=== PATIENT | female | born 1965 | race Caucasian/White ===

== ENCOUNTER 2016-09-12 03:22 | Inpatient (IN) | payer OTHER ==
[~2016-09-12] VITALS: Ht 157.5 cm; Wt 92.2 kg
--- NOTE | 2016-09-12 03:40 | ERA ---
ER Documentation Chief Complaint Date/Time DATE: 09/12/16 TIME: 03:39 Chief Complaint HPI He will transfer from [facility] secondary to sepsis from right foot cellulitis. Patient had an uneventful trip. From [place]. Symptomology started 1 week ago has been getting progressively worse. ROS All systems reviewed and are negative except as per history of present illness. Allergies Allergies: Coded Allergies: No Known Allergy (Unverified , 09/12/16) Physical Exam Physical Exam Const: [] Head: Atraumatic Eyes: Normal Conjunctiva ENT: Normal External Ears, Nose and Mouth. Neck: Full range of motion..~ No meningismus. Resp: Clear to auscultation bilaterally Cardio: Regular rate and rhythm, no murmurs Abd: Soft, non tender, non distended. Normal bowel sounds Skin: No petechiae or rashes Back: No midline or flank tenderness Ext: Right lower extremity increased erythema and induration up to midcalf Neur: Awake and alert Psych: Normal Mood and Affect Results 24 hrs Current Medications Medications (Trade) Dose Ordered Sig/Rachel Route PRN Reason Start Time Stop Time Status Last Admin Dose Admin Sodium Chloride (NS) 1,000 ml @ 1,000 mls/hr Q1H ONCE IV 09/12/16 04:00 09/12/16 04:59 Procedures/MDM Medical decision-making: Sepsis patient transferred to [place]. Admitted to hospitalist. Departure Diagnosis: Primary Impression: Sepsis Qualified Code: A41.9 - Sepsis, due to unspecified organism Condition: Serious KIM MEJIA Sep 12, 2016 03:40
[2016-09-12] MEDS ORDERED: SOD CHLORIDE 0.9% 1,000 ML IV ONE (04:00)
[2016-09-12] MEDS ORDERED: HYDR-906 PO (04:14)
[2016-09-12] MEDS ORDERED: RANI150T5 PO (04:14)
[2016-09-12] MEDS ORDERED: LISI-313 PO (04:14)
[2016-09-12] MEDS ORDERED: MTF1000T PO (04:14)
[2016-09-12] MEDS ORDERED: GLIP5TAB13 PO (04:14)
--- NOTE | 2016-09-12 07:10 | QN ---
Documentation Comment Patient has no criteria for tele admission, will downgrade to med surg bed. STEPHAN HICKMAN MD Sep 12, 2016 07:10
[2016-09-12] MEDS ORDERED: NACL 0.9% 3 ML SYG IV SCH (08:00)
[2016-09-12] MEDS ORDERED: VANCOMYCIN IV PER PHARMACY XX SCH (08:00)
[2016-09-12] MEDS ORDERED: ALBUTEROL/IPRATROPIUM (NEB) 3 ML AMP HHN PRN (08:00)
[2016-09-12] MEDS ORDERED: ONDANSETRON 4 MG INJ IV PRN (08:00)
[2016-09-12] MEDS ORDERED: VANCOMYCIN 1.5 GM in SOD CHLORIDE 0.9% 250 ML IVPB SCH ×2 (09:00→18:00)
[2016-09-12] MEDS: ASPIRIN 81 MG TAB PO SCH (09:32)
[2016-09-12] MEDS: SOD CHLORIDE 0.9% 1,000 ML IV SCH ×2 (09:32→20:35)
[2016-09-12 10:10] LABS: ADD SCAN DIFF NO
[2016-09-12 10:20] LABS: ABNORMAL IP MESSAGE 1; HEMATOCRIT 28.6 % (37.0-47.0); HEMOGLOBIN 8.8 g/dl (12.0-16.0); MEAN CORPUSCULAR HEMOGLOBIN 26.7 pg (29.0-33.0); MEAN CORPUSCULAR HGB CONC 30.8 g/dl (32.0-37.0); MEAN CORPUSCULAR VOLUME 86.7 fl (82.0-101.0); MEAN PLATELET VOLUME 10.6 fl (7.4-10.4); PLATELET COUNT 304 10^3/UL (140-415); RED CELL DISTRIBUTION WIDTH 12.8 % (11.5-14.5); WHITE BLOOD COUNT 15.2 10^3/ul (4.8-10.8)
[2016-09-12] MEDS ORDERED: GLUCOSE GEL 15 GRAM TUBE PO PRN ×2 (10:30)
[2016-09-12] MEDS ORDERED: GLUCAGON 1 MG INJ IM PRN (10:30)
[2016-09-12] MEDS ORDERED: DEXTROSE 50% 50 ML SYRINGE IV PRN ×2 (10:30)
[2016-09-12] MEDS ORDERED: GLUCOSE GEL 15 GRAM TUBE BUCCAL PRN (10:30)
[2016-09-12] MEDS ORDERED: INSULIN GLARGINE [LANtus] 3 ML PEN SC SCH ×2 (10:30→21:00)
[2016-09-12 10:41] LABS: ALBUMIN 2.9 g/dl (3.3-4.9); ALBUMIN/GLOBULIN RATIO 1.2; CALCIUM 7.8 mg/dl (8.4-10.2); CHOL/HDL RATIO 3.7 RATIO; CREATININE 0.48 mg/dl (0.44-1.00); POTASSIUM 4.9 mmol/L (3.5-5.1); TOTAL PROTEIN 5.3 g/dl (6.1-8.1)
[2016-09-12 10:47] LABS: LYMPHOCYTES # 0.8 10^3/ul (0.8-2.9); MONOCYTE # 1.5 10^3/ul (0.3-0.9); NEUTROPHIL # 12.3 10^3/ul (1.6-7.5); PLATELET ESTIMATE PLT APPEAR ADEQUATE
[2016-09-12] MEDS: INSULIN ASPART [NOVOLOG] 3 ML PEN SC SCH ×5 (13:35→20:40)
[2016-09-12] MEDS ORDERED: VANCOMYCIN 1 GM in NS 250 ML IVPB SCH (16:00)
[2016-09-12] MEDS: ACETAMINOPHEN 325 MG TAB PO PRN (18:37)
[2016-09-12 18:39] VITALS: TEMP 98.6
[2016-09-12 20:00] VITALS: BP 105/56; PULSE 105; RESP 20
[2016-09-12] MEDS: LACTOBACILLUS RHAMNOSUS CAP PO SCH (20:35)
[2016-09-12 21:00] VITALS: BP 105/56; RESP 20
[2016-09-12] MEDS ORDERED: SOD CHLORIDE 0.9% 250 ML IV ONE (21:00)
[2016-09-12] MEDS ORDERED: INSULIN ASPART [NOVOLOG] 3 ML PEN SC ONE (21:00)
[2016-09-12 22:00] VITALS: Ht 157.5 cm; Wt 92.2 kg
[2016-09-12] MEDS: morphine 2 MG INJ IV PRN (23:17)
[2016-09-13] MEDS: VANCOMYCIN 1 GM in NS 250 ML IVPB SCH ×2 (00:26→10:08)
[2016-09-13 08:05] LABS: ADD SCAN DIFF NO
--- NOTE | 2016-09-13 08:07 | HP ---
DATE OF ADMISSION: 09/12/2016 TIME SEEN: 7:00 a.m. CHIEF COMPLAINT: Right lower extremity infection and elevated blood glucose. HISTORY OF PRESENT ILLNESS: The patient is a 51-year-old female with a history of diabetes, hype rtension, who initially went to [facility] with right lower extremity wound abscess/i nfection. While she was there, she was diagnosed with right lower extremity cellulitis and at the s jeff time, she was found to be hyperglycemic with a blood glucose of greater than 500 and also with m etabolic acidosis with a bicarbonate of 17. Her initial anion gap was 25. Repeat blood tests after insulin and IV fluid shows anion gap of 20 with similar bicarbonate and blood glucose in the 300s. The patient was transferred here because of ____ reasons. She was supposed to be directly admitted to telemetry unit. However, because there were no beds were available, she was directly transferre d from the [place] ER to our ER here. When she presented to the ER here, her blood pressure was 87, ALT 69, heart rate 91, respiratory rat e 16, temperature 98.6, oxygen saturation 100% on room air. Currently, labs are pending. When she was given nitro ____. The patient denied any fever, chills, nausea, vomiting, abdominal pain, or u rinary symptoms. REVIEW OF SYSTEMS: A 12-point review was done and essentially negative.____ PAST MEDICAL HISTORY: Hypertension and diabetes. PAST SURGICAL HISTORY: . SOCIAL HISTORY: Denied a history of tobacco, alcohol or illicit drug use. ALLERGIES: NO KNOWN DRUG ALLERGIES. HOME MEDICATIONS: 1. Lisinopril. 2. Welchol. 3. Ranitidine. 4. Glipizide. 5. Metformin. PHYSICAL EXAMINATION: VITAL SIGNS: Blood pressure 113/74, heart rate 91, respiratory rate 18, temperature 98.8, saturatio n 96% on room air. GENERAL: No acute distress. She is lying on the gurney, alert and oriented. HEENT: No obvious head deformity. ____Extraocular muscles intact. CARDIOVASCULAR: Regular rate and rhythm with ____extra sounds. LUNGS: Are clear. ABDOMEN: Soft, nontender, nondistended. Positive bowel sounds. EXTREMITIES: Right lower extremity with cellulitis/infection. LABORATORY: Currently pending here. IMPRESSION: 1. Right lower extremity cellulitis and infection. 2. Diabetes with hyperglycemia (there is mild diabetic ketoacidosis at the outside hospital). 3. History of hypertension, currently blood pressure within goal. PLAN: We will check the basic labs with fingerstick blood glucose. She will be placed on antibioti cs for osteomyelitis. She also will be placed on insulin for her diabetes. Will check A1c. We chay l also order for blood cultures. She will be placed on IV fluids, especially given that initially s he presented with borderline hypotension. We will provide pain medication as needed. Further workup and management per clinical course. Dictated By: KIM PADGETT/SEPIDEH Conf#: [id number] DID#: [id number]
[2016-09-13 08:12] LABS: BASOPHILS % 0.2 % (0.0-2.0); EOSINOPHILS % 0.3 % (0.0-7.0); HEMATOCRIT 26.4 % (37.0-47.0); HEMOGLOBIN 8.5 g/dl (12.0-16.0); LYMPHOCYTES # 1.2 10^3/ul (0.8-2.9); LYMPHOCYTES % 11.8 % (15.0-51.0); MEAN CORPUSCULAR HGB CONC 32.2 g/dl (32.0-37.0); MEAN CORPUSCULAR VOLUME 83.8 fl (82.0-101.0); MEAN PLATELET VOLUME 10.5 fl (7.4-10.4); MONOCYTES % 9.4 % (0.0-11.0); NEUTROPHIL # 8.2 10^3/ul (1.6-7.5); NEUTROPHILS % 77.5 % (39.0-77.0); PLATELET COUNT 297 10^3/UL (140-415); RED BLOOD COUNT 3.15 10^6/ul (4.20-5.40); RED CELL DISTRIBUTION WIDTH 12.9 % (11.5-14.5); WHITE BLOOD COUNT 10.6 10^3/ul (4.8-10.8)
[2016-09-13] MEDS: SOD CHLORIDE 0.9% 1,000 ML IV SCH ×3 (08:15→17:44)
[2016-09-13] MEDS: LACTOBACILLUS RHAMNOSUS CAP PO SCH ×2 (08:16→20:51)
[2016-09-13] MEDS: ASPIRIN 81 MG TAB PO SCH (08:16)
[2016-09-13] MEDS: ENOXAPARIN 40 MG/0.4 ML SYG SC SCH (08:19)
[2016-09-13] MEDS: INSULIN ASPART [NOVOLOG] 3 ML PEN SC SCH ×7 (08:20→21:01)
[2016-09-13 08:21] VITALS: BP 106/56; RESP 20
[2016-09-13 08:29] LABS: CALCIUM 8.1 mg/dl (8.4-10.2); CREATININE 0.34 mg/dl (0.44-1.00); MAGNESIUM 1.7 mg/dl (1.7-2.5); PHOSPHORUS 1.6 mg/dl (2.5-4.9); POTASSIUM 3.5 mmol/L (3.5-5.1)
[2016-09-13 08:37] LABS: TOTAL IRON BINDING CAPACITY 227 ug/dl (241-421)
[2016-09-13 08:45] LABS: INR 1.07; PROTIME 13.9 Sec (12.2-14.2); PT RATIO 1.1
[2016-09-13 08:57] LABS: IRON < 10 ug/dl (35-150)
[2016-09-13] MEDS ORDERED: INSULIN GLARGINE [LANtus] 3 ML PEN SC ONE (13:00)
[2016-09-13] MEDS ORDERED: POTASSIUM PHOSPHATE 30 MM in SOD CHLORIDE 0.9% 250 ML IVPB ONE (13:00)
[2016-09-13] MEDS ORDERED: MAGNESIUM SULFATE 2 GM/50 ML 50 ML IVPB ONE (13:00)
--- NOTE | 2016-09-13 13:16 | PN ---
Date/Time of Note Date/Time of Note DATE: 09/13/16 TIME: 13:13 Assessment/Plan VTE Prophylaxis VTE Prophylaxis Intervention: LMWH Lines/Catheters IV Catheter Type (from Nrs): Peripheral IV Assessment/Plan Chief Complaint/Hosp Course S: Daughter noticed painful ulcer right plantar aspect maybe 1 week ago. No generalized fever chills nausea vomiting toxicity. Denies injury, wears tennis shoes. Over the last year has had this issue which was treated with 2 courses of antibiotics in [place]. She was told not to put a lot of weight on her foot but continues to go to work. She additionally has a nontraumatic fracture of the same foot in the past. O: vss PE No pallor adenopathy Reg Clear Bs +; nt nd benign; overweight Mild edema rt ankle/ foot. Rt ulcer dressed with some seepage A/P 1. Skin and soft tissue infection Rt plantar ulcer. Stable consult ID/podiatry. Cont wound care & antibiotics as needed, and potentially offload/boot. 2. DFI 3. Dm 2- out of control; metabolic syndrome 4. Htn 5. Anemia 6. Probable diabetic neuropathy. Problems: Exam/Review of Systems Vital Signs Vitals Vital Signs Date Time Temp Pulse Resp B/P Pulse Ox O2 Delivery O2 Flow Rate FiO2 09/13/16 08:21 99.6 91 20 106/56 96 09/12/16 20:00 Room Air Intake and Output 09/12/16 09/12/16 09/13/16 15:00 23:00 07:00 Intake Total 250 ml 1480 ml Balance 250 ml 1480 ml Results Result Diagram: 09/13/16 0757 09/13/16 0757 Results 24 hrs Laboratory Tests Test 09/12/16 13:30 09/12/16 20:37 09/13/16 07:57 09/13/16 08:13 Bedside Glucose 256 H 376 H 243 H White Blood Count 10.6 # Red Blood Count 3.15 L Hemoglobin 8.5 L Hematocrit 26.4 L Mean Corpuscular Volume 83.8 Mean Corpuscular Hemoglobin 27.0 L Mean Corpuscular Hemoglobin Concent 32.2 Red Cell Distribution Width 12.9 Platelet Count 297 Mean Platelet Volume 10.5 H Neutrophils % 77.5 H Lymphocytes % 11.8 L Monocytes % 9.4 Eosinophils % 0.3 Basophils % 0.2 Nucleated Red Blood Cells % 0.0 Neutrophils # 8.2 H Lymphocytes # 1.2 Monocytes # 1.0 H Eosinophils # 0.0 Basophils # 0.0 Nucleated Red Blood Cells # 0.0 Prothrombin Time 13.9 Prothrombin Time Ratio 1.1 INR International Normalized Ratio 1.07 Sodium Level 139 Potassium Level 3.5 Chloride Level 109 Carbon Dioxide Level 21 Anion Gap 13 Blood Urea Nitrogen 9 Creatinine 0.34 L Glucose Level 242 H Calcium Level 8.1 L Phosphorus Level 1.6 L Magnesium Level 1.7 Iron Level < 10 L Total Iron Binding Capacity 227 L Percent Iron Saturation Ferritin 84.2 Thyroid Stimulating Hormone (TSH) 0.979 Serum HCG, Qualitative NEGATIVE Vancomycin Level Trough 9.1 L Test 09/13/16 12:07 Bedside Glucose 262 H Medications Medications Current Medications Sodium Chloride (NS) 1,000 ml @ 125 mls/hr Q8H IV Last administered on 08:15; Admin Dose 125 MLS/HR; Start 09/12/16 at 08:00 Ondansetron HCl (Zofran Inj) 4 mg Q6H PRN IV NAUSEA AND/OR VOMITING; Start 09/12 at 08:00 Aspirin (Aspirin) 81 mg DAILY PO Last administered on 09/13/16 08:16; Admin Dose 81 MG; Start 09/12/16 at 09:00 Acetaminophen (Tylenol Tab) 650 mg Q6H PRN PO PAIN LEVEL 1-3 OR FEVER Last administered on 09/12/16 18:37; Admin Dose 650 MG; Start 09/12/16 at 08:00 Morphine Sulfate (morphine) 2 mg Q4H PRN IV PAIN LEVEL 7-10 Last administered on 09/12/16 23:17; Admin Dose 2 MG; Start 09/12/16 at 08:00 Miscellaneous Information 1 ea NOTE XX ; Start 09/12/16 at 10:30 Glucose (Glutose) 15 gm Q15M PRN PO DECREASED GLUCOSE; Start 09/12/16 at 10:30 Glucose (Glutose) 22.5 gm Q15M PRN PO DECREASED GLUCOSE; Start 09/12/16 at 10:30 Dextrose (D50w Syringe) 25 ml Q15M PRN IV DECREASED GLUCOSE; Start 09/12/16 at 10:30 Dextrose (D50w Syringe) 50 ml Q15M PRN IV DECREASED GLUCOSE; Start 09/12/16 at 10:30 Glucagon (Glucagen) 1 mg Q15M PRN IM DECREASED GLUCOSE; Start 09/12/16 at 10:30 Glucose (Glutose) 15 gm Q15M PRN BUCCAL DECREASED GLUCOSE; Start 09/12/16 at 10: 30 Lactobacillus Acidophilus/ Rhamnosus (Culturelle) 1 cap BID PO Last administered on 09/13/16 08:16; Admin Dose 1 CAP; Start 09/12/16 at 21:00 Enoxaparin Sodium 40 mg 40 mg DAILY SC Last administered on 09/13/16 08:19; Admin Dose 40 MG; Start 09/13/16 at 09:00 Magnesium Sulfate 50 ml @ 25 mls/hr ONCE ONCE IVPB ; Start 09/13/16 at 13:00; Stop 09/13/16 at 14:59 Potassium Phosphate/Sodium Chloride (K Phos (Mm)/NS) 260 ml @ 65 mls/hr ONCE ONCE IVPB ; Start 09/13/16 at 13:00; Stop 09/13/16 at 16:59 Insulin Glargine 30 unit 30 unit HS SC ; Start 09/13/16 at 21:00 Vancomycin HCl/ Sodium Chloride (Vancocin/NS) 250 ml @ 83.333 mls/ hr Q8H IVPB ; Start 09/13/16 at 18:00 JONAH LI MD Sep 13, 2016 13:16
[2016-09-13] MEDS ORDERED: LACTOBACILLUS RHAMNOSUS CAP PO SCH (13:30)
--- NOTE | 2016-09-13 15:29 | RADRPT ---
PROCEDURE: XR Foot. CLINICAL INDICATION: Wound/also a. TECHNIQUE: Right foot x-rays, three views. COMPARISON: None. FINDINGS: Bone density appears normal. There is no visible osseous erosion. There is no evidence of periostit is. Degenerative changes of the medial aspect of the midfoot are present. Marked soft tissue swelli ng of the medial aspect of the foot is observed. There is suggestion of scattered few pockets of so ft tissue air. A small plantar calcaneal spur is present. An old fracture of the proximal second p halanx is observed. IMPRESSION: Marked focal soft tissue swelling over the medial aspect of the foot with suggestion of scattered fe w pockets of internal air. There is no obvious bony erosion or evidence of periostitis. Healed fracture of the proximal second phalanx. Degenerative changes of the medial aspect of the midfoot. RPTAT: HLST .Daniela Hicks MD, Date Time Electronically viewed and signed by .Daniela Hicks MD, MD on 09/13/2016 15:28 .T/
--- NOTE | 2016-09-13 16:32 | CONS ---
DATE OF ADMISSION: 09/12/2016 DATE OF CONSULTATION: 09/13/2016 TYPE OF CONSULTATION: Infectious Disease. REASON FOR CONSULTATION: Antibiotic management. HISTORY OF PRESENT ILLNESS: Maryuri Del Real is a 51-year-old female who presents with right lower ex tremity infection and elevated blood sugar. Past problems include: 1. Adult-onset diabetes mellitus. 2. Hypertension. 3. Status post in the past. Acutely, the patient presented to [facility] with right lower extremity wound abscess /infection. She was diagnosed with right lower extremity cellulitis and she was found to be hypergl ycemic with blood sugar greater than 500 with metabolic acidosis and a bicarbonate of 17. Her anion gap was 25. She received insulin and fluids and her blood glucose came down to 300s. She was waller sferred from one ER to the other. On admission, her white count was 15.2, H and H of 8.8 and 28.6, platelet count of 304,000. On 09/13/2016, white count was 10.6. BUN and creatinine 9/0.34. Random glucose 376, though as noted on admission it was higher. PAST MEDICAL HISTORY: Operations as outlined. PAST SURGICAL HISTORY: As outlined. SOCIAL HISTORY: She denies smoking, drinking or abuse of drugs. FAMILY HISTORY: Noncontributory. ALLERGIES: NONE TO PENICILLIN, SULFA OR FOODS. MEDICATIONS: Per chart. REVIEW OF SYSTEMS: As per HPI. PHYSICAL EXAMINATION: GENERAL: The patient is a well-developed, well-nourished female, alert, responsive, in no acute dis tress. VITAL SIGNS: Stable. She is afebrile. SKIN: Without generalized rash. HEENT: Within normal limits. NECK: Supple. LYMPH NODES: None palpable. CHEST: Decreased breath sounds at the bases. HEART: Without murmur or gallop. ABDOMEN: Soft, nontender, without organosplenomegaly or masses. EXTREMITIES: Without cyanosis, clubbing, or edema. She has cellulitis of the right lower extremity . PLAN: She was placed on antibiotics for osteomyelitis. Also, given insulin. She was started on va ncomycin. I will continue her on that. I will dictate my findings to the hospitalist. Dictated By: SUZAN LAW MD, JD/SEPIDEH Conf#: [id number] [facility]#: [id number]
[2016-09-13] MEDS: SOD FERRIC GLUC COMPLX 125 MG in SOD CHLORIDE 0.9% 100 ML IVPB SCH (17:39)
--- NOTE | 2016-09-13 17:57 | CONS ---
DATE OF ADMISSION: 09/12/2016 DATE OF CONSULTATION: 09/13/2016 Thank you very much for involving me in the care of this patient. TYPE OF CONSULTATION: Initial foot and ankle surgery consultation. As you very well know, this is a 51-year-old female patient with multiple medical problems including diabetes mellitus and hypertension who initially presented to [facility] with right lower extremity wound and abscess. She was diagnosed with right lower extremity cellulit is and was found to be hypoglycemic with a blood glucose of 500+ with metabolic acidosis. The patie nt was transferred to [facility] because of insurance reasons. She is found to villa ve a severe right foot infection with cellulitis of the right lower extremity. I was consulted for evaluation and treatment. Patient states that she has been having issues with the right foot with a n open wound for quite some time. She says she was being treated in [place] by her loan specialist, which included dressing changes and topical ointment. The patient says that the foot became very sw ollen and she started having fever and chills. She says that the redness of the right foot became w orse and now has become extremely large. The patient denies fever and chills today. Denies pain in the right lower extremity. Patient has no complaints of anything on her left foot. She reports sh e has been diagnosed with diabetes recently and takes pills and insulin. REVIEW OF SYSTEMS: A 12-point review was done and essentially negative except per HPI. PAST MEDICAL HISTORY: As per HPI. PAST SURGICAL HISTORY: section. SOCIAL HISTORY: The patient denies smoking cigarettes. Denies use of alcohol or illegal drugs. ALLERGIES: NO KNOWN DRUG ALLERGIES NOTED. HOME MEDICATIONS: Include: 1. Lisinopril. 2. Welchol. 3. Ranitidine. 4. Glipizide. 5. Metformin. PHYSICAL EXAMINATION: GENERAL: The patient is morbidly obese, in no acute distress. She is currently on IV antibiotics, lying supine in bed. VITAL SIGNS: Temperature is 99.6, pulse 91, respiratory rate 20, blood pressure is 106/56, pulse ox is 96. Right foot is significantly swollen with the mid foot protrusion and abscess formation, antonietta lulitis of the right foot, ankle and lower leg noted. There is significant decrease in temperature gradient of the right lower extremity. Open wound present with maceration and the blister formation on the plantar aspect of the right foot, malodor noted. Deformity of the mid foot present with pal pable bony prominence dorsally. Dorsalis pedis, posterior tibial pulse is palpable on the left but not palpable on the right secondary to the edema present. Capillary refill time is delayed. Sensat ion is decreased to sharp, dull, vibratory and temperature stimuli. Her white blood count is 15.2 a s of 09/12/2016 down to 10.6 today. Hemoglobin is 8.5, hematocrit 26.4. There is no hemoglobin A1c as of yet. X-rays of the right foot were obtained. MRI is pending. There is marked focal soft ti ssue swelling over the medial aspect of the foot with pockets of internal air. There is a correspon ding open wound, Charcot changes and degenerative changes of the mid foot noted as well. Again, MRI is pending. IMPRESSION: 1. Right lower extremity cellulitis. 2. Abscess, right foot with cellulitis of the right foot. 3. Charcot right foot. 4. Diabetes mellitus with hyperglycemia, uncontrolled. 5. Possible osteomyelitis of the right foot. The patient will require surgical management and will be placed on OR schedule as soon as possible. Patient will have initial incision and drainage with debridement of necrotic tissue. She will requ alysia IV antibiotics. I highly recommend Infectious Disease involvement, nonweightbearing on the righ t foot. The patient will be placed n.p.o. as of midnight and I will try to place her on the sched e for tomorrow. Thank you very much again for the consultation. Dictated By: COLETTE QUINTANILLA Conf#: [id number] DID#: [id number]
[2016-09-13] MEDS: VANCOMYCIN 1.25 GM in SOD CHLORIDE 0.9% 250 ML IVPB SCH (19:40)
[2016-09-13 20:02] VITALS: BP 108/57; RESP 19
[2016-09-13] MEDS: ACETAMINOPHEN 325 MG TAB PO PRN (20:50)
[2016-09-13] MEDS: SILVER SULFADIAZINE 1% 25 GM CR TOP SCH (20:51)
[2016-09-13] MEDS: SODIUM HYPOCHLORITE 0.125% 473 ML BTL IRR SCH (20:51)
[2016-09-13] MEDS ORDERED: INSULIN GLARGINE [LANtus] 3 ML PEN SC SCH (21:00)
[2016-09-13] MEDS ORDERED: MAGNESIUM HYDROXIDE 30ML CUP PO ONE (21:30)
[2016-09-14] VITALS (19 sets, daily range): BP systolic 83–153; BP diastolic 43–90; PULSE 80–100; RESP 13–19
[2016-09-14] MEDS: VANCOMYCIN 1.25 GM in SOD CHLORIDE 0.9% 250 ML IVPB SCH ×3 (01:58→19:23)
[2016-09-14] MEDS: ACETAMINOPHEN 325 MG TAB PO PRN ×2 (04:40→20:07)
[2016-09-14] MEDS: INSULIN ASPART [NOVOLOG] 3 ML PEN SC SCH ×7 (07:35→20:15)
[2016-09-14] MEDS: SOD CHLORIDE 0.9% 1,000 ML IV SCH ×3 (08:25→17:20)
[2016-09-14] MEDS: SILVER SULFADIAZINE 1% 25 GM CR TOP SCH (09:00)
[2016-09-14] MEDS: ASPIRIN 81 MG TAB PO SCH (09:00)
[2016-09-14] MEDS: SODIUM HYPOCHLORITE 0.125% 473 ML BTL IRR SCH (09:00)
[2016-09-14] MEDS: SENNA TAB PO SCH (09:00)
[2016-09-14] MEDS: LACTOBACILLUS RHAMNOSUS CAP PO SCH ×2 (09:00→20:07)
[2016-09-14] MEDS: ENOXAPARIN 40 MG/0.4 ML SYG SC SCH (09:00)
[2016-09-14] MEDS ORDERED: GLUCAGON 1 MG INJ IM PRN (10:30)
[2016-09-14] MEDS ORDERED: hydrALAzine 20 MG INJ IV PRN (10:30)
[2016-09-14] MEDS ORDERED: FENTAnyl 50 MCG/ML VIAL IV PRN (10:30)
[2016-09-14] MEDS ORDERED: PROCHLORPERAZINE 10 MG INJ IV PRN (10:30)
[2016-09-14] MEDS ORDERED: HYDROmorphONE (0.2 MG/ML) 10ML SYG IV PRN ×2 (10:30)
[2016-09-14] MEDS ORDERED: DIPHENHYDRAMINE 50 MG INJ IV PRN (10:30)
[2016-09-14] MEDS ORDERED: GLUCOSE GEL 15 GRAM TUBE BUCCAL PRN (10:30)
[2016-09-14] MEDS ORDERED: MEPERIDINE 25 MG INJ IV PRN (10:30)
[2016-09-14] MEDS ORDERED: LABETALOL HCL 20MG INJ IV PRN (10:30)
[2016-09-14] MEDS ORDERED: DEXTROSE 50% 50 ML SYRINGE IV PRN ×2 (10:30)
[2016-09-14] MEDS ORDERED: ONDANSETRON 4 MG INJ IV PRN (10:30)
[2016-09-14] MEDS ORDERED: OXYCODONE/ACETAMINOPHEN (5/325) TAB PO PRN (10:30)
[2016-09-14] MEDS ORDERED: EPHEDrine SULFATE 50 MG/5 ML SYG IV PRN (10:30)
[2016-09-14] MEDS ORDERED: GLUCOSE GEL 15 GRAM TUBE PO PRN ×2 (10:30)
[2016-09-14] MEDS ORDERED: INSULIN ASPART [NOVOLOG] 3 ML PEN SC ONE (10:30)
[2016-09-14] MEDS ORDERED: LIDOCAINE 2% (MDV) 20 ML INJ ONE (10:40)
[2016-09-14] MEDS ORDERED: BUPIVACAINE 0.5% (SDV) 30 ML INJ ONE (10:40)
--- NOTE | 2016-09-14 11:10 | HPN ---
Date/Time of Note Date/Time of Note DATE: 09/14/16 TIME: 11:09 Interval H&P Admission Note Pt. seen H&P reviewed: No system changes COLETTE MCQUEEN DPM Sep 14, 2016 11:09
[2016-09-14] MEDS ORDERED: FENTAnyl 50 MCG/ML VIAL ONE (11:37)
[2016-09-14] MEDS ORDERED: LIDOCAINE 2% (SDV) 5 ML INJ ONE (11:37)
[2016-09-14] MEDS ORDERED: MIDAZOLAM 1 MG/ML 2 ML INJ ONE (11:37)
[2016-09-14] MEDS ORDERED: PROPOFOL 20 ML ONE (11:37)
[2016-09-14] MEDS ORDERED: PHENYLephrine (100 MCG/ML) 5ML SYG ONE (12:34)
[2016-09-14] MEDS ORDERED: ONDANSETRON 4 MG INJ ONE (12:37)
[2016-09-14] MEDS ORDERED: METOCLOPRAMIDE 10 MG INJ ONE (12:37)
[2016-09-14] MEDS ORDERED: EPHEDrine SULFATE 50 MG/5 ML SYG ONE (12:50)
[2016-09-14] MEDS ORDERED: BACITRACIN 50000 UNITS INJ IRR ONE (12:59)
--- NOTE | 2016-09-14 13:07 | OPR ---
Date/Time of Note Date/Time of Note DATE: 09/14/16 TIME: 13:07 Operative Report Procedure Date: Sep 14, 2016 Preoperative Diagnosis Abscess with cellulitis of right foot Right foot severe Charcot deformity Morbid obesity Diabetes mellitus Peripheral neuropathy Postoperative Diagnosis Abscess with cellulitis of right foot Right foot severe Charcot deformity Morbid obesity Diabetes mellitus Peripheral neuropathy Operation Performed Incision and drainage right foot cellulitis with abscess to the level of bone Surgeon: COLETTE MCQUEEN DPM Anesthesia: general Estimated Blood Loss: minimal Specimens Wound culture 2 from the right foot Complications: None Pt Condition Post Procedure: stable Disposition: PACU Indications This is a pleasant 51-year-old female patient who has been suffering with right foot abscess with cellulitis for the past several weeks. Patient suffers from severe right foot Charcot deformity and has diabetes mellitus with peripheral neuropathy. Patient has been mismanaged and has developed significant worsening of her right foot requiring incision and drainage. Patient will eventually require reconstructive Charcot surgery to correct the extensive deformity that is present. Initial goal is to reduce the infection process and to stabilize her foot. Risks and complications discussed included, but are not limited to, postoperative infection, postoperative pain, hardware failure, failure of surgery to correct the problem, need for additional surgical procedures, deep venous thrombosis, limb loss and loss of life. Patient understands the discussion and agrees to the procedure. An informed consent was signed, obtained and placed in the chart. No guarantees or warrantees was given or implied as to the outcome of the procedure either in verbal or written form. Operative\Procedure Findings Severe right foot Charcot deformity with abscess and cellulitis. Multiple open necrotic wounds and pus. Malodor from the right foot. Procedure Description The patient was seen in the preoperative area. Proposed surgery was discussed with patient in great detail. Opportunity was given to patient to ask questions and all questions were answered. An informed consent was obtained, signed and placed in the chart. Procedure in detail: The patient was brought into the operating room and was placed on the operating table in the supine position. General anesthesia was administered to the patient by the anesthesiologist. The right foot was scrubbed, prepped and draped in the usual aseptic manner. Procedure #1: Attention was directed to the right foot: Using sharp instrumentation such as #15 blade, rongeur, curettes etc. all necrotic open wounds were debrided to bleeding wounds. There was extensive amount of pus that was expressed and there were cultures taken from 2 different spots. 3 L of sterile normal saline with bacitracin was used with pulse irrigation to irrigate the right foot. All open areas were packed with iodoform packing. Sterile dressing was applied to the right foot. The patient tolerated the procedure and anesthesia well. She was transferred to the recovery room with vital signs stable and vascular status intact to the right foot. Patient will be sent to the floor after postoperative monitoring. Postoperative orders have been written. Patient will be followed up in-house. COLETTE MCQUEEN DPM Sep 14, 2016 13:07
--- NOTE | 2016-09-14 16:25 | PN ---
DATE: 09/14/2016 INFECTIOUS DISEASE PROGRESS NOTE SUBJECTIVE: No changes. No fevers. The patient is lying comfortably in bed. No labs today. ANTIMICROBIALS: She is on vancomycin. PHYSICAL EXAMINATION: GENERAL: Well-developed, middle-aged woman, in no distress. HEENT: Head atraumatic, normocephalic. Sclerae anicteric. Buccal mucosa dry. NECK: Supple. CHEST: Chest rise is symmetrical. Breath sounds clear. HEART: S1, S2. ABDOMEN: Soft, bowel tones present. EXTREMITIES: With right lower extremity erythema. ASSESSMENT: 1. Right lower extremity cellulitis with abscess and Charcot deformity. 2. Poorly controlled diabetes. 3. Hypertension and anemia. PLAN: The patient remains stable. Continue the present care and antibiotics. Await for I and D an d follow cultures and podiatry recommendations. Dictated By: JANN SANDOVAL HAND WINDER for SUZAN RODRÍGUEZ/NTS Conf#: [id number] DID#: [id number]
[2016-09-14] MEDS: SOD FERRIC GLUC COMPLX 125 MG in SOD CHLORIDE 0.9% 100 ML IVPB SCH (17:18)
--- NOTE | 2016-09-14 18:48 | HP ---
DATE OF ADMISSION: 09/12/2016 VASCULAR SURGERY CONSULTATION. Dear Doctors: Ms. Del Real is a 51-year-old female, who presented to [facility] secondary to right lower extremity diabetic foot infection and gangrene. It seems that the patient had developed a ri ght lower extremity cellulitis and abscess that was seen at an outside hospital and was given antibi otics; however, the patient's condition tended to get worse with worsening infection over the past w [place]. At the moment she denies shortness of breath, chest pain, nausea, vomiting, fever or chills. Patient underwent incision and drainage with our podiatry colleagues. REVIEW OF SYSTEMS: A 12-point review performed and negative except what is mentioned in the HPI. PAST MEDICAL HISTORY: Entails morbidly obese, BMI of 37, hypertension, diabetes, coronary artery di sease, diabetic neuropathy. PAST SURGICAL HISTORY: . SOCIAL HISTORY: Denies tobacco, alcohol or illicit drug use. FAMILY HISTORY: Positive for hypertension, diabetes. PHYSICAL EXAMINATION: GENERAL: Alert and oriented x3, no apparent distress. HEENT: Normocephalic, atraumatic. PERRLA, EOMI. Mucosa moist. NECK: Supple. No carotid bruit. PULMONARY: Clear to auscultation bilaterally. No crackles. CARDIOVASCULAR: S1, S2 present. No murmurs. ABDOMEN: Soft, nontender, nondistended. Bowel sounds positive. Truncal obesity. Right lower extremity palpable femoral pulse. Unable to palpate the pedal pulse secondary to dressi ng being intact. Motor, sensory intact. Capillary refill 2 to 3 seconds. Left lower extremity palpable femoral pulse, palpable pedal pulse. Motor, sensory intact. Capillar y refill 2 to 3 seconds. No ulcers. ASSESSMENT AND PLAN: Bilateral lower extremity atherosclerosis and right lower extremity diabetic foot infection. It see ms the patient has developed significant infection in which she requires debridement and IV antibiot ics. It seems that her infection is likely related to her diabetes more so than her atherosclerotic disease. We will plan to obtain bilateral lower extremity ultrasound studies to evaluate her infra inguinal perfusion. At the moment, continue with intravenous antibiotics and will plan to evaluate the wound with our podiatry colleagues. Optimize vascular status (BP meds, diet, nutrition, exercise, sugar control, antiplatelets). Discussed weight loss and nutrition improvement. Discussed findings, plan and management with the patient, she understands. Thank you for allowing us to partake in the care of your patient. Please call with any questions. Dictated By: LIDIA RIVAS/SEPIDEH Conf#: [id number] DID#: [id number]
--- NOTE | 2016-09-14 19:18 | PN ---
Date/Time of Note Date/Time of Note DATE: 09/14/16 TIME: 19:15 Assessment/Plan VTE Prophylaxis VTE Prophylaxis Intervention: LMWH Lines/Catheters IV Catheter Type (from Nrs): Peripheral IV Assessment/Plan Chief Complaint/Hosp Course S: 09/13 daughter noticed painful ulcer right plantar aspect maybe 1 week ago. No generalized fever chills nausea vomiting toxicity. Denies injury, wears tennis shoes. Over the last year has had this issue which was treated with 2 courses of antibiotics in [place]. She was told not to put a lot of weight on her foot but continues to go to work. She additionally has a nontraumatic fracture of the same foot in the past. 09/14: Events noted. Mild pain controlled. No fever dyspnea toxicity. O: vss PE No pallor Reg Clear Bs +; nt nd benign; overweight Mild edema rt ankle/ foot. Rt ulcer dressed A/P 1. Skin and soft tissue infection Rt plantar ulcer/abscess. sp I&D abscess. Stable cont nwb, wound care, antibiotics. 2. DFI 3. Dm 2- out of control; metabolic syndrome 4. Htn 5. Anemia 6. Probable diabetic neuropathy. 7. Charcot foot? ho nontraumatic fracture Problems: Exam/Review of Systems Vital Signs Vitals Vital Signs Date Time Temp Pulse Resp B/P Pulse Ox O2 Delivery O2 Flow Rate FiO2 09/14/16 14:25 80 17 130/77 98 Nasal Cannula 2.0 09/14/16 13:12 98.0 Intake and Output 09/13/16 09/13/16 09/14/16 15:00 23:00 07:00 Intake Total 250 ml 1420 ml 2100 ml Balance 250 ml 1420 ml 2100 ml Results Result Diagram: 09/13/16 0757 09/13/16 0757 Results 24 hrs Laboratory Tests Test 09/13/16 20:59 09/14/16 08:21 09/14/16 10:17 09/14/16 13:17 Bedside Glucose 287 H 243 H 241 H 207 Test 09/14/16 17:10 09/14/16 17:13 Vancomycin Level Trough 12.6 Bedside Glucose 216 Medications Medications Current Medications Sodium Chloride (NS) 1,000 ml @ 125 mls/hr Q8H IV Last administered on t 17:20; Admin Dose 125 MLS/HR; Start 09/12/16 at 08:00 Ondansetron HCl (Zofran Inj) 4 mg Q6H PRN IV NAUSEA AND/OR VOMITING; Start 09/12 at 08:00 Aspirin (Aspirin) 81 mg DAILY PO Last administered on 09/13/16 08:16; Admin Dose 81 MG; Start 09/12/16 at 09:00 Acetaminophen (Tylenol Tab) 650 mg Q6H PRN PO PAIN LEVEL 1-3 OR FEVER Last administered on 09/14/16 04:40; Admin Dose 650 MG; Start 09/12/16 at 08:00 Morphine Sulfate (morphine) 2 mg Q4H PRN IV PAIN LEVEL 7-10 Last administered on 09/12/16 23:17; Admin Dose 2 MG; Start 09/12/16 at 08:00 Miscellaneous Information 1 ea NOTE XX ; Start 09/12/16 at 10:30 Glucose (Glutose) 15 gm Q15M PRN PO DECREASED GLUCOSE; Start 09/12/16 at 10:30 Glucose (Glutose) 22.5 gm Q15M PRN PO DECREASED GLUCOSE; Start 09/12/16 at 10:30 Dextrose (D50w Syringe) 25 ml Q15M PRN IV DECREASED GLUCOSE; Start 09/12/16 at 10:30 Dextrose (D50w Syringe) 50 ml Q15M PRN IV DECREASED GLUCOSE; Start 09/12/16 at 10:30 Glucagon (Glucagen) 1 mg Q15M PRN IM DECREASED GLUCOSE; Start 09/12/16 at 10:30 Glucose (Glutose) 15 gm Q15M PRN BUCCAL DECREASED GLUCOSE; Start 09/12/16 at 10: 30 Lactobacillus Acidophilus/ Rhamnosus (Culturelle) 1 cap BID PO Last administered on 09/13/16 20:51; Admin Dose 1 CAP; Start 09/12/16 at 21:00 Enoxaparin Sodium (Lovenox) 40 mg DAILY SC Last administered on 09/13/16 08:19 ; Admin Dose 40 MG; Start 09/13/16 at 09:00 Insulin Glargine 30 unit 30 unit HS SC Last administered on 09/13/16 21:02; Admin Dose 30 UNIT; Start 09/13/16 at 21:00 Vancomycin HCl 1.25 gm/Sodium Chloride 250 ml @ 83.333 mls/ hr Q8H IVPB Last administered on 09/14/16 10:18; Admin Dose 83.333 MLS/HR; Start 09/13/16 at 18:00 Ferric Sodium Gluconate Complex/ Sodium Chloride (Ferrlecit/NS) 110 ml @ 100 mls/hr Q24H IVPB Last administered on 09/14/16 17:18; Admin Dose 100 MLS/HR; Start 09/13/16 at 14:30; Stop 09/15/16 at 15:35 Sodium Hypochlorite (Dakin'S (1/4 Strength)) 1 applic DAILY IRR Last administered on 09/13/16 20:51; Admin Dose 1 APPLIC; Start 09/13/16 at 17:30 Silver Sulfadiazine (Thermazene 1% 25 Gm) 1 applic DAILY TOP Last administered on 09/13/16 20:51; Admin Dose 1 APPLIC; Start 09/13/16 at 19:00 Senna (Senokot) 2 tab DAILY PO ; Start 09/14/16 at 09:00 Miscellaneous Information 1 ea NOTE XX ; Start 09/14/16 at 10:30 Glucose (Glutose) 15 gm Q15M PRN PO DECREASED GLUCOSE; Start 09/14/16 at 10:30 Glucose (Glutose) 22.5 gm Q15M PRN PO DECREASED GLUCOSE; Start 09/14/16 at 10:30 Dextrose (D50w Syringe) 25 ml Q15M PRN IV DECREASED GLUCOSE; Start 09/14/16 at 10:30 Dextrose (D50w Syringe) 50 ml Q15M PRN IV DECREASED GLUCOSE; Start 09/14/16 at 10:30 Glucagon (Glucagen) 1 mg Q15M PRN IM DECREASED GLUCOSE; Start 09/14/16 at 10:30 Glucose (Glutose) 15 gm Q15M PRN BUCCAL DECREASED GLUCOSE; Start 09/14/16 at 10: 30 JONAH LI MD Sep 14, 2016 19:18
[2016-09-14] MEDS ORDERED: SOD CHLORIDE 0.9% 250 ML IV ONE (20:00)
[2016-09-14] MEDS: INSULIN GLARGINE [LANtus] 3 ML PEN SC SCH (20:14)
--- NOTE | 2016-09-15 01:34 | RADRPT ---
PROCEDURE: Postoperative x-ray right foot CLINICAL INDICATION: Postoperative right foot TECHNIQUE: 3 views right foot. COMPARISON: None. FINDINGS: Soft tissue defect of the medial and plantar aspect of the proximal right forefoot. Widening the Li sfranc interval may represent early neuropathic changes. Likely fractures in the midfoot of differe nt ages, also suggesting neuropathic changes. Articular collapse at the distal third and fourth met atarsals. Remote fracture at the base of the second proximal phalanx with osseous remodelling. No plain film evidence of osteomyelitis, and consider MRI examination. IMPRESSION: 1. No plain film evidence of osteomyelitis, and consider MRI correlation. 2. Widening of the Lisfranc interval, suggesting Lisfranc ligament disruption. 3. Neuropathic changes in the midfoot. 4. Soft tissue swelling over the medial and plantar aspects of the proximal forefoot. RPTAT: [facility] Physician Brit Date Time Electronically viewed and signed by Physician Brit on 09/15/2016 01:34 RS/
[2016-09-15] MEDS: VANCOMYCIN 1.25 GM in SOD CHLORIDE 0.9% 250 ML IVPB SCH ×2 (02:07→10:51)
[2016-09-15] MEDS: SOD CHLORIDE 0.9% 1,000 ML IV SCH ×2 (02:07→16:26)
[2016-09-15 02:21] VITALS: BP 91/57; PULSE 90; RESP 16
[2016-09-15 06:53] LABS: ADD SCAN DIFF NO
[2016-09-15 07:01] LABS: BASOPHILS % 0.2 % (0.0-2.0); EOSINOPHILS % 0.4 % (0.0-7.0); HEMATOCRIT 26.9 % (37.0-47.0); HEMOGLOBIN 8.3 g/dl (12.0-16.0); LYMPHOCYTES % 20.5 % (15.0-51.0); MEAN CORPUSCULAR HEMOGLOBIN 26.6 pg (29.0-33.0); MEAN CORPUSCULAR HGB CONC 30.9 g/dl (32.0-37.0); MEAN CORPUSCULAR VOLUME 86.2 fl (82.0-101.0); MEAN PLATELET VOLUME 10.9 fl (7.4-10.4); MONOCYTE # 0.9 10^3/ul (0.3-0.9); MONOCYTES % 8.8 % (0.0-11.0); NEUTROPHIL # 6.4 10^3/ul (1.6-7.5); NEUTROPHILS % 65.8 % (39.0-77.0); NUCLEATED RED BLOOD CELLS% 0.2 /100WBC (0.0-0.0); PLATELET COUNT 340 10^3/UL (140-415); RED BLOOD COUNT 3.12 10^6/ul (4.20-5.40); RED CELL DISTRIBUTION WIDTH 13.4 % (11.5-14.5); WHITE BLOOD COUNT 9.7 10^3/ul (4.8-10.8)
[2016-09-15 07:20] VITALS: BP 108/56; RESP 18
[2016-09-15 07:25] LABS: CREATININE 0.42 mg/dl (0.44-1.00); POTASSIUM 4.6 mmol/L (3.5-5.1)
[2016-09-15 08:09] LABS: CREATININE 0.42 mg/dl (0.44-1.00)
[2016-09-15] MEDS: LACTOBACILLUS RHAMNOSUS CAP PO SCH ×2 (08:22→20:44)
[2016-09-15] MEDS: SENNA TAB PO SCH (08:22)
[2016-09-15] MEDS: ASPIRIN 81 MG TAB PO SCH (08:22)
[2016-09-15] MEDS: ACETAMINOPHEN 325 MG TAB PO PRN ×2 (08:22→21:07)
[2016-09-15] MEDS: SILVER SULFADIAZINE 1% 25 GM CR TOP SCH (08:23)
[2016-09-15] MEDS: INSULIN ASPART [NOVOLOG] 3 ML PEN SC SCH ×7 (08:27→21:00)
[2016-09-15] MEDS: ENOXAPARIN 40 MG/0.4 ML SYG SC SCH (08:28)
--- NOTE | 2016-09-15 08:40 | RADRPT ---
PROCEDURE: US Lower extremity arterial, bilateral CLINICAL INDICATION: Ulcer TECHNIQUE: Multiple sonographic images of the bilateral lower extremity arteries was obtained util izing grayscale, color-flow and doppler imaging. The images were reviewed on a PACS workstation. COMPARISON: Plain radiographs of the right foot from 09/14/2016 FINDINGS: There is no significant plaque. Velocities and waveforms were obtained as described below. RIGHT LEG: Right common femoral artery: 102 cm/s; biphasic waveforms Right profunda femoral artery: 76 cm/s; biphasic waveforms Right proximal superficial femoral artery: 118 cm/s; biphasic waveforms Right mid superficial femoral artery: 168 cm/s; biphasic waveforms Right distal superficial femoral artery: 137 cm/s; biphasic waveforms Right popliteal artery: 112 cm/s; biphasic waveforms Right posterior tibial artery: 145 cm/s; monophasic waveforms Right dorsalis pedis artery: 72 cm/s; biphasic waveforms Right ADRIANNE: 1.2 LEFT LEG: Left common femoral artery: 105 cm/s; triphasic waveforms Left profunda femoral artery: 67 cm/s; triphasic waveforms Left proximal superficial femoral artery: 107 cm/s; triphasic waveforms Left mid superficial femoral artery: 101 cm/s; triphasic waveforms Left distal superficial femoral artery: 93 cm/s; triphasic waveforms Left popliteal artery: 86 cm/s; triphasic waveforms Left posterior tibial artery: 93 cm/s; triphasic waveforms Left dorsalis pedis artery: 65 cm/s; triphasic waveforms Left ADRIANNE: 1.1 RPTAT: AA IMPRESSION: Diffusely biphasic wave forms in the right lower extremity with mildly elevated velocities in the mi d to distal right superficial femoral artery without evidence of a high-grade stenosis or occlusion. Findings are likely due to multifocal atherosclerotic disease. A CTA runoff study can be obtained for further evaluation. No evidence of high-grade stenosis or occlusion in the arteries of the left lower extremity. Physician Kinjal Date Time Electronically viewed and signed by Physician Kinjal on 09/15/2016 08:39 /
[2016-09-15] MEDS: SODIUM HYPOCHLORITE 0.125% 473 ML BTL IRR SCH (10:51)
[2016-09-15] MEDS: SOD FERRIC GLUC COMPLX 125 MG in SOD CHLORIDE 0.9% 100 ML IVPB SCH (14:50)
--- NOTE | 2016-09-15 15:23 | CONS ---
Date/Time of Note Date/Time of Note DATE: 09/15/16 TIME: 15:22 Assessment/Plan Assessment/Plan Chief Complaint/Hosp Course SUBJECTIVE: No changes. No fevers. The patient is alert, feels better. NAD ANTIMICROBIALS: Vancomycin. PHYSICAL EXAMINATION: GENERAL: Well-developed, middle-aged woman, in no distress. HEENT: Head atraumatic, normocephalic. Sclerae anicteric. Buccal mucosa dry. NECK: Supple. CHEST: Chest rise is symmetrical. Breath sounds clear. HEART: S1, S2. ABDOMEN: Soft, bowel tones present. EXTREMITIES: With right lower extremity erythema. ASSESSMENT: 1. Right lower extremity cellulitis with abscess and Charcot deformity===> s/p i&d. 2. Poorly controlled diabetes. 3. Hypertension and anemia. PLAN: The patient remains stable.Wound cx growing Strep will change abx to Rocephin, will likely require IV abx, will dw podiatry DW staff/pt Problems: Consultation Date/Type/Reason Admit Date/Time Sep 12, 2016 at 03:33 Initial Consult Date Type of Consultation: ID Exam/Review of Systems Vital Signs Vitals Vital Signs Date Time Temp Pulse Resp B/P Pulse Ox O2 Delivery O2 Flow Rate FiO2 09/15/16 07:20 100.4 95 18 108/56 95 09/15/16 02:21 Room Air 09/14/16 14:25 2.0 Intake and Output 09/14/16 09/14/16 09/15/16 15:00 23:00 07:00 Intake Total 450 ml 610 ml 1250 ml Output Total 1 ml Balance 449 ml 610 ml 1250 ml Results Result Diagram: 09/15/16 0449 09/15/16 0449 Results 24 hrs Laboratory Tests Test 09/14/16 17:10 09/14/16 17:13 09/14/16 20:10 09/14/16 21:14 Vancomycin Level Trough 12.6 Bedside Glucose 216 275 H 275 H Test 09/15/16 02:04 09/15/16 04:44 09/15/16 04:49 09/15/16 08:18 Bedside Glucose 213 201 Sodium Level 140 Potassium Level 4.6 Chloride Level 106 Carbon Dioxide Level 28 Anion Gap 11 Blood Urea Nitrogen 6 L 7 Creatinine 0.42 L 0.42 L Glucose Level 199 Calcium Level 8.0 L Magnesium Level 2.0 White Blood Count 9.7 Red Blood Count 3.12 L Hemoglobin 8.3 L Hematocrit 26.9 L Mean Corpuscular Volume 86.2 Mean Corpuscular Hemoglobin 26.6 L Mean Corpuscular Hemoglobin Concent 30.9 L Red Cell Distribution Width 13.4 Platelet Count 340 Mean Platelet Volume 10.9 H Neutrophils % 65.8 Lymphocytes % 20.5 Monocytes % 8.8 Eosinophils % 0.4 Basophils % 0.2 Nucleated Red Blood Cells % 0.2 H Neutrophils # 6.4 Lymphocytes # 2.0 Monocytes # 0.9 Eosinophils # 0.0 Basophils # 0.0 Nucleated Red Blood Cells # 0.0 Test 09/15/16 12:13 Bedside Glucose 138 Medications Medications Current Medications Sodium Chloride (NS) 1,000 ml @ 75 mls/hr [id number] IV Last administered on 02:07; Admin Dose 75 MLS/HR; Start 09/12/16 at 08:00 Ondansetron HCl (Zofran Inj) 4 mg Q6H PRN IV NAUSEA AND/OR VOMITING; Start 09/12 at 08:00 Aspirin (Aspirin) 81 mg DAILY PO Last administered on 09/15/16 08:22; Admin Dose 81 MG; Start 09/12/16 at 09:00 Acetaminophen (Tylenol Tab) 650 mg Q6H PRN PO PAIN LEVEL 1-3 OR FEVER Last administered on 09/15/16 08:22; Admin Dose 650 MG; Start 09/12/16 at 08:00 Morphine Sulfate (morphine) 2 mg Q4H PRN IV PAIN LEVEL 7-10 Last administered on 09/12/16 23:17; Admin Dose 2 MG; Start 09/12/16 at 08:00 Miscellaneous Information 1 ea NOTE XX ; Start 09/12/16 at 10:30 Glucose (Glutose) 15 gm Q15M PRN PO DECREASED GLUCOSE; Start 09/12/16 at 10:30 Glucose (Glutose) 22.5 gm Q15M PRN PO DECREASED GLUCOSE; Start 09/12/16 at 10:30 Dextrose (D50w Syringe) 25 ml Q15M PRN IV DECREASED GLUCOSE; Start 09/12/16 at 10:30 Dextrose (D50w Syringe) 50 ml Q15M PRN IV DECREASED GLUCOSE; Start 09/12/16 at 10:30 Glucagon (Glucagen) 1 mg Q15M PRN IM DECREASED GLUCOSE; Start 09/12/16 at 10:30 Glucose (Glutose) 15 gm Q15M PRN BUCCAL DECREASED GLUCOSE; Start 09/12/16 at 10: 30 Lactobacillus Acidophilus/ Rhamnosus (Culturelle) 1 cap BID PO Last administered on 09/15/16 08:22; Admin Dose 1 CAP; Start 09/12/16 at 21:00 Enoxaparin Sodium 40 mg 40 mg DAILY SC Last administered on 09/15/16 08:28; Admin Dose 40 MG; Start 09/13/16 at 09:00 Vancomycin HCl 1.25 gm/Sodium Chloride 250 ml @ 83.333 mls/ hr Q8H IVPB Last administered on 09/15/16 10:51; Admin Dose 83.333 MLS/HR; Start 09/13/16 at 18:00 Ferric Sodium Gluconate Complex/ Sodium Chloride (Ferrlecit/NS) 110 ml @ 100 mls/hr Q24H IVPB Last administered on 09/15/16 14:50; Admin Dose 100 MLS/HR; Start 09/13/16 at 14:30; Stop 09/15/16 at 15:35 Sodium Hypochlorite (Dakin'S (1/4 Strength)) 1 applic DAILY IRR Last administered on 09/15/16 10:51; Admin Dose 1 APPLIC; Start 09/13/16 at 17:30 Silver Sulfadiazine (Thermazene 1% 25 Gm) 1 applic DAILY TOP Last administered on 09/15/16 08:23; Admin Dose 1 APPLIC; Start 09/13/16 at 19:00 Senna (Senokot) 2 tab DAILY PO Last administered on 09/15/16 08:22; Admin Dose 2 TAB; Start 09/14/16 at 09:00 Oxycodone/ Acetaminophen (Percocet (5/ 325)) 1 tab Q3H PRN PO MODERATE PAIN LEVEL 4-6; Start 09/14/16 at 19:30 Insulin Glargine (Lantus) 55 unit HS SC Last administered on 09/14/16 20:14; Admin Dose 55 UNIT; Start 09/14/16 at 21:00 JANN SANDOVAL NP Sep 15, 2016 15:23
[2016-09-15] MEDS: CEFTRIAXONE 1 GM/50 ML (PMX) 50 ML IVPB SCH (16:28)
--- NOTE | 2016-09-15 16:52 | PN ---
Date/Time of Note Date/Time of Note DATE: 09/15/16 TIME: 16:47 Assessment/Plan Lines/Catheters IV [facility] (from [facility] Peripheral IV Assessment/Plan Chief Complaint/Hosp Course -Bilateral lower extremity atherosclerosis and right lower extremity diabetic foot infection. It seems the patient has developed significant infection in which she required debridement. Her infection may be likely related to her diabetes however upon bilateral lower extremity ultrasound studies demonstrated infrapopliteal disease -Will obtain CT angiography of the lower extremities to better delineate her right lower extremity perfusion -Wound care per our podiatry colleagues. -Optimize vascular status (BP meds, diet, nutrition, exercise, sugar control, antiplatelets). -Discussed weight loss and nutrition improvement. -Discussed findings, plan and management with the patient, she understands. -Thank you for allowing us to partake in the care of your patient. Please call with any questions. Problems: Subjective 24 Hr Interval Summary NO NEW VASCULAR EVENTS OVERNIGHT Exam/Review of Systems Vital Signs Vitals Vital Signs Date Time Temp Pulse Resp B/P Pulse Ox O2 Delivery O2 Flow Rate FiO2 09/15/16 07:20 100.4 95 18 108/56 95 09/15/16 02:21 Room Air 09/14/16 14:25 2.0 Intake and Output 09/14/16 09/14/16 09/15/16 15:00 23:00 07:00 Intake Total 450 ml 610 ml 1250 ml Output Total 1 ml Balance 449 ml 610 ml 1250 ml Exam Free Text/Dictation GENERAL: Alert and oriented x3, PULMONARY: Clear to auscultation bilaterally. CARDIOVASCULAR: S1, S2 present. ABDOMEN: Soft, nontender, nondistended. Bowel sounds positive. Truncal obesity. Right lower extremity palpable femoral pulse. Unable to palpate the pedal pulse secondary to dressing being intact. Motor, sensory intact. Capillary refill 2 to 3 seconds. Left lower extremity palpable femoral pulse, palpable pedal pulse. Motor, sensory intact. Capillary refill 2 to 3 seconds. No ulcers. Results Result Diagram: 09/15/16 0449 09/15/16 0449 LIDIA DOS SANTOS MD Sep 15, 2016 16:52
[2016-09-15] MEDS ORDERED: L ACIDOPHIL/B LACTIS/B LONGUM CAPSULE PO SCH (17:00)
--- NOTE | 2016-09-15 17:13 | PN ---
Date/Time of Note Date/Time of Note DATE: 09/15/16 TIME: 17:12 Assessment/Plan VTE Prophylaxis VTE Prophylaxis Intervention: LMWH Lines/Catheters IV Catheter Type (from Nrs): Peripheral IV Assessment/Plan Chief Complaint/Hosp Course S: 09/13 daughter noticed painful ulcer right plantar aspect maybe 1 week ago. No generalized fever chills nausea vomiting toxicity. Denies injury, wears tennis shoes. Over the last year has had this issue which was treated with 2 courses of antibiotics in [place]. She was told not to put a lot of weight on her foot but continues to go to work. She additionally has a nontraumatic fracture of the same foot in the past. 09/14: Events noted. Mild pain controlled. No fever dyspnea toxicity. 09/15: Some fever but no pain. O: vss PE No pallor Reg Clear Bs +; nt nd benign; overweight Mild edema rt ankle/ foot. Rt ulcer dressed A/P 1. Ssti Rt plantar ulcer/abscess. sp I&D abscess. Stable cont nwb, wound care, antibiotics. Insert picc; will need 2 weeks of antibiotics. 2. DFI 3. Dm 2- out of control; metabolic syndrome 4. Htn 5. Anemia 6. Probable diabetic neuropathy. 7. Charcot foot? ho nontraumatic fracture Problems: Exam/Review of Systems Vital Signs Vitals Vital Signs Date Time Temp Pulse Resp B/P Pulse Ox O2 Delivery O2 Flow Rate FiO2 09/15/16 07:20 100.4 95 18 108/56 95 09/15/16 02:21 Room Air 09/14/16 14:25 2.0 Intake and Output 09/14/16 09/14/16 09/15/16 15:00 23:00 07:00 Intake Total 450 ml 610 ml 1250 ml Output Total 1 ml Balance 449 ml 610 ml 1250 ml Results Result Diagram: 09/15/16 0449 09/15/16 0449 Results 24 hrs Laboratory Tests Test 09/14/16 17:13 09/14/16 20:10 09/14/16 21:14 09/15/16 02:04 Bedside Glucose 216 275 H 275 H 213 Test 09/15/16 04:44 09/15/16 04:49 09/15/16 08:18 09/15/16 12:13 Sodium Level 140 Potassium Level 4.6 Chloride Level 106 Carbon Dioxide Level 28 Anion Gap 11 Blood Urea Nitrogen 6 L 7 Creatinine 0.42 L 0.42 L Glucose Level 199 Calcium Level 8.0 L Magnesium Level 2.0 White Blood Count 9.7 Red Blood Count 3.12 L Hemoglobin 8.3 L Hematocrit 26.9 L Mean Corpuscular Volume 86.2 Mean Corpuscular Hemoglobin 26.6 L Mean Corpuscular Hemoglobin Concent 30.9 L Red Cell Distribution Width 13.4 Platelet Count 340 Mean Platelet Volume 10.9 H Neutrophils % 65.8 Lymphocytes % 20.5 Monocytes % 8.8 Eosinophils % 0.4 Basophils % 0.2 Nucleated Red Blood Cells % 0.2 H Neutrophils # 6.4 Lymphocytes # 2.0 Monocytes # 0.9 Eosinophils # 0.0 Basophils # 0.0 Nucleated Red Blood Cells # 0.0 Bedside Glucose 201 138 Medications Medications Current Medications Sodium Chloride (NS) 1,000 ml @ 75 mls/hr [id number] IV Last administered on 02:07; Admin Dose 75 MLS/HR; Start 09/12/16 at 08:00 Ondansetron HCl (Zofran Inj) 4 mg Q6H PRN IV NAUSEA AND/OR VOMITING; Start 09/12 at 08:00 Aspirin (Aspirin) 81 mg DAILY PO Last administered on 09/15/16 08:22; Admin Dose 81 MG; Start 09/12/16 at 09:00 Acetaminophen (Tylenol Tab) 650 mg Q6H PRN PO PAIN LEVEL 1-3 OR FEVER Last administered on 09/15/16 08:22; Admin Dose 650 MG; Start 09/12/16 at 08:00 Morphine Sulfate (morphine) 2 mg Q4H PRN IV PAIN LEVEL 7-10 Last administered on 09/12/16 23:17; Admin Dose 2 MG; Start 09/12/16 at 08:00 Miscellaneous Information 1 ea NOTE XX ; Start 09/12/16 at 10:30 Glucose (Glutose) 15 gm Q15M PRN PO DECREASED GLUCOSE; Start 09/12/16 at 10:30 Glucose (Glutose) 22.5 gm Q15M PRN PO DECREASED GLUCOSE; Start 09/12/16 at 10:30 Dextrose (D50w Syringe) 25 ml Q15M PRN IV DECREASED GLUCOSE; Start 09/12/16 at 10:30 Dextrose (D50w Syringe) 50 ml Q15M PRN IV DECREASED GLUCOSE; Start 09/12/16 at 10:30 Glucagon (Glucagen) 1 mg Q15M PRN IM DECREASED GLUCOSE; Start 09/12/16 at 10:30 Glucose (Glutose) 15 gm Q15M PRN BUCCAL DECREASED GLUCOSE; Start 09/12/16 at 10: 30 Lactobacillus Acidophilus/ Rhamnosus (Culturelle) 1 cap BID PO Last administered on 09/15/16 08:22; Admin Dose 1 CAP; Start 09/12/16 at 21:00 Enoxaparin Sodium (Lovenox) 40 mg DAILY SC Last administered on 09/15/16 08:28 ; Admin Dose 40 MG; Start 09/13/16 at 09:00 Sodium Hypochlorite (Dakin'S (1/4 Strength)) 1 applic DAILY IRR Last administered on 09/15/16 10:51; Admin Dose 1 APPLIC; Start 09/13/16 at 17:30 Silver Sulfadiazine (Thermazene 1% 25 Gm) 1 applic DAILY TOP Last administered on 09/15/16 08:23; Admin Dose 1 APPLIC; Start 09/13/16 at 19:00 Senna (Senokot) 2 tab DAILY PO Last administered on 09/15/16 08:22; Admin Dose 2 TAB; Start 09/14/16 at 09:00 Oxycodone/ Acetaminophen (Percocet (5/ 325)) 1 tab Q3H PRN PO MODERATE PAIN LEVEL 4-6; Start 09/14/16 at 19:30 Insulin Glargine 55 unit 55 unit HS SC Last administered on 09/14/16 20:14; Admin Dose 55 UNIT; Start 09/14/16 at 21:00 Ceftriaxone Sodium (Rocephin) 50 ml @ 100 mls/hr Q24H IVPB Last administered on 09/15/16 16:28; Admin Dose 100 MLS/HR; Start 09/15/16 at 17:00 Lactobacillus Acidophilus (Florajen3 Capsule) 1 each BID PO ; Start 09/15/16 at 17:00 JONAH LI MD Sep 15, 2016 17:13
[2016-09-15] MEDS ORDERED: SOD CHLORIDE 0.9% 100 ML ONE (17:28)
[2016-09-15] MEDS ORDERED: IOHEXOL 100 ML ONE (17:28)
[2016-09-15] MEDS ORDERED: IOHEXOL 350MG/ML 50 ML BTL ONE (17:28)
--- NOTE | 2016-09-15 17:59 | RADRPT ---
PROCEDURE: CT angiogram of the abdomen and pelvis with bilateral lower extremity runoff and with 3 -D reconstructions CLINICAL INDICATION: gangrene TECHNIQUE: CT angiogram of the abdomen and pelvis was performed on a multislice CT scanner . The patient was scanned after administration of intravenous contrast. Sagittal and coronal reformatted images were obtained from the axial source images. 3D MIP reformatted images were also created from the axial source images. DLP 1808.41 mGycm CTDI vol 4.11, 32.86, 13.62 mGy COMPARISON: Duplex sonogram of the lower extremity arteries from 09/14/2016 FINDINGS: ANGIOGRAM: There is no acute dissection or aneurysm of the abdominal aorta. The celiac, SMA, and RAJ are widely patent. There is an accessory left hepatic artery off the left gastric artery. There are single renal arteries bilaterally which are widely patent. Common, internal and external iliac arteries are patent bilaterally. RIGHT LOWER EXTREMITY: The [employer] COKING, SFA, and profunda arteries are widely patent. The popliteal artery is widely patent. Infrapopliteal vessels are widely patent and there is good three-vessel runoff to the level of the a nkle. LEFT LOWER EXTREMITY: The RE[employer]PER[employer] COKING, SFA, and profunda arteries are widely patent. The popliteal artery is widely patent. Infrapopliteal vessels are widely patent and there is good three-vessel runoff to the level of the a nkle. ANCILLARY: There is a small fat - containing umbilical hernia. Prominent right pelvic sidewall, bilateral inguinal and right external iliac chain lymph nodes are i dentified measuring up to 1 cm in short axis. There is a right inguinal lymph node measuring up to 1 .8 cm in short axis somewhat inferiorly on series 3, image 237. Ulcer is identified along the medial aspect of the right foot with surgical packing material. No def inite CT evidence of adjacent osteomyelitis is identified. There is asymmetric swelling of the right calf and foot. IMPRESSION: The arteries of bilateral lower extremities are widely patent with three-vessel runoff to bilateral ankles. No evidence of aortoiliac occlusive disease. An ulcer is identified along the plantar aspect of the medial right foot with surgical packing mater ial. No definite evidence of adjacent osteomyelitis is identified. Prominent opacified blood vesse ls are identified in its vicinity which suggests that peripheral vascular disease may not be the ca xavier etiology for the ulcer. Clinical correlation is recommended. Prominent bilateral inguinal as well as right pelvic sidewall and right external iliac chain lymph n odes are identified which suggest a right-sided infection. Correlation with blood cultures is recom mended. RPTAT: EE Gibran Zendejas Physician Date Time Electronically viewed and signed by Gibran Zendejas, Physician on 09/15/2016 17:59 RA/
[2016-09-15] MEDS ORDERED: LIDOCAINE 1% (MPF) 5 ML VIAL SC ONE (18:00)
[2016-09-15] MEDS: INSULIN GLARGINE [LANtus] 3 ML PEN SC SCH (21:00)
[2016-09-15 22:05] VITALS: BP 114/64; RESP 19
[2016-09-16] MEDS: morphine 2 MG INJ IV PRN (06:10)
[2016-09-16 07:10] VITALS: RESP 18
[2016-09-16] MEDS: INSULIN ASPART [NOVOLOG] 3 ML PEN SC SCH ×7 (07:59→22:05)
[2016-09-16] MEDS: SILVER SULFADIAZINE 1% 25 GM CR TOP SCH (08:17)
[2016-09-16] MEDS: SODIUM HYPOCHLORITE 0.125% 473 ML BTL IRR SCH (08:17)
[2016-09-16] MEDS: LACTOBACILLUS RHAMNOSUS CAP PO SCH ×2 (08:29→22:06)
[2016-09-16] MEDS: SENNA TAB PO SCH (08:30)
[2016-09-16] MEDS: ASPIRIN 81 MG TAB PO SCH (08:30)
[2016-09-16] MEDS: ENOXAPARIN 40 MG/0.4 ML SYG SC SCH (08:30)
[2016-09-16 08:31] LABS: ADD SCAN DIFF NO
[2016-09-16 08:34] LABS: ABNORMAL IP MESSAGE 1; BASOPHILS % 0.2 % (0.0-2.0); EOSINOPHILS # 0.1 10^3/ul (0.0-0.5); EOSINOPHILS % 0.5 % (0.0-7.0); HEMATOCRIT 26.2 % (37.0-47.0); HEMOGLOBIN 8.2 g/dl (12.0-16.0); LYMPHOCYTES # 1.7 10^3/ul (0.8-2.9); MEAN CORPUSCULAR HEMOGLOBIN 26.9 pg (29.0-33.0); MEAN CORPUSCULAR HGB CONC 31.3 g/dl (32.0-37.0); MEAN CORPUSCULAR VOLUME 85.9 fl (82.0-101.0); MEAN PLATELET VOLUME 10.3 fl (7.4-10.4); MONOCYTES % 9.7 % (0.0-11.0); NEUTROPHIL # 7.2 10^3/ul (1.6-7.5); NEUTROPHILS % 67.8 % (39.0-77.0); NUCLEATED RED BLOOD CELLS # 0.1 10^3/ul (0.0-0.0); NUCLEATED RED BLOOD CELLS% 0.5 /100WBC (0.0-0.0); PLATELET COUNT 393 10^3/UL (140-415); RED BLOOD COUNT 3.05 10^6/ul (4.20-5.40); RED CELL DISTRIBUTION WIDTH 13.5 % (11.5-14.5); WHITE BLOOD COUNT 10.6 10^3/ul (4.8-10.8)
[2016-09-16 09:02] LABS: CALCIUM 8.4 mg/dl (8.4-10.2); CREATININE 0.43 mg/dl (0.44-1.00); POTASSIUM 3.9 mmol/L (3.5-5.1)
[2016-09-16 09:25] LABS: INR 1.16; PROTIME 14.8 Sec (12.2-14.2); PT RATIO 1.2
--- NOTE | 2016-09-16 10:59 | PN ---
Date/Time of Note Date/Time of Note DATE: 09/16/16 TIME: 10:53 Assessment/Plan Lines/Catheters IV [facility] (from [facility] Saline Lock Assessment/Plan Chief Complaint/Hosp Course -Bilateral lower extremity atherosclerosis and right lower extremity diabetic foot infection. It seems the patient has developed significant infection in which she required debridement. Her infection likely related to her diabetes. Upon CT angiography of the lower extremities she has adequate infrapopliteal perfusion and patient is cleared for further debridement/amputation. No further vascular surgery intervention needed -Wound care per our podiatry colleagues. -Optimize vascular status (BP meds, diet, nutrition, exercise, sugar control, antiplatelets). -Discussed weight loss and nutrition improvement. -Discussed findings, plan and management with the patient, she understands. -Thank you for allowing us to partake in the care of your patient. Please call with any questions. Problems: Subjective 24 Hr Interval Summary no new vascular events overnight Exam/Review of Systems Vital Signs Vitals Vital Signs Date Time Temp Pulse Resp B/P Pulse Ox O2 Delivery O2 Flow Rate FiO2 09/16/16 07:10 98.5 96 18 94 09/15/16 02:21 Room Air 09/14/16 14:25 2.0 Intake and Output 09/15/16 09/15/16 09/16/16 15:00 23:00 07:00 Intake Total 510 ml 1630 ml 700 ml Balance 510 ml 1630 ml 700 ml Exam Free Text/Dictation GENERAL: Alert and oriented x3, PULMONARY: Clear to auscultation bilaterally. CARDIOVASCULAR: S1, S2 present. ABDOMEN: Soft, nontender, nondistended. Bowel sounds positive. Truncal obesity. Right lower extremity palpable femoral pulse. Unable to palpate the pedal pulse secondary to dressing being intact and edema after it was removed, erythema and serosanguineous drainage. Motor, sensory intact. Capillary refill 2 to 3 seconds. Left lower extremity palpable femoral pulse, palpable pedal pulse. Motor, sensory intact. Capillary refill 2 to 3 seconds. No ulcers. Results Result Diagram: 09/16/16 0740 09/16/16 0740 LIDIA DOS SANTOS MD Sep 16, 2016 10:59
[2016-09-16] MEDS: CEFTRIAXONE 1 GM/50 ML (PMX) 50 ML IVPB SCH (16:21)
[2016-09-16] MEDS: OXYCODONE/ACETAMINOPHEN (5/325) TAB PO PRN (18:28)
--- NOTE | 2016-09-16 18:59 | CONS ---
Date/Time of Note Date/Time of Note DATE: 09/16/16 TIME: 18:58 Assessment/Plan Assessment/Plan Chief Complaint/Hosp Course SUBJECTIVE: No changes. No fevers. The patient is alert, feels better. NAD ANTIMICROBIALS: Rocephin PHYSICAL EXAMINATION: GENERAL: Well-developed, middle-aged woman, in no distress. HEENT: Head atraumatic, normocephalic. Sclerae anicteric. Buccal mucosa dry. NECK: Supple. CHEST: Chest rise is symmetrical. Breath sounds clear. HEART: S1, S2. ABDOMEN: Soft, bowel tones present. EXTREMITIES: With right lower extremity erythema. ASSESSMENT: 1. Right lower extremity cellulitis with abscess and Charcot deformity===> s/p i&d===> cx + Strep 2. Poorly controlled diabetes. 3. Hypertension and anemia. PLAN: The patient remains stable, continue Rocephin, will dw podiatry plan for abx, s/p PICC DW staff/pt Problems: Consultation Date/Type/Reason Admit Date/Time Sep 12, 2016 at 03:33 Type of Consultation: ID Exam/Review of Systems Vital Signs Vitals Vital Signs Date Time Temp Pulse Resp B/P Pulse Ox O2 Delivery O2 Flow Rate FiO2 09/16/16 07:10 98.5 96 18 94 09/15/16 02:21 Room Air 09/14/16 14:25 2.0 Intake and Output 09/15/16 09/15/16 09/16/16 15:00 23:00 07:00 Intake Total 510 ml 1630 ml 700 ml Balance 510 ml 1630 ml 700 ml Results Result Diagram: 09/16/16 0740 09/16/16 0740 Results 24 hrs Laboratory Tests Test 09/15/16 20:43 09/16/16 00:02 09/16/16 07:40 09/16/16 07:54 Bedside Glucose 93 79 132 White Blood Count 10.6 Red Blood Count 3.05 L Hemoglobin 8.2 L Hematocrit 26.2 L Mean Corpuscular Volume 85.9 Mean Corpuscular Hemoglobin 26.9 L Mean Corpuscular Hemoglobin Concent 31.3 L Red Cell Distribution Width 13.5 Platelet Count 393 Mean Platelet Volume 10.3 Neutrophils % 67.8 Lymphocytes % 16.0 Monocytes % 9.7 Eosinophils % 0.5 Basophils % 0.2 Nucleated Red Blood Cells % 0.5 H Neutrophils # 7.2 Lymphocytes # 1.7 Monocytes # 1.0 H Eosinophils # 0.1 Basophils # 0.0 Nucleated Red Blood Cells # 0.1 H Prothrombin Time 14.8 H Prothrombin Time Ratio 1.2 INR International Normalized Ratio 1.16 Sodium Level 143 Potassium Level 3.9 Chloride Level 106 Carbon Dioxide Level 30 Anion Gap 11 Blood Urea Nitrogen 4 L Creatinine 0.43 L Glucose Level 126 # Calcium Level 8.4 Test 09/16/16 11:36 09/16/16 17:20 Bedside Glucose 199 232 H Medications Medications Current Medications Ondansetron HCl (Zofran Inj) 4 mg Q6H PRN IV NAUSEA AND/OR VOMITING; Start 09/12 at 08:00 Aspirin (Aspirin) 81 mg DAILY PO Last administered on 09/16/16 08:30; Admin Dose 81 MG; Start 09/12/16 at 09:00 Acetaminophen (Tylenol Tab) 650 mg Q6H PRN PO PAIN LEVEL 1-3 OR FEVER Last administered on 09/15/16 21:07; Admin Dose 650 MG; Start 09/12/16 at 08:00 Morphine Sulfate (morphine) 2 mg Q4H PRN IV PAIN LEVEL 7-10 Last administered on 09/16/16 06:10; Admin Dose 2 MG; Start 09/12/16 at 08:00 Miscellaneous Information 1 ea NOTE XX ; Start 09/12/16 at 10:30 Glucose (Glutose) 15 gm Q15M PRN PO DECREASED GLUCOSE; Start 09/12/16 at 10:30 Glucose (Glutose) 22.5 gm Q15M PRN PO DECREASED GLUCOSE; Start 09/12/16 at 10:30 Dextrose (D50w Syringe) 25 ml Q15M PRN IV DECREASED GLUCOSE; Start 09/12/16 at 10:30 Dextrose (D50w Syringe) 50 ml Q15M PRN IV DECREASED GLUCOSE; Start 09/12/16 at 10:30 Glucagon (Glucagen) 1 mg Q15M PRN IM DECREASED GLUCOSE; Start 09/12/16 at 10:30 Glucose (Glutose) 15 gm Q15M PRN BUCCAL DECREASED GLUCOSE; Start 09/12/16 at 10: 30 Lactobacillus Acidophilus/ Rhamnosus (Culturelle) 1 cap BID PO Last administered on 6/10/17at 08:29; Admin Dose 1 CAP; Start 09/12/16 at 21:00 Enoxaparin Sodium (Lovenox) 40 mg DAILY SC Last administered on 09/16/16 08:30 ; Admin Dose 40 MG; Start 09/13/16 at 09:00 Sodium Hypochlorite (Dakin'S (1/4 Strength)) 1 applic DAILY IRR Last administered on 09/15/16 10:51; Admin Dose 1 APPLIC; Start 09/13/16 at 17:30 Silver Sulfadiazine (Thermazene 1% 25 Gm) 1 applic DAILY TOP Last administered on 09/15/16 08:23; Admin Dose 1 APPLIC; Start 09/13/16 at 19:00 Senna (Senokot) 2 tab DAILY PO Last administered on 09/16/16 08:30; Admin Dose 2 TAB; Start 09/14/16 at 09:00 Oxycodone/ Acetaminophen (Percocet (5/ 325)) 1 tab Q3H PRN PO MODERATE PAIN LEVEL 4-6 Last administered on 09/16/16 18:28; Admin Dose 1 TAB; Start 09/14/16 at 19:30 Insulin Glargine 55 unit 55 unit HS SC Last administered on 09/14/16 20:14; Admin Dose 55 UNIT; Start 09/14/16 at 21:00 Ceftriaxone Sodium (Rocephin) 50 ml @ 100 mls/hr Q24H IVPB Last administered on 09/16/16 16:21; Admin Dose 100 MLS/HR; Start 09/15/16 at 17:00 JANN SANDOVAL NP Sep 16, 2016 18:59
--- NOTE | 2016-09-16 19:47 | PN ---
Date/Time of Note Date/Time of Note DATE: 09/16/16 TIME: 19:44 Assessment/Plan VTE Prophylaxis VTE Prophylaxis Intervention: LMWH Lines/Catheters IV Catheter Type (from [facility] [place]): Saline Lock Assessment/Plan Chief Complaint/Hosp Course S: 09/13 daughter noticed painful ulcer right plantar aspect maybe 1 week ago. No generalized fever chills nausea vomiting toxicity. Denies injury, wears tennis shoes. Over the last year has had this issue which was treated with 2 courses of antibiotics in [place]. She was told not to put a lot of weight on her foot but continues to go to work. She additionally has a nontraumatic fracture of the same foot in the past. 09/14: Events noted. Mild pain controlled. No fever dyspnea toxicity. 09/15: Some fever but no pain. 09/16: Fever noted, pain controlled. No nausea vomiting diarrhea or dyspnea. O: vss PE No pallor Reg Clear Bs +; nt nd benign; overweight Mild edema rt ankle/ foot. Rt ulcer c/d/i A/P 1. Ssti Rt plantar ulcer/abscess. sp I&D abscess. Stable cont nwb, wound care, antibiotics. Insert picc; will need 2 weeks of antibiotics. 2. DFI 3. Dm 2- out of control; metabolic syndrome 4. Htn 5. Anemia 6. Probable diabetic neuropathy. 7. Charcot foot? ho nontraumatic fracture Problems: Exam/Review of Systems Vital Signs Vitals Vital Signs Date Time Temp Pulse Resp B/P Pulse Ox O2 Delivery O2 Flow Rate FiO2 09/16/16 07:10 98.5 96 18 94 09/15/16 02:21 Room Air 09/14/16 14:25 2.0 Intake and Output 09/15/16 09/15/16 09/16/16 15:00 23:00 07:00 Intake Total 510 ml 1630 ml 700 ml Balance 510 ml 1630 ml 700 ml Results Result Diagram: 09/16/16 0740 09/16/16 0740 Results 24 hrs Laboratory Tests Test 09/15/16 20:43 09/16/16 00:02 09/16/16 07:40 09/16/16 07:54 Bedside Glucose 93 79 132 White Blood Count 10.6 Red Blood Count 3.05 L Hemoglobin 8.2 L Hematocrit 26.2 L Mean Corpuscular Volume 85.9 Mean Corpuscular Hemoglobin 26.9 L Mean Corpuscular Hemoglobin Concent 31.3 L Red Cell Distribution Width 13.5 Platelet Count 393 Mean Platelet Volume 10.3 Neutrophils % 67.8 Lymphocytes % 16.0 Monocytes % 9.7 Eosinophils % 0.5 Basophils % 0.2 Nucleated Red Blood Cells % 0.5 H Neutrophils # 7.2 Lymphocytes # 1.7 Monocytes # 1.0 H Eosinophils # 0.1 Basophils # 0.0 Nucleated Red Blood Cells # 0.1 H Prothrombin Time 14.8 H Prothrombin Time Ratio 1.2 INR International Normalized Ratio 1.16 Sodium Level 143 Potassium Level 3.9 Chloride Level 106 Carbon Dioxide Level 30 Anion Gap 11 Blood Urea Nitrogen 4 L Creatinine 0.43 L Glucose Level 126 # Calcium Level 8.4 Test 09/16/16 11:36 09/16/16 17:20 Bedside Glucose 199 232 H Medications Medications Current Medications Ondansetron HCl (Zofran Inj) 4 mg Q6H PRN IV NAUSEA AND/OR VOMITING; Start 09/12 at 08:00 Aspirin (Aspirin) 81 mg DAILY PO Last administered on 09/16/16 08:30; Admin Dose 81 MG; Start 09/12/16 at 09:00 Acetaminophen (Tylenol Tab) 650 mg Q6H PRN PO PAIN LEVEL 1-3 OR FEVER Last administered on 09/15/16 21:07; Admin Dose 650 MG; Start 09/12/16 at 08:00 Morphine Sulfate (morphine) 2 mg Q4H PRN IV PAIN LEVEL 7-10 Last administered on 09/16/16 06:10; Admin Dose 2 MG; Start 09/12/16 at 08:00 Miscellaneous Information 1 ea NOTE XX ; Start 09/12/16 at 10:30 Glucose (Glutose) 15 gm Q15M PRN PO DECREASED GLUCOSE; Start 09/12/16 at 10:30 Glucose (Glutose) 22.5 gm Q15M PRN PO DECREASED GLUCOSE; Start 09/12/16 at 10:30 Dextrose (D50w Syringe) 25 ml Q15M PRN IV DECREASED GLUCOSE; Start 09/12/16 at 10:30 Dextrose (D50w Syringe) 50 ml Q15M PRN IV DECREASED GLUCOSE; Start 09/12/16 at 10:30 Glucagon (Glucagen) 1 mg Q15M PRN IM DECREASED GLUCOSE; Start 09/12/16 at 10:30 Glucose (Glutose) 15 gm Q15M PRN BUCCAL DECREASED GLUCOSE; Start 09/12/16 at 10: 30 Lactobacillus Acidophilus/ Rhamnosus (Culturelle) 1 cap BID PO Last administered on 09/16/16 08:29; Admin Dose 1 CAP; Start 09/12/16 at 21:00 Enoxaparin Sodium (Lovenox) 40 mg DAILY SC Last administered on 09/16/16 08:30 ; Admin Dose 40 MG; Start 09/13/16 at 09:00 Sodium Hypochlorite (Dakin'S (1/4 Strength)) 1 applic DAILY IRR Last administered on 09/15/16 10:51; Admin Dose 1 APPLIC; Start 09/13/16 at 17:30 Silver Sulfadiazine (Thermazene 1% 25 Gm) 1 applic DAILY TOP Last administered on 09/15/16 08:23; Admin Dose 1 APPLIC; Start 09/13/16 at 19:00 Senna (Senokot) 2 tab DAILY PO Last administered on 09/16/16 08:30; Admin Dose 2 TAB; Start 09/14/16 at 09:00 Oxycodone/ Acetaminophen (Percocet (5/ 325)) 1 tab Q3H PRN PO MODERATE PAIN LEVEL 4-6 Last administered on 09/16/16 18:28; Admin Dose 1 TAB; Start 09/14/16 at 19:30 Insulin Glargine 55 unit 55 unit HS SC Last administered on 09/14/16 20:14; Admin Dose 55 UNIT; Start 09/14/16 at 21:00 Ceftriaxone Sodium (Rocephin) 50 ml @ 100 mls/hr Q24H IVPB Last administered on 09/16/16 16:21; Admin Dose 100 MLS/HR; Start 09/15/16 at 17:00 JONAH LI MD Sep 16, 2016 19:47
[2016-09-16 21:32] VITALS: BP 102/59; RESP 20
[2016-09-16] MEDS: INSULIN GLARGINE [LANtus] 3 ML PEN SC SCH (22:06)
[2016-09-17] MEDS: OXYCODONE/ACETAMINOPHEN (5/325) TAB PO PRN ×2 (02:01→21:50)
[2016-09-17 05:56] LABS: ADD SCAN DIFF NO
[2016-09-17 06:15] LABS: ABNORMAL IP MESSAGE 1; BASOPHILS % 0.3 % (0.0-2.0); EOSINOPHILS # 0.1 10^3/ul (0.0-0.5); EOSINOPHILS % 0.8 % (0.0-7.0); HEMATOCRIT 26.1 % (37.0-47.0); HEMOGLOBIN 8.1 g/dl (12.0-16.0); LYMPHOCYTES # 1.8 10^3/ul (0.8-2.9); MEAN CORPUSCULAR HEMOGLOBIN 26.9 pg (29.0-33.0); MEAN CORPUSCULAR VOLUME 86.7 fl (82.0-101.0); MEAN PLATELET VOLUME 10.9 fl (7.4-10.4); MONOCYTES % 9.7 % (0.0-11.0); NEUTROPHIL # 6.4 10^3/ul (1.6-7.5); NEUTROPHILS % 64.6 % (39.0-77.0); NUCLEATED RED BLOOD CELLS # 0.1 10^3/ul (0.0-0.0); NUCLEATED RED BLOOD CELLS% 0.5 /100WBC (0.0-0.0); PLATELET COUNT 339 10^3/UL (140-415); RED BLOOD COUNT 3.01 10^6/ul (4.20-5.40); RED CELL DISTRIBUTION WIDTH 13.5 % (11.5-14.5); WHITE BLOOD COUNT 9.9 10^3/ul (4.8-10.8)
[2016-09-17 06:33] LABS: CALCIUM 8.3 mg/dl (8.4-10.2); CREATININE 0.4 mg/dl (0.44-1.00); POTASSIUM 3.6 mmol/L (3.5-5.1)
[2016-09-17] MEDS: INSULIN ASPART [NOVOLOG] 3 ML PEN SC SCH ×7 (07:54→21:00)
[2016-09-17 08:07] VITALS: BP 110/59; RESP 20
[2016-09-17] MEDS: SILVER SULFADIAZINE 1% 25 GM CR TOP SCH (08:15)
[2016-09-17] MEDS: SODIUM HYPOCHLORITE 0.125% 473 ML BTL IRR SCH (08:15)
[2016-09-17] MEDS: ENOXAPARIN 40 MG/0.4 ML SYG SC SCH (08:23)
[2016-09-17] MEDS: SENNA TAB PO SCH (08:24)
[2016-09-17] MEDS: ASPIRIN 81 MG TAB PO SCH (08:24)
[2016-09-17] MEDS: LACTOBACILLUS RHAMNOSUS CAP PO SCH ×2 (08:25→21:28)
--- NOTE | 2016-09-17 12:08 | RADRPT ---
PROCEDURE: XR Chest. CLINICAL INDICATION: Respiratory distress. Left PICC line placement. TECHNIQUE: AP view of the chest was performed. COMPARISON: None FINDINGS: There is a left PICC line with good positioning at the RA/SVC junction. The heart size is normal. The lung ricardo are clear. No acute infiltrate or findings of fluid overload. The osseous structures are intact. IMPRESSION: Left PICC line in good positioning and ready for use. No acute infiltrate or findings of fluid over load. RPTAT: QQ. .Vivian Ventura MD, MD Date Time Electronically viewed and signed by .Vivian Ventura MD, MD on 09/17/2016 12:08 .F/
--- NOTE | 2016-09-17 13:00 | PN ---
Date/Time of Note Date/Time of Note DATE: 09/17/16 TIME: 12:58 Assessment/Plan VTE Prophylaxis VTE Prophylaxis Intervention: LMWH Lines/Catheters IV C[facility]ter Type (from [facility]): Saline Lock Assessment/Plan Chief Complaint/Hosp Course S: 09/13 daughter noticed painful ulcer right plantar aspect maybe 1 week ago. No generalized fever chills nausea vomiting toxicity. Denies injury, wears tennis shoes. Over the last year has had this issue which was treated with 2 courses of antibiotics in [place]. She was told not to put a lot of weight on her foot but continues to go to work. She additionally has a nontraumatic fracture of the same foot in the past. 09/14: Events noted. Mild pain controlled. No fever dyspnea toxicity. 09/15: Some fever but no pain. 09/16: Fever noted, pain controlled. No nausea vomiting diarrhea or dyspnea. 09/17: No further pain. Fever improved. Blood cultures from [place] came back to show g B beta strep 2/2 bottles from an ER sample. Pansensitive to all atb's including present cephalosporin. O: vss PE No pallor Reg Clear Bs +; nt nd benign; overweight Mild edema rt ankle/ foot. Rt ulcer c/d/i A/P 1. Ssti Rt plantar ulcer/abscess. sp I&D abscess. Stable cont nwb, wound care, antibiotics. Inserted picc; will need 2 weeks of antibiotics. 2. DFI 3. Dm 2- out of control; metabolic syndrome 4. Htn 5. Anemia 6. Probable diabetic neuropathy. 7. Charcot foot? ho nontraumatic fracture 8. Bacteremia? Versus contaminated specimen. Pansensitive to same antibiotic. We will continue IV therapy at home. Problems: Exam/Review of Systems Vital Signs Vitals Vital Signs Date Time Temp Pulse Resp B/P Pulse Ox O2 Delivery O2 Flow Rate FiO2 09/17/16 08:07 99.0 92 20 110/59 95 09/15/16 02:21 Room Air 09/14/16 14:25 2.0 Intake and Output 09/16/16 09/16/16 09/17/16 15:00 23:00 07:00 Intake Total 800 ml 600 ml Output Total 200 ml Balance 800 ml 400 ml Results Result Diagram: 09/17/16 0510 09/17/16 0510 Results 24 hrs Laboratory Tests Test 09/16/16 17:20 09/16/16 21:55 09/17/16 02:13 09/17/16 05:10 Bedside Glucose 232 H 205 175 White Blood Count 9.9 Red Blood Count 3.01 L Hemoglobin 8.1 L Hematocrit 26.1 L Mean Corpuscular Volume 86.7 Mean Corpuscular Hemoglobin 26.9 L Mean Corpuscular Hemoglobin Concent 31.0 L Red Cell Distribution Width 13.5 Platelet Count 339 Mean Platelet Volume 10.9 H Neutrophils % 64.6 Lymphocytes % 18.0 Monocytes % 9.7 Eosinophils % 0.8 Basophils % 0.3 Nucleated Red Blood Cells % 0.5 H Neutrophils # 6.4 Lymphocytes # 1.8 Monocytes # 1.0 H Eosinophils # 0.1 Basophils # 0.0 Nucleated Red Blood Cells # 0.1 H Sodium Level 139 Potassium Level 3.6 Chloride Level 105 Carbon Dioxide Level 27 Anion Gap 11 Blood Urea Nitrogen 7 Creatinine 0.40 L Glucose Level 148 Calcium Level 8.3 L Test 09/17/16 07:53 09/17/16 12:20 Bedside Glucose 131 115 Medications Medications Current Medications Ondansetron HCl (Zofran Inj) 4 mg Q6H PRN IV NAUSEA AND/OR VOMITING; Start 09/12 at 08:00 Aspirin (Aspirin) 81 mg DAILY PO Last administered on 09/17/16 08:24; Admin Dose 81 MG; Start 09/12/16 at 09:00 Acetaminophen (Tylenol Tab) 650 mg Q6H PRN PO PAIN LEVEL 1-3 OR FEVER Last administered on 09/15/16 21:07; Admin Dose 650 MG; Start 09/12/16 at 08:00 Morphine Sulfate (morphine) 2 mg Q4H PRN IV PAIN LEVEL 7-10 Last administered on 09/16/16 06:10; Admin Dose 2 MG; Start 09/12/16 at 08:00 Miscellaneous Information 1 ea NOTE XX ; Start 09/12/16 at 10:30 Glucose (Glutose) 15 gm Q15M PRN PO DECREASED GLUCOSE; Start 09/12/16 at 10:30 Glucose (Glutose) 22.5 gm Q15M PRN PO DECREASED GLUCOSE; Start 09/12/16 at 10:30 Dextrose (D50w Syringe) 25 ml Q15M PRN IV DECREASED GLUCOSE; Start 09/12/16 at 10:30 Dextrose (D50w Syringe) 50 ml Q15M PRN IV DECREASED GLUCOSE; Start 09/12/16 at 10:30 Glucagon (Glucagen) 1 mg Q15M PRN IM DECREASED GLUCOSE; Start 09/12/16 at 10:30 Glucose (Glutose) 15 gm Q15M PRN BUCCAL DECREASED GLUCOSE; Start 09/12/16 at 10: 30 Lactobacillus Acidophilus/ Rhamnosus (Culturelle) 1 cap BID PO Last administered on 09/17/16 08:25; Admin Dose 1 CAP; Start 09/12/16 at 21:00 Enoxaparin Sodium (Lovenox) 40 mg DAILY SC Last administered on 09/17/16 08:23 ; Admin Dose 40 MG; Start 09/13/16 at 09:00 Sodium Hypochlorite (Dakin'S (1/4 Strength)) 1 applic DAILY IRR Last administered on 09/15/16 10:51; Admin Dose 1 APPLIC; Start 09/13/16 at 17:30 Silver Sulfadiazine (Thermazene 1% 25 Gm) 1 applic DAILY TOP Last administered on 09/15/16 08:23; Admin Dose 1 APPLIC; Start 09/13/16 at 19:00 Senna (Senokot) 2 tab DAILY PO Last administered on 09/17/16 08:24; Admin Dose 2 TAB; Start 09/14/16 at 09:00 Oxycodone/ Acetaminophen (Percocet (5/ 325)) 1 tab Q3H PRN PO MODERATE PAIN LEVEL 4-6 Last administered on 09/17/16 02:01; Admin Dose 1 TAB; Start 09/14/16 at 19:30 Insulin Glargine 55 unit 55 unit HS SC Last administered on 09/16/16 22:06; Admin Dose 55 UNIT; Start 09/14/16 at 21:00 Ceftriaxone Sodium (Rocephin) 50 ml @ 100 mls/hr Q24H IVPB Last administered on 09/16/16 16:21; Admin Dose 100 MLS/HR; Start 09/15/16 at 17:00 JONAH LI MD Sep 17, 2016 13:00
--- NOTE | 2016-09-17 13:02 | PDOCDIS ---
Discharge Instructions DIAGNOSIS Discharge Diagnosis: rt foot abscess CONDITION Patient Condition: Good HOME CARE INSTRUCTIONS: Special Diet: carb control diet ACTIVITY: Activity Restrictions: Slowly Increase Activity Do not Drive Activity Restrictions Comment: non weight bearing Rt foot FOLLOW UP/APPOINTMENTS Appointments [facility]/ Dr Abdirahman Vaughn -1wk Dr Silva -2-3wks PCP 1wk home health to continue. JONAH LI MD Sep 17, 2016 13:02
[2016-09-17] MEDS ORDERED: LACT1CAP57 PO (13:06)
[2016-09-17] MEDS ORDERED: ACET325T40 PO (13:06)
[2016-09-17] MEDS ORDERED: SENN-53 PO (13:06)
--- NOTE | 2016-09-17 13:52 | RADRPT ---
PROCEDURE: XR Chest. CLINICAL INDICATION: Respiratory distress. Left PICC line placement. TECHNIQUE: AP view of the chest was performed. COMPARISON: September 17, 2016 aT 11:54 a.m. FINDINGS: There is a left PICC line in the right atrium. This PICC line has been pulled back, and is now in g ood positioning at the RA/SVC junction. This line is ready for use. The heart size is normal. No acute infiltrate or findings of fluid overload. IMPRESSION: Successful repositioning of the left PICC line. It is now in good positioning at the RA/SVC junctio n and ready for use. No acute infiltrate or findings of fluid overload. RPTAT: QQ. .Vivian Ventura MD, MD Date Time Electronically viewed and signed by .Vivian Ventura MD, MD on 09/17/2016 13:52 .F/
--- NOTE | 2016-09-17 13:52 | RADRPT ---
PROCEDURE: US guidance for PICC line CLINICAL INDICATION: PICC line placement TECHNIQUE: Multiple real-time images were acquired of the patient's arm utilizing a high resolutio n transducer. This was performed by the PICC line nurse for venous access. COMPARISON: None FINDINGS: Ultrasound guidance for PICC line placement. IMPRESSION: Ultrasound guidance for PICC line placement. RPTAT: AA .Zaheer Funk MD, MD Date Time Electronically viewed and signed by .Zaheer Funk MD, on 09/17/2016 13:51 .S/
[2016-09-17] MEDS ORDERED: HEPARIN (10 UNITS/ML) 5ML SYG IV ONE (15:30)
[2016-09-17] MEDS: metroNIDAZOLE 500 MG/NS (PMX) 100 ML IVPB SCH ×2 (15:49→21:28)
[2016-09-17] MEDS: CEFTRIAXONE 1 GM/50 ML (PMX) 50 ML IVPB SCH (17:14)
--- NOTE | 2016-09-17 19:52 | PN ---
DATE: 09/17/2016 INFECTIOUS DISEASE PROGRESS NOTE SUBJECTIVE: Patient is alert, feels good. Family at bedside. She spiked fever of 101 last night. Wound culture, in addition to streptococcus, growing bacteroides fragilis. Also per report from an other facility, she has strep growing in her blood. The patient remains on Rocephin. Currently afe brile. WBC 9.9, H and H 8.1 and 26.1, platelets 339, no shift, no bands. BUN 7, creatinine 0.40. INDWELLINGS: PICC line. PHYSICAL EXAMINATION: GENERAL: Well-developed, middle-aged woman who is alert, in no distress. HEENT: Head atraumatic, normocephalic. Sclerae anicteric. Buccal mucosa pink. NECK: Supple. CHEST: Rise symmetrical. Breath sounds clear. HEART: S1, S2. ABDOMEN: Soft. Bowel tones present. EXTREMITIES: With right foot dressing intact. ASSESSMENT: 1. Right foot cellulitis, abscess with severe Charcot deformity status post incision and drainage w ith cultures growing strep and bacteroides fragilis. 2. Systemic inflammatory response syndrome with fever secondary to above. 3. Streptococcal bacteremia secondary to #1. 4. Diabetes. 5. Peripheral neuropathy. PLAN: The patient remains clinically stable. We are going to repeat blood cultures, start her on F lagyl for anaerobic coverage. Follow podiatry recommendations. Dictated By: JANN SANDOVAL SENIOR TRAINER for [employer]AN LAW MD NI/NTS Conf#: [id number] DID#: [id number]
[2016-09-17 21:01] VITALS: BP 91/50; RESP 20
[2016-09-17] MEDS: INSULIN GLARGINE [LANtus] 3 ML PEN SC SCH (21:29)
[2016-09-17 23:37] VITALS: BP 102/57; PULSE 88
[2016-09-18] MEDS: metroNIDAZOLE 500 MG/NS (PMX) 100 ML IVPB SCH ×3 (05:17→21:24)
[2016-09-18] MEDS: OXYCODONE/ACETAMINOPHEN (5/325) TAB PO PRN ×3 (05:22→22:31)
[2016-09-18 06:11] LABS: ADD SCAN DIFF NO
[2016-09-18 06:17] LABS: ABNORMAL IP MESSAGE 1; BASOPHILS % 0.3 % (0.0-2.0); EOSINOPHILS # 0.1 10^3/ul (0.0-0.5); EOSINOPHILS % 0.8 % (0.0-7.0); HEMATOCRIT 26.8 % (37.0-47.0); HEMOGLOBIN 8.2 g/dl (12.0-16.0); LYMPHOCYTES # 2.7 10^3/ul (0.8-2.9); LYMPHOCYTES % 21.9 % (15.0-51.0); MEAN CORPUSCULAR HEMOGLOBIN 26.7 pg (29.0-33.0); MEAN CORPUSCULAR HGB CONC 30.6 g/dl (32.0-37.0); MEAN CORPUSCULAR VOLUME 87.3 fl (82.0-101.0); MEAN PLATELET VOLUME 10.1 fl (7.4-10.4); MONOCYTE # 1.3 10^3/ul (0.3-0.9); MONOCYTES % 10.8 % (0.0-11.0); NEUTROPHIL # 7.3 10^3/ul (1.6-7.5); NEUTROPHILS % 58.6 % (39.0-77.0); NUCLEATED RED BLOOD CELLS # 0.1 10^3/ul (0.0-0.0); NUCLEATED RED BLOOD CELLS% 0.5 /100WBC (0.0-0.0); PLATELET COUNT 410 10^3/UL (140-415); RED BLOOD COUNT 3.07 10^6/ul (4.20-5.40); RED CELL DISTRIBUTION WIDTH 13.7 % (11.5-14.5); WHITE BLOOD COUNT 12.4 10^3/ul (4.8-10.8)
[2016-09-18 06:46] LABS: CALCIUM 8.4 mg/dl (8.4-10.2); CREATININE 0.49 mg/dl (0.44-1.00)
[2016-09-18 07:55] VITALS: BP 95/56; RESP 18
[2016-09-18] MEDS: INSULIN ASPART [NOVOLOG] 3 ML PEN SC SCH ×7 (08:00→21:00)
[2016-09-18] MEDS: ENOXAPARIN 40 MG/0.4 ML SYG SC SCH (08:25)
[2016-09-18] MEDS: LACTOBACILLUS RHAMNOSUS CAP PO SCH ×2 (08:26→21:22)
[2016-09-18] MEDS: SENNA TAB PO SCH (08:26)
[2016-09-18] MEDS: ASPIRIN 81 MG TAB PO SCH (08:26)
[2016-09-18] MEDS: SODIUM HYPOCHLORITE 0.125% 473 ML BTL IRR SCH (09:00)
[2016-09-18] MEDS: SILVER SULFADIAZINE 1% 25 GM CR TOP SCH (09:00)
--- NOTE | 2016-09-18 14:05 | RADRPT ---
Vent Rate: 88 bpm RR Interval: 0 msec ND Interval: 130 msec QRS Duration: 78 msec QT Interval: 360 msec QTC Interval: 435 msec P-R-T [place]: 56 - 50 - 49 degrees Normal sinus rhythm Low voltage QRS Cannot rule out Anterior infarct , age undetermined Abnormal ECG Electronically Signed By: Edi Mcknight [id number]
--- NOTE | 2016-09-18 14:19 | CONS ---
Date/Time of Note Date/Time of Note DATE: 09/18/16 TIME: 14:16 Assessment/Plan Assessment/Plan Chief Complaint/Hosp Course SUBJECTIVE: Patient is alert, feels good. Feels good, no fevers INDWELLINGS: PICC line. Abx: Rocephin, Flagyl PHYSICAL EXAMINATION: GENERAL: Well-developed, middle-aged woman who is alert, in no distress. HEENT: Head atraumatic, normocephalic. Sclerae anicteric. Buccal mucosa pink. NECK: Supple. CHEST: Rise symmetrical. Breath sounds clear. HEART: S1, S2. ABDOMEN: Soft. Bowel tones present. EXTREMITIES: With right foot dressing intact. ASSESSMENT: 1. Right foot cellulitis, abscess with severe Charcot deformity status post incision and drainage with cultures growing strep and bacteroides fragilis. 2. Systemic inflammatory response syndrome with fever secondary to above. 3. Streptococcal bacteremia secondary to #1. 4. Diabetes. 5. Peripheral neuropathy. PLAN: The patient remains clinically stable. continue abx, Flagyl for anaerobic coverage. Follow repeat bld cx and podiatry recommendations. Can change Flagyl to PO upon dc and continue on Rocephin, both abx for 2 weeks [facility] staff Problems: Consultation Date/Type/Reason Admit Date/Time Sep 12, 2016 at 03:33 Type of Consultation: ID Exam/Review of Systems Vital Signs Vitals Vital Signs Date Time Temp Pulse Resp B/P Pulse Ox O2 Delivery O2 Flow Rate FiO2 09/18/16 07:55 98.9 84 18 95/56 94 09/15/16 02:21 Room Air 09/14/16 14:25 2.0 Intake and Output 09/17/16 09/17/16 09/18/16 15:00 23:00 07:00 Intake Total 1330 ml 700 ml Output Total 950 ml Balance 380 ml 700 ml Results Result Diagram: 09/18/16 0500 09/18/16 0500 Results 24 hrs Laboratory Tests Test 09/17/16 17:14 09/17/16 21:23 09/18/16 05:00 09/18/16 08:02 Bedside Glucose 126 178 89 White Blood Count 12.4 #H Red Blood Count 3.07 L Hemoglobin 8.2 L Hematocrit 26.8 L Mean Corpuscular Volume 87.3 Mean Corpuscular Hemoglobin 26.7 L Mean Corpuscular Hemoglobin Concent 30.6 L Red Cell Distribution Width 13.7 Platelet Count 410 # Mean Platelet Volume 10.1 Neutrophils % 58.6 Lymphocytes % 21.9 Monocytes % 10.8 Eosinophils % 0.8 Basophils % 0.3 Nucleated Red Blood Cells % 0.5 H Neutrophils # 7.3 Lymphocytes # 2.7 Monocytes # 1.3 H Eosinophils # 0.1 Basophils # 0.0 Nucleated Red Blood Cells # 0.1 H Sodium Level 142 Potassium Level 4.0 Chloride Level 104 Carbon Dioxide Level 31 Anion Gap 11 Blood Urea Nitrogen 8 Creatinine 0.49 Glucose Level 86 # Calcium Level 8.4 Test 09/18/16 11:47 09/18/16 11:55 Bedside Glucose 115 Lab Scanned Report REFERENCE LAB Medications Medications Current Medications Ondansetron HCl (Zofran Inj) 4 mg Q6H PRN IV NAUSEA AND/OR VOMITING; Start 09/12 at 08:00 Aspirin (Aspirin) 81 mg DAILY PO Last administered on 09/18/16 08:26; Admin Dose 81 MG; Start 09/12/16 at 09:00 Acetaminophen (Tylenol Tab) 650 mg Q6H PRN PO PAIN LEVEL 1-3 OR FEVER Last administered on 09/15/16 21:07; Admin Dose 650 MG; Start 09/12/16 at 08:00 Morphine Sulfate (morphine) 2 mg Q4H PRN IV PAIN LEVEL 7-10 Last administered on 09/16/16 06:10; Admin Dose 2 MG; Start 09/12/16 at 08:00 Miscellaneous Information 1 ea NOTE XX ; Start 09/12/16 at 10:30 Glucose (Glutose) 15 gm Q15M PRN PO DECREASED GLUCOSE; Start 09/12/16 at 10:30 Glucose (Glutose) 22.5 gm Q15M PRN PO DECREASED GLUCOSE; Start 09/12/16 at 10:30 Dextrose (D50w Syringe) 25 ml Q15M PRN IV DECREASED GLUCOSE; Start 09/12/16 at 10:30 Dextrose (D50w Syringe) 50 ml Q15M PRN IV DECREASED GLUCOSE; Start 09/12/16 at 10:30 Glucagon (Glucagen) 1 mg Q15M PRN IM DECREASED GLUCOSE; Start 09/12/16 at 10:30 Glucose (Glutose) 15 gm Q15M PRN BUCCAL DECREASED GLUCOSE; Start 09/12/16 at 10: 30 Lactobacillus Acidophilus/ Rhamnosus (Culturelle) 1 cap BID PO Last administered on 09/18/16 08:26; Admin Dose 1 CAP; Start 09/12/16 at 21:00 Enoxaparin Sodium (Lovenox) 40 mg DAILY SC Last administered on 09/18/16 08:25 ; Admin Dose 40 MG; Start 09/13/16 at 09:00 Sodium Hypochlorite (Dakin'S (1/4 Strength)) 1 applic DAILY IRR Last administered on 09/15/16 10:51; Admin Dose 1 APPLIC; Start 09/13/16 at 17:30 Silver Sulfadiazine (Thermazene 1% 25 Gm) 1 applic DAILY TOP Last administered on 09/15/16 08:23; Admin Dose 1 APPLIC; Start 09/13/16 at 19:00 Senna (Senokot) 2 tab DAILY PO Last administered on 09/18/16 08:26; Admin Dose 2 TAB; Start 09/14/16 at 09:00 Oxycodone/ Acetaminophen (Percocet (5/ 325)) 1 tab Q3H PRN PO MODERATE PAIN LEVEL 4-6 Last administered on 09/18/16 05:22; Admin Dose 1 TAB; Start 09/14/16 at 19:30 Insulin Glargine 55 unit 55 unit HS SC Last administered on 09/17/16 21:29; Admin Dose 55 UNIT; Start 09/14/16 at 21:00 Ceftriaxone Sodium 50 ml @ 100 mls/hr Q24H IVPB Last administered on 17:14; Admin Dose 100 MLS/HR; Start 09/15/16 at 17:00 Metronidazole (Flagyl 500 Mg (Pmx)) 100 ml @ 100 mls/hr Q8 IVPB Last administered on 09/18/16 13:47; Admin Dose 100 MLS/HR; Start 09/17/16 at 15:30 JANN SANDOVAL NP Sep 18, 2016 14:19
--- NOTE | 2016-09-18 15:38 | PN ---
DATE: 09/18/2016 SUBJECTIVE: The patient is status post right foot cellulitis and abscess incision and drainage done on 09/14/2016. The patient reports no fever and chills. She denies pain. Reports feeling better. She is on IV antibiotics and denies overnight adverse events. Patient reports no other issues. PHYSICAL EXAMINATION: The patient is lying supine in bed in no acute distress. Right foot bandage was examined. There was no bloody strike through. There is no erythema extending proximally on the leg. The patient is able to move toes. Labs reviewed. ASSESSMENT: 1. Status post incision and drainage, right foot abscess with cellulitis. 2. Severe right foot Charcot deformity. 3. Diabetes mellitus with peripheral neuropathy. PLAN: The patient will most likely require surgical reconstruction of her right foot Charcot once h er infection is under control. I would like to continue IV antibiotics. PICC line recommended. Pat ient will be seen in-house. Dictated By: COLETTE COLBY/SEPIDEH Conf#: [id number] DID#: [id number]
--- NOTE | 2016-09-18 15:48 | PN ---
DATE: 09/18/2016 SUBJECTIVE: The patient is status post incision and drainage of the right foot abscess with celluli tis. She denies any pain today. Denies fever and chills. Reports no overnight adverse events. REVIEW OF SYSTEMS: As per HPI. OBJECTIVE: Moderately obese female in no acute distress, lying supine in bed. Bandages were remove d. Packing was removed. There is no drainage of pus, bleeding, or proximal streaking. There is a slight area of erythema on the medial right ankle, nontender to examination. There is decreased nadia ma noted in the foot. Charcot changes present. Left foot shows no Charcot changes and no open woun d. Dorsalis pedis and posterior tibial pulses palpable, and capillary filling time is instantaneous . Sensation is decreased to sharp, dull, vibratory, and temperature stimuli. ASSESSMENT: Right foot cellulitis and abscess, resolving, status post incision and drainage on 11/2016. PLAN: Dressing was changed. Betadine dressing was reapplied. Compression with 1 layer of Celestine. Th e patient is to remain nonweightbearing on the right foot. The [facility]. She is being discharged today. Continue IV antibiotics at home us ing the PICC line that is present. The patient will be followed in clinic. Dictated By: COLETTE COLBY/SEPIDEH Conf#: [id number] DID#: [id number]
[2016-09-18] MEDS: CEFTRIAXONE 1 GM/50 ML (PMX) 50 ML IVPB SCH (17:35)
--- NOTE | 2016-09-18 18:04 | PN ---
Date/Time of Note Date/Time of Note DATE: 09/18/16 TIME: 17:59 Assessment/Plan VTE Prophylaxis VTE Prophylaxis Intervention: LMWH Lines/Catheters IV Catheter Type (from Nrsg): PICC Line Central line still needed: Yes (IV abx for Osteomyelitis ) Urinary Cath still in place: No Assessment/Plan Assessment/Plan 1. Right foot cellulitis, abscess with severe Charcot deformity status post incision and drainage with cultures growing strep and bacteroides fragilis. 2. Systemic inflammatory response syndrome with fever secondary to above. 3. Streptococcal bacteremia secondary to #1. 4. Diabetes. 5. Peripheral neuropathy. Plan: IV abx ceftriaxone and PO flagyl for osteomyelitis for total of 6 weeks as per ID PICC line place Home health is set up for IV abx through PICC line at home and for wound care awaitign Podiatry follow up today and awaiting dressign recommendations Lovenox for DVT prophylaxis Subjective 24 Hr Interval Summary Free Text/Dictation no acute events awaiting podiatry follow up today, d/c plannign in process Exam/Review of Systems Vital Signs Vitals Vital Signs Date Time Temp Pulse Resp B/P Pulse Ox O2 Delivery O2 Flow Rate FiO2 09/18/16 07:55 98.9 84 18 95/56 94 09/15/16 02:21 Room Air 09/14/16 14:25 2.0 Intake and Output 09/17/16 09/17/16 09/18/16 15:00 23:00 07:00 Intake Total 1330 ml 700 ml Output Total 950 ml Balance 380 ml 700 ml Exam GENERAL: Well-developed, middle-aged woman, in no distress. HEENT: Head atraumatic, normocephalic. Sclerae anicteric. Buccal mucosa dry. NECK: Supple. CHEST: Chest rise is symmetrical. Breath sounds clear. HEART: S1, S2. ABDOMEN: Soft, bowel tones present. EXTREMITIES: With right lower extremity erythema. Results Result Diagram: 09/18/16 0500 09/18/16 0500 Results 24 hrs Laboratory Tests Test 09/17/16 21:23 09/18/16 05:00 09/18/16 08:02 09/18/16 11:47 Bedside Glucose 178 89 115 White Blood Count 12.4 #H Red Blood Count 3.07 L Hemoglobin 8.2 L Hematocrit 26.8 L Mean Corpuscular Volume 87.3 Mean Corpuscular Hemoglobin 26.7 L Mean Corpuscular Hemoglobin Concent 30.6 L Red Cell Distribution Width 13.7 Platelet Count 410 # Mean Platelet Volume 10.1 Neutrophils % 58.6 Lymphocytes % 21.9 Monocytes % 10.8 Eosinophils % 0.8 Basophils % 0.3 Nucleated Red Blood Cells % 0.5 H Neutrophils # 7.3 Lymphocytes # 2.7 Monocytes # 1.3 H Eosinophils # 0.1 Basophils # 0.0 Nucleated Red Blood Cells # 0.1 H Sodium Level 142 Potassium Level 4.0 Chloride Level 104 Carbon Dioxide Level 31 Anion Gap 11 Blood Urea Nitrogen 8 Creatinine 0.49 Glucose Level 86 # Calcium Level 8.4 Test 09/18/16 11:55 09/18/16 17:32 Lab Scanned Report REFERENCE LAB Bedside Glucose 124 Medications Medications Current Medications Ondansetron HCl (Zofran Inj) 4 mg Q6H PRN IV NAUSEA AND/OR VOMITING; Start 09/12 at 08:00 Aspirin (Aspirin) 81 mg DAILY PO Last administered on 09/18/16 08:26; Admin Dose 81 MG; Start 09/12/16 at 09:00 Acetaminophen (Tylenol Tab) 650 mg Q6H PRN PO PAIN LEVEL 1-3 OR FEVER Last administered on 09/15/16 21:07; Admin Dose 650 MG; Start 09/12/16 at 08:00 Morphine Sulfate (morphine) 2 mg Q4H PRN IV PAIN LEVEL 7-10 Last administered on 09/16/16 06:10; Admin Dose 2 MG; Start 09/12/16 at 08:00 Miscellaneous Information 1 ea NOTE XX ; Start 09/12/16 at 10:30 Glucose (Glutose) 15 gm Q15M PRN PO DECREASED GLUCOSE; Start 09/12/16 at 10:30 Glucose (Glutose) 22.5 gm Q15M PRN PO DECREASED GLUCOSE; Start 09/12/16 at 10:30 Dextrose (D50w Syringe) 25 ml Q15M PRN IV DECREASED GLUCOSE; Start 09/12/16 at 10:30 Dextrose (D50w Syringe) 50 ml Q15M PRN IV DECREASED GLUCOSE; Start 09/12/16 at 10:30 Glucagon (Glucagen) 1 mg Q15M PRN IM DECREASED GLUCOSE; Start 09/12/16 at 10:30 Glucose (Glutose) 15 gm Q15M PRN BUCCAL DECREASED GLUCOSE; Start 09/12/16 at 10: 30 Lactobacillus Acidophilus/ Rhamnosus (Culturelle) 1 cap BID PO Last administered on 09/18/16 08:26; Admin Dose 1 CAP; Start 09/12/16 at 21:00 Enoxaparin Sodium (Lovenox) 40 mg DAILY SC Last administered on 09/18/16 08:25 ; Admin Dose 40 MG; Start 09/13/16 at 09:00 Sodium Hypochlorite (Dakin'S (1/4 Strength)) 1 applic DAILY IRR Last administered on 09/15/16 10:51; Admin Dose 1 APPLIC; Start 09/13/16 at 17:30 Silver Sulfadiazine (Thermazene 1% 25 Gm) 1 applic DAILY TOP Last administered on 09/15/16 08:23; Admin Dose 1 APPLIC; Start 09/13/16 at 19:00 Senna (Senokot) 2 tab DAILY PO Last administered on 09/18/16 08:26; Admin Dose 2 TAB; Start 09/14/16 at 09:00 Oxycodone/ Acetaminophen (Percocet (5/ 325)) 1 tab Q3H PRN PO MODERATE PAIN LEVEL 4-6 Last administered on 09/18/16 17:35; Admin Dose 1 TAB; Start 09/14/16 at 19:30 Insulin Glargine 55 unit 55 unit HS SC Last administered on 09/17/16 21:29; Admin Dose 55 UNIT; Start 09/14/16 at 21:00 Ceftriaxone Sodium 50 ml @ 100 mls/hr Q24H IVPB Last administered on 17:35; Admin Dose 100 MLS/HR; Start 09/15/16 at 17:00 Metronidazole (Flagyl 500 Mg (Pmx)) 100 ml @ 100 mls/hr Q8 IVPB Last administered on 09/18/16 13:47; Admin Dose 100 MLS/HR; Start 09/17/16 at 15:30 LINDA PAGE MD Sep 18, 2016 18:04
[2016-09-18 21:00] VITALS: BP 88/50; RESP 19
[2016-09-18] MEDS: INSULIN GLARGINE [LANtus] 3 ML PEN SC SCH (21:00)
[2016-09-18] MEDS ORDERED: INSULIN GLARGINE [LANtus] 3 ML PEN SC ONE (23:00)
[2016-09-19] MEDS: metroNIDAZOLE 500 MG/NS (PMX) 100 ML IVPB SCH ×2 (05:26→14:05)
[2016-09-19 07:49] VITALS: BP 114/60; RESP 18
[2016-09-19] MEDS: INSULIN ASPART [NOVOLOG] 3 ML PEN SC SCH ×6 (08:00→17:31)
[2016-09-19] MEDS: SENNA TAB PO SCH (08:23)
[2016-09-19] MEDS: ASPIRIN 81 MG TAB PO SCH (08:23)
[2016-09-19] MEDS: LACTOBACILLUS RHAMNOSUS CAP PO SCH (08:23)
[2016-09-19] MEDS: ENOXAPARIN 40 MG/0.4 ML SYG SC SCH (08:24)
[2016-09-19] MEDS: SODIUM HYPOCHLORITE 0.125% 473 ML BTL IRR SCH (08:25)
[2016-09-19] MEDS: SILVER SULFADIAZINE 1% 25 GM CR TOP SCH (08:25)
--- NOTE | 2016-09-19 14:09 | CONS ---
Date/Time of Note Date/Time of Note DATE: 09/19/16 TIME: 14:08 Assessment/Plan Assessment/Plan Chief Complaint/Hosp Course SUBJECTIVE: Patient is alert, feels good no fevers INDWELLINGS: PICC line. Abx: Rocephin, Flagyl PHYSICAL EXAMINATION: GENERAL: Well-developed, middle-aged woman who is alert, in no distress. HEENT: Head atraumatic, normocephalic. Sclerae anicteric. Buccal mucosa pink. NECK: Supple. CHEST: Rise symmetrical. Breath sounds clear. HEART: S1, S2. ABDOMEN: Soft. Bowel tones present. EXTREMITIES: With right foot dressing intact. ASSESSMENT: 1. Right foot cellulitis, abscess with severe Charcot deformity status post incision and drainage with cultures growing strep and bacteroides fragilis. 2. Systemic inflammatory response syndrome with fever secondary to above. 3. Streptococcal bacteremia secondary to #1. 4. Diabetes. 5. Peripheral neuropathy. PLAN: The patient remains stable. repeat bld cx negative, ok dc on current abx for 2 weeks, f/u with podiatry at wound clinic staff Problems: Consultation Date/Type/Reason Admit Date/Time Sep 12, 2016 at 03:33 Type of Consultation: ID Exam/Review of Systems Vital Signs Vitals Vital Signs Date Time Temp Pulse Resp B/P Pulse Ox O2 Delivery O2 Flow Rate FiO2 09/19/16 07:49 98.9 88 18 114/60 95 Intake and Output 09/18/16 09/18/16 09/19/16 15:00 23:00 07:00 Intake Total 100 ml 1690 ml 680 ml Output Total 1200 ml 2200 ml Balance 100 ml 490 ml -1520 ml Results Result Diagram: 09/18/16 0500 09/18/16 0500 Results 24 hrs Laboratory Tests Test 09/18/16 17:32 09/18/16 21:15 09/18/16 22:21 09/19/16 08:01 Bedside Glucose 124 83 112 120 Test 09/19/16 11:51 Bedside Glucose 186 Medications Medications Current Medications Ondansetron HCl (Zofran Inj) 4 mg Q6H PRN IV NAUSEA AND/OR VOMITING; Start 09/12 at 08:00 Aspirin (Aspirin) 81 mg DAILY PO Last administered on 09/19/16t 08:23; Admin Dose 81 MG; Start 09/12/16 at 09:00 Acetaminophen (Tylenol Tab) 650 mg Q6H PRN PO PAIN LEVEL 1-3 OR FEVER Last administered on 09/15/16 21:07; Admin Dose 650 MG; Start 09/12/16 at 08:00 Morphine Sulfate (morphine) 2 mg Q4H PRN IV PAIN LEVEL 7-10 Last administered on 09/16/16 06:10; Admin Dose 2 MG; Start 09/12/16 at 08:00 Miscellaneous Information 1 ea NOTE XX ; Start 09/12/16 at 10:30 Glucose (Glutose) 15 gm Q15M PRN PO DECREASED GLUCOSE; Start 09/12/16 at 10:30 Glucose (Glutose) 22.5 gm Q15M PRN PO DECREASED GLUCOSE; Start 09/12/16 at 10:30 Dextrose (D50w Syringe) 25 ml Q15M PRN IV DECREASED GLUCOSE; Start 09/12/16 at 10:30 Dextrose (D50w Syringe) 50 ml Q15M PRN IV DECREASED GLUCOSE; Start 09/12/16 at 10:30 Glucagon (Glucagen) 1 mg Q15M PRN IM DECREASED GLUCOSE; Start 09/12/16 at 10:30 Glucose (Glutose) 15 gm Q15M PRN BUCCAL DECREASED GLUCOSE; Start 09/12/16 at 10: 30 Lactobacillus Acidophilus/ Rhamnosus (Culturelle) 1 cap BID PO Last administered on 09/19/16 08:23; Admin Dose 1 CAP; Start 09/12/16 at 21:00 Enoxaparin Sodium (Lovenox) 40 mg DAILY SC Last administered on 09/19/16 08:24 ; Admin Dose 40 MG; Start 09/13/16 at 09:00 Sodium Hypochlorite (Dakin'S (1/4 Strength)) 1 applic DAILY IRR Last administered on 09/15/16 10:51; Admin Dose 1 APPLIC; Start 09/13/16 at 17:30 Silver Sulfadiazine (Thermazene 1% 25 Gm) 1 applic DAILY TOP Last administered on 09/15/16 08:23; Admin Dose 1 APPLIC; Start 09/13/16 at 19:00 Senna (Senokot) 2 tab DAILY PO Last administered on 09/19/16 08:23; Admin Dose 2 TAB; Start 09/14/16 at 09:00 Oxycodone/ Acetaminophen (Percocet (5/ 325)) 1 tab Q3H PRN PO MODERATE PAIN LEVEL 4-6 Last administered on 09/18/16 22:31; Admin Dose 1 TAB; Start 09/14/16 at 19:30 Insulin Glargine 55 unit 55 unit HS SC Last administered on 09/17/16 21:29; Admin Dose 55 UNIT; Start 09/14/16 at 21:00 Ceftriaxone Sodium 50 ml @ 100 mls/hr Q24H IVPB Last administered on 17:35; Admin Dose 100 MLS/HR; Start 09/15/16 at 17:00 Metronidazole (Flagyl 500 Mg (Pmx)) 100 ml @ 100 mls/hr Q8 IVPB Last administered on 09/19/16 14:05; Admin Dose 100 MLS/HR; Start 09/17/16 at 15:30 JANN SANDOVAL NP Sep 19, 2016 14:09
[2016-09-19] MEDS: OXYCODONE/ACETAMINOPHEN (5/325) TAB PO PRN ×2 (14:13→20:11)
[2016-09-19] MEDS: CEFTRIAXONE 1 GM/50 ML (PMX) 50 ML IVPB SCH (17:29)
[2016-09-19 20:53] VITALS: BP 102/58; RESP 19
--- NOTE | 2016-09-19 21:28 | PN ---
Date/Time of Note Date/Time of Note DATE: 09/19/16 TIME: 21:27 Assessment/Plan VTE Prophylaxis VTE Prophylaxis Intervention: LMWH Lines/Catheters IV Catheter Type (from Nrsg): PICC Line Central line still needed: Yes (IV abx at home ) Urinary Cath still in place: No Assessment/Plan Assessment/Plan 1. Right foot cellulitis, abscess with severe Charcot deformity status post incision and drainage with cultures growing strep and bacteroides fragilis. 2. Systemic inflammatory response syndrome with fever secondary to above. 3. Streptococcal bacteremia secondary to #1. 4. Diabetes. 5. Peripheral neuropathy. Plan: IV abx ceftriaxone and PO flagyl for osteomyelitis for total of 6 weeks as per ID PICC line place Home health is set up for IV abx through PICC line at home and for wound care s/p Podiatry follow, awaiting home health to deliiver some materials for d/ cplanning Lovenox for DVT prophylaxis Subjective 24 Hr Interval Summary Free Text/Dictation doing ok, BP stable, home health set up pending Exam/Review of Systems Vital Signs Vitals Vital Signs Date Time Temp Pulse Resp B/P Pulse Ox O2 Delivery O2 Flow Rate FiO2 09/19/16 20:53 97.9 88 19 102/58 94 Intake and Output 09/18/16 09/18/16 09/19/16 15:00 23:00 07:00 Intake Total 100 ml 1690 ml 680 ml Output Total 1200 ml 2200 ml Balance 100 ml 490 ml -1520 ml Results Result Diagram: 09/18/16 0500 09/18/16 0500 Results 24 hrs Laboratory Tests Test 09/18/16 22:21 09/19/16 08:01 09/19/16 11:51 09/19/16 17:17 Bedside Glucose 112 120 186 84 Medications Medications Current Medications Ondansetron HCl (Zofran Inj) 4 mg Q6H PRN IV NAUSEA AND/OR VOMITING; Start 09/12 at 08:00 Aspirin (Aspirin) 81 mg DAILY PO Last administered on 09/19/16 08:23; Admin Dose 81 MG; Start 09/12/16 at 09:00 Acetaminophen (Tylenol Tab) 650 mg Q6H PRN PO PAIN LEVEL 1-3 OR FEVER Last administered on 09/15/16 21:07; Admin Dose 650 MG; Start 09/12/16 at 08:00 Morphine Sulfate (morphine) 2 mg Q4H PRN IV PAIN LEVEL 7-10 Last administered on 09/16/16 06:10; Admin Dose 2 MG; Start 09/12/16 at 08:00 Miscellaneous Information 1 ea NOTE XX ; Start 09/12/16 at 10:30 Glucose (Glutose) 15 gm Q15M PRN PO DECREASED GLUCOSE; Start 09/12/16 at 10:30 Glucose (Glutose) 22.5 gm Q15M PRN PO DECREASED GLUCOSE; Start 09/12/16 at 10:30 Dextrose (D50w Syringe) 25 ml Q15M PRN IV DECREASED GLUCOSE; Start 09/12/16 at 10:30 Dextrose (D50w Syringe) 50 ml Q15M PRN IV DECREASED GLUCOSE; Start 09/12/16 at 10:30 Glucagon (Glucagen) 1 mg Q15M PRN IM DECREASED GLUCOSE; Start 09/12/16 at 10:30 Glucose (Glutose) 15 gm Q15M PRN BUCCAL DECREASED GLUCOSE; Start 09/12/16 at 10: 30 Lactobacillus Acidophilus/ Rhamnosus (Culturelle) 1 cap BID PO Last administered on 09/19/16 08:23; Admin Dose 1 CAP; Start 09/12/16 at 21:00 Enoxaparin Sodium (Lovenox) 40 mg DAILY SC Last administered on 09/19/16 08:24 ; Admin Dose 40 MG; Start 09/13/16 at 09:00 Sodium Hypochlorite (Dakin'S (1/4 Strength)) 1 applic DAILY IRR Last administered on 09/15/16 10:51; Admin Dose 1 APPLIC; Start 09/13/16 at 17:30 Silver Sulfadiazine (Thermazene 1% 25 Gm) 1 applic DAILY TOP Last administered on 09/15/16 08:23; Admin Dose 1 APPLIC; Start 09/13/16 at 19:00 Senna (Senokot) 2 tab DAILY PO Last administered on 09/19/16 08:23; Admin Dose 2 TAB; Start 09/14/16 at 09:00 Oxycodone/ Acetaminophen (Percocet (5/ 325)) 1 tab Q3H PRN PO MODERATE PAIN LEVEL 4-6 Last administered on 09/19/16 20:11; Admin Dose 1 TAB; Start 09/14/16 at 19:30 Insulin Glargine 55 unit 55 unit HS SC Last administered on 09/17/16 21:29; Admin Dose 55 UNIT; Start 09/14/16 at 21:00 Ceftriaxone Sodium 50 ml @ 100 mls/hr Q24H IVPB Last administered on 17:29; Admin Dose 100 MLS/HR; Start 09/15/16 at 17:00 Metronidazole (Flagyl 500 Mg (Pmx)) 100 ml @ 100 mls/hr Q8 IVPB Last administered on 09/19/16 14:05; Admin Dose 100 MLS/HR; Start 09/17/16 at 15:30 LINDA PAGE MD Sep 19, 2016 21:28
--- NOTE | 2016-09-29 02:13 | DS ---
DATE OF ADMISSION: 09/12/2016 DATE OF DISCHARGE: 09/19/2016 FINAL DISCHARGE DIAGNOSES: 1. Right foot cellulitis abscess with severe Charcot deformity, status post incision and drainage with culture growing Streptococcus and Bacteroides fragilis. 2. Systemic inflammatory response syndrome secondary to right foot cellulitis. 3. Streptococcal bacteremia secondary to right foot cellulitis. 4. Diabetes mellitus, poorly controlled. 5. Peripheral neuropathy with severe Charcot deformity. CONSULTATIONS DONE DURING THIS HOSPITALIZATION: 1. Podiatry consult, Dr. Eddie Vaughn. 2. Infectious disease consult, Dr. Silva HOSPITAL COURSE: This is a 51-year-old female who has a past medical history of diabetes mellitus and severe peripheral neuropathy with Charcot deformity who presented with right foot cellulitis. The patient had an incision and drainage of the abscess of the right foot cellulitis as her wound culture grew Streptococcus and Bacteroides fragilis. She also had systemic inflammatory response syndrome secondary to Streptococcal bacteremia. The patient was seen by infectious disease service, Dr. Silva, and also was seen by podiatry, Dr. Eddie Vaughn. She was treated with IV antibiotics and after getting podiatry and wound recommendations and followup plan in the wound care clinic, she got [facility] facility. DISPOSITION: The patient will disposition to a prison facility with IV antibiotics, ceftriaxone and p.o. Flagyl for osteomyelitis of the right foot for a total of 6 weeks upon discharge. DISCHARGE FOLLOWUP AND INSTRUCTIONS: 1. The patient is to follow up with the physician at the prison facility. 2. The patient is to follow with Dr[facility] Eddie Vaugh[facility] in [facility] as outpatient in 1 to 2 weeks after discharge. 3. The patient is to followup with infectious disease service, Dr. Silva, as an outpatient in 1 to 2 weeks after discharge. She has been explained about the discharge plan and followup instructions. She understood and verbalized understanding. The total time spent in the patient's discharge plan is more than 60 minutes. Dictated By: LINDA PAGE MD, KP/SEPIDEH Conf#: [id number] DID#: [id number]
== END 2016-09-19 23:04 | disposition home health service (06) | DRG 580 ==
LOC: E/R 03:22 → PP2 03:33
PROVIDERS: ADMIT Internal Medicine; ATTEND Internal Medicine
PROC: 0JDQ0ZZ Extraction of Right Foot Subcutaneous Tissue and Fascia, Open Approach (ICD-10-PCS; principal; 2016-09-14 10:00)
DX: L02.611 Cutaneous abscess of right foot (principal); L03.115 Cellulitis of right lower limb; E87.2 Acidosis; E11.610 Type 2 diabetes mellitus with diabetic neuropathic arthropathy; E11.65 Type 2 diabetes mellitus with hyperglycemia; I10 Essential (primary) hypertension; D64.9 Anemia, unspecified; E66.01 Morbid (severe) obesity due to excess calories; Z68.37 Body mass index [BMI] 37.0-37.9, adult; I70.203 Unspecified atherosclerosis of native arteries of extremities, bilateral legs
CPT/HCPCS: 36569; 71010; 73630; 75635; 76937; 80048; 80053; 80061; 80202; 82270; 82306; 82565; 82728; 82962; 83036; 83540; 83735; 84100; 84443; 84520; 84703; 85025; 85610; 87040; 87070; 87075; 87102; 87116; 93005; 93922; 96372; 96374; 96375; 97116; 97162; 97530; J0696; J1650; J1815; J2250; J2270; J2370; J2405; J2765; J2916; J3010; J3370; J3475; J7030; J7040; J7050; Q9967

== ENCOUNTER 2016-10-17 21:07 | Emergency (ER) | END 2016-10-17 22:42 | disposition home or self-care (01) | DX: T82.898A Other specified complication of vascular prosthetic devices, implants and grafts, initial encounter (principal); E11.9 Type 2 diabetes mellitus without complications; I10 Essential (primary) hypertension; E66.9 Obesity, unspecified; Y82.8 Other medical devices associated with adverse incidents; Z68.32 Body mass index [BMI] 32.0-32.9, adult; Z79.84 Long term (current) use of oral hypoglycemic drugs | CPT/HCPCS: Z7502; Z7610 ==

== ENCOUNTER 2017-05-24 12:42 | Emergency (ER) | END 2017-05-24 22:28 | disposition short-term general hospital (02) ==

== ENCOUNTER 2017-10-09 13:37 | Day surgery (SDC) | END 2017-10-09 18:00 | disposition home or self-care (01) ==

== ENCOUNTER 2018-02-11 21:35 | Inpatient (IN) | END 2018-02-19 21:52 | disposition home health service (06) | DRG 623 ==

== ENCOUNTER 2018-07-05 14:00 | Day surgery (SDC) | payer OTHER ==
[2018-06-26 16:54] VITALS: BMI 38.1
[~2018-07-05] VITALS: Ht 157.5 cm; Wt 103.9 kg
[2018-07-05] VITALS (13 sets, daily range): BP systolic 112–143; BP diastolic 61–77; PULSE 86–94; RESP 12–20; Ht 157.5 cm; Wt 103.9 kg
[~2018-07-05 14:00] MED LIST: ATOR10TA65 PO; FLUO20CA22 PO; GLIP10TA14 PO; HYDR-3601 PO; INSU100I33 SC; LEVO750T25 PO; LISI-313 PO; METF100010 PO; OMEP40CA6 PO
--- NOTE | 2018-07-05 15:37 | PREAC ---
Date/Time of Note Date/Time of Note DATE: 07/05/18 TIME: 15:36 Anesthesia Eval and Record Evaluation Time Pre-Procedure Interview DATE: 07/05/18 TIME: 15:36 Age 52 Sex female NPO: 8 hrs Preoperative diagnosis Right Charcot foot, right foot open wound Planned procedure Right foot Charcot reconstruction, excision of open wound, calcaneal osteotomy, Achilles tendon lengthening, midfoot fusion Past Medical History Past Medical History: Includes Cardio: HTN, Dyslipidemia Endo: Diabetes GI: Morbid obesity Heme: Anemia Surgery & Anesthesia Issues No known issue Meds Anticoagulation: No Beta Lilian within 24 hr: No Reason Beta Lilian not given: Pt. not on B-Lilian Active Scripts Hydrocodone Bit-Acetaminophen (Hydrocodone Bit-APAP) 5-325MG Tablet, 1 TAB PO Q6H PRN for MODERATE PAIN LEVEL 4-6 for 10 Days, #30 TAB Prov:TRICIA RIOS MD 02/19/18 Reported Medications Insulin Glargine,Hum.rec.anlog (Basaglar Kwikpen U-100) 100 Unit/1 Ml Ins uln.pen, 46 UNIT SC QHS, EA 10/09/17 Omeprazole* (Omeprazole*) 40 Mg Capsule.dr, 40 MG PO DAILY, #30 CAP 10/09/17 Fluoxetine Hcl* (Fluoxetine Hcl*) 20 Mg Capsule, 20 MG PO DAILY, CAP 05/24/17 Metformin Hcl* (Metformin Hcl*) 1,000 Mg Tablet, 1000 MG PO WITH BREAKFAST DINNE, #60 TAB 05/24/17 Atorvastatin Calcium (Atorvastatin Calcium) 10 Mg Tablet, 10 MG PO QHS, #30 TAB 05/24/17 Lisinopril* (Lisinopril*) 5 Mg Tablet, 5 MG PO DAILY, #30 TAB 05/24/17 Glipizide* (Glipizide*) 10 Mg Tablet, 10 MG PO AC BREAKFAST DINNER, TAB 05/24/17 Discontinued Scripts Levofloxacin* (Levaquin*) 750 Mg Tablet, 750 MG PO DAILY@06 for 49 Days, #49 TAB Prov:TRICIA RIOS MD 02/19/18 Meds reviewed: Yes Allergies Coded Allergies: No Known Allergy (Unverified , 10/09/17) Allergies Reviewed: Yes Labs/Studies Labs Reviewed: Reviewed by anesthesiologist Result Diagram: 07/05/18 1512 Laboratory Tests 07/05/18 15:12 test: Negative Pre-procedure Exam Last vitals Vital Signs Date Temp Pulse Resp B/P (MAP) Pulse Ox O2 O2 Flow FiO2 Time Delivery Rate 07/05/18 97.4 89 16 142/77 97 15:17 (98) Airway: Adequate mouth opening Mallampati: Mallampati II Teeth: Abnormal (Upper partial denture) Lung: Normal Heart: Normal ASA Physical Status ASA physical status: 3 Emergency: None Planned Anesthetic General/MAC: ETT, LMA Planned Pain Management Single shot nerve block, Parenteral pain med Pre-operative Attestations Prior to commencing anesthesia and surgery, the patient was re-evaluated, there was verification of: *The patient's identity *The results of appropriate recent lab work and preoperative vital signs *The above evaluation not changing prior to induction *Anesthetic plan, risk benefits, alternative and complications discussed with patient/family; questions answered; patient/family understands, accepts and wishes to proceed. GRISELDA ARANA MD Jul 05, 2018 15:37
[2018-07-05] MEDS ORDERED: LIDOCAINE 2% (SDV) 5 ML INJ ONE (15:48)
[2018-07-05] MEDS ORDERED: PROPOFOL 20 ML ONE (15:48)
[2018-07-05] MEDS ORDERED: CEFAZOLIN 1 GM INJ ONE (15:48)
[2018-07-05] MEDS ORDERED: ROPIVACAINE 0.5 % 30 ML VIAL ONE (15:54)
--- NOTE | 2018-07-05 15:56 | HPN ---
Date/Time of Note Date/Time of Note DATE: 07/05/18 TIME: 15:56 Interval H&P Admission Note Pt. seen H&P reviewed: No system changes COLETTE MCQUEEN DPM Jul 05, 2018 15:56
[2018-07-05] MEDS ORDERED: ONDANSETRON 4 MG INJ ONE (16:41)
[2018-07-05] MEDS ORDERED: METOCLOPRAMIDE 10 MG INJ ONE (16:41)
[2018-07-05] MEDS ORDERED: POLYMYXIN/BACITRACIN 1L IRRIG IRR ONE (17:16)
[2018-07-05] MEDS ORDERED: BUPIVACAINE 0.25% (MPF) 30 ML INJ ONE (19:08)
--- NOTE | 2018-07-05 19:27 | OPR ---
Date/Time of Note Date/Time of Note DATE: 07/05/18 TIME: 19:11 Operative Report Procedure Date: Jul 05, 2018 Preoperative Diagnosis Right foot severe Charcot deformity Chronic open wound of the right foot Severe pes planus deformity History of previous foot fracture History of multiple foot surgeries Diabetes mellitus Peripheral neuropathy Peripheral vascular disease Morbid obesity Postoperative Diagnosis Right foot severe Charcot deformity Chronic open wound of the right foot Severe pes planus deformity History of previous foot fracture History of multiple foot surgeries Diabetes mellitus Peripheral neuropathy Peripheral vascular disease Morbid obesity Operation/Procedure Performed Midfoot Charcot reconstruction including first metatarsal cuneiform joint fusion and tarsometatarsal joint release and reduction right foot Howell calcaneal osteotomy right foot Surgical excision of chronic open wound of the right foot measuring 5 x 5 cm Intraoperative use and interpretation of fluoroscopy Application of posterior splint to the right lower extremity Surgeon see signature line Clinical Laboratory Scientist None Anesthesia Type: general Estimated Blood Loss: 0 - 10 ml's Transfusion none Specimen Bone from the right foot. Open wound chronic from the right foot. Grafts/Implants none Complications none Pt Condition Post Procedure: stable Disposition: PACU Indications This is a pleasant 52-year-old female patient who has been suffering with severe Charcot deformity of the right foot with chronic open wound which has worsened over time. She has had multiple foot surgeries which were mainly concentrated on the wound and not the Charcot deformities and she has failed to close the wound. Recommended procedure is reconstructive foot surgery on the right foot including midfoot reconstruction, calcaneal osteotomy, possible tendo Achilles lengthening and surgical excision of chronic open wound of the right foot. Risks and complications of this type of surgery was discussed with patient in great detail. Risks and complications discussed include, but are not limited to, postoperative infection, postoperative pain, chronic pain and disability, hardware failure, malunion, nonunion, delayed union, failure of surgery to correct the problem, need for additional surgical procedures, deep venous thrombosis, gait disturbance, problems with shoegear, limitation of activities, limb loss and loss of life. Patient understands the discussion and agrees to the procedure. An informed consent was obtained, signed and placed in the chart. No guarantee or warrantee was given or implied as to the outcome of the procedure either in verbal or written form. Procedure Description The patient was seen in the preoperative unit. The proposed surgery was discussed with patient in great detail. Risks and complications of this type of surgery was discussed with patient in great detail. Opportunity was given to patient to ask questions and all questions were answered. The patient acknowledges understanding of the discussion. An informed consent was then obtained, signed and placed in the chart. Patient was taken to the operating room and was placed on the operating table in the supine position. All bony prominences were padded properly. A timeout was called by the circulating nurse. Everyone in the operating room was agreeable to the timeout. The patient was then placed under [general anesthesia] by the anesthesiologist. [A pneumatic thigh tourniquet was applied to the right thigh]. The [right lower extremity] was scrubbed,l prepped, and draped in the usual aseptic manner. [An Esmarch bandage was utilized to exsanguinate] [the right lower extremity] [and the tourniquet was inflated to] 300 mmHg pressure Procedure #1: Surgical correction and midfoot reconstruction right foot Attention was directed to the right foot. C-arm was used to localize and find the axis of the deformity which in this case is a transverse deformity of the midfoot. There appears to be an old Lisfranc fracture with space between the base of the first and second metatarsals. I made an incision on the dorsal medial aspect of the right foot using a #10 blade. Bleeders were cauterized as necessary. Dissection was deepened with care being taken to identify and protect vital neurovascular structures. Dissection was brought down to the periosteal layer over the dorsal aspect of the first metatarsal medial cuneiform joint. After careful periosteal dissection I was able to expose the joint. The first metatarsocuneiform joint was found to be subluxed and from the base of the second metatarsal. I used a power saw to cut the articular surface of both the base of the first metatarsal and head of the medial cuneiform. The osteotomy was done in a manner to achieve biplanar correction which would be to medially rotate the first ray and plantar flex at the same time. After completion of the osteotomy, the excess bone was removed and passed the back table. Copious amounts of sterile normal saline was used to irrigate the wound. I inserted a cronin elevator and released the adhesions present at the lesser tarsometatarsal joints. 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 Next, using intra-operative fluoroscopic guidance, I was able to reduce and hold and reduction the first metatarsal medial cuneiform joint. I inserted 2 4-prong araceli one on the dorsal medial and one on the medial aspect of the first metatarsal medial cuneiform joint for a permanent fixation. Excess medial bone was cut using an osteotome and passed to the back table. C-arm pictures were obtained and the medial column was reduced to the desired position. At the same time, the lesser metatarsals also were brought more medially. Next, attention was directed to the lateral heel area. Procedure #2: Howell calcaneal osteotomy right foot An incision was made on the lateral aspect of the calcaneus parallel to the weightbearing surface using a #10 blade. Bleeders were cauterized as necessary. Dissection was deepened to the periosteal layer and a cronin elevator was used to expose the distal aspect of the calcaneus. I inserted 1/2 inch straight osteotome and started to make my osteotomy for the Howell procedure. Once I was finished with the osteotomy, a laminar drill operator was inserted. I inserted the tricortical bone graft into the space of the osteotomy and lengthening the lateral column. This immediately corrected the remaining transverse deformity that was present. Again, a 2 prong staple was inserted for fixation of this osteotomy and bone graft. Procedure #3: Surgical excision of chronic open wound of the right foot Next attention was directed to the plantar medial central aspect of the right foot where a large open wound was present measuring 5 x 5 cm. Using a #10 blade, I excised the wound completely and passed the back table. Was able to undermine some of the subcutaneous tissue and was able to reduce the wound with no tension. All wounds were copiously irrigated with sterile normal saline and bacitracin. The subcutaneous layers were closed using 3-0 Vicryl suture and the skin was closed using 2-0 nylon in simple suture technique. The skin on the plantar foot was closed using 0 Prolene simple suture technique. Sterile dressing was applied to the right lower extremity. The tourniquet was deflated at this time and prompt hyperemic response was noted to the digits of the right foot. A posterior splint was applied to the right lower extremity. Patient tolerated procedure and anesthesia well. She was transferred to the recovery room with vital signs stable and vascular status intact to the right lower extremity. The patient will be sent home after postoperative monitoring. Patient received a popliteal block and a saphenous block by the anesthesiologist. Patient is to remain nonweightbearing on the right lower ex tremity and is to follow-up in my clinic in 1 week. COLETTE MCQUEEN DPM Jul 05, 2018 19:27
--- NOTE | 2018-07-05 21:06 | PAC ---
Date/Time of Note Date/Time of Note DATE: 07/05/18 TIME: 21:05 Post-Anesthesia Notes Post-Anesthesia Note Last documented vital signs Vital Signs Date Temp Pulse Resp B/P (MAP) Pulse Ox O2 O2 Flow FiO2 Time Delivery Rate 07/05/18 92 20 128/71 96 Room Air 20:00 (90) 07/05/18 3.0 19:34 07/05/18 98.3 19:05 Activity: WNL Respiratory function: WNL Cardiovascular function: WNL Mental status: Baseline Pain reasonably controlled: Yes Hydration appropriate: Yes Nausea/Vomiting absent: Yes GRISELDA ARANA MD Jul 05, 2018 21:06
== END 2018-07-05 20:39 | disposition home or self-care (01) ==
LOC: UNDOADMIN 14:00 → SDS 14:00 → REC 14:00 → UNDODISIN 20:39 → SDS 20:39
PROVIDERS: ATTEND Podiatrist Foot & Ankle Surgery
DX: M21.6X1 Other acquired deformities of right foot (principal); I73.9 Peripheral vascular disease, unspecified; E11.42 Type 2 diabetes mellitus with diabetic polyneuropathy
CPT/HCPCS: 28300; 28750; 73630; 80048; 81001; 82962; 84703; 85025; 85610; 85730; 88304; 88311; C1713; J0690; J2405; J2765; J2795; Z7512; Z7610

== ENCOUNTER 2018-09-27 19:04 | Inpatient (IN) | payer OTHER ==
[~2018-09-27] VITALS: Ht 160 cm; Wt 100.2 kg
[~2018-09-27 19:04] MED LIST changes: -LEVO750T25 PO
[2018-09-27] MEDS ORDERED: PIPER-TAZO 3.375 GM IV (PMX) 100 ML IVPB STA (19:14)
[2018-09-27] MEDS ORDERED: VANCOMYCIN 1 GM (PMX) 250 ML IVPB STA (19:14)
[2018-09-27] MEDS ORDERED: ACETAMINOPHEN 325 MG TAB PO STA (19:14)
[2018-09-27] MEDS ORDERED: morphine 4 MG/ML VIAL IV STA (19:21)
[2018-09-27] MEDS ORDERED: ONDANSETRON 4 MG INJ IV STA (19:21)
[2018-09-27] MEDS ORDERED: SODIUM CHLORIDE 0.9% 1L BAG IV* STA (19:27)
[2018-09-27] MEDS ORDERED: ONDANSETRON 4 MG INJ IV PRN (20:00)
[2018-09-27] MEDS ORDERED: ACETAMINOPHEN 325 MG TAB PO PRN (20:00)
[2018-09-27] MEDS ORDERED: SOD CHLORIDE 0.9% 0 ML IV ONE (20:01)
[2018-09-27] MEDS ORDERED: INSULIN LISPRO 100 UNIT/ML VIAL SC ONE (21:00)
[2018-09-27] MEDS ORDERED: ACCU-CHEK XX ONE (21:00)
[2018-09-27] MEDS ORDERED: INSULIN ASPART [NOVOLOG] 3 ML PEN SC ONE (21:00)
[2018-09-27] MEDS ORDERED: HYDROmorphONE 2 MG/ML SYG IV STA (21:11)
--- NOTE | 2018-09-27 21:45 | ERD ---
ER Documentation Chief Complaint Chief Complaint fever w/ swelling/erythema/pain to R leg. hx of diabetic ulcers HPI Patient is a 53-year-old female with hypertension and diabetes who presents with left-sided foot swelling and fever. She says that is been there for 4 days and has been worsening. She has a wound to the lateral right foot but has not healed after a previous surgery a few months ago. Dr. Vaughn was her hat presser who operated on her. She has had no antibiotics over the past few days. Her primary doctor is Dr. Fraga. ROS All systems reviewed and are negative except as per history of present illness. Medications Home Meds Active Scripts Hydrocodone Bit-Acetaminophen (Hydrocodone Bit-APAP) 5-325MG Tablet, 1 TAB PO Q6H PRN for MODERATE PAIN LEVEL 4-6 for 10 Days, #30 TAB Prov:TRICIA RIOS MD 02/19/18 Reported Medications Insulin Glargine,Hum.rec.anlog (Basaglar Kwikpen U-100) 100 Unit/1 Ml Insuln.pen, 46 UNIT SC QHS, EA 10/09/17 Omeprazole* (Omeprazole*) 40 Mg Capsule.dr, 40 MG PO DAILY, #30 CAP 10/09/17 Fluoxetine Hcl* (Fluoxetine Hcl*) 20 Mg Capsule, 20 MG PO DAILY, CAP 05/24/17 Metformin Hcl* (Metformin Hcl*) 1,000 Mg Tablet, 1000 MG PO WITH BREAKFAST DINNE, #60 TAB 05/24/17 Atorvastatin Calcium (Atorvastatin Calcium) 10 Mg Tablet, 10 MG PO QHS, #30 TAB 05/24/17 Lisinopril* (Lisinopril*) 5 Mg Tablet, 5 MG PO DAILY, #30 TAB 05/24/17 Glipizide* (Glipizide*) 10 Mg Tablet, 10 MG PO AC BREAKFAST DINNER, TAB 05/24/17 Allergies Allergies: Coded Allergies: No Known Allergy (Unverified , 10/09/17) PMhx/Soc History of Surgery: Yes (c sec) Anesthesia Reaction: No Hx Neurological Disorder: No Hx Respiratory Disorders: No Hx Cardiac Disorders: Yes (htn, high chol) Hx Psychiatric Problems: No Hx Miscellaneous Medical Probl: No Hx Alcohol Use: No Hx Substance Use: No Hx Tobacco Use: No Smoking Status: Never smoker FmHx Family History: diabetes Physical Exam Vitals Vital Signs Date Temp Pulse Resp B/P (MAP) Pulse Ox O2 O2 Flow FiO2 Time Delivery Rate 09/27/18 101.5 122 20 119/73 96 19:12 (88) Physical Exam Const: Moderate distress Head: Atraumatic Eyes: Normal Conjunctiva ENT: Normal External Ears, Nose and Mouth. Neck: Full range of motion. No meningismus. Resp: Clear to auscultation bilaterally Cardio: Tachycardic rate without murmur Abd: Soft, non tender, non distended. Normal bowel sounds Skin: 1 x 1 cm open wound to the right lateral ankle with surrounding erythema and swelling, no crepitus Back: No midline or flank tenderness Ext: No cyanosis, or edema Neur: Awake and alert Psych: Normal Mood and Affect Result Diagram: 09/27/18192609/27/181926 Results 24 hrs Laboratory Tests Test 09/27/18 19:27 09/27/18 19:31 09/27/18 21:22 White Blood Count 10.5 10^3/ul Red Blood Count 3.18 10^6/ul Hemoglobin 7.4 g/dl Hematocrit 24.7 % Mean Corpuscular Volume 77.7 fl Mean Corpuscular Hemoglobin 23.3 pg Mean Corpuscular 30.0 g/dl Hemoglobin Concent Red Cell Distribution Width 15.1 % Platelet Count 703 10^3/UL Mean Platelet Volume 9.3 fl Immature Granulocytes % 0.700 % Neutrophils % % Segmented Neutrophils % (Manual) 73 % Lymphocytes % % Lymphocytes % (Manual) 21 % Reactive Lymphocytes % (Manual) 1 % Monocytes % % Monocytes % (Manual) 4 % Eosinophils % % Eosinophils % (Manual) 1 % Basophils % % Nucleated Red Blood Cells % 0.0 /100WBC Immature Granulocytes # 0.070 10^3/ul Neutrophils # 10^3/ul Lymphocytes (Manual) 2.2 10^3/ul Lymphocytes # 10^3/ul Reactive Lymphocytes # 0.1 10^3/ul Monocytes # 10^3/ul Monocytes # (Manual) 0.4 10^3/ul Eosinophils # 10^3/ul Basophils # 10^3/ul Nucleated Red Blood Cells # 10^3/ul Pathologist Review (Hematology) YES Platelet Estimate INCREASED Giant Platelets 1 % Polychromasia 1+ Anisocytosis 1+ Microcytosis 1+ Prothrombin Time 14.3 Sec Prothrombin Time Ratio 1.1 INR International Normalized Ratio 1.10 Activated Partial Thromboplast 36.2 Sec Time Sodium Level 133 mmol/L Potassium Level 4.3 mmol/L Chloride Level 98 mmol/L Carbon Dioxide Level 27 mmol/L Anion Gap 8 Blood Urea Nitrogen 11 mg/dl Creatinine 0.58 mg/dl Est Glomerular Filtrat Rate mL/min > 60 mL/min Glucose Level 491 mg/dl Calcium Level 7.9 mg/dl Total Bilirubin 0.2 mg/dl Direct Bilirubin 0.00 mg/dl Indirect Bilirubin 0.2 mg/dl Aspartate Amino Transf (AST/SGOT) 30 IU/L Alanine 18 IU/L Aminotransferase (ALT/SGPT) Alkaline Phosphatase 219 IU/L Troponin I < 0.012 ng/ml Total Protein 8.1 g/dl Albumin 3.3 g/dl Globulin 4.80 g/dl Albumin/Globulin Ratio 0.68 POC Venous Lactate 1.8 mmol/L Bedside Glucose 412 mg/dL Current Medications Medications Dose Sig/Rachel Start Time Status Last (Trade) Ordered Route PRN Stop Time Admin Dose Reason Admin 650 mg ONCE STAT 09/27/18 DC 09/27/18 Acetaminophen PO 19:14 19:26 (Tylenol 09/27/18 19:15 Tab) Vancomycin 250 ml @ ONCE STAT 09/27/18 DC 09/27/18 HCl 125 mls/hr IVPB 19:14 19:54 09/27/18 21:13 Piperacillin 100 ml @ ONCE STAT 09/27/18 DC 09/27/18 Sod/ 200 mls/hr IVPB 19:14 19:27 Tazobactam 09/27/18 19:43 Sod Morphine 4 mg ONCE STAT 09/27/18 DC 09/27/18 Sulfate IV 19:21 19:30 (morphine) 09/27/18 19:22 Ondansetron 4 mg ONCE STAT 09/27/18 DC 09/27/18 HCl (Zofran IV 19: 19:30 Inj) 09/27/18 19:22 Sodium 1,570 ml BOLUS OVER 2 09/27/18 DC 09/27/18 Chloride HOURS STAT 19: 19:31 (NS) IV* 09/27/18 19:29 Ondansetron 4 mg BRIDGE ORDER 09/27/18 HCl (Zofran PRN IV 20:00 Inj) NAUSEA/VOMITI 09/28/18 19:59 NG 650 mg ER BRIDGE 09/27/18 Acetaminophen PRN PO 20:00 (Tylenol .MILD PAIN 09/28/18 19:59 Tab) 1-3 OR TEMP Sodium 0 ml @ 0 Q0M ONCE 09/27/18 DC Chloride mls/hr IV 20:01 09/27/18 20:03 Insulin 10 unit ONCE ONCE 09/27/18 UNV Human SC 21:00 Lispro 09/27/18 21:01 (Humalog) Diagnostic 1 ea 2 HRS AFTER 09/27/18 DC Test (Pha) HUMALOG ONCE 21:00 (Accu-Chek) XX 09/27/18 21:01 Insulin 10 unit ONCE ONCE 09/27/18 DC Aspart SC 21:00 (Novolog 09/27/18 21:01 Insulin Pen) 1 mg ONCE STAT 09/27/18 DC 09/27/18 Hydromorphone IV 21:11 21:18 HCl 09/27/18 21:12 (Dilaudid) Procedures/MDM Chest x-ray read by radiology. Foot x-ray read by radiology. EKG read by me: Rate/Rhythm: Sinus tachycardia Intervals: Normal Impression: Tachycardia without ischemia Sepsis Documentation: Patient's infectious symptoms have not stabilized and the patient is at risk of rapid decompensation. The patient will be admitted for careful hydration, antibiotic therapy, and infectious source control. SEVERE SEPSIS CRITERIA: Infectious source: Diabetic foot ulcer with cellulitis End organ damage indicated by: No endorgan damage at this time SEPSIS MANAGEMENT Time of recognition of sepsis: 1926. Time of recognition of severe sepsis: No severe sepsis at this time. Time of recognition of septic shock: No septic shock at this time. 3 HOUR BUNDLE Blood cultures x 2 before broad-spectrum antibiotics: Yes 30 ml/kg NS bolus completed Initial lactate 1.8 Repeat lactate pending SEPTIC SHOCK ASSESSMENT: No lactic acid > 4.0 No persistent hypotension (SBP < 90 or 40 mmHg drop, MAP < 65) despite 30 mL/kg IV fluid bolus VOLUME REASSESSMENT FOR SEPTIC SHOCK: No septic shock at this time PERSISTENT HYPOTENSION TREATMENT: Comfort care no Central line not Required Vasopressor started not required I considered further perfusion assessment with CVP measurement, SCVO2, bedside ultrasound volume assessment, passive leg raise, trial of further fluid bolus. And proceeded with 30 ml/kg fluid bolus of NSS, broad spectrum antibiotics, and admission. She was also found to have a hemoglobin of 7.4 showing acute anemia. The patient will be transfused 2 units of packed red blood cells. I spoke with Dr. Vaughn will see the patient consultation. I spoke with Dr. Greer for admission to a medical surgical bed. CRITICAL CARE Critical care time 35 minutes Emergent fluid management while maintaining close respiratory support. Provision of immediate and broad-spectrum antibiotic therapy. Simultaneous assessment for possible sources in order to direct targeted therapy. Consideration for invasive and chemical support to prevent cardiopulmonary collapse. Critical care time is independent of procedures performed. Departure Diagnosis: Primary Impression: Anemia Anemia type: unspecified type Qualified Codes: D64.9 - Anemia, unspecified Additional Impressions: Diabetic foot ulcer Diabetic foot ulcer location: unspecified part of foot Diabetes mellitus type: type 1 Laterality: right Non-pressure ulcer stage: unspecified non-pressure ulcer stage Qualified Codes: E10.621 - Type 1 diabetes mellitus with foot ulcer; L97.519 - Non-pressure chronic ulcer of other part of right foot with unspecified severity Sepsis Sepsis type: sepsis due to unspecified organism Qualified Codes: A41.9 - Sepsis, unspecified organism Condition: STEPHAN Powell MD Sep 27, 2018 21:45
[2018-09-28 00:30] VITALS: BP 137/78; PULSE 96; RESP 18
[2018-09-28 00:58] VITALS: Ht 160 cm; Wt 100.2 kg
[2018-09-28 02:00] VITALS: BP 136/69; PULSE 96; RESP 18
[2018-09-28] MEDS ORDERED: ACETAMINOPHEN 325 MG TAB PO PRN (02:30)
[2018-09-28] MEDS ORDERED: NACL 0.9% 3 ML SYG IV SCH (02:30)
[2018-09-28] MEDS ORDERED: ALBUTEROL/IPRATROPIUM (NEB) 3 ML AMP HHN PRN (02:30)
[2018-09-28] MEDS ORDERED: INSULIN GLARGINE [LANTus] (100 UNITS/ML) SYG SC SCH (02:30)
[2018-09-28] MEDS ORDERED: GLUCAGON 1 MG INJ IM PRN (03:00)
[2018-09-28] MEDS ORDERED: GLUCOSE GEL 15 GRAM TUBE BUCCAL PRN (03:00)
[2018-09-28] MEDS ORDERED: GLUCOSE GEL 15 GRAM TUBE PO PRN ×2 (03:00)
[2018-09-28] MEDS ORDERED: DEXTROSE 50% 50 ML SYRINGE IV PRN ×2 (03:00)
[2018-09-28] MEDS: SOD CHLORIDE 0.9% 1,000 ML IV SCH ×3 (03:08→22:16)
[2018-09-28] MEDS: HYDROCODONE/APAP (5/325) TAB PO PRN ×2 (03:13→14:08)
[2018-09-28] MEDS: PIPER-TAZO 3.375 GM IV (PMX) 100 ML IVPB SCH ×3 (06:04→18:30)
[2018-09-28] MEDS: PANTOPRAZOLE (EC) 40 MG TAB PO SCH (06:06)
--- NOTE | 2018-09-28 06:21 | HP ---
Date/Time of Note Date/Time of Note DATE: 09/28/18 TIME: 06:12 Assessment/Plan VTE Prophylaxis Pharmacological prophylaxis: heparin Lines/Catheters IV Catheter Type (from Nrsg): Sal[place] Assessment/Plan Assessment/Plan 1. Chronic right foot wound, with possible osteomyelitis -Patient with a history of multiple surgeries including excision of wounds and reconstructive surgery in June of this year -She will be placed on broad-spectrum IV antibiotic -Wound care consult and wound culture -Podiatry and ID consult 2. Diabetes with hyperglycemia: No DKA -Continue insulin, adjust as needed 3. Microcytic anemia, likely secondary to iron deficiency and anemia of chronic disease -Blood transfusion has already been started in the ER, therefore will not check iron panel, ferritin -Continue transfusion of PRBCs. Start ferrous sulfate empirically 4. Hypertension: Continue home meds 5. Dyslipidemia: Continue statin 6. Depression: Continue fluoxetine Result Diagram: 09/27/18192609/[id number]/[id number] Results 24hrs Laboratory Tests Test 09/27/18 19:27 09/27/18 19:31 09/27/18 21:18 09/27/18 21:22 White Blood Count 10.5 # Red Blood Count 3.18 L Hemoglobin 7.4 L Hematocrit 24.7 L Mean Corpuscular 77.7 L Volume Mean Corpuscular 23.3 L Hemoglobin Mean Corpuscular 30.0 L Hemoglobin Concent Red Cell 15.1 H Distribution Width Platelet Count 703 #H Mean Platelet Volume 9.3 Immature 0.700 H Granulocytes % Neutrophils % Segmented 73 Neutrophils % (Manual) Lymphocytes % Lymphocytes % 21 (Manual) Reactive Lymphocytes 1 H % (Manual) Monocytes % Monocytes % (Manual) 4 Eosinophils % Eosinophils % 1 (Manual) Basophils % Nucleated Red Blood 0.0 Cells % Immature 0.070 H Granulocytes # Neutrophils # Lymphocytes (Manual) 2.2 Lymphocytes # Reactive Lymphocytes 0.1 H # Monocytes # Monocytes # (Manual) 0.4 Eosinophils # Basophils # Nucleated Red Blood Cells # Pathologist YES Review (Hematology) Platelet Estimate INCREASED Giant Platelets 1 H Polychromasia 1+ Anisocytosis 1+ Microcytosis 1+ Prothrombin Time 14.3 Prothrombin Time 1.1 Ratio INR International 1.10 Normalized Ratio Activated 36.2 H Partial Thromboplast Time Sodium Level 133 L Potassium Level 4.3 Chloride Level 98 Carbon Dioxide Level 27 Anion Gap 8 Blood Urea Nitrogen 11 Creatinine 0.58 Est Glomerular > 60 Filtrat Rate mL/min Glucose Level 491 *H Calcium Level 7.9 L Total Bilirubin 0.2 Direct Bilirubin 0.00 Indirect Bilirubin 0.2 Aspartate Amino 30 Transf (AST/SGOT) Alanine 18 Aminotransferase (AL T/SGPT) Alkaline Phosphatase 219 H Troponin I < 0.012 Total Protein 8.1 Albumin 3.3 Globulin 4.80 H Albumin/Globulin 0.68 Ratio POC Venous Lactate 1.8 Lactic Acid Level 0.9 Bedside Glucose 412 *H Test 09/27/18 21:51 09/27/18 22:16 09/28/18 03:07 Bedside Glucose 362 H 364 H 264 H HPI/ROS Admit Date/Time Admit Date/Time Sep 27, 2018 at 19:48 Hx of Present Illness Patient is a 56-year-old obese female with a history of hypertension, diabetes, dyslipidemia, depression, PVD, severe right foot Charcot deformity, history of multiple foot surgeries, chronic open wound of the right foot status post recent surgical excision and midfoot Charcot reconstruction (06/2018). Patient presented to ER complaining of right foot pain, swelling. Patient has an open wound. Right foot x-ray shows the followin. Severe soft tissue swelling of the foot. There is abnormal soft tissue air present. Findings are consistent with infection with gas-forming organism. 2. Status post calcaneocuboid arthrodesis. Status post first tarsal-metatarsal arthrodesis. These joint fusions do not appear solid/complete radiographically. 3. Osteolytic changes noted of the distal calcaneus, and throughout the midfoot. Periosteal reaction noted. Given the associated soft tissue abnormali ties, this likely represents osteomyelitis. Neuropathic joint disease and have a similar appearance, but is considered less likely. These findings are new when compared to 07/05/2018. Labs shows a hemoglobin of 7.4 with MCV of 78. Blood glucose almost 500, but no DKA. PMH/Family/Social Past Medical History Past Surgical Hx: other (see hpi) Family History Significant Family History: no pertinent family hx Social History Alcohol Use: none Smoking Status: Never smoker Drug Use: none Exam Constitutional: other (no acute distress) Head: normocephalic, atraumatic Eyes: EOMI, PERRL Respiratory: clear to auscultation, normal air movement Cardiovascular: nl pulses Gastrointestinal: soft Extremities: normal pulses Medications Current Medications Ondansetron HCl (Zofran Inj) 4 mg BRIDGE ORDER PRN IV NAUSEA/VOMITING; Start 09/27/18 at 20:00; Stop 09/28/18 at 19:59 Acetaminophen (Tylenol Tab) 650 mg ER BRIDGE PRN PO .MILD PAIN 1-3 OR TEMP; Start 09/27/18 at 20:00; Stop 09/28/18 at 19:59 Sodium Chloride 1,000 ml @ 100 mls/hr Q10H IV Last administered on 09/28/18at 03:08; Admin Dose 100 MLS/HR; Start 09/28/18 at 02:16 IV Flush (NS 3 ml) 3 ml PER PROTOCOL IV ; Start 09/28/18 at 02:30 Ondansetron HCl (Zofran Inj) 4 mg Q6H PRN IV NAUSEA/VOMITING; Start 09/28/18 at 02:30 Acetaminophen (Tylenol Tab) 650 mg Q6H PRN PO .PAIN 1-3 OR TEMP; Start 09/28/18 at 02:30 Acetaminophen/ Hydrocodone Bitart ([place] (5/325)) 1 tab Q6H PRN PO .MOD PAIN 4- 6; Start 09/28/18 at 02:30 Acetaminophen/ Hydrocodone Bitart ([place] (5/325)) 2 tab Q6H PRN PO .SEVERE PAIN 7-10 Last administered on 09/28/18at 03:13; Admin Dose 2 TAB; Start 09/28/18 at 02:30 Heparin Sodium (Porcine) (Heparin (5000 Units/1ml)) 5,000 unit Q12 SC ; Start 09/28/18 at 09:00 Albuterol/ Ipratropium (Duoneb) 3 ml Q2H RESP THERAPY PRN HHN SHORTNESS OF BREATH; Start 09/28/18 at 02:30 Vancomycin HCl (Vanco Iv Per Pharmacy) VANCOMYCIN PER PHARMACY PER PROTOCOL XX ; Start 09/28/18 at 09:00 Piperacillin Sod/ Tazobactam Sod 100 ml @ 200 mls/hr Q6 IVPB Last administered on 09/28/18at 06:04; Admin Dose 200 MLS/HR; Start 09/28/18 at 06:00 Vancomycin HCl 1.25 gm/Sodium Chloride 250 ml @ 83.333 mls/ hr Q12H IVPB ; Start 09/28/18 at 06:30 Miscellaneous Information (*Rx Drug Level Order Reminder*) VANCOMYCIN TROUGH LEVEL 1730 ONCE XX ; Start 09/29/18 at 17:30; Stop 09/29/18 at 17:31 Atorvastatin Calcium (Lipitor) 10 mg QHS PO ; Start 09/28/18 at 21:00 Fluoxetine HCl (Prozac) 20 mg DAILY PO ; Start 09/28/18 at 09:00 Lisinopril (Zestril) 5 mg DAILY PO ; Start 09/28/18 at 09:00 Metformin HCl (Glucophage) 1,000 mg WITH BREAKFAST DINNE PO ; Start 09/28/18 at 08:00 Diagnostic Test (Pha) (Accu-Chek) 1 ea AC MEALS AND BEDTIME XX ; Start 09/28/18 at 07:00 Diagnostic Test (Pha) (Accu-Chek) 1 ea 02 XX ; Start 09/29/18 at 02:00 Insulin Aspart (Novolog Insulin Pen) 7 unit WITH MEALS SC ; Start 09/28/18 at 08:00 Insulin Aspart (Novolog Insulin Pen) NOVOLOG *MODERATE* ALGORITHM WITH MEALS BEDTIME SC ; Start 09/28/18 at 08:00 Pantoprazole (Protonix Tab) 40 mg DAILY@06 PO Last administered on 09/28/18at 06:06; Admin Dose 40 MG; Start 09/28/18 at 06:00 Miscellaneous Information 1 ea NOTE XX ; Start 09/28/18 at 03:00 Glucose (Glutose) 15 gm Q15M PRN PO DECREASED GLUCOSE; Start 09/28/18 at 03:00 Glucose (Glutose) 22.5 gm Q15M PRN PO DECREASED GLUCOSE; Start 09/28/18 at 03:00 Dextrose (D50w Syringe) 25 ml Q15M PRN IV DECREASED GLUCOSE; Start 09/28/18 at 03:00 Dextrose (D50w Syringe) 50 ml Q15M PRN IV DECREASED GLUCOSE; Start 09/28/18 at 03:00 Glucagon (Glucagen) 1 mg Q15M PRN IM DECREASED GLUCOSE; Start 09/28/18 at 03:00 Glucose (Glutose) 15 gm Q15M PRN BUCCAL DECREASED GLUCOSE; Start 09/28/18 at 03:00 Ketorolac Tromethamine (Toradol) 30 mg Q6H PRN IV PAIN LEVEL 1-3; Start 09/28/18 at 03:00; Stop 09/29/18 at 23:00 Insulin Glargine (Lantus) 40 units DAILY@0800 SC ; Start 09/28/18 at 08:00 Coded Allergies: No Known Allergy (Unverified , 09/27/18) Past Surgical History Past Surgical Hx: other Family History Significant Family History: no pertinent family hx Social History Smoking Status: Never smoker Exam/Review of Systems Vital Signs Vitals Vital Signs Date Temp Pulse Resp B/P (MAP) Pulse Ox O2 O2 Flow FiO2 Time Delivery Rate 09/28/18 99.1 96 18 136/69 99 Room Air 02:00 (91) Intake and Output 09/27/18 09/27/18 09/28/18 1515:00 23:00 07:00 IntakeIntake Total 350 ml 700 ml BalanceBalance 350 ml 700 ml KIM ROA MD Sep 28, 2018 06:21
[2018-09-28] MEDS ORDERED: VANCOMYCIN HCL 1.25 GM in SOD CHLORIDE 0.9% 250 ML IVPB SCH (06:30)
[2018-09-28] MEDS: ACCU-CHEK XX SCH ×4 (07:00→20:34)
[2018-09-28] MEDS ORDERED: INSULIN ASPART [NOVOLOG] 3 ML PEN SC SCH (08:00)
[2018-09-28] MEDS: FLUOXETINE 20 MG CAP PO SCH (08:29)
[2018-09-28] MEDS: LISINOPRIL 5 MG TAB PO SCH (08:29)
[2018-09-28] MEDS: metFORMIN 500 MG TAB PO SCH ×2 (08:29→17:13)
[2018-09-28] MEDS: HEPARIN 5,000 UNIT/1 ML VIAL SC SCH ×2 (08:32→20:28)
[2018-09-28] MEDS: INSULIN ASPART [NOVOLOG] 3 ML PEN SC SCH ×6 (08:32→20:23)
[2018-09-28 08:33] VITALS: BP 125/68; PULSE 89; RESP 18
[2018-09-28] MEDS: INSULIN GLARGINE [LANTus] (100 UNITS/ML) SYG SC SCH (08:33)
[2018-09-28] MEDS ORDERED: NON-FORMULARY/PATIENT OWN MED (Omeprazole* 40 MG) PO SCH (09:00)
[2018-09-28] MEDS ORDERED: VANCOMYCIN IV PER PHARMACY XX SCH (09:00)
--- NOTE | 2018-09-28 10:44 | PN ---
Date/Time of Note Date/Time of Note DATE: 09/28/18 TIME: 10:37 Assessment/Plan VTE Prophylaxis Risk score (from [facility] [place])>0 risk: 2 SCD applied (from [facility] [place]): Yes Pharmacological prophylaxis: heparin Lines/Catheters IV Catheter Type (from [facility]): Peripheral IV Assessment/Plan Hospital Course Assessment 1. Chronic right foot wound with possible osteomyelitis. Infectious disease physician consulted. Will await podiatry recommendations. Continue wound care and antibiotics for now. Follow-up on cultures. 2. Diabetes. Noted with poorly controlled diabetes. Will adjust insulin regimen. 3. Microcytic anemia. Patient reportedly received blood transfusion. Monitor H&H. Transfuse blood products as needed. 4. Hypertension. Will resume antihypertensives. Adjust neoprene 5. Hyperlipidemia. Continue on statin. 6. Depression. Resumed on fluoxetine. Disposition plan. Continue with antibiotics. Infectious disease physician and shipboard intelligence analyst consultation is pending. Monitor in-house. Adjust insulin regimen as needed. Discussed POC with Dr. Rodrigues Result Diagram: 09/28/18 0947 09/27/18 1927 Results 24hrs Laboratory Tests Test 09/27/18 19:27 09/27/18 19:31 09/27/18 21:18 09/27/18 21:22 White Blood Count 10.5 # Red Blood Count 3.18 L Hemoglobin 7.4 L Hematocrit 24.7 L Mean Corpuscular 77.7 L Volume Mean Corpuscular 23.3 L Hemoglobin Mean Corpuscular 30.0 L Hemoglobin Concent Red Cell 15.1 H Distribution Width Platelet Count 703 #H Mean Platelet Volume 9.3 Immature 0.700 H Granulocytes % Neutrophils % Segmented 73 Neutrophils % (Manual) Lymphocytes % Lymphocytes % 21 (Manual) Reactive Lymphocytes 1 H % (Manual) Monocytes % Monocytes % (Manual) 4 Eosinophils % Eosinophils % 1 (Manual) Basophils % Nucleated Red Blood 0.0 Cells % Immature 0.070 H Granulocytes # Neutrophils # Lymphocytes (Manual) 2.2 Lymphocytes # Reactive Lymphocytes 0.1 H # Monocytes # Monocytes # (Manual) 0.4 Eosinophils # Basophils # Nucleated Red Blood Cells # Pathologist YES Review (Hematology) Platelet Estimate INCREASED Giant Platelets 1 H Polychromasia 1+ Anisocytosis 1+ Microcytosis 1+ Prothrombin Time 14.3 Prothrombin Time 1.1 Ratio INR International 1.10 Normalized Ratio Activated 36.2 H Partial Thromboplast Time Sodium Level 133 L Potassium Level 4.3 Chloride Level 98 Carbon Dioxide Level 27 Anion Gap 8 Blood Urea Nitrogen 11 Creatinine 0.58 Est Glomerular > 60 Filtrat Rate mL/min Glucose Level 491 *H Calcium Level 7.9 L Total Bilirubin 0.2 Direct Bilirubin 0.00 Indirect Bilirubin 0.2 Aspartate Amino 30 Transf (AST/SGOT) Alanine 18 Aminotransferase (AL T/SGPT) Alkaline Phosphatase 219 H Troponin I < 0.012 Total Protein 8.1 Albumin 3.3 Globulin 4.80 H Albumin/Globulin 0.68 Ratio POC Venous Lactate 1.8 Lactic Acid Level 0.9 Bedside Glucose 412 *H Test 09/27/18 21:51 09/27/18 22:16 09/28/18 03:07 09/28/18 07:57 Bedside Glucose 362 H 364 H 264 H 224 H Test 09/28/18 09:47 White Blood Count 9.2 Red Blood Count 3.85 #L Hemoglobin 9.3 #L Hematocrit 30.5 #L Mean Corpuscular 79.2 L Volume Mean Corpuscular 24.2 L Hemoglobin Mean Corpuscular 30.5 L Hemoglobin Concent Red Cell 14.8 H Distribution Width Platelet Count 596 H Mean Platelet Volume 9.2 Immature 0.500 H Granulocytes % Neutrophils % 75.6 Lymphocytes % 14.6 L Monocytes % 7.4 Eosinophils % 1.6 Basophils % 0.3 Nucleated Red Blood 0.0 Cells % Immature 0.050 H Granulocytes # Neutrophils # 7.0 Lymphocytes # 1.4 Monocytes # 0.7 Eosinophils # 0.2 Basophils # 0.0 Nucleated Red Blood 0.0 Cells # Subjective 24 Hr Interval Summary Free Text/Dictation no s/s of distress. seen with right foot dressing in place Exam/Review of Systems Exam Vitals Vital Signs Date Temp Pulse Resp B/P (MAP) Pulse Ox O2 O2 Flow FiO2 Time Delivery Rate 09/28/18 98.6 89 18 125/68 96 08:33 (87) 09/28/18 Room Air 02:00 Intake and Output 09/27/18 09/27/18 09/28/18 1515:00 23:00 07:00 IntakeIntake Total 350 ml 1050 ml BalanceBalance 350 ml 1050 ml Constitutional: alert, obese Psych: no complaints Neck: supple, non-tender Respiratory: clear to auscultation Cardiovascular: regular rate and rhythm Gastrointestinal: soft Musculoskeletal: swelling (rle with dressing in place ) Neurological: ADVERTISEMENT DISTRIBUTOR II-XII intact, nl mental status, nl speech Skin: other (ulcerative wound rle ) Results Results 24hrs Laboratory Tests Test 09/27/18 19:27 09/27/18 19:31 09/27/18 21:18 09/27/18 21:22 White Blood Count 10.5 # Red Blood Count 3.18 L Hemoglobin 7.4 L Hematocrit 24.7 L Mean Corpuscular 77.7 L Volume Mean Corpuscular 23.3 L Hemoglobin Mean Corpuscular 30.0 L Hemoglobin Concent Red Cell 15.1 H Distribution Width Platelet Count 703 #H Mean Platelet Volume 9.3 Immature 0.700 H Granulocytes % Neutrophils % Segmented 73 Neutrophils % (Manual) Lymphocytes % Lymphocytes % 21 (Manual) Reactive Lymphocytes 1 H % (Manual) Monocytes % Monocytes % (Manual) 4 Eosinophils % Eosinophils % 1 (Manual) Basophils % Nucleated Red Blood 0.0 Cells % Immature 0.070 H Granulocytes # Neutrophils # Lymphocytes (Manual) 2.2 Lymphocytes # Reactive Lymphocytes 0.1 H # Monocytes # Monocytes # (Manual) 0.4 Eosinophils # Basophils # Nucleated Red Blood Cells # Pathologist YES Review (Hematology) Platelet Estimate INCREASED Giant Platelets 1 H Polychromasia 1+ Anisocytosis 1+ Microcytosis 1+ Prothrombin Time 14.3 Prothrombin Time 1.1 Ratio INR International 1.10 Normalized Ratio Activated 36.2 H Partial Thromboplast Time Sodium Level 133 L Potassium Level 4.3 Chloride Level 98 Carbon Dioxide Level 27 Anion Gap 8 Blood Urea Nitrogen 11 Creatinine 0.58 Est Glomerular > 60 Filtrat Rate mL/min Glucose Level 491 *H Calcium Level 7.9 L Total Bilirubin 0.2 Direct Bilirubin 0.00 Indirect Bilirubin 0.2 Aspartate Amino 30 Transf (AST/SGOT) Alanine 18 Aminotransferase (AL T/SGPT) Alkaline Phosphatase 219 H Troponin I < 0.012 Total Protein 8.1 Albumin 3.3 Globulin 4.80 H Albumin/Globulin 0.68 Ratio POC Venous Lactate 1.8 Lactic Acid Level 0.9 Bedside Glucose 412 *H Test 09/27/18 21:51 09/27/18 22:16 09/28/18 03:07 09/28/18 07:57 Bedside Glucose 362 H 364 H 264 H 224 H Test 09/28/18 09:47 White Blood Count 9.2 Red Blood Count 3.85 #L Hemoglobin 9.3 #L Hematocrit 30.5 #L Mean Corpuscular 79.2 L Volume Mean Corpuscular 24.2 L Hemoglobin Mean Corpuscular 30.5 L Hemoglobin Concent Red Cell 14.8 H Distribution Width Platelet Count 596 H Mean Platelet Volume 9.2 Immature 0.500 H Granulocytes % Neutrophils % 75.6 Lymphocytes % 14.6 L Monocytes % 7.4 Eosinophils % 1.6 Basophils % 0.3 Nucleated Red Blood 0.0 Cells % Immature 0.050 H Granulocytes # Neutrophils # 7.0 Lymphocytes # 1.4 Monocytes # 0.7 Eosinophils # 0.2 Basophils # 0.0 Nucleated Red Blood 0.0 Cells # Medications Medication Current Medications Ondansetron HCl (Zofran Inj) 4 mg BRIDGE ORDER PRN IV NAUSEA/VOMITING; Start 09/27/18 at 20:00; Stop 09/28/18 at 19:59 Acetaminophen (Tylenol Tab) 650 mg ER BRIDGE PRN PO .MILD PAIN 1-3 OR TEMP; Start 09/27/18 at 20:00; Stop 09/28/18 at 19:59 Sodium Chloride 1,000 ml @ 100 mls/hr Q10H IV Last administered on 09/28/18at 03:08; Admin Dose 100 MLS/HR; Start 09/28/18 at 02:16 IV Flush (NS 3 ml) 3 ml PER PROTOCOL IV ; Start 09/28/18 at 02:30 Ondansetron HCl (Zofran Inj) 4 mg Q6H PRN IV NAUSEA/VOMITING; Start 09/28/18 at 02:30 Acetaminophen (Tylenol Tab) 650 mg Q6H PRN PO .PAIN 1-3 OR TEMP; Start 09/28/18 at 02:30 Acetaminophen/ Hydrocodone Bitart ([place] (5/325)) 1 tab Q6H PRN PO .MOD PAIN 4- 6; Start 09/28/18 at 02:30 Acetaminophen/ Hydrocodone Bitart ([place] (5/325)) 2 tab Q6H PRN PO .SEVERE PAIN 7-10 Last administered on 09/28/18at 03:13; Admin Dose 2 TAB; Start 09/28/18 at 02:30 Heparin Sodium (Porcine) (Heparin (5000 Units/1ml)) 5,000 unit Q12 SC Last administered on 09/28/18at 08:32; Admin Dose 5,000 UNIT; Start 09/28/18 at 09:00 Albuterol/ Ipratropium (Duoneb) 3 ml Q2H RESP THERAPY PRN HHN SHORTNESS OF BREATH; Start 09/28/18 at 02:30 Vancomycin HCl (Vanco Iv Per Pharmacy) VANCOMYCIN PER PHARMACY PER PROTOCOL XX ; Start 09/28/18 at 09:00 Piperacillin Sod/ Tazobactam Sod 100 ml @ 200 mls/hr Q6 IVPB Last administered on 09/28/18at 06:04; Admin Dose 200 MLS/HR; Start 09/28/18 at 06:00 Vancomycin HCl 1.25 gm/Sodium Chloride 250 ml @ 83.333 mls/ hr Q12H IVPB Last administered on 09/28/18at 07:04; Admin Dose 83.333 MLS/HR; Start 09/28/18 at 06:30 Miscellaneous Information (*Rx Drug Level Order Reminder*) VANCOMYCIN TROUGH LEVEL 1730 ONCE XX ; Start 09/29/18 at 17:30; Stop 09/29/18 at 17:31 Atorvastatin Calcium (Lipitor) 10 mg QHS PO ; Start 09/28/18 at 21:00 Fluoxetine HCl (Prozac) 20 mg DAILY PO Last administered on 09/28/18 08:29; Admin Dose 20 MG; Start 09/28/18 at 09:00 Lisinopril (Zestril) 5 mg DAILY PO Last administered on 09/28/18 08:29; Admin Dose 5 MG; Start 09/28/18 at 09:00 Metformin HCl (Glucophage) 1,000 mg WITH BREAKFAST DINNE PO Last administered on 09/28/18at 08:29; Admin Dose 1,000 MG; Start 09/28/18 at 08:00 Diagnostic Test (Pha) (Accu-Chek) 1 ea AC MEALS AND BEDTIME XX ; Start 09/28/18 at 07:00 Diagnostic Test (Pha) (Accu-Chek) 1 ea 02 XX ; Start 09/29/18 at 02:00 Insulin Aspart (Novolog Insulin Pen) NOVOLOG *MODERATE* ALGORITHM WITH MEALS BEDTIME SC Last administered on 09/28/18at 08:32; Admin Dose 6 UNIT; Start 09/28/18 at 08:00 Pantoprazole (Protonix Tab) 40 mg DAILY@06 PO Last administered on 09/28/18at 06:06; Admin Dose 40 MG; Start 09/28/18 at 06:00 Miscellaneous Information 1 ea NOTE XX ; Start 09/28/18 at 03:00 Glucose (Glutose) 15 gm Q15M PRN PO DECREASED GLUCOSE; Start 09/28/18 at 03:00 Glucose (Glutose) 22.5 gm Q15M PRN PO DECREASED GLUCOSE; Start 09/28/18 at 03:00 Dextrose (D50w Syringe) 25 ml Q15M PRN IV DECREASED GLUCOSE; Start 09/28/18 at 03:00 Dextrose (D50w Syringe) 50 ml Q15M PRN IV DECREASED GLUCOSE; Start 09/28/18 at 03:00 Glucagon (Glucagen) 1 mg Q15M PRN IM DECREASED GLUCOSE; Start 09/28/18 at 03:00 Glucose (Glutose) 15 gm Q15M PRN BUCCAL DECREASED GLUCOSE; Start 09/28/18 at 03:00 Ketorolac Tromethamine (Toradol) 30 mg Q6H PRN IV PAIN LEVEL 1-3; Start 09/28/18 at 03:00; Stop 09/29/18 at 23:00 Insulin Glargine (Lantus) 40 units DAILY@0800 SC Last administered on 09/28/18at 08:33; Admin Dose 40 UNITS; Start 09/28/18 at 08:00 Insulin Aspart (Novolog Insulin Pen) 13 unit WITH MEALS SC ; Start 09/28/18 at 12:00 IZAIAH OLSEN NP Sep 28, 2018 10:44
--- NOTE | 2018-09-28 11:37 | CONS ---
DATE OF ADMISSION: 09/27/2018 DATE OF CONSULTATION: 09/28/2018 TYPE OF CONSULTATION: Infectious Disease. REASON FOR CONSULTATION: Antibiotic management. HISTORY OF PRESENT ILLNESS: Maryuri Del Real is a 53-year-old female who comes to the emergency room w ith fever, swelling, erythema and pain to her right leg. Her problems include: 1. Hypertension. 2. Diabetes. She presents with left-sided foot swelling and fever. She notes that for the last 4 days this has be en worsening. She has a wound to the lateral right foot that has not healed after previous surgery a few months ago. Dr. Vaughn was the lamp stack developer who operated on her. She has no antibiotics over the last few days. Her past problems include: 1. As noted, diabetes. 2. Hypertension. 3. Status post . 4. Hypercholesterolemia. PAST MEDICAL HISTORY: As outlined. FAMILY HISTORY: Positive for diabetes. SOCIAL HISTORY: She does not smoke, drink or abuse drugs. ALLERGIES: NONE TO PENICILLIN, SULFA OR FOODS. MEDICATIONS: Per chart. REVIEW OF SYSTEMS: Noncontributory. PHYSICAL EXAMINATION: VITAL SIGNS: T-max 100.5, pulse of 122, respirations 20, blood pressure 120/73. She is in moderate distress. SKIN: Without generalized rash. HEENT: Within normal limits. NECK: Supple. LYMPH NODES: None palpable. CHEST: Decreased breath sounds at the bases. HEART: Without murmur or gallop. ABDOMEN: Soft, nontender, nondistended, without organosplenomegaly or masses. EXTREMITIES: She has 1 x 1 cm open wound on the right lateral ankle with surrounding erythema and sw elling without crepitus. Otherwise, she has a diabetic ulcer. RECTAL AND GENITAL: Deferred. NEUROLOGIC: No focal neurological abnormality. LABORATORY DATA: White count 10.5, H and H of 7.4 and 24.7, platelet count 703,000. BUN and creatin ine 11/0.58, glucose of 491. So she is markedly hyperglycemic. She has 73% neutrophils. IMPRESSION AND PLAN: The patient is a diabetic with infected diabetic ulcer. She was started on van comycin and Zosyn. A chest x-ray shows opacity of the left lung with suggestion of pleural effusion and consolidation. Follow up resolution is recommended to exclude underlying neoplasm. Foot x-ray: Severe soft tissue swelling of the foot, abnormal soft tissue air present. Findings consistent with infection with gas-forming organism, status post calcaneocuboid arthrodesis status post first tarsom etatarsal arthrodesis. These joint fusions do not appear solid complete radiographically, osteolytic changes noted of the distal calcaneus and throughout the mid foot on the right foot periosteal react ion noted. Given the associated soft tissue abnormalities this likely represents osteomyelitis. Camelia ropathic joint disease can have a similar appearance but is less likely. These findings are new when compared to 06/26/2018. So patient has chronic right foot wound with possible osteomyelitis, histo ry of multiple surgeries and reconstructive surgery in June of this year. She is on broad spectrum antibiotics at this point, she is being treated with insulin for her diabetes. There is no DKA. We will continue her on her current therapy of vancomycin and Zosyn. I want to thank the hospitalist juan marquez asking us to see this gustavo lady in consultation. Dictated By: SUZAN LAW MD, JD/SEPIDEH Conf#: [id number] DID#: [id number]
[2018-09-28] MEDS: VANCOMYCIN 1 GM 250 ML IVPB SCH ×2 (14:08→22:53)
[2018-09-28 14:19] VITALS: BP 126/71; PULSE 101; RESP 18
[2018-09-28] MEDS: KETOROLAC 30 MG INJ IV PRN ×2 (16:18→23:27)
[2018-09-28 20:08] VITALS: BP 101/55; PULSE 92; RESP 17
[2018-09-28] MEDS: ATORVASTATIN 10 MG TAB PO SCH (20:22)
[2018-09-28] MEDS ORDERED: LIDOCAINE 1% (MDV) 20 ML INJ INJ ONE (23:45)
[2018-09-29] MEDS: HYDROCODONE/APAP (5/325) TAB PO PRN ×4 (00:33→21:30)
[2018-09-29] MEDS: PIPER-TAZO 3.375 GM IV (PMX) 100 ML IVPB SCH ×4 (01:25→17:17)
[2018-09-29] MEDS: ACCU-CHEK XX SCH ×5 (02:00→21:00)
[2018-09-29 02:30] VITALS: BP 106/63; PULSE 95; RESP 18
--- NOTE | 2018-09-29 02:43 | CONS ---
Assessment/Plan Assessment/Plan Problems: (1) Abscess of tendon sheath of right ankle Status: Acute (2) Anaerobic abscess Status: Acute (3) Diabetic foot ulcer Status: Acute Qualifiers: Qualified Codes: E10.621 - Type 1 diabetes mellitus with foot ulcer; L97.519 - Non-pressure chronic ulcer of other part of right foot with unspecified sev erity (4) S/P foot surgery, right (5) Charcot's joint of right foot (6) Diabetes, polyneuropathy (7) Morbid obesity Assessment/Plan (Daily) Patient has recently had a full dinner. She is not in acute distress. She appears comfortable in bed. However, she does have extensive abscess formation of her right ankle joint with an open wound on the lateral ankle area PLUS gas in the tissue on xrays. I recommended to the patient to have bedside incision and drainage. Risks and complications were discussed with patient in detail including but not limited to worsening of her condition, pain, chronic pain and disability, DVT, limb loss and loss of life. She acknowledges understanding of the discussion and agrees with the procedure. Proposed procedure is bedside incision and drainage of right ankle abscess with cellulitis. An informed consent was obtained, signed and placed in the chart. I injected the right ankle with 20 cc of 1% Lidocaine plain aseptically. The block was done proximal to the erythema and abscess that was present. The right foot was then scrubbed, prepped and draped in the usual aseptic manner. Next, I used a #15 blade to make a small incision on the medial right ankle joint. Immediately there was echo purulence; this drainage was cultured. The open wound on the lateral right ankle was then probed and immediately there was echo purulence draining from the lateral chronic wound. Next, I irrigated both open wounds with 1000 cc of sterile normal saline and 20% betadine solution. Next, sterile gauze was applied to the medial and lateral open wounds and a 4 inch EVANGELISTA bandages was applied. Patient will require a formal incision and drainage with debridement and she will be scheduled. The bedside incision and drainage was done since she had (+) gas in the tissue on xrays along with clinical findings of deep abscess. Patient will be followed inhouse. I will discuss my findings with the team. Thank you again for involving me in the care of this patient. If you have any questions regarding this case, please feel free to contact me at pager: [phone] or reach me at mobile: [phone]. Consultation Date/Type/Reason Admit Date/Time Sep 27, 2018 at 19:48 Date of Consultation: Sep 27, 2018 Type of Consult Right foot and ankle infection. Reason for Consultation Evaluation of infection in the right foot and ankle with 4 days of fever and chills. Date/Time of Note DATE: 09/28/18 TIME: 23:32 Hx of Present Illness Thank you very much for your kind consultation. As you very well know, this is a pleasant 53 y.o. female patient with Hx of DM type II, right foot Charcot deformity, s/p reconstruction; morbid obesity, chronic open wound of the right foot and ankle; who presents to the ED with increase swelling, redness in her right foot and ankle with 4 day Hx of fever and chills, getting worse. Patient was seen in my office 08/29/2018 for postop follow up and at the time was improving and her wounds were getting smaller. She reports that she has been changing her bandages as was directed and did not walk on her foot. She denies recent trauma to her foot. Patient states that xrays were done in the ER. She denies new changes to her medications. Constitutional: no complaints Eyes: no complaints ENT: no complaints Respiratory: no complaints Cardiovascular: no complaints Gastrointestinal: no complaints Genitourinary: no complaints Past Medical History As per history of present illness. Home Meds Reported Medications Insulin Glargine,Hum.rec.anlog (Basaglar Kwikpen U-100) 100 Unit/1 Ml Insuln.pen, 60 UNIT SC QHS, EA 10/09/17 Omeprazole* (Omeprazole*) 40 Mg Capsule.dr, 40 MG PO DAILY, #30 CAP 10/09/17 Fluoxetine Hcl* (Fluoxetine Hcl*) 20 Mg Capsule, 20 MG PO DAILY, CAP 05/24/17 Metformin Hcl* (Metformin Hcl*) 1,000 Mg Tablet, 1000 MG PO WITH BREAKFAST DINNE, #60 TAB 05/24/17 Atorvastatin Calcium (Atorvastatin Calcium) 10 Mg Tablet, 10 MG PO QHS, #30 TAB 05/24/17 Lisinopril* (Lisinopril*) 5 Mg Tablet, 5 MG PO DAILY, #30 TAB 2/15/18 Glipizide* (Glipizide*) 10 Mg Tablet, 10 MG PO AC BREAKFAST DINNER, TAB 05/24/17 Discontinued Scripts Hydrocodone Bit-Acetaminophen (Hydrocodone Bit-APAP) 5-325MG Tablet, 1 TAB PO Q6H PRN for MODERATE PAIN LEVEL 4-6 for 10 Days, #30 TAB Prov:TRICIA RIOS MD 02/19/18 Medications Current Medications Sodium Chloride 1,000 ml @ 100 mls/hr Q10H IV Last administered on 09/28/18at 03:08; Admin Dose 100 MLS/HR; Start 09/28/18 at 02:16 IV Flush (NS 3 ml) 3 ml PER PROTOCOL IV ; Start 09/28/18 at 02:30 Ondansetron HCl (Zofran Inj) 4 mg Q6H PRN IV NAUSEA/VOMITING; Start 09/28/18 at 02:30 Acetaminophen (Tylenol Tab) 650 mg Q6H PRN PO .PAIN 1-3 OR TEMP; Start 09/28/18 at 02:30 Acetaminophen/ Hydrocodone Bitart ([place] (5/325)) 1 tab Q6H PRN PO .MOD PAIN 4- 6 Last administered on 09/28/18at 14:08; Admin Dose 1 TAB; Start 09/28/18 at 02:30 Acetaminophen/ Hydrocodone Bitart ([place] (5/325)) 2 tab Q6H PRN PO .SEVERE PAIN 7-10 Last administered on 09/28/18at 03:13; Admin Dose 2 TAB; Start 09/28/18 at 02:30 Heparin Sodium (Porcine) (Heparin (5000 Units/1ml)) 5,000 unit Q12 SC Last administered on 09/28/18at 20:28; Admin Dose 5,000 UNIT; Start 09/28/18 at 09:00 Albuterol/ Ipratropium (Duoneb) 3 ml Q2H RESP THERAPY PRN HHN SHORTNESS OF BREATH; Start 09/28/18 at 02:30 Vancomycin HCl (Vanco Iv Per Pharmacy) VANCOMYCIN PER PHARMACY PER PROTOCOL XX ; Start 09/28/18 at 09:00 Piperacillin Sod/ Tazobactam Sod 100 ml @ 200 mls/hr Q6 IVPB Last administered on 09/28/18at 18:30; Admin Dose 200 MLS/HR; Start 09/28/18 at 06:00 Miscellaneous Information (*Rx Drug Level Order Reminder*) VANCOMYCIN TROUGH LEVEL 1730 ONCE XX ; Start 09/29/18 at 06:00; Stop 09/29/18 at 06:01 Atorvastatin Calcium (Lipitor) 10 mg QHS PO Last administered on 09/28/18at 20:22; Admin Dose 10 MG; Start 09/28/18 at 21:00 Fluoxetine HCl (Prozac) 20 mg DAILY PO Last administered on 09/28/18at 08:29; Admin Dose 20 MG; Start 09/28/18 at 09:00 Lisinopril (Zestril) 5 mg DAILY PO Last administered on 09/28/18at 08:29; Admin Dose 5 MG; Start 09/28/18 at 09:00 Metformin HCl (Glucophage) 1,000 mg WITH BREAKFAST DINNE PO Last administered on 09/28/18at 17:13; Admin Dose 1,000 MG; Start 09/28/18 at 08:00 Diagnostic Test (Pha) (Accu-Chek) 1 ea AC MEALS AND BEDTIME XX ; Start 09/28/18 at 07:00 Diagnostic Test (Pha) (Accu-Chek) 1 ea 02 XX ; Start 09/29/18 at 02:00 Insulin Aspart (Novolog Insulin Pen) NOVOLOG *MODERATE* ALGORITHM WITH MEALS BEDTIME SC Last administered on 09/28/18at 08:32; Admin Dose 6 UNIT; Start 09/28/18 at 08:00 Pantoprazole (Protonix Tab) 40 mg DAILY@06 PO Last administered on 09/28/18at 06:06; Admin Dose 40 MG; Start 09/28/18 at 06:00 Miscellaneous Information 1 ea NOTE XX ; Start 09/28/18 at 03:00 Glucose (Glutose) 15 gm Q15M PRN PO DECREASED GLUCOSE; Start 09/28/18 at 03:00 Glucose (Glutose) 22.5 gm Q15M PRN PO DECREASED GLUCOSE; Start 09/28/18 at 03:00 Dextrose (D50w Syringe) 25 ml Q15M PRN IV DECREASED GLUCOSE; Start 09/28/18 at 03:00 Dextrose (D50w Syringe) 50 ml Q15M PRN IV DECREASED GLUCOSE; Start 09/28/18 at 03:00 Glucagon (Glucagen) 1 mg Q15M PRN IM DECREASED GLUCOSE; Start 09/28/18 at 03:00 Glucose (Glutose) 15 gm Q15M PRN BUCCAL DECREASED GLUCOSE; Start 09/28/18 at 03:00 Ketorolac Tromethamine (Toradol) 30 mg Q6H PRN IV PAIN LEVEL 1-3 Last administered on 09/28/18at 16:18; Admin Dose 30 MG; Start 09/28/18 at 03:00; Stop 09/29/18 at 23:00 Insulin Glargine (Lantus) 40 units DAILY@0800 SC Last administered on 09/28/18at 08:33; Admin Dose 40 UNITS; Start 09/28/18 at 08:00 Insulin Aspart (Novolog Insulin Pen) 13 unit WITH MEALS SC Last administered on 09/28/18at 17:17; Admin Dose 13 UNIT; Start 09/28/18 at 12:00 Vancomycin HCl 250 ml @ 125 mls/hr Q8H IVPB Last administered on 09/28/18at 22:53; Admin Dose 125 MLS/HR; Start 09/28/18 at 15:00 Allergies: Coded Allergies: No Known Allergy (Unverified , 09/27/18) Past Surgical History As per history of present illness. Past Surgical Hx: other Social History Alcohol Use: none Smoking Status: Never smoker Exam/Review of Systems Exam Vitals Vital Signs Date Temp Pulse Resp B/P (MAP) Pulse Ox O2 O2 Flow FiO2 Time Delivery Rate 09/28/18 98.4 92 17 101/55 96 20:08 (70) 09/28/18 Room Air 02:00 Intake and Output 09/27/18 09/27/18 09/28/18 1515:00 23:00 07:00 IntakeIntake Total 350 ml 1050 ml BalanceBalance 350 ml 1050 ml Exam Patient is laying supine in bed. She is morbidly obese. There is a bandage on her right foot which was soaked with serosanguineous drainage without malodor. The bandages were removed. Her previous plantar chronic wound is now closed without apparent complication. She has an open wound on her right lateral ankle area that has protruding necrotic tissue. There is significant fluctuance on both the medial and lateral ankle joint with increase in warmth of the area to touch. There is subcutaneous crepitus on exam of the lateral fluctuance on ex am. There is no active drainage from the open wound on the right ankle area. Patient does reports tenderness as I am examining her ankle. There does not seem to be any fluctuance on the foot exam, however. Dorsalis pedis and posterior tibial pulses are not palpable secondary to the edema present. Protective sensation is decreased to sharp, dull, vibratory and temperature stimuli. No other open wound noted on exam of the right foot and ankle. The left foot has a small 5 mm dry ulceration on the plantar aspect of the first MPJ with no fluctuance, no erythema and no edema. This area is non tender to exam. Pedal pulses are palpable on the left foot. Xrays were reviewed: patient has extensive soft tissue swelling and (+) finding of gas in the tissue both medial and lateral ankle area, proximally. There is erosion of the subtalar joint and cortical bone in the rearfoot. There are degenerative changes of the ankle joint. There is hardware present in the rearfoot and medial midfoot areas. Her WBC is 9.2. Results Result Diagram: 09/28/18 0947 09/28/18 2217 Results 24hrs Laboratory Tests Test 09/28/18 03:07 09/28/18 07:57 09/28/18 09:47 09/28/18 12:36 Bedside Glucose 264 H 224 H 111 White Blood Count 9.2 Red Blood Count 3.85 #L Hemoglobin 9.3 #L Hematocrit 30.5 #L Mean Corpuscular 79.2 L Volume Mean Corpuscular 24.2 L Hemoglobin Mean Corpuscular 30.5 L Hemoglobin Concent Red Cell 14.8 H Distribution Width Platelet Count 596 H Mean Platelet Volume 9.2 Immature 0.500 H Granulocytes % Neutrophils % 75.6 Lymphocytes % 14.6 L Monocytes % 7.4 Eosinophils % 1.6 Basophils % 0.3 Nucleated Red Blood 0.0 Cells % Immature 0.050 H Granulocytes # Neutrophils # 7.0 Lymphocytes # 1.4 Monocytes # 0.7 Eosinophils # 0.2 Basophils # 0.0 Nucleated Red Blood 0.0 Cells # Erythrocyte 110 H Sedimentation Rate Sodium Level 137 Potassium Level 3.8 Chloride Level 105 Carbon Dioxide Level 24 Anion Gap 8 Blood Urea Nitrogen 8 Creatinine 0.43 L Est Glomerular > 60 Filtrat Rate mL/min Glucose Level 203 # Hemoglobin A1c 9.3 H Calcium Level 7.4 L Phosphorus Level 2.9 Magnesium Level 1.2 L Total Bilirubin 0.3 Direct Bilirubin 0.00 Indirect Bilirubin 0.3 Aspartate Amino 18 Transf (AST/SGOT) Alanine 16 Aminotransferase (AL T/SGPT) Alkaline Phosphatase 145 H C-Reactive Protein 34.7 H Total Protein 7.4 Albumin 2.9 L Globulin 4.50 H Albumin/Globulin 0.64 Ratio Triglycerides Level 103 Cholesterol Level 90 L LDL Cholesterol, 48 Calculated HDL Cholesterol 21 L Cholesterol/HDL 4.2 Ratio Test 09/28/18 17:14 09/28/18 20:20 09/28/18 20:45 09/28/18 21:07 Bedside Glucose 101 67 L 114 90 Test 09/28/18 22:17 Glucose Level 82 # Medications Medication Current Medications Sodium Chloride 1,000 ml @ 100 mls/hr Q10H IV Last administered on 09/28/18at 03:08; Admin Dose 100 MLS/HR; Start 09/28/18 at 02:16 IV Flush (NS 3 ml) 3 ml PER PROTOCOL IV ; Start 09/28/18 at 02:30 Ondansetron HCl (Zofran Inj) 4 mg Q6H PRN IV NAUSEA/VOMITING; Start 09/28/18 at 02:30 Acetaminophen (Tylenol Tab) 650 mg Q6H PRN PO .PAIN 1-3 OR TEMP; Start 09/28/18 at 02:30 Acetaminophen/ Hydrocodone Bitart ([place] (5/325)) 1 tab Q6H PRN PO .MOD PAIN 4- 6 Last administered on 09/28/18at 14:08; Admin Dose 1 TAB; Start 09/28/18 at 02:30 Acetaminophen/ Hydrocodone Bitart ([place] (5/325)) 2 tab Q6H PRN PO .SEVERE PAIN 7-10 Last administered on 09/28/18at 03:13; Admin Dose 2 TAB; Start 09/28/18 at 02:30 Heparin Sodium (Porcine) (Heparin (5000 Units/1ml)) 5,000 unit Q12 SC Last administered on 09/28/18at 20:28; Admin Dose 5,000 UNIT; Start 09/28/18 at 09:00 Albuterol/ Ipratropium (Duoneb) 3 ml Q2H RESP THERAPY PRN HHN SHORTNESS OF BREATH; Start 09/28/18 at 02:30 Vancomycin HCl (Vanco Iv Per Pharmacy) VANCOMYCIN PER PHARMACY PER PROTOCOL XX ; Start 09/28/18 at 09:00 Piperacillin Sod/ Tazobactam Sod 100 ml @ 200 mls/hr Q6 IVPB Last administered on 09/28/18at 18:30; Admin Dose 200 MLS/HR; Start 09/28/18 at 06:00 Miscellaneous Information (*Rx Drug Level Order Reminder*) VANCOMYCIN TROUGH LEVEL 1730 ONCE XX ; Start 09/29/18 at 06:00; Stop 09/29/18 at 06:01 Atorvastatin Calcium (Lipitor) 10 mg QHS PO Last administered on 09/28/18at 20:22; Admin Dose 10 MG; Start 09/28/18 at 21:00 Fluoxetine HCl (Prozac) 20 mg DAILY PO Last administered on 09/28/18at 08:29; Admin Dose 20 MG; Start 09/28/18 at 09:00 Lisinopril (Zestril) 5 mg DAILY PO Last administered on 09/28/18at 08:29; Admin Dose 5 MG; Start 09/28/18 at 09:00 Metformin HCl (Glucophage) 1,000 mg WITH BREAKFAST DINNE PO Last administered on 09/28/18at 17:13; Admin Dose 1,000 MG; Start 09/28/18 at 08:00 Diagnostic Test (Pha) (Accu-Chek) 1 ea AC MEALS AND BEDTIME XX ; Start 09/28/18 at 07:00 Diagnostic Test (Pha) (Accu-Chek) 1 ea 02 XX ; Start 09/29/18 at 02:00 Insulin Aspart (Novolog Insulin Pen) NOVOLOG *MODERATE* ALGORITHM WITH MEALS BEDTIME SC Last administered on 09/28/18at 08:32; Admin Dose 6 UNIT; Start 09/28/18 at 08:00 Pantoprazole (Protonix Tab) 40 mg DAILY@06 PO Last administered on 09/28/18at 06:06; Admin Dose 40 MG; Start 09/28/18 at 06:00 Miscellaneous Information 1 ea NOTE XX ; Start 09/28/18 at 03:00 Glucose (Glutose) 15 gm Q15M PRN PO DECREASED GLUCOSE; Start 09/28/18 at 03:00 Glucose (Glutose) 22.5 gm Q15M PRN PO DECREASED GLUCOSE; Start 09/28/18 at 03:00 Dextrose (D50w Syringe) 25 ml Q15M PRN IV DECREASED GLUCOSE; Start 09/28/18 at 03:00 Dextrose (D50w Syringe) 50 ml Q15M PRN IV DECREASED GLUCOSE; Start 09/28/18 at 03:00 Glucagon (Glucagen) 1 mg Q15M PRN IM DECREASED GLUCOSE; Start 09/28/18 at 03:00 Glucose (Glutose) 15 gm Q15M PRN BUCCAL DECREASED GLUCOSE; Start 09/28/18 at 03:00 Ketorolac Tromethamine (Toradol) 30 mg Q6H PRN IV PAIN LEVEL 1-3 Last administered on 09/28/18at 16:18; Admin Dose 30 MG; Start 09/28/18 at 03:00; Stop 09/29/18 at 23:00 Insulin Glargine (Lantus) 40 units DAILY@0800 SC Last administered on 09/28/18at 08:33; Admin Dose 40 UNITS; Start 09/28/18 at 08:00 Insulin Aspart (Novolog Insulin Pen) 13 unit WITH MEALS SC Last administered on 09/28/18at 17:17; Admin Dose 13 UNIT; Start 09/28/18 at 12:00 Vancomycin HCl 250 ml @ 125 mls/hr Q8H IVPB Last administered on 09/28/18at 22:53; Admin Dose 125 MLS/HR; Start 09/28/18 at 15:00 COLETTE MCQUEEN DPM Sep 28, 2018 23:49
[2018-09-29] MEDS: PANTOPRAZOLE (EC) 40 MG TAB PO SCH (06:51)
[2018-09-29 07:55] VITALS: BP 103/61; PULSE 89; RESP 18
[2018-09-29] MEDS: INSULIN ASPART [NOVOLOG] 3 ML PEN SC SCH ×7 (08:00→20:51)
[2018-09-29] MEDS: SOD CHLORIDE 0.9% 1,000 ML IV SCH ×2 (08:16→12:35)
[2018-09-29] MEDS: metFORMIN 500 MG TAB PO SCH ×2 (08:19→17:17)
[2018-09-29] MEDS: FLUOXETINE 20 MG CAP PO SCH (08:20)
[2018-09-29] MEDS: LISINOPRIL 5 MG TAB PO SCH (08:20)
[2018-09-29] MEDS: VANCOMYCIN 750 MG (PMX) 250 ML IVPB SCH ×2 (08:22→16:23)
[2018-09-29] MEDS: HEPARIN 5,000 UNIT/1 ML VIAL SC SCH ×2 (08:33→21:26)
[2018-09-29] MEDS: INSULIN GLARGINE [LANTus] (100 UNITS/ML) SYG SC SCH (08:34)
[2018-09-29] MEDS: ONDANSETRON 4 MG INJ IV PRN ×2 (10:42→22:02)
--- NOTE | 2018-09-29 13:01 | CONS ---
Assessment/Plan Assessment/Plan Hospital Course (Demo Recall) ID PROGRESS NOTE CURRENT ABX: DAY # => Vanco IV + Zosyn 09/29/18 0557 09/29/18 0557 24H INTERVAL SUMMARY * VSS, NAD, no fevers, A/A/O * MICRO: * 09/27/18 BCX (-) * 09/28/18 Right Foot Wound Cx (+) WOUND CULTURE Preliminary Organism 1 STAPHYLOCOCCUS AUREUS QUANTITY 3+ DIAGNOSTIC IMAGING * 09/28/2918 RIGHT FOOT MRI: * 1. Since the prior MRI examination of the right foot dated 04/22/2018 there is new osteomyelitis in the mid cuneiform, the navicular and in the lateral cuneiform. * 2. Extensive osseous destruction is again seen in the osseous structures of the midfoot, compatible with a neuropathic foot. * 3. An abscess is again seen in the subcutaneous tissues over the medial aspect of the midfoot and proximal forefoot, generally similar in appearance to the prior MRI examination dated 04/22/2018. * 4. Deep to the region of abscess there is increased fluid signal within the muscles of the medial midfoot and proximal forefoot, and differential considerations include infectious myositis, and these findings are decreased over interval since 04/22/2018. * 5. The remaining interosseous muscles of the forefoot again demonstrate increased fluid signal, compatible with neuropathic changes. * 6. Extensive swelling and subcutaneous edema is seen over the right forefoot. * 7. There is no evident acute fracture. PHYSICAL EXAMINATION: GENERAL: Afebrile, VSS, HEENT: AT, NC, anicteric NECK: Supple, CHEST: Equal chest rise bilaterally, without dyspnea on observation HEART: Pulse RRR ABDOMEN: Soft / NT / EXTREMITIES: Warm, dry == Right foot DSG C/D/I SKIN: No rash, no diaphoresis ID ASSESSMENT 52 yo F admit with: 1. Right foot Charcot deformity with cellulitis, ulceration, abscess and infectious myositis per MRI 2. Diabetes w/ peripheral neuropathy 3. Obesity MRSA Nares ? ABX ALLERGIES: KNDA INVASIVES: PIV, CURRENT ABX: DAY # = Vanco IV + Zosyn ID RECOMMENDATIONS/PLAN: 1. Swab nares for MRSA -- Hx of (+)MRSA foot infection prior admission 2. Continue current ABX 3. F/U on final wound cx pending -- ID team will adjust ABX per culture results and sensitivities. 4. Watch renal fx closely on Vanco/Zosyn renally cleared ABX combo . Consultation Date/Type/Reason Admit Date/Time Sep 27, 2018 at 19:48 Initial Consult Date 09/27/18 Date/Time of Note DATE: 09/29/18 TIME: 13:01 Exam/Review of Systems Exam Vitals Vital Signs Date Temp Pulse Resp B/P (MAP) Pulse Ox O2 O2 Flow FiO2 Time Delivery Rate 09/29/18 98.1 89 18 103/61 96 Room Air 07:55 (75) Intake and Output 09/28/18 09/28/18 09/29/18 1515:00 23:00 07:00 IntakeIntake Total 850 ml 1270 ml 550 ml BalanceBalance 850 ml 1270 ml 550 ml Results Result Diagram: 09/29/18 0557 09/29/18 0557 Results 24hrs Laboratory Tests Test 09/28/18 17:14 09/28/18 20:20 09/28/18 20:45 09/28/18 21:07 Bedside Glucose 101 67 L 114 90 Test 09/28/18 22:17 09/29/18 04:45 09/29/18 05:57 09/29/18 06:45 Glucose Level 82 # 104 Bedside Glucose 102 White Blood Count 7.7 Red Blood Count 3.60 L Hemoglobin 8.7 L Hematocrit 29.0 L Mean Corpuscular 80.6 L Volume Mean Corpuscular 24.2 L Hemoglobin Mean Corpuscular 30.0 L Hemoglobin Concen t Red Cell 15.5 H Distribution Width Platelet Count 538 H Mean Platelet 9.1 Volume Immature 0.700 H Granulocytes % Neutrophils % 71.8 Lymphocytes % 17.9 Monocytes % 6.1 Eosinophils % 3.1 Basophils % 0.4 Nucleated Red 0.0 Blood Cells % Immature 0.050 H Granulocytes # Neutrophils # 5.5 Lymphocytes # 1.4 Monocytes # 0.5 Eosinophils # 0.2 Basophils # 0.0 Nucleated Red 0.0 Blood Cells # Sodium Level 143 Potassium Level 5.1 Chloride Level 107 Carbon Dioxide 28 Level Anion Gap 8 Blood Urea 12 Nitrogen Creatinine 0.78 Est Glomerular > 60 Filtrat Rate mL/min Calcium Level 7.3 L Phosphorus Level 3.4 Magnesium Level 1.1 L Vancomycin Level 19.5 Trough Lab Scanned BLOOD TRANSFUSIO Report N Test 09/29/18 08:17 Bedside Glucose 98 Medications Medication Current Medications Sodium Chloride 1,000 ml @ 100 mls/hr Q10H IV Last administered on 09/29/18 12:35; Admin Dose 100 MLS/HR; Start 09/28/18 at 02:16 IV Flush (NS 3 ml) 3 ml PER PROTOCOL IV ; Start 09/28/18 at 02:30 Ondansetron HCl (Zofran Inj) 4 mg Q6H PRN IV NAUSEA/VOMITING Last administered on 09/29/18 10:42; Admin Dose 4 MG; Start 09/28/18 at 02:30 Acetaminophen (Tylenol Tab) 650 mg Q6H PRN PO .PAIN 1-3 OR TEMP; Start 09/28/18 at 02:30 Acetaminophen/ Hydrocodone Bitart ([place] (5/325)) 1 tab Q6H PRN PO .MOD PAIN 4- 6 Last administered on 09/29/18 08:30; Admin Dose 1 TAB; Start 09/28/18 at 02:30 Acetaminophen/ Hydrocodone Bitart ([place] (5/325)) 2 tab Q6H PRN PO .SEVERE PAIN 7-10 Last administered on 09/29/18 00:33; Admin Dose 2 TAB; Start 09/28/18 at 02:30 Heparin Sodium (Porcine) (Heparin (5000 Units/1ml)) 5,000 unit Q12 SC Last ad ministered on 09/29/18 08:33; Admin Dose 5,000 UNIT; Start 09/28/18 at 09:00 Albuterol/ Ipratropium (Duoneb) 3 ml Q2H RESP THERAPY PRN HHN SHORTNESS OF BREATH; Start 09/28/18 at 02:30 Vancomycin HCl (Vanco Iv Per Pharmacy) VANCOMYCIN PER PHARMACY PER PROTOCOL XX ; Start 09/28/18 at 09:00 Piperacillin Sod/ Tazobactam Sod 100 ml @ 200 mls/hr Q6 IVPB Last administered on 09/29/18 12:34; Admin Dose 200 MLS/HR; Start 09/28/18 at 06:00 Atorvastatin Calcium (Lipitor) 10 mg QHS PO Last administered on 09/28/18 20:22; Admin Dose 10 MG; Start 09/28/18 at 21:00 Fluoxetine HCl (Prozac) 20 mg DAILY PO Last administered on 09/29/18 08:20; Admin Dose 20 MG; Start 09/28/18 at 09:00 Lisinopril (Zestril) 5 mg DAILY PO Last administered on 09/29/18 08:20; Admin Dose 5 MG; Start 09/28/18 at 09:00 Metformin HCl (Glucophage) 1,000 mg WITH BREAKFAST DINNE PO Last administered on 09/29/18 08:19; Admin Dose 1,000 MG; Start 09/28/18 at 08:00 Diagnostic Test (Pha) (Accu-Chek) 1 ea AC MEALS AND BEDTIME XX ; Start 09/28/18 at 07:00 Diagnostic Test (Pha) (Accu-Chek) 1 ea 02 XX ; Start 09/29/18 at 02:00 Insulin Aspart (Novolog Insulin Pen) NOVOLOG *MODERATE* ALGORITHM WITH MEALS BEDTIME SC Last administered on 09/28/18at 08:32; Admin Dose 6 UNIT; Start 09/28/18 at 08:00 Pantoprazole (Protonix Tab) 40 mg DAILY@06 PO Last administered on 09/29/18at 06:51; Admin Dose 40 MG; Start 09/28/18 at 06:00 Miscellaneous Information 1 ea NOTE XX ; Start 09/28/18 at 03:00 Glucose (Glutose) 15 gm Q15M PRN PO DECREASED GLUCOSE; Start 09/28/18 at 03:00 Glucose (Glutose) 22.5 gm Q15M PRN PO DECREASED GLUCOSE; Start 09/28/18 at 03:00 Dextrose (D50w Syringe) 25 ml Q15M PRN IV DECREASED GLUCOSE; Start 09/28/18 at 03:00 Dextrose (D50w Syringe) 50 ml Q15M PRN IV DECREASED GLUCOSE; Start 09/28/18 at 03:00 Glucagon (Glucagen) 1 mg Q15M PRN IM DECREASED GLUCOSE; Start 09/28/18 at 03:00 Glucose (Glutose) 15 gm Q15M PRN BUCCAL DECREASED GLUCOSE; Start 09/28/18 at 03:00 Ketorolac Tromethamine (Toradol) 30 mg Q6H PRN IV PAIN LEVEL 1-3 Last administered on 09/28/18at 23:27; Admin Dose 30 MG; Start 09/28/18 at 03:00; Stop 09/29/18 at 23:00 Insulin Glargine (Lantus) 40 units DAILY@0800 SC Last administered on 09/29/18at 08:34; Admin Dose 40 UNITS; Start 09/28/18 at 08:00 Insulin Aspart (Novolog Insulin Pen) 13 unit WITH MEALS SC Last administered on 09/29/18at 12:43; Admin Dose 13 UNIT; Start 09/28/18 at 12:00 Vancomycin/Sodium Chloride 250 ml @ 125 mls/hr Q8H IVPB Last administered on 09/29/18at 08:22; Admin Dose 125 MLS/HR; Start 09/29/18 at 08:00 TAMARA SHARMA NP Sep 29, 2018 13:01
--- NOTE | 2018-09-29 13:38 | PN ---
Date/Time of Note Date/Time of Note DATE: 09/29/18 TIME: 13:33 Assessment/Plan VTE Prophylaxis Risk score (from Ns)>0 risk: 3 SCD applied (from [facility] [place]): Yes Pharmacological prophylaxis: heparin Lines/Catheters IV Catheter Type (from [facility]): Peripheral IV Assessment/Plan Hospital Course Assessment 1. Chronic right foot wound with possible osteomyelitis. - Infectious disease physician consulted. - tentative plan for I&D per podiatry - Continue wound care and antibiotics for now. 2. Diabetes. - Noted with poorly controlled diabetes at home. - continue insulin and adjust regimen prn 3. Microcytic anemia. -Monitor H&H. Transfuse blood products as needed. - on iron 4. Hypertension. - Will resume antihypertensives - adjust prn 5. Hyperlipidemia. - Continue on statin. 6. Depression. - Resumed on fluoxetine. Disposition plan. Continue with antibiotics. tentative plan for I&D per podiatry Discussed POC with Dr. Rodrigues Result Diagram: 09/29/18 0557 09/29/18 0557 Results 24hrs Laboratory Tests Test 09/28/18 17:14 09/28/18 20:20 09/28/18 20:45 09/28/18 21:07 Bedside Glucose 101 67 L 114 90 Test 09/28/18 22:17 09/29/18 04:45 09/29/18 05:57 09/29/18 06:45 Glucose Level 82 # 104 Bedside Glucose 102 White Blood Count 7.7 Red Blood Count 3.60 L Hemoglobin 8.7 L Hematocrit 29.0 L Mean Corpuscular 80.6 L Volume Mean Corpuscular 24.2 L Hemoglobin Mean Corpuscular 30.0 L Hemoglobin Concen t Red Cell 15.5 H Distribution Width Platelet Count 538 H Mean Platelet 9.1 Volume Immature 0.700 H Granulocytes % Neutrophils % 71.8 Lymphocytes % 17.9 Monocytes % 6.1 Eosinophils % 3.1 Basophils % 0.4 Nucleated Red 0.0 Blood Cells % Immature 0.050 H Granulocytes # Neutrophils # 5.5 Lymphocytes # 1.4 Monocytes # 0.5 Eosinophils # 0.2 Basophils # 0.0 Nucleated Red 0.0 Blood Cells # Sodium Level 143 Potassium Level 5.1 Chloride Level 107 Carbon Dioxide 28 Level Anion Gap 8 Blood Urea 12 Nitrogen Creatinine 0.78 Est Glomerular > 60 Filtrat Rate mL/min Calcium Level 7.3 L Phosphorus Level 3.4 Magnesium Level 1.1 L Vancomycin Level 19.5 Trough Lab Scanned BLOOD TRANSFUSIO Report N Test 09/29/18 08:17 Bedside Glucose 98 Subjective 24 Hr Interval Summary Free Text/Dictation resting at this time. reports less pain on right foot Exam/Review of Systems Exam Vitals Vital Signs Date Temp Pulse Resp B/P (MAP) Pulse Ox O2 O2 Flow FiO2 Time Delivery Rate 09/29/18 98.1 89 18 103/61 96 Room Air 07:55 (75) Intake and Output 09/28/18 09/28/18 09/29/18 1515:00 23:00 07:00 IntakeIntake Total 850 ml 1270 ml 550 ml BalanceBalance 850 ml 1270 ml 550 ml Exam Constitutional: alert, obese Psych: no complaints Neck: supple, non-tender Respiratory: clear to auscultation Cardiovascular: regular rate and rhythm Gastrointestinal: soft Musculoskeletal: swelling (rle with dressing in place ) Neurological: [employer] II-XII intact, nl mental status, nl speech Skin: other (ulcerative wound rle ) Results Results 24hrs Laboratory Tests Test 09/28/18 17:14 09/28/18 20:20 09/28/18 20:45 09/28/18 21:07 Bedside Glucose 101 67 L 114 90 Test 09/28/18 22:17 09/29/18 04:45 09/29/18 05:57 09/29/18 06:45 Glucose Level 82 # 104 Bedside Glucose 102 White Blood Count 7.7 Red Blood Count 3.60 L Hemoglobin 8.7 L Hematocrit 29.0 L Mean Corpuscular 80.6 L Volume Mean Corpuscular 24.2 L Hemoglobin Mean Corpuscular 30.0 L Hemoglobin Concen t Red Cell 15.5 H Distribution Width Platelet Count 538 H Mean Platelet 9.1 Volume Immature 0.700 H Granulocytes % Neutrophils % 71.8 Lymphocytes % 17.9 Monocytes % 6.1 Eosinophils % 3.1 Basophils % 0.4 Nucleated Red 0.0 Blood Cells % Immature 0.050 H Granulocytes # Neutrophils # 5.5 Lymphocytes # 1.4 Monocytes # 0.5 Eosinophils # 0.2 Basophils # 0.0 Nucleated Red 0.0 Blood Cells # Sodium Level 143 Potassium Level 5.1 Chloride Level 107 Carbon Dioxide 28 Level Anion Gap 8 Blood Urea 12 Nitrogen Creatinine 0.78 Est Glomerular > 60 Filtrat Rate mL/min Calcium Level 7.3 L Phosphorus Level 3.4 Magnesium Level 1.1 L Vancomycin Level 19.5 Trough Lab Scanned BLOOD TRANSFUSIO Report N Test 09/29/18 08:17 Bedside Glucose 98 Medications Medication Current Medications Sodium Chloride 1,000 ml @ 100 mls/hr Q10H IV Last administered on 09/29/18 12:35; Admin Dose 100 MLS/HR; Start 09/28/18 at 02:16 IV Flush (NS 3 ml) 3 ml PER PROTOCOL IV ; Start 09/28/18 at 02:30 Ondansetron HCl (Zofran Inj) 4 mg Q6H PRN IV NAUSEA/VOMITING Last administered on 09/29/18 10:42; Admin Dose 4 MG; Start 09/28/18 at 02:30 Acetaminophen (Tylenol Tab) 650 mg Q6H PRN PO .PAIN 1-3 OR TEMP; Start 09/28/18 at 02:30 Acetaminophen/ Hydrocodone Bitart ([place] (5/325)) 1 tab Q6H PRN PO .MOD PAIN 4- 6 Last administered on 09/29/18 08:30; Admin Dose 1 TAB; Start 09/28/18 at 02:30 Acetaminophen/ Hydrocodone Bitart ([place] (5/325)) 2 tab Q6H PRN PO .SEVERE PAIN 7-10 Last administered on 09/29/18 00:33; Admin Dose 2 TAB; Start 09/28/18 at 02:30 Heparin Sodium (Porcine) (Heparin (5000 Units/1ml)) 5,000 unit Q12 SC Last administered on 09/29/18 08:33; Admin Dose 5,000 UNIT; Start 09/28/18 at 09:00 Albuterol/ Ipratropium (Duoneb) 3 ml Q2H RESP THERAPY PRN HHN SHORTNESS OF BREATH; Start 09/28/18 at 02:30 Vancomycin HCl (Vanco Iv Per Pharmacy) VANCOMYCIN PER PHARMACY PER PROTOCOL XX ; Start 09/28/18 at 09:00 Piperacillin Sod/ Tazobactam Sod 100 ml @ 200 mls/hr Q6 IVPB Last administered on 09/29/18 12:34; Admin Dose 200 MLS/HR; Start 09/28/18 at 06:00 Atorvastatin Calcium (Lipitor) 10 mg QHS PO Last administered on 09/28/18at 20:22; Admin Dose 10 MG; Start 09/28/18 at 21:00 Fluoxetine HCl (Prozac) 20 mg DAILY PO Last administered on 09/29/18at 08:20; Admin Dose 20 MG; Start 09/28/18 at 09:00 Lisinopril (Zestril) 5 mg DAILY PO Last administered on 09/29/18at 08:20; Admin Dose 5 MG; Start 09/28/18 at 09:00 Metformin HCl (Glucophage) 1,000 mg WITH BREAKFAST DINNE PO Last administered on 09/29/18at 08:19; Admin Dose 1,000 MG; Start 09/28/18 at 08:00 Diagnostic Test (Pha) (Accu-Chek) 1 ea AC MEALS AND BEDTIME XX ; Start 09/28/18 at 07:00 Diagnostic Test (Pha) (Accu-Chek) 1 ea 02 XX ; Start 09/29/18 at 02:00 Insulin Aspart (Novolog Insulin Pen) NOVOLOG *MODERATE* ALGORITHM WITH MEALS BEDTIME SC Last administered on 09/28/18at 08:32; Admin Dose 6 UNIT; Start 09/28/18 at 08:00 Pantoprazole (Protonix Tab) 40 mg DAILY@06 PO Last administered on 09/29/18at 06:51; Admin Dose 40 MG; Start 09/28/18 at 06:00 Miscellaneous Information 1 ea NOTE XX ; Start 09/28/18 at 03:00 Glucose (Glutose) 15 gm Q15M PRN PO DECREASED GLUCOSE; Start 09/28/18 at 03:00 Glucose (Glutose) 22.5 gm Q15M PRN PO DECREASED GLUCOSE; Start 09/28/18 at 03:00 Dextrose (D50w Syringe) 25 ml Q15M PRN IV DECREASED GLUCOSE; Start 09/28/18 at 03:00 Dextrose (D50w Syringe) 50 ml Q15M PRN IV DECREASED GLUCOSE; Start 09/28/18 at 03:00 Glucagon (Glucagen) 1 mg Q15M PRN IM DECREASED GLUCOSE; Start 09/28/18 at 03:00 Glucose (Glutose) 15 gm Q15M PRN BUCCAL DECREASED GLUCOSE; Start 09/28/18 at 03:00 Ketorolac Tromethamine (Toradol) 30 mg Q6H PRN IV PAIN LEVEL 1-3 Last administered on 09/28/18at 23:27; Admin Dose 30 MG; Start 09/28/18 at 03:00; Stop 09/29/18 at 23:00 Insulin Glargine (Lantus) 40 units DAILY@0800 SC Last administered on 09/29/18at 08:34; Admin Dose 40 UNITS; Start 09/28/18 at 08:00 Insulin Aspart (Novolog Insulin Pen) 13 unit WITH MEALS SC Last administered on 09/29/18at 12:43; Admin Dose 13 UNIT; Start 09/28/18 at 12:00 Vancomycin/Sodium Chloride 250 ml @ 125 mls/hr Q8H IVPB Last administered on 09/29/18at 08:22; Admin Dose 125 MLS/HR; Start 09/29/18 at 08:00 IZAIAH OLSEN NP Sep 29, 2018 13:38
[2018-09-29 14:19] VITALS: BP 98/54; PULSE 90; RESP 18
[2018-09-29] MEDS ORDERED: MAGNESIUM SULFATE 4 GM/100 ML 100 ML IVPB ONE (15:00)
[2018-09-29 19:58] VITALS: BP 121/69; PULSE 99; RESP 18
[2018-09-29] MEDS: ATORVASTATIN 10 MG TAB PO SCH (20:47)
[2018-09-29] MEDS: FERROUS SULFATE (EC) 325 MG TAB PO SCH (20:47)
--- NOTE | 2018-09-29 23:23 | PN ---
Date/Time of Note Date/Time of Note DATE: 09/29/18 TIME: 23:23 Assessment/Plan Lines/Catheters IV Catheter Type (from [facility]): Peripheral IV Exam/Review of Systems Vital Signs Vitals Vital Signs Date Temp Pulse Resp B/P (MAP) Pulse Ox O2 O2 Flow FiO2 Time Delivery Rate 09/29/18 98.7 99 18 121/69 96 19:58 (86) 09/29/18 Room Air 14:19 Intake and Output 09/28/18 09/28/18 09/29/18 1515:00 23:00 07:00 IntakeIntake Total 850 ml 1270 ml 550 ml BalanceBalance 850 ml 1270 ml 550 ml Results Result Diagram: 09/29/18 0557 09/29/18 0557 COLETTE MCQUEEN DPM Sep 29, 2018 23:23
[2018-09-30] MEDS: PIPER-TAZO 3.375 GM IV (PMX) 100 ML IVPB SCH ×2 (00:08→06:21)
[2018-09-30] MEDS: VANCOMYCIN 750 MG (PMX) 250 ML IVPB SCH ×2 (01:01→08:09)
[2018-09-30 01:11] VITALS: BP 145/63; PULSE 100; RESP 18
[2018-09-30] MEDS: ACCU-CHEK XX SCH ×5 (02:00→21:00)
[2018-09-30] MEDS: SOD CHLORIDE 0.9% 1,000 ML IV SCH ×2 (04:16→06:20)
[2018-09-30] MEDS: PANTOPRAZOLE (EC) 40 MG TAB PO SCH (06:21)
[2018-09-30 07:37] VITALS: BP 123/76; PULSE 90; RESP 18
[2018-09-30] MEDS: INSULIN ASPART [NOVOLOG] 3 ML PEN SC SCH ×6 (08:00→20:27)
[2018-09-30] MEDS: FLUOXETINE 20 MG CAP PO SCH (08:09)
[2018-09-30] MEDS: FERROUS SULFATE (EC) 325 MG TAB PO SCH ×3 (08:09→20:21)
[2018-09-30] MEDS: LISINOPRIL 5 MG TAB PO SCH (08:10)
[2018-09-30] MEDS: metFORMIN 500 MG TAB PO SCH ×2 (08:11→17:48)
[2018-09-30] MEDS: INSULIN GLARGINE [LANTus] (100 UNITS/ML) SYG SC SCH (08:19)
[2018-09-30] MEDS: HEPARIN 5,000 UNIT/1 ML VIAL SC SCH ×2 (08:19→20:22)
[2018-09-30] MEDS: HYDROCODONE/APAP (5/325) TAB PO PRN ×2 (08:30→20:25)
--- NOTE | 2018-09-30 13:28 | CONS ---
Assessment/Plan Assessment/Plan Hospital Course (Demo Recall) Patient is alert and feels better she is in no distress looks comfortable and afebrile. WBC 6.7 neutrophils 72 BUN 9 creatinine 0.61 Microbiology: Right foot drainage culture grew oxacillin sensitive staph aureus MRI of the foot revealed osteomyelitis Antimicrobials: Patient is on IV vancomycin and Zosyn Physical examination: Well-developed obese middle-aged woman who is alert in no distress. Head atraumatic normocephalic sclera nonicteric vehicle mucosa pink neck is supple chest rise symmetrical breath sounds clear heart: S1- S2. Abdomen soft bowel sounds present. Extremities with right lower extremity dressing clean dry and intact Assessment: 1. Right foot Charcot deformity/infectious myositis/Osteomyelitis 2. Right foot abscess status post I&D 3. Morbid obesity 4. Diabetes with peripheral neuropathy Plan: Change antibiotics to IV Rocephin to be continued for 6 weeks. Continue wound care per podiatry recommendations Consultation Date/Type/Reason Admit Date/Time Sep 27, 2018 at 19:48 Initial Consult Date 09/27/18 Type of Consult id Date/Time of Note DATE: 09/30/18 TIME: 13:28 Exam/Review of Systems Exam Vitals Vital Signs Date Temp Pulse Resp B/P (MAP) Pulse Ox O2 O2 Flow FiO2 Time Delivery Rate 09/30/18 98.8 90 18 123/76 97 07:37 (92) 09/29/18 Room Air 14:19 Intake and Output 09/29/18 09/29/18 09/30/18 1515:00 23:00 07:00 IntakeIntake Total 1990 ml 810 ml 1450 ml OutputOutput Total 600 ml 500 ml BalanceBalance 1390 ml 310 ml 1450 ml Results Result Diagram: 09/30/18 0651 09/30/18 0651 Results 24hrs Laboratory Tests Test 09/29/18 15:15 09/29/18 15:30 09/29/18 15:45 09/29/18 15:59 Bedside Glucose 58 L 65 L 73 120 Test 09/29/18 17:15 09/29/18 20:50 09/30/18 01:01 09/30/18 01:24 Bedside Glucose 93 156 66 L 74 Test 09/30/18 01:42 09/30/18 02:07 09/30/18 06:51 09/30/18 08:18 Bedside Glucose 92 115 106 White Blood Count 6.7 Red Blood Count 3.35 L Hemoglobin 8.0 L Hematocrit 26.8 L Mean Corpuscular 80.0 L Volume Mean Corpuscular 23.9 L Hemoglobin Mean Corpuscular 29.9 L Hemoglobin Concent Red Cell 16.0 H Distribution Width Platelet Count 567 H Mean Platelet Volume 9.1 Immature 0.500 H Granulocytes % Neutrophils % 72.0 Lymphocytes % 19.8 Monocytes % 5.7 Eosinophils % 1.5 Basophils % 0.5 Nucleated Red Blood 0.0 Cells % Immature 0.030 Granulocytes # Neutrophils # 4.8 Lymphocytes # 1.3 Monocytes # 0.4 Eosinophils # 0.1 Basophils # 0.0 Nucleated Red Blood 0.0 Cells # Sodium Level 141 Potassium Level 4.4 Chloride Level 111 H Carbon Dioxide Level 23 Anion Gap 7 Blood Urea Nitrogen 9 Creatinine 0.61 Est Glomerular > 60 Filtrat Rate mL/min Glucose Level 119 Calcium Level 6.8 L Magnesium Level 2.1 # Vancomycin Level 18.7 Trough Medications Medication Current Medications Sodium Chloride 1,000 ml @ 100 mls/hr Q10H IV Last administered on 09/30/18 06:20; Admin Dose 100 MLS/HR; Start 09/28/18 at 02:16 IV Flush (NS 3 ml) 3 ml PER PROTOCOL IV ; Start 09/28/18 at 02:30 Ondansetron HCl (Zofran Inj) 4 mg Q6H PRN IV NAUSEA/VOMITING Last administered on 09/29/18at 22:02; Admin Dose 4 MG; Start 09/28/18 at 02:30 Acetaminophen (Tylenol Tab) 650 mg Q6H PRN PO .PAIN 1-3 OR TEMP; Start 09/28/18 at 02:30 Acetaminophen/ Hydrocodone Bitart ([place] (5/325)) 1 tab Q6H PRN PO .MOD PAIN 4- 6 Last administered on 09/29/18 08:30; Admin Dose 1 TAB; Start 09/28/18 at 02:30 Acetaminophen/ Hydrocodone Bitart ([place] (5/325)) 2 tab Q6H PRN PO .SEVERE PAIN 7-10 Last administered on 09/30/18 08:30; Admin Dose 2 TAB; Start 09/28/18 at 02:30 Heparin Sodium (Porcine) (Heparin (5000 Units/1ml)) 5,000 unit Q12 SC Last administered on 09/30/18 08:19; Admin Dose 5,000 UNIT; Start 09/28/18 at 09:00 Albuterol/ Ipratropium (Duoneb) 3 ml Q2H RESP THERAPY PRN HHN SHORTNESS OF BREATH; Start 09/28/18 at 02:30 Vancomycin HCl (Vanco Iv Per Pharmacy) VANCOMYCIN PER PHARMACY PER PROTOCOL XX ; Start 09/28/18 at 09:00 Piperacillin Sod/ Tazobactam Sod 100 ml @ 200 mls/hr Q6 IVPB Last administered on 09/30/18 06:21; Admin Dose 200 MLS/HR; Start 09/28/18 at 06:00 Atorvastatin Calcium (Lipitor) 10 mg QHS PO Last administered on 09/29/18at 20:47; Admin Dose 10 MG; Start 09/28/18 at 21:00 Fluoxetine HCl (Prozac) 20 mg DAILY PO Last administered on 09/30/18 08:09; Admin Dose 20 MG; Start 09/28/18 at 09:00 Lisinopril (Zestril) 5 mg DAILY PO Last administered on 09/30/18 08:10; Admin Dose 5 MG; Start 09/28/18 at 09:00 Metformin HCl (Glucophage) 1,000 mg WITH BREAKFAST DINNE PO Last administered on 09/30/18 08:11; Admin Dose 1,000 MG; Start 09/28/18 at 08:00 Diagnostic Test (Pha) (Accu-Chek) 1 ea AC MEALS AND BEDTIME XX Last administered on 09/30/18at 07:00; Admin Dose 1 EA; Start 09/28/18 at 07:00 Diagnostic Test (Pha) (Accu-Chek) 1 ea 02 XX ; Start 09/29/18 at 02:00 Insulin Aspart (Novolog Insulin Pen) NOVOLOG *MODERATE* ALGORITHM WITH MEALS B EDTIME SC Last administered on 09/28/18 08:32; Admin Dose 6 UNIT; Start 09/28/18 at 08:00 Pantoprazole (Protonix Tab) 40 mg DAILY@06 PO Last administered on 09/30/18 06:21; Admin Dose 40 MG; Start 09/28/18 at 06:00 Miscellaneous Information 1 ea NOTE XX ; Start 09/28/18 at 03:00 Glucose (Glutose) 15 gm Q15M PRN PO DECREASED GLUCOSE; Start 09/28/18 at 03:00 Glucose (Glutose) 22.5 gm Q15M PRN PO DECREASED GLUCOSE; Start 09/28/18 at 03:00 Dextrose (D50w Syringe) 25 ml Q15M PRN IV DECREASED GLUCOSE; Start 09/28/18 at 03:00 Dextrose (D50w Syringe) 50 ml Q15M PRN IV DECREASED GLUCOSE; Start 09/28/18 at 03:00 Glucagon (Glucagen) 1 mg Q15M PRN IM DECREASED GLUCOSE; Start 09/28/18 at 03:00 Glucose (Glutose) 15 gm Q15M PRN BUCCAL DECREASED GLUCOSE; Start 09/28/18 at 03:00 Insulin Glargine (Lantus) 40 units DAILY@0800 SC Last administered on 09/30/18at 08:19; Admin Dose 40 UNITS; Start 09/28/18 at 08:00 Insulin Aspart (Novolog Insulin Pen) 13 unit WITH MEALS SC Last administered on 09/30/18at 08:20; Admin Dose 13 UNIT; Start 09/28/18 at 12:00 Ferrous Sulfate (Ferrous Sulfate (Ec)) 325 mg TID PO Last administered on 09/30/18at 08:09; Admin Dose 325 MG; Start 09/29/18 at 21:00 Vancomycin HCl 100 ml @ 100 mls/hr Q8H IVPB ; Start 09/30/18 at 16:00 Miscellaneous Information (*Rx Drug Level Order Reminder*) 1 1500 ONCE XX ; Start 10/01/18 at 15:00; Stop 10/01/18 at 15:01 JANN SANDOVAL NP Sep 30, 2018 13:28
[2018-09-30] MEDS ORDERED: CEFTRIAXONE 2 GM/50 ML (PMX) 50 ML IVPB ONE (13:30)
[2018-09-30 14:46] VITALS: BP 142/80; PULSE 90; RESP 20
[2018-09-30] MEDS ORDERED: VANCOMYCIN 500 MG (PMX) 100 ML IVPB SCH (16:00)
--- NOTE | 2018-09-30 17:39 | PN ---
Date/Time of Note Date/Time of Note DATE: 09/30/18 TIME: 17:38 Assessment/Plan VTE Prophylaxis Risk score (from Nsg)>0 risk: 2 SCD applied (from Nsg): Yes Pharmacological prophylaxis: heparin Lines/Catheters IV Catheter Type (from Nrsg): Peripheral IV Assessment/Plan Hospital Course SUBJECTIVE: Continues to complain of right lower extremity pain. Constipated. OBJECTIVE: Physical Exam General: Obese, 53 year-old female lying in bed in no apparent distress. HEENT: Normocephalic, atraumatic. Eyes: Anicteric sclerae, conjunctivae clear. ENT: Nasal septum midline, oral mucosa moist. Neck supple, no JVD noticed. Respiratory: Bilaterally clear breath sounds. No use of accessory muscles of respiration. No adventitious breath sounds. Cardiovascular: S1, S2 heard. Regular rate and rhythm. Abdomen: Soft, nontender, and nondistended. Bowel sounds positive in all 4 quadrants. Genitourinary: Deferred. Extremities: No cyanosis, no clubbing. Right lower extremity edema with the right foot dressing. Neurologic: Cranial nerves II through XII grossly intact. The patient is awake, alert, and oriented. Skin: Normal skin turgor. No skin rashes. Labs & Vitals per chart ASSESSMENT & PLAN 53-year-old female with comorbidities including hypertension, diabetes mellitus, dyslipidemia, peripheral vascular disease, and severe right foot Charcot foot deformity with history of multiple foot surgeries and chronic open wound of the right foot who came to the ER complaining of right foot pain, swelling with the right foot x-ray showing findings consistent with infection with gas-forming organism, who was admitted to inpatient setting for further treatment and evalua tion. 1. Chronic right foot wound with foot MRI showing new osteomyelitis in the mid cuneiform, the navicular, and in the lateral cuneiform. Continue antimicrobials as per ID. Being followed by podiatry. 2. Suspect right foot abscess. On antimicrobials as per ID. Being followed by podiatry. 3. Diabetes mellitus. Hemoglobin A1c 9.3. Continue sliding scale insulin along with basal insulin. Continue metformin. 4. Hypertension. Continue antihypertensives. 5. Dyslipidemia. Continue statins. 6. Iron deficiency. Continue iron supplements. 7. Fluids, electrolytes, and nutrition. Carbohydrate controlled diet. 8. DVT prophylaxis. Subcutaneous heparin. 9. Plan. Continue antimicrobials as per ID. Await further podiatry recommendations/intervention. The patient was seen in collaboration with Dr. Jacobs. Result Diagram: 09/30/18 0651 09/30/18 0651 Results 24hrs Laboratory Tests Test 09/29/18 20:50 09/30/18 01:01 09/30/18 01:24 09/30/18 01:42 Bedside Glucose 156 66 L 74 92 Test 09/30/18 02:07 09/30/18 06:51 09/30/18 08:18 09/30/18 13:28 Bedside Glucose 115 106 85 White Blood Count 6.7 Red Blood Count 3.35 L Hemoglobin 8.0 L Hematocrit 26.8 L Mean Corpuscular 80.0 L Volume Mean Corpuscular 23.9 L Hemoglobin Mean Corpuscular 29.9 L Hemoglobin Concent Red Cell 16.0 H Distribution Width Platelet Count 567 H Mean Platelet Volume 9.1 Immature 0.500 H Granulocytes % Neutrophils % 72.0 Lymphocytes % 19.8 Monocytes % 5.7 Eosinophils % 1.5 Basophils % 0.5 Nucleated Red Blood 0.0 Cells % Immature 0.030 Granulocytes # Neutrophils # 4.8 Lymphocytes # 1.3 Monocytes # 0.4 Eosinophils # 0.1 Basophils # 0.0 Nucleated Red Blood 0.0 Cells # Sodium Level 141 Potassium Level 4.4 Chloride Level 111 H Carbon Dioxide Level 23 Anion Gap 7 Blood Urea Nitrogen 9 Creatinine 0.61 Est Glomerular > 60 Filtrat Rate mL/min Glucose Level 119 Calcium Level 6.8 L Magnesium Level 2.1 # Vancomycin Level 18.7 Trough Exam/Review of Systems Exam Vitals Vital Signs Date Temp Pulse Resp B/P (MAP) Pulse Ox O2 O2 Flow FiO2 Time Delivery Rate 09/30/18 98.4 90 20 142/80 96 14:46 (100) 09/29/18 Room Air 14:19 Intake and Output 09/29/18 09/29/18 09/30/18 1515:00 23:00 07:00 IntakeIntake Total 1990 ml 810 ml 1450 ml OutputOutput Total 600 ml 500 ml BalanceBalance 1390 ml 310 ml 1450 ml Results Results 24hrs Laboratory Tests Test 09/29/18 20:50 09/30/18 01:01 09/30/18 01:24 09/30/18 01:42 Bedside Glucose 156 66 L 74 92 Test 09/30/18 02:07 09/30/18 06:51 09/30/18 08:18 09/30/18 13:28 Bedside Glucose 115 106 85 White Blood Count 6.7 Red Blood Count 3.35 L Hemoglobin 8.0 L Hematocrit 26.8 L Mean Corpuscular 80.0 L Volume Mean Corpuscular 23.9 L Hemoglobin Mean Corpuscular 29.9 L Hemoglobin Concent Red Cell 16.0 H Distribution Width Platelet Count 567 H Mean Platelet Volume 9.1 Immature 0.500 H Granulocytes % Neutrophils % 72.0 Lymphocytes % 19.8 Monocytes % 5.7 Eosinophils % 1.5 Basophils % 0.5 Nucleated Red Blood 0.0 Cells % Immature 0.030 Granulocytes # Neutrophils # 4.8 Lymphocytes # 1.3 Monocytes # 0.4 Eosinophils # 0.1 Basophils # 0.0 Nucleated Red Blood 0.0 Cells # Sodium Level 141 Potassium Level 4.4 Chloride Level 111 H Carbon Dioxide Level 23 Anion Gap 7 Blood Urea Nitrogen 9 Creatinine 0.61 Est Glomerular > 60 Filtrat Rate mL/min Glucose Level 119 Calcium Level 6.8 L Magnesium Level 2.1 # Vancomycin Level 18.7 Trough Medications Medication Current Medications Sodium Chloride 1,000 ml @ 100 mls/hr Q10H IV Last administered on 09/30/18 06:20; Admin Dose 100 MLS/HR; Start 09/28/18 at 02:16 IV Flush (NS 3 ml) 3 ml PER PROTOCOL IV ; Start 09/28/18 at 02:30 Ondansetron HCl (Zofran Inj) 4 mg Q6H PRN IV NAUSEA/VOMITING Last administered on 09/29/18at 22:02; Admin Dose 4 MG; Start 09/28/18 at 02:30 Acetaminophen (Tylenol Tab) 650 mg Q6H PRN PO .PAIN 1-3 OR TEMP; Start 09/28/18 at 02:30 Acetaminophen/ Hydrocodone Bitart ([place] (5/325)) 1 tab Q6H PRN PO .MOD PAIN 4- 6 Last administered on 09/29/18 08:30; Admin Dose 1 TAB; Start 09/28/18 at 02:30 Acetaminophen/ Hydrocodone Bitart ([place] (5/325)) 2 tab Q6H PRN PO .SEVERE PAIN 7-10 Last administered on 09/30/18 08:30; Admin Dose 2 TAB; Start 09/28/18 at 02:30 Heparin Sodium (Porcine) (Heparin (5000 Units/1ml)) 5,000 unit Q12 SC Last administered on 09/30/18 08:19; Admin Dose 5,000 UNIT; Start 09/28/18 at 09:00 Albuterol/ Ipratropium (Duoneb) 3 ml Q2H RESP THERAPY PRN HHN SHORTNESS OF BREATH; Start 09/28/18 at 02:30 Atorvastatin Calcium (Lipitor) 10 mg QHS PO Last administered on 09/29/18 20:47; Admin Dose 10 MG; Start 09/28/18 at 21:00 Fluoxetine HCl (Prozac) 20 mg DAILY PO Last administered on 09/30/18 08:09; Admin Dose 20 MG; Start 09/28/18 at 09:00 Lisinopril (Zestril) 5 mg DAILY PO Last administered on 09/30/18 08:10; Admin Dose 5 MG; Start 09/28/18 at 09:00 Metformin HCl (Glucophage) 1,000 mg WITH BREAKFAST DINNE PO Last administered on 09/30/18 08:11; Admin Dose 1,000 MG; Start 09/28/18 at 08:00 Diagnostic Test (Pha) (Accu-Chek) 1 ea AC MEALS AND BEDTIME XX Last administered on 09/30/18 11:30; Admin Dose 1 EA; Start 09/28/18 at 07:00 Diagnostic Test (Pha) (Accu-Chek) 1 ea 02 XX ; Start 09/29/18 at 02:00 Insulin Aspart (Novolog Insulin Pen) NOVOLOG *MODERATE* ALGORITHM WITH MEALS BEDTIME SC Last administered on 09/28/18 08:32; Admin Dose 6 UNIT; Start 09/28/18 at 08:00 Pantoprazole (Protonix Tab) 40 mg DAILY@06 PO Last administered on 09/30/18 06:21; Admin Dose 40 MG; Start 09/28/18 at 06:00 Miscellaneous Information 1 ea NOTE XX ; Start 09/28/18 at 03:00 Glucose (Glutose) 15 gm Q15M PRN PO DECREASED GLUCOSE; Start 09/28/18 at 03:00 Glucose (Glutose) 22.5 gm Q15M PRN PO DECREASED GLUCOSE; Start 09/28/18 at 03:00 Dextrose (D50w Syringe) 25 ml Q15M PRN IV DECREASED GLUCOSE; Start 09/28/18 at 03:00 Dextrose (D50w Syringe) 50 ml Q15M PRN IV DECREASED GLUCOSE; Start 09/28/18 at 03:00 Glucagon (Glucagen) 1 mg Q15M PRN IM DECREASED GLUCOSE; Start 09/28/18 at 03:00 Glucose (Glutose) 15 gm Q15M PRN BUCCAL DECREASED GLUCOSE; Start 09/28/18 at 03:00 Insulin Aspart (Novolog Insulin Pen) 13 unit WITH MEALS SC Last administered on 09/30/18at 08:20; Admin Dose 13 UNIT; Start 09/28/18 at 12:00; Status Hold Ferrous Sulfate (Ferrous Sulfate (Ec)) 325 mg TID PO Last administered on 09/30/18at 13:31; Admin Dose 325 MG; Start 09/29/18 at 21:00 Miscellaneous Information (*Rx Drug Level Order Reminder*) 1 1500 ONCE XX ; Start 10/01/18 at 15:00; Stop 10/01/18 at 15:01 Insulin Glargine (Lantus) 35 units DAILY@0800 SC ; Start 10/01/18 at 08:00 KRISTEL SALINAS NP Sep 30, 2018 17:39
[2018-09-30 19:44] VITALS: BP 124/60; PULSE 98; RESP 20
[2018-09-30] MEDS: ATORVASTATIN 10 MG TAB PO SCH (20:21)
[2018-09-30] MEDS: ONDANSETRON 4 MG INJ IV PRN (22:31)
[2018-10-01] MEDS: SOD CHLORIDE 0.9% 1,000 ML IV SCH ×4 (00:45→21:12)
[2018-10-01] MEDS: morphine 2 MG INJ IV PRN (01:06)
[2018-10-01 02:00] VITALS: BP 134/63; PULSE 94; RESP 19
[2018-10-01] MEDS: ACCU-CHEK XX SCH ×5 (02:00→21:17)
[2018-10-01] MEDS: HYDROCODONE/APAP (5/325) TAB PO PRN ×2 (05:12→21:13)
[2018-10-01] MEDS: PANTOPRAZOLE (EC) 40 MG TAB PO SCH (05:12)
[2018-10-01 07:35] VITALS: BP 106/58; PULSE 87; RESP 18
[2018-10-01] MEDS: INSULIN ASPART [NOVOLOG] 3 ML PEN SC SCH ×4 (08:00→21:16)
[2018-10-01] MEDS: FERROUS SULFATE (EC) 325 MG TAB PO SCH ×3 (08:13→21:12)
[2018-10-01] MEDS: LISINOPRIL 5 MG TAB PO SCH (08:14)
[2018-10-01] MEDS: FLUOXETINE 20 MG CAP PO SCH (08:14)
[2018-10-01] MEDS: INSULIN GLARGINE [LANTus] (100 UNITS/ML) SYG SC SCH (08:22)
[2018-10-01] MEDS: HEPARIN 5,000 UNIT/1 ML VIAL SC SCH ×2 (08:22→21:16)
[2018-10-01] MEDS: metFORMIN 500 MG TAB PO SCH ×2 (08:24→17:19)
[2018-10-01] MEDS ORDERED: SODIUM POLYSTYRENE 15 GM KIT (POWDER + SORBITOL) PO ONE (12:00)
[2018-10-01] MEDS: CHOLECALCIFEROL 2,000 UNIT CAP PO SCH (12:48)
[2018-10-01] MEDS: CEFTRIAXONE 2 GM/50 ML (PMX) 50 ML IVPB SCH (13:23)
[2018-10-01 14:15] VITALS: BP 126/72; PULSE 89; RESP 18
--- NOTE | 2018-10-01 14:16 | PN ---
Date/Time of Note Date/Time of Note DATE: 10/01/18 TIME: 14:14 Assessment/Plan VTE Prophylaxis Risk score (from Nsg)>0 risk: 3 SCD applied (from Nsg): Yes Pharmacological prophylaxis: heparin Lines/Catheters IV Catheter Type (from Nrsg): Peripheral IV Assessment/Plan Hospital Course SUBJECTIVE: Continues to complain of right lower extremity pain. Constipated. OBJECTIVE: Physical Exam General: Obese, 53 year-old female lying in bed in no apparent distress. HEENT: Normocephalic, atraumatic. Eyes: Anicteric sclerae, conjunctivae clear. ENT: Nasal septum midline, oral mucosa moist. Neck supple, no JVD noticed. Respiratory: Bilaterally clear breath sounds. No use of accessory muscles of respiration. No adventitious breath sounds. Cardiovascular: S1, S2 heard. Regular rate and rhythm. Abdomen: Soft, nontender, and nondistended. Bowel sounds positive in all 4 quadrants. Genitourinary: Deferred. Extremities: No cyanosis, no clubbing. Right lower extremity edema with the right foot dressing. Neurologic: Cranial nerves II through XII grossly intact. The patient is awake, alert, and oriented. Skin: Normal skin turgor. No skin rashes. Labs & Vitals per chart ASSESSMENT & PLAN 53-year-old female with comorbidities including hypertension, diabetes mellitus, dyslipidemia, peripheral vascular disease, and severe right foot Charcot foot deformity with history of multiple foot surgeries and chronic open wound of the right foot who came to the ER complaining of right foot pain, swelling with the right foot x-ray showing findings consistent with infection with gas-forming organism, who was admitted to inpatient setting for further treatment and evalua tion. 1. Chronic right foot wound with foot MRI showing new osteomyelitis in the mid cuneiform, the navicular, and in the lateral cuneiform. Continue antimicrobials as per ID. Being followed by podiatry. 2. Suspect right foot abscess. On antimicrobials as per ID. Being followed by podiatry. 3. Diabetes mellitus. Hemoglobin A1c 9.3. Continue sliding scale insulin along with basal insulin. Continue metformin. 4. Hypertension. Continue antihypertensives. 5. Dyslipidemia. Continue statins. 6. Iron deficiency. Continue iron supplements. 7. Hyperkalemia. Etiology unclear. Hold EVANGELISTA inhibitors. Single dose of potassium exchange resin. 8. Fluids, electrolytes, and nutrition. Carbohydrate controlled diet. 9. DVT prophylaxis. Subcutaneous heparin. 10. Plan. Continue antimicrobials as per ID. Await further podiatry recommendations/intervention. The patient was seen in collaboration with Dr. Jacobs. Result Diagram: 10/01/18 0447 10/01/187 Results 24hrs Laboratory Tests Test 09/30/18 17:47 09/30/18 20:20 10/01/18 04:47 10/01/18 08:13 Bedside Glucose 114 167 98 White Blood Count 7.4 Red Blood Count 3.41 L Hemoglobin 8.2 L Hematocrit 27.3 L Mean Corpuscular 80.1 L Volume Mean Corpuscular 24.0 L Hemoglobin Mean Corpuscular 30.0 L Hemoglobin Concent Red Cell 16.3 H Distribution Width Platelet Count 566 H Mean Platelet Volume 9.3 Immature 0.700 H Granulocytes % Neutrophils % 65.1 Lymphocytes % 22.3 Monocytes % 9.4 Eosinophils % 2.2 Basophils % 0.3 Nucleated Red Blood 0.0 Cells % Immature 0.050 H Granulocytes # Neutrophils # 4.8 Lymphocytes # 1.7 Monocytes # 0.7 Eosinophils # 0.2 Basophils # 0.0 Nucleated Red Blood 0.0 Cells # Sodium Level 145 H Potassium Level 5.7 H Chloride Level 111 H Carbon Dioxide Level 27 Anion Gap 7 Blood Urea Nitrogen 7 Creatinine 0.63 Est Glomerular > 60 Filtrat Rate mL/min Glucose Level 102 Calcium Level 7.5 L Phosphorus Level 3.2 Magnesium Level 1.8 Vitamin D < 12.8 L 1,25-Dihydroxy Test 10/01/18 12:47 Bedside Glucose 135 Exam/Review of Systems Exam Vitals Vital Signs Date Temp Pulse Resp B/P (MAP) Pulse Ox O2 O2 Flow FiO2 Time Delivery Rate 10/01/18 98.2 87 18 106/58 95 07:35 (74) 09/29/18 Room Air 14:19 Intake and Output 09/30/18 09/30/18 10/01/18 1515:00 23:00 07:00 IntakeIntake Total 650 ml 1730 ml OutputOutput Total 650 ml BalanceBalance 650 ml 1080 ml Results Results 24hrs Laboratory Tests Test 09/30/18 17:47 09/30/18 20:20 10/01/18 04:47 10/01/18 08:13 Bedside Glucose 114 167 98 White Blood Count 7.4 Red Blood Count 3.41 L Hemoglobin 8.2 L Hematocrit 27.3 L Mean Corpuscular 80.1 L Volume Mean Corpuscular 24.0 L Hemoglobin Mean Corpuscular 30.0 L Hemoglobin Concent Red Cell 16.3 H Distribution Width Platelet Count 566 H Mean Platelet Volume 9.3 Immature 0.700 H Granulocytes % Neutrophils % 65.1 Lymphocytes % 22.3 Monocytes % 9.4 Eosinophils % 2.2 Basophils % 0.3 Nucleated Red Blood 0.0 Cells % Immature 0.050 H Granulocytes # Neutrophils # 4.8 Lymphocytes # 1.7 Monocytes # 0.7 Eosinophils # 0.2 Basophils # 0.0 Nucleated Red Blood 0.0 Cells # Sodium Level 145 H Potassium Level 5.7 H Chloride Level 111 H Carbon Dioxide Level 27 Anion Gap 7 Blood Urea Nitrogen 7 Creatinine 0.63 Est Glomerular > 60 Filtrat Rate mL/min Glucose Level 102 Calcium Level 7.5 L Phosphorus Level 3.2 Magnesium Level 1.8 Vitamin D < 12.8 L 1,25-Dihydroxy Test 10/01/18 12:47 Bedside Glucose 135 Medications Medication Current Medications Sodium Chloride 1,000 ml @ 100 mls/hr Q10H IV Last administered on 10/01/18 11:31; Admin Dose 100 MLS/HR; Start 09/28/18 at 02:16 IV Flush (NS 3 ml) 3 ml PER PROTOCOL IV ; Start 09/28/18 at 02:30 Ondansetron HCl (Zofran Inj) 4 mg Q6H PRN IV NAUSEA/VOMITING Last administered on 09/30/18at 22:31; Admin Dose 4 MG; Start 09/28/18 at 02:30 Acetaminophen (Tylenol Tab) 650 mg Q6H PRN PO .PAIN 1-3 OR TEMP; Start 09/28/18 at 02:30 Acetaminophen/ Hydrocodone Bitart ([place] (5/325)) 1 tab Q6H PRN PO .MOD PAIN 4- 6 Last administered on 09/29/18at 08:30; Admin Dose 1 TAB; Start 09/28/18 at 02:30 Acetaminophen/ Hydrocodone Bitart ([place] (5/325)) 2 tab Q6H PRN PO .SEVERE PAIN 7-10 Last administered on 10/01/18at 05:12; Admin Dose 2 TAB; Start 09/28/18 at 02:30 Heparin Sodium (Porcine) (Heparin (5000 Units/1ml)) 5,000 unit Q12 SC Last administered on 10/01/18 08:22; Admin Dose 5,000 UNIT; Start 09/28/18 at 09:00 Albuterol/ Ipratropium (Duoneb) 3 ml Q2H RESP THERAPY PRN HHN SHORTNESS OF BREATH; Start 09/28/18 at 02:30 Atorvastatin Calcium (Lipitor) 10 mg QHS PO Last administered on 09/30/18 20:21; Admin Dose 10 MG; Start 09/28/18 at 21:00 Fluoxetine HCl (Prozac) 20 mg DAILY PO Last administered on 10/01/18 08:14; Admin Dose 20 MG; Start 09/28/18 at 09:00 Lisinopril (Zestril) 5 mg DAILY PO Last administered on 10/01/18 08:14; Admin Dose 5 MG; Start 09/28/18 at 09:00; Status Hold Metformin HCl (Glucophage) 1,000 mg WITH BREAKFAST DINNE PO Last administered on 10/01/18 08:24; Admin Dose 1,000 MG; Start 09/28/18 at 08:00 Diagnostic Test (Pha) (Accu-Chek) 1 ea AC MEALS AND BEDTIME XX Last administered on 10/01/18 11:30; Admin Dose 1 EA; Start 09/28/18 at 07:00 Diagnostic Test (Pha) (Accu-Chek) 1 ea 02 XX ; Start 09/29/18 at 02:00 Insulin Aspart (Novolog Insulin Pen) NOVOLOG *MODERATE* ALGORITHM WITH MEALS BEDTIME SC Last administered on 09/28/18 08:32; Admin Dose 6 UNIT; Start 09/28/18 at 08:00 Pantoprazole (Protonix Tab) 40 mg DAILY@06 PO Last administered on 10/01/18 05:12; Admin Dose 40 MG; Start 09/28/18 at 06:00 Miscellaneous Information 1 ea NOTE XX ; Start 09/28/18 at 03:00 Glucose (Glutose) 15 gm Q15M PRN PO DECREASED GLUCOSE; Start 09/28/18 at 03:00 Glucose (Glutose) 22.5 gm Q15M PRN PO DECREASED GLUCOSE; Start 09/28/18 at 03:00 Dextrose (D50w Syringe) 25 ml Q15M PRN IV DECREASED GLUCOSE; Start 09/28/18 at 03:00 Dextrose (D50w Syringe) 50 ml Q15M PRN IV DECREASED GLUCOSE; Start 09/28/18 at 03:00 Glucagon (Glucagen) 1 mg Q15M PRN IM DECREASED GLUCOSE; Start 09/28/18 at 03:00 Glucose (Glutose) 15 gm Q15M PRN BUCCAL DECREASED GLUCOSE; Start 09/28/18 at 03:00 Insulin Aspart (Novolog Insulin Pen) 13 unit WITH MEALS SC Last administered on 09/30/18 08:20; Admin Dose 13 UNIT; Start 09/28/18 at 12:00; Status Hold Ferrous Sulfate (Ferrous Sulfate (Ec)) 325 mg TID PO Last administered on 10/01/18 12:49; Admin Dose 325 MG; Start 09/29/18 at 21:00 Insulin Glargine (Lantus) 35 units DAILY@0800 SC Last administered on 10/01/18 08:22; Admin Dose 35 UNITS; Start 10/01/18 at 08:00 Morphine Sulfate (morphine) 2 mg Q4H PRN IV SEVERE PAIN LEVEL 7-10 Last administered on 10/01/18 01:06; Admin Dose 2 MG; Start 10/01/18 at 01:00 Ceftriaxone Sodium 50 ml @ 100 mls/hr Q24H IVPB Last administered on 10/01/18 13:23; Admin Dose 100 MLS/HR; Start 10/01/18 at 14:00 Cholecalciferol (Vitamin D) 2,000 unit DAILY PO Last administered on 10/01/18 12:48; Admin Dose 2,000 UNIT; Start 10/01/18 at 12:00 KRISTEL SALINAS NP Oct 01, 2018 14:16
--- NOTE | 2018-10-01 16:09 | CONS ---
Assessment/Plan Assessment/Plan Hospital Course (Demo Recall) No events, alert, feels good Microbiology: Right foot drainage culture grew oxacillin sensitive staph aureus MRI of the foot revealed osteomyelitis Antimicrobials: Rocephin Physical examination: Well-developed obese middle-aged woman who is alert in no distress. Head atraumatic normocephalic sclera nonicteric vehicle mucosa pink neck is supple chest rise symmetrical breath sounds clear heart: S1- S2. Abdomen soft bowel sounds present. Extremities with right lower extremity dressing clean dry and intact Assessment: 1. Right foot Charcot deformity/infectious myositis/Osteomyelitis 2. Right foot abscess status post I&D 3. Morbid obesity 4. Diabetes with peripheral neuropathy Plan: Stable, recommend dc on IV Rocephin for 6 weeks as there is a high chance of developing resistance to fluoroquinolones, consider PICC. Continue wound care per podiatry recommendations Consultation Date/Type/Reason Admit Date/Time Sep 27, 2018 at 19:48 Initial Consult Date 09/27/18 Type of Consult id Date/Time of Note DATE: 10/01/18 TIME: 16:07 Exam/Review of Systems Exam Vitals Vital Signs Date Temp Pulse Resp B/P (MAP) Pulse Ox O2 O2 Flow FiO2 Time Delivery Rate 10/01/18 97.6 89 18 126/72 98 14:15 (90) 09/29/18 Room Air 14:19 Intake and Output 09/30/18 09/30/18 10/01/18 1515:00 23:00 07:00 IntakeIntake Total 650 ml 1730 ml OutputOutput Total 650 ml BalanceBalance 650 ml 1080 ml Results Result Diagram: 10/01/18 0447 10/01/18 1455 Results 24hrs Laboratory Tests Test 09/30/18 17:47 09/30/18 20:20 10/01/18 04:47 10/01/18 08:13 Bedside Glucose 114 167 98 White Blood Count 7.4 Red Blood Count 3.41 L Hemoglobin 8.2 L Hematocrit 27.3 L Mean Corpuscular 80.1 L Volume Mean Corpuscular 24.0 L Hemoglobin Mean Corpuscular 30.0 L Hemoglobin Concent Red Cell 16.3 H Distribution Width Platelet Count 566 H Mean Platelet Volume 9.3 Immature 0.700 H Granulocytes % Neutrophils % 65.1 Lymphocytes % 22.3 Monocytes % 9.4 Eosinophils % 2.2 Basophils % 0.3 Nucleated Red Blood 0.0 Cells % Immature 0.050 H Granulocytes # Neutrophils # 4.8 Lymphocytes # 1.7 Monocytes # 0.7 Eosinophils # 0.2 Basophils # 0.0 Nucleated Red Blood 0.0 Cells # Sodium Level 145 H Potassium Level 5.7 H Chloride Level 111 H Carbon Dioxide Level 27 Anion Gap 7 Blood Urea Nitrogen 7 Creatinine 0.63 Est Glomerular > 60 Filtrat Rate mL/min Glucose Level 102 Calcium Level 7.5 L Phosphorus Level 3.2 Magnesium Level 1.8 Vitamin D < 12.8 L 1,25-Dihydroxy Test 10/01/18 12:47 10/01/18 14:55 Bedside Glucose 135 Potassium Level 4.2 Medications Medication Current Medications Sodium Chloride 1,000 ml @ 100 mls/hr Q10H IV Last administered on 10/01/18 11:31; Admin Dose 100 MLS/HR; Start 09/28/18 at 02:16 IV Flush (NS 3 ml) 3 ml PER PROTOCOL IV ; Start 09/28/18 at 02:30 Ondansetron HCl (Zofran Inj) 4 mg Q6H PRN IV NAUSEA/VOMITING Last administered on 09/30/18 22:31; Admin Dose 4 MG; Start 09/28/18 at 02:30 Acetaminophen (Tylenol Tab) 650 mg Q6H PRN PO .PAIN 1-3 OR TEMP; Start 09/28/18 at 02:30 Acetaminophen/ Hydrocodone Bitart ([place] (5/325)) 1 tab Q6H PRN PO .MOD PAIN 4- 6 Last administered on 09/29/18 08:30; Admin Dose 1 TAB; Start 09/28/18 at 02:30 Acetaminophen/ Hydrocodone Bitart ([place] (5/325)) 2 tab Q6H PRN PO .SEVERE PAIN 7-10 Last administered on 10/01/18 05:12; Admin Dose 2 TAB; Start 09/28/18 at 02:30 Heparin Sodium (Porcine) (Heparin (5000 Units/1ml)) 5,000 unit Q12 SC Last adm inistered on 10/01/18 08:22; Admin Dose 5,000 UNIT; Start 09/28/18 at 09:00 Albuterol/ Ipratropium (Duoneb) 3 ml Q2H RESP THERAPY PRN HHN SHORTNESS OF BREATH; Start 09/28/18 at 02:30 Atorvastatin Calcium (Lipitor) 10 mg QHS PO Last administered on 09/30/18 20:21; Admin Dose 10 MG; Start 09/28/18 at 21:00 Fluoxetine HCl (Prozac) 20 mg DAILY PO Last administered on 10/01/18 08:14; Admin Dose 20 MG; Start 09/28/18 at 09:00 Lisinopril (Zestril) 5 mg DAILY PO Last administered on 10/01/18 08:14; Admin Dose 5 MG; Start 09/28/18 at 09:00; Status Hold Metformin HCl (Glucophage) 1,000 mg WITH BREAKFAST DINNE PO Last administered on 10/01/18 08:24; Admin Dose 1,000 MG; Start 09/28/18 at 08:00 Diagnostic Test (Pha) (Accu-Chek) 1 ea AC MEALS AND BEDTIME XX Last administered on 10/01/18 11:30; Admin Dose 1 EA; Start 09/28/18 at 07:00 Diagnostic Test (Pha) (Accu-Chek) 1 ea 02 XX ; Start 09/29/18 at 02:00 Insulin Aspart (Novolog Insulin Pen) NOVOLOG *MODERATE* ALGORITHM WITH MEALS BEDTIME SC Last administered on 09/28/18 08:32; Admin Dose 6 UNIT; Start 09/28/18 at 08:00 Pantoprazole (Protonix Tab) 40 mg DAILY@06 PO Last administered on 10/01/18 05:12; Admin Dose 40 MG; Start 09/28/18 at 06:00 Miscellaneous Information 1 ea NOTE XX ; Start 09/28/18 at 03:00 Glucose (Glutose) 15 gm Q15M PRN PO DECREASED GLUCOSE; Start 09/28/18 at 03:00 Glucose (Glutose) 22.5 gm Q15M PRN PO DECREASED GLUCOSE; Start 09/28/18 at 03:00 Dextrose (D50w Syringe) 25 ml Q15M PRN IV DECREASED GLUCOSE; Start 09/28/18 at 03:00 Dextrose (D50w Syringe) 50 ml Q15M PRN IV DECREASED GLUCOSE; Start 09/28/18 at 03:00 Glucagon (Glucagen) 1 mg Q15M PRN IM DECREASED GLUCOSE; Start 09/28/18 at 03:00 Glucose (Glutose) 15 gm Q15M PRN BUCCAL DECREASED GLUCOSE; Start 09/28/18 at 03:00 Insulin Aspart (Novolog Insulin Pen) 13 unit WITH MEALS SC Last administered on 09/30/18 08:20; Admin Dose 13 UNIT; Start 09/28/18 at 12:00; Status Hold Ferrous Sulfate (Ferrous Sulfate (Ec)) 325 mg TID PO Last administered on 10/01/18 12:49; Admin Dose 325 MG; Start 09/29/18 at 21:00 Insulin Glargine (Lantus) 35 units DAILY@0800 SC Last administered on 10/01/18 08:22; Admin Dose 35 UNITS; Start 10/01/18 at 08:00 Morphine Sulfate (morphine) 2 mg Q4H PRN IV SEVERE PAIN LEVEL 7-10 Last administered on 10/01/18 01:06; Admin Dose 2 MG; Start 10/01/18 at 01:00 Ceftriaxone Sodium 50 ml @ 100 mls/hr Q24H IVPB Last administered on 10/01/18 13:23; Admin Dose 100 MLS/HR; Start 10/01/18 at 14:00 Cholecalciferol (Vitamin D) 2,000 unit DAILY PO Last administered on 10/01/18 12:48; Admin Dose 2,000 UNIT; Start 10/01/18 at 12:00 JANN SANDOVAL NP Oct 01, 2018 16:09
[2018-10-01 19:39] VITALS: BP 129/71; PULSE 91; RESP 18
[2018-10-01] MEDS: ATORVASTATIN 10 MG TAB PO SCH (21:12)
[2018-10-02 02:00] VITALS: BP 131/64; PULSE 88; RESP 18
[2018-10-02] MEDS: ACCU-CHEK XX SCH ×5 (02:43→20:55)
[2018-10-02] MEDS: PANTOPRAZOLE (EC) 40 MG TAB PO SCH (05:46)
[2018-10-02 08:00] VITALS: BP 129/60; PULSE 92; RESP 17
[2018-10-02] MEDS: INSULIN ASPART [NOVOLOG] 3 ML PEN SC SCH ×4 (08:00→20:55)
[2018-10-02] MEDS: SOD CHLORIDE 0.9% 1,000 ML IV SCH ×3 (08:13→23:54)
[2018-10-02] MEDS: HYDROCODONE/APAP (5/325) TAB PO PRN ×2 (08:15→17:28)
[2018-10-02] MEDS: CHOLECALCIFEROL 2,000 UNIT CAP PO SCH (08:16)
[2018-10-02] MEDS: FLUOXETINE 20 MG CAP PO SCH (08:16)
[2018-10-02] MEDS: metFORMIN 500 MG TAB PO SCH ×2 (08:16→17:28)
[2018-10-02] MEDS: FERROUS SULFATE (EC) 325 MG TAB PO SCH ×3 (08:16→20:51)
[2018-10-02] MEDS: HEPARIN 5,000 UNIT/1 ML VIAL SC SCH ×2 (08:20→20:55)
[2018-10-02] MEDS: INSULIN GLARGINE [LANTus] (100 UNITS/ML) SYG SC SCH (08:20)
--- NOTE | 2018-10-02 11:31 | PN ---
Date/Time of Note Date/Time of Note DATE: 10/02/18 TIME: 11:29 Assessment/Plan VTE Prophylaxis Risk score (from Nsg)>0 risk: 3 SCD applied (from Nsg): Yes Pharmacological prophylaxis: heparin Lines/Catheters IV Catheter Type (from Nrsg): Peripheral IV Assessment/Plan Hospital Course SUBJECTIVE: Continues to complain of right lower extremity pain. OBJECTIVE: Physical Exam General: Obese, 53 year-old female lying in bed in no apparent distress. HEENT: Normocephalic, atraumatic. Eyes: Anicteric sclerae, conjunctivae clear. ENT: Nasal septum midline, oral mucosa moist. Neck supple, no JVD noticed. Respiratory: Bilaterally clear breath sounds. No use of accessory muscles of respiration. No adventitious breath sounds. Cardiovascular: S1, S2 heard. Regular rate and rhythm. Abdomen: Soft, nontender, and nondistended. Bowel sounds positive in all 4 quadrants. Genitourinary: Deferred. Extremities: No cyanosis, no clubbing. Right lower extremity edema with the right foot dressing. Neurologic: Cranial nerves II through XII grossly intact. The patient is awake, alert, and oriented. Skin: Normal skin turgor. No skin rashes. Labs & Vitals per chart ASSESSMENT & PLAN 53-year-old female with comorbidities including hypertension, diabetes mellitus, dyslipidemia, peripheral vascular disease, and severe right foot Charcot foot deformity with history of multiple foot surgeries and chronic open wound of the right foot who came to the ER complaining of right foot pain, swelling with the right foot x-ray showing findings consistent with infection with gas-forming organism, who was admitted to inpatient setting for further treatment and evaluation. 1. Chronic right foot wound with foot MRI showing new osteomyelitis in the mid cuneiform, the navicular, and in the lateral cuneiform. Continue antimicrobials as per ID. Being followed by podiatry. 2. Suspect right foot abscess. On antimicrobials as per ID. Being followed by podiatry. 3. Diabetes mellitus. Hemoglobin A1c 9.3. Continue sliding scale insulin along with basal insulin. Continue metformin. 4. Hypertension. Continue antihypertensives. 5. Dyslipidemia. Continue statins. 6. Iron deficiency. Continue iron supplements. 7. Hyperkalemia. Etiology unclear. Hold EVANGELISTA inhibitors. Single dose of potassium exchange resin. 8. Fluids, electrolytes, and nutrition. Carbohydrate controlled diet. 9. DVT prophylaxis. Subcutaneous heparin. 10. Plan. Continue antimicrobials as per ID. Await further podiatry recommendations/intervention. Contacted Dr. Vaughn, who said he will see the patient today and inform about discharge planning. The patient was seen in collaboration with Dr. Jacobs. Result Diagram: 10/02/18 0440 10/02/18 0440 Results 24hrs Laboratory Tests Test 10/01/18 12:47 10/01/18 14:55 10/01/18 16:00 10/01/18 17:17 Bedside Glucose 135 165 Potassium Level 4.2 Stool Occult Blood NEGATIVE Test 10/01/18 21:05 10/02/18 02:38 10/02/18 04:40 10/02/18 08:13 Bedside Glucose 221 H 123 104 White Blood Count 7.1 Red Blood Count 3.20 L Hemoglobin 7.9 L Hematocrit 25.5 L Mean Corpuscular 79.7 L Volume Mean Corpuscular 24.7 L Hemoglobin Mean Corpuscular 31.0 L Hemoglobin Concent Red Cell 16.1 H Distribution Width Platelet Count 541 H Mean Platelet Volume 9.3 Immature 1.400 H Granulocytes % Neutrophils % 58.4 Lymphocytes % 27.1 Monocytes % 10.2 Eosinophils % 2.2 Basophils % 0.7 Nucleated Red Blood 0.0 Cells % Immature 0.100 H Granulocytes # Neutrophils # 4.2 Lymphocytes # 1.9 Monocytes # 0.7 Eosinophils # 0.2 Basophils # 0.1 Nucleated Red Blood 0.0 Cells # Sodium Level 145 H Potassium Level 4.9 Chloride Level 113 H Carbon Dioxide Level 28 Anion Gap 4 L Blood Urea Nitrogen 5 L Creatinine 0.55 Est Glomerular > 60 Filtrat Rate mL/min Glucose Level 111 Calcium Level 7.6 L Phosphorus Level 3.6 Magnesium Level 1.5 L Exam/Review of Systems Exam Vitals Vital Signs Date Temp Pulse Resp B/P (MAP) Pulse Ox O2 O2 Flow FiO2 Time Delivery Rate 10/02/18 98.3 92 17 129/60 96 08:00 (83) 09/29/18 Room Air 14:19 Intake and Output 10/01/18 10/01/18 10/02/18 1515:00 23:00 07:00 IntakeIntake Total 1050 ml 2480 ml 700 ml OutputOutput Total 3 ml BalanceBalance 1050 ml 2477 ml 700 ml Results Results 24hrs Laboratory Tests Test 10/01/18 12:47 10/01/18 14:55 10/01/18 16:00 10/01/18 17:17 Bedside Glucose 135 165 Potassium Level 4.2 Stool Occult Blood NEGATIVE Test 10/01/18 21:05 10/02/18 02:38 10/02/18 04:40 10/02/18 08:13 Bedside Glucose 221 H 123 104 White Blood Count 7.1 Red Blood Count 3.20 L Hemoglobin 7.9 L Hematocrit 25.5 L Mean Corpuscular 79.7 L Volume Mean Corpuscular 24.7 L Hemoglobin Mean Corpuscular 31.0 L Hemoglobin Concent Red Cell 16.1 H Distribution Width Platelet Count 541 H Mean Platelet Volume 9.3 Immature 1.400 H Granulocytes % Neutrophils % 58.4 Lymphocytes % 27.1 Monocytes % 10.2 Eosinophils % 2.2 Basophils % 0.7 Nucleated Red Blood 0.0 Cells % Immature 0.100 H Granulocytes # Neutrophils # 4.2 Lymphocytes # 1.9 Monocytes # 0.7 Eosinophils # 0.2 Basophils # 0.1 Nucleated Red Blood 0.0 Cells # Sodium Level 145 H Potassium Level 4.9 Chloride Level 113 H Carbon Dioxide Level 28 Anion Gap 4 L Blood Urea Nitrogen 5 L Creatinine 0.55 Est Glomerular > 60 Filtrat Rate mL/min Glucose Level 111 Calcium Level 7.6 L Phosphorus Level 3.6 Magnesium Level 1.5 L Medications Medication Current Medications Sodium Chloride 1,000 ml @ 100 mls/hr Q10H IV Last administered on 10/02/18at 08:13; Admin Dose 100 MLS/HR; Start 09/28/18 at 02:16 IV Flush (NS 3 ml) 3 ml PER PROTOCOL IV ; Start 09/28/18 at 02:30 Ondansetron HCl (Zofran Inj) 4 mg Q6H PRN IV NAUSEA/VOMITING Last administered on 09/30/18at 22:31; Admin Dose 4 MG; Start 09/28/18 at 02:30 Acetaminophen (Tylenol Tab) 650 mg Q6H PRN PO .PAIN 1-3 OR TEMP; Start 09/28/18 at 02:30 Acetaminophen/ Hydrocodone Bitart ([place] (5/325)) 1 tab Q6H PRN PO .MOD PAIN 4- 6 Last administered on 09/29/18at 08:30; Admin Dose 1 TAB; Start 09/28/18 at 02:30 Acetaminophen/ Hydrocodone Bitart ([place] (5/325)) 2 tab Q6H PRN PO .SEVERE PAIN 7-10 Last administered on 10/02/18 08:15; Admin Dose 2 TAB; Start 09/28/18 at 02:30 Heparin Sodium (Porcine) (Heparin (5000 Units/1ml)) 5,000 unit Q12 SC Last ad ministered on 10/02/18 08:20; Admin Dose 5,000 UNIT; Start 09/28/18 at 09:00 Albuterol/ Ipratropium (Duoneb) 3 ml Q2H RESP THERAPY PRN HHN SHORTNESS OF BREATH; Start 09/28/18 at 02:30 Atorvastatin Calcium (Lipitor) 10 mg QHS PO Last administered on 10/01/18 21:12; Admin Dose 10 MG; Start 09/28/18 at 21:00 Fluoxetine HCl (Prozac) 20 mg DAILY PO Last administered on 10/02/18 08:16; Admin Dose 20 MG; Start 09/28/18 at 09:00 Lisinopril (Zestril) 5 mg DAILY PO Last administered on 10/01/18 08:14; Admin Dose 5 MG; Start 09/28/18 at 09:00; Status Hold Metformin HCl (Glucophage) 1,000 mg WITH BREAKFAST DINNE PO Last administered on 10/02/18 08:16; Admin Dose 1,000 MG; Start 09/28/18 at 08:00 Diagnostic Test (Pha) (Accu-Chek) 1 ea AC MEALS AND BEDTIME XX Last administered on 10/01/18 21:17; Admin Dose 1 EA; Start 09/28/18 at 07:00 Diagnostic Test (Pha) (Accu-Chek) 1 ea 02 XX Last administered on 10/02/18 02:43; Admin Dose 1 EA; Start 09/29/18 at 02:00 Insulin Aspart (Novolog Insulin Pen) NOVOLOG *MODERATE* ALGORITHM WITH MEALS BEDTIME SC Last administered on 10/01/18 21:16; Admin Dose 2 UNIT; Start 09/28/18 at 08:00 Pantoprazole (Protonix Tab) 40 mg DAILY@06 PO Last administered on 6/26/19at 05:46; Admin Dose 40 MG; Start 09/28/18 at 06:00 Miscellaneous Information 1 ea NOTE XX ; Start 09/28/18 at 03:00 Glucose (Glutose) 15 gm Q15M PRN PO DECREASED GLUCOSE; Start 09/28/18 at 03:00 Glucose (Glutose) 22.5 gm Q15M PRN PO DECREASED GLUCOSE; Start 09/28/18 at 03:00 Dextrose (D50w Syringe) 25 ml Q15M PRN IV DECREASED GLUCOSE; Start 09/28/18 at 03:00 Dextrose (D50w Syringe) 50 ml Q15M PRN IV DECREASED GLUCOSE; Start 09/28/18 at 03:00 Glucagon (Glucagen) 1 mg Q15M PRN IM DECREASED GLUCOSE; Start 09/28/18 at 03:00 Glucose (Glutose) 15 gm Q15M PRN BUCCAL DECREASED GLUCOSE; Start 09/28/18 at 03:00 Insulin Aspart (Novolog Insulin Pen) 13 unit WITH MEALS SC Last administered on 09/30/18at 08:20; Admin Dose 13 UNIT; Start 09/28/18 at 12:00; Status Hold Ferrous Sulfate (Ferrous Sulfate (Ec)) 325 mg TID PO Last administered on 10/02/18 08:16; Admin Dose 325 MG; Start 09/29/18 at 21:00 Insulin Glargine (Lantus) 35 units DAILY@0800 SC Last administered on 10/02/18 08:20; Admin Dose 35 UNITS; Start 10/01/18 at 08:00 Morphine Sulfate (morphine) 2 mg Q4H PRN IV SEVERE PAIN LEVEL 7-10 Last administered on 10/01/18at 01:06; Admin Dose 2 MG; Start 10/01/18 at 01:00 Ceftriaxone Sodium 50 ml @ 100 mls/hr Q24H IVPB Last administered on 10/01/18 13:23; Admin Dose 100 MLS/HR; Start 10/01/18 at 14:00 Cholecalciferol (Vitamin D) 2,000 unit DAILY PO Last administered on 10/02/18 08:16; Admin Dose 2,000 UNIT; Start 10/01/18 at 12:00 KRISTEL SALINAS NP Oct 02, 2018 11:31
[2018-10-02] MEDS ORDERED: MAGNESIUM SULFATE 2 GM/50 ML 50 ML IVPB ONE (12:30)
--- NOTE | 2018-10-02 14:25 | CONS ---
Assessment/Plan Assessment/Plan Hospital Course (Demo Recall) No events, alert, feels good Microbiology: Right foot drainage culture grew oxacillin sensitive staph aureus MRI of the foot revealed osteomyelitis Antimicrobials: Rocephin Physical examination: Well-developed obese middle-aged woman who is alert in no distress. Head atraumatic normocephalic sclera nonicteric vehicle mucosa pink neck is supple chest rise symmetrical breath sounds clear heart: S1- S2. Abdomen soft bowel sounds present. Extremities with right lower extremity dressing clean dry and intact Assessment: 1. Right foot Charcot deformity/infectious myositis/Osteomyelitis 2. Right foot abscess status post I&D 3. Morbid obesity 4. Diabetes with peripheral neuropathy Plan: Stable, recommend dc on IV Rocephin for 6 weeks as there is a high chance of developing resistance to fluoroquinolones, consider PICC. Continue wound care per podiatry recommendations Consultation Date/Type/Reason Admit Date/Time Sep 27, 2018 at 19:48 Initial Consult Date 09/27/18 Type of Consult id Date/Time of Note DATE: 10/02/18 TIME: 14:25 Exam/Review of Systems Exam Vitals Vital Signs Date Temp Pulse Resp B/P (MAP) Pulse Ox O2 O2 Flow FiO2 Time Delivery Rate 10/02/18 98.3 92 17 129/60 96 08:00 (83) 09/29/18 Room Air 14:19 Intake and Output 10/01/18 10/01/18 10/02/18 1515:00 23:00 07:00 IntakeIntake Total 1050 ml 2480 ml 700 ml OutputOutput Total 3 ml BalanceBalance 1050 ml 2477 ml 700 ml Results Result Diagram: 10/02/18 0440 10/02/18 0440 Results 24hrs Laboratory Tests Test 10/01/18 14:55 10/01/18 16:00 10/01/18 17:17 10/01/18 21:05 Potassium Level 4.2 Stool Occult Blood NEGATIVE Bedside Glucose 165 221 H Test 10/02/18 02:38 10/02/18 04:40 10/02/18 08:13 10/02/18 12:18 Bedside Glucose 123 104 132 White Blood Count 7.1 Red Blood Count 3.20 L Hemoglobin 7.9 L Hematocrit 25.5 L Mean Corpuscular 79.7 L Volume Mean Corpuscular 24.7 L Hemoglobin Mean Corpuscular 31.0 L Hemoglobin Concent Red Cell 16.1 H Distribution Width Platelet Count 541 H Mean Platelet Volume 9.3 Immature 1.400 H Granulocytes % Neutrophils % 58.4 Lymphocytes % 27.1 Monocytes % 10.2 Eosinophils % 2.2 Basophils % 0.7 Nucleated Red Blood 0.0 Cells % Immature 0.100 H Granulocytes # Neutrophils # 4.2 Lymphocytes # 1.9 Monocytes # 0.7 Eosinophils # 0.2 Basophils # 0.1 Nucleated Red Blood 0.0 Cells # Sodium Level 145 H Potassium Level 4.9 Chloride Level 113 H Carbon Dioxide Level 28 Anion Gap 4 L Blood Urea Nitrogen 5 L Creatinine 0.55 Est Glomerular > 60 Filtrat Rate mL/min Glucose Level 111 Calcium Level 7.6 L Phosphorus Level 3.6 Magnesium Level 1.5 L Medications Medication Current Medications Sodium Chloride 1,000 ml @ 100 mls/hr Q10H IV Last administered on 10/02/18 08:13; Admin Dose 100 MLS/HR; Start 09/28/18 at 02:16 IV Flush (NS 3 ml) 3 ml PER PROTOCOL IV ; Start 09/28/18 at 02:30 Ondansetron HCl (Zofran Inj) 4 mg Q6H PRN IV NAUSEA/VOMITING Last administered on 09/30/18 22:31; Admin Dose 4 MG; Start 09/28/18 at 02:30 Acetaminophen (Tylenol Tab) 650 mg Q6H PRN PO .PAIN 1-3 OR TEMP; Start 09/28/18 at 02:30 Acetaminophen/ Hydrocodone Bitart ([place] (5/325)) 1 tab Q6H PRN PO .MOD PAIN 4- 6 Last administered on 09/29/18 08:30; Admin Dose 1 TAB; Start 09/28/18 at 02:30 Acetaminophen/ Hydrocodone Bitart ([place] (5/325)) 2 tab Q6H PRN PO .SEVERE PAIN 7-10 Last administered on 10/02/18 08:15; Admin Dose 2 TAB; Start 09/28/18 at 02:30 Heparin Sodium (Porcine) (Heparin (5000 Units/1ml)) 5,000 unit Q12 SC Last administered on 10/02/18 08:20; Admin Dose 5,000 UNIT; Start 09/28/18 at 09:00 Albuterol/ Ipratropium (Duoneb) 3 ml Q2H RESP THERAPY PRN HHN SHORTNESS OF BREATH; Start 09/28/18 at 02:30 Atorvastatin Calcium (Lipitor) 10 mg QHS PO Last administered on 10/01/18at 21:12; Admin Dose 10 MG; Start 09/28/18 at 21:00 Fluoxetine HCl (Prozac) 20 mg DAILY PO Last administered on 10/02/18at 08:16; Admin Dose 20 MG; Start 09/28/18 at 09:00 Lisinopril (Zestril) 5 mg DAILY PO Last administered on 10/01/18 08:14; Admin Dose 5 MG; Start 09/28/18 at 09:00; Status Hold Metformin HCl (Glucophage) 1,000 mg WITH BREAKFAST DINNE PO Last administered on 10/02/18at 08:16; Admin Dose 1,000 MG; Start 09/28/18 at 08:00 Diagnostic Test (Pha) (Accu-Chek) 1 ea AC MEALS AND BEDTIME XX Last administered on 10/01/18at 21:17; Admin Dose 1 EA; Start 09/28/18 at 07:00 Diagnostic Test (Pha) (Accu-Chek) 1 ea 02 XX Last administered on 10/02/18at 02:43; Admin Dose 1 EA; Start 09/29/18 at 02:00 Insulin Aspart (Novolog Insulin Pen) NOVOLOG *MODERATE* ALGORITHM WITH MEALS BEDTIME SC Last administered on 10/01/18at 21:16; Admin Dose 2 UNIT; Start 09/28/18 at 08:00 Pantoprazole (Protonix Tab) 40 mg DAILY@06 PO Last administered on 10/02/18at 05:46; Admin Dose 40 MG; Start 09/28/18 at 06:00 Miscellaneous Information 1 ea NOTE XX ; Start 09/28/18 at 03:00 Glucose (Glutose) 15 gm Q15M PRN PO DECREASED GLUCOSE; Start 09/28/18 at 03:00 Glucose (Glutose) 22.5 gm Q15M PRN PO DECREASED GLUCOSE; Start 09/28/18 at 03:00 Dextrose (D50w Syringe) 25 ml Q15M PRN IV DECREASED GLUCOSE; Start 09/28/18 at 03:00 Dextrose (D50w Syringe) 50 ml Q15M PRN IV DECREASED GLUCOSE; Start 09/28/18 at 03:00 Glucagon (Glucagen) 1 mg Q15M PRN IM DECREASED GLUCOSE; Start 09/28/18 at 03:00 Glucose (Glutose) 15 gm Q15M PRN BUCCAL DECREASED GLUCOSE; Start 09/28/18 at 03:00 Insulin Aspart (Novolog Insulin Pen) 13 unit WITH MEALS SC Last administered on 09/30/18 08:20; Admin Dose 13 UNIT; Start 09/28/18 at 12:00; Status Hold Ferrous Sulfate (Ferrous Sulfate (Ec)) 325 mg TID PO Last administered on 10/02/18 12:16; Admin Dose 325 MG; Start 09/29/18 at 21:00 Insulin Glargine (Lantus) 35 units DAILY@0800 SC Last administered on 10/02/18 08:20; Admin Dose 35 UNITS; Start 10/01/18 at 08:00 Morphine Sulfate (morphine) 2 mg Q4H PRN IV SEVERE PAIN LEVEL 7-10 Last administered on 10/01/18 01:06; Admin Dose 2 MG; Start 10/01/18 at 01:00 Ceftriaxone Sodium 50 ml @ 100 mls/hr Q24H IVPB Last administered on 10/01/18 13:23; Admin Dose 100 MLS/HR; Start 10/01/18 at 14:00 Cholecalciferol (Vitamin D) 2,000 unit DAILY PO Last administered on 10/02/18 08:16; Admin Dose 2,000 UNIT; Start 10/01/18 at 12:00 Magnesium Sulfate 50 ml @ 25 mls/hr ONCE ONCE IVPB Last administered on 10/02/18 12:16; Admin Dose 25 MLS/HR; Start 10/02/18 at 12:30; Stop 10/02/18 at 14:29 JANN SANDOVAL NP Oct 02, 2018 14:25
[2018-10-02] MEDS: CEFTRIAXONE 2 GM/50 ML (PMX) 50 ML IVPB SCH (14:26)
[2018-10-02 15:12] VITALS: BP 130/82; PULSE 90; RESP 17
[2018-10-02 19:41] VITALS: BP 124/59; PULSE 88; RESP 18
[2018-10-02] MEDS: ATORVASTATIN 10 MG TAB PO SCH (20:51)
--- NOTE | 2018-10-02 23:11 | PN ---
Date/Time of Note Date/Time of Note DATE: 10/02/18 TIME: 23:11 Assessment/Plan Assessment/Plan Chief Complaint/Hosp Course Patient will be taken to the OR 10/03/2018 after 6 pm for further incision and drainage of persistent abscess of her right ankle joint with possible hardware removal of the right foot. Pending OR time. Patient will be NPO after breakfast on 10/03/2018. Exam/Review of Systems Vital Signs Vitals Vital Signs Date Temp Pulse Resp B/P (MAP) Pulse Ox O2 O2 Flow FiO2 Time Delivery Rate 10/02/18 98.4 88 18 124/59 95 19:41 (80) 09/29/18 Room Air 14:19 Intake and Output 10/01/18 10/01/18 10/02/18 1515:00 23:00 07:00 IntakeIntake Total 1050 ml 2480 ml 700 ml OutputOutput Total 3 ml BalanceBalance 1050 ml 2477 ml 700 ml Results Result Diagram: 10/02/18 0440 10/02/18 0440 COLETTE MCQUEEN DPM Oct 02, 2018 23:11
[2018-10-03] VITALS (15 sets, daily range): BP systolic 119–162; BP diastolic 60–90; PULSE 86–96; RESP 12–18
[2018-10-03] MEDS: ACCU-CHEK XX SCH ×5 (01:18→21:00)
[2018-10-03] MEDS: morphine 2 MG INJ IV PRN (01:43)
[2018-10-03] MEDS: PANTOPRAZOLE (EC) 40 MG TAB PO SCH (05:49)
[2018-10-03] MEDS: metFORMIN 500 MG TAB PO SCH ×2 (08:00→15:07)
[2018-10-03] MEDS: CHOLECALCIFEROL 2,000 UNIT CAP PO SCH (08:47)
[2018-10-03] MEDS: FLUOXETINE 20 MG CAP PO SCH (08:47)
[2018-10-03] MEDS: FERROUS SULFATE (EC) 325 MG TAB PO SCH ×3 (08:47→21:22)
[2018-10-03] MEDS: INSULIN GLARGINE [LANTus] (100 UNITS/ML) SYG SC SCH (08:50)
[2018-10-03] MEDS: INSULIN ASPART [NOVOLOG] 3 ML PEN SC SCH ×4 (08:51→21:00)
[2018-10-03] MEDS: HEPARIN 5,000 UNIT/1 ML VIAL SC SCH ×2 (08:51→21:00)
[2018-10-03] MEDS: SOD CHLORIDE 0.9% 1,000 ML IV SCH ×2 (09:30→22:16)
--- NOTE | 2018-10-03 12:37 | CONS ---
Assessment/Plan Assessment/Plan Hospital Course (Demo Recall) No events, feels good Microbiology: Right foot drainage culture grew oxacillin sensitive staph aureus MRI of the foot revealed osteomyelitis Antimicrobials: Rocephin Physical examination: Well-developed obese middle-aged woman who is alert in no distress. Head atraumatic normocephalic sclera nonicteric vehicle mucosa pink neck is supple chest rise symmetrical breath sounds clear heart: S1- S2. Abdomen soft bowel sounds present. Extremities with right lower extremity dressing clean dry and intact Assessment: 1. Right foot Charcot deformity/infectious myositis/Osteomyelitis 2. Right foot abscess status post I&D 3. Morbid obesity 4. Diabetes with peripheral neuropathy Plan: Stable, podiatry recommendations noted, plan to OR today, recommend dc on IV Rocephin for 6 weeks as there is a high chance of developing resistance to fluoroquinolones Consultation Date/Type/Reason Admit Date/Time Sep 27, 2018 at 19:48 Initial Consult Date 09/27/18 Type of Consult id Date/Time of Note DATE: 10/03/18 TIME: 12:37 Exam/Review of Systems Exam Vitals Vital Signs Date Temp Pulse Resp B/P (MAP) Pulse Ox O2 O2 Flow FiO2 Time Delivery Rate 10/03/18 98.4 90 17 119/60 96 07:50 (79) 09/29/18 Room Air 14:19 Intake and Output 10/02/18 10/02/18 10/03/18 1515:00 23:00 07:00 IntakeIntake Total 1260 ml 1180 ml 900 ml BalanceBalance 1260 ml 1180 ml 900 ml Results Result Diagram: 10/03/18 0431 10/03/18 0431 Results 24hrs Laboratory Tests Test 10/02/18 17:27 10/02/18 20:54 10/03/18 04:31 10/03/18 08:28 Bedside Glucose 206 167 151 White Blood Count 6.4 Red Blood Count 3.22 L Hemoglobin 7.9 L Hematocrit 26.0 L Mean Corpuscular 80.7 L Volume Mean Corpuscular 24.5 L Hemoglobin Mean Corpuscular 30.4 L Hemoglobin Concent Red Cell 16.1 H Distribution Width Platelet Count 494 H Mean Platelet Volume 9.4 Immature 1.700 H Granulocytes % Neutrophils % 65.3 Lymphocytes % 23.3 Monocytes % 8.3 Eosinophils % 0.9 Basophils % 0.5 Nucleated Red Blood 0.0 Cells % Immature 0.110 H Granulocytes # Neutrophils # 4.2 Lymphocytes # 1.5 Monocytes # 0.5 Eosinophils # 0.1 Basophils # 0.0 Nucleated Red Blood 0.0 Cells # Sodium Level 141 Potassium Level 4.0 Chloride Level 110 Carbon Dioxide Level 25 Anion Gap 6 Blood Urea Nitrogen 4 L Creatinine 0.49 Est Glomerular > 60 Filtrat Rate mL/min Glucose Level 189 Calcium Level 7.1 L Phosphorus Level 3.7 Magnesium Level 1.6 L Test 10/03/18 12:23 Bedside Glucose 205 Medications Medication Current Medications Sodium Chloride 1,000 ml @ 100 mls/hr Q10H IV Last administered on 10/03/18 09:30; Admin Dose 100 MLS/HR; Start 09/28/18 at 02:16 IV Flush (NS 3 ml) 3 ml PER PROTOCOL IV ; Start 09/28/18 at 02:30 Ondansetron HCl (Zofran Inj) 4 mg Q6H PRN IV NAUSEA/VOMITING Last administered on 09/30/18 22:31; Admin Dose 4 MG; Start 09/28/18 at 02:30 Acetaminophen (Tylenol Tab) 650 mg Q6H PRN PO .PAIN 1-3 OR TEMP; Start 09/28/18 at 02:30 Acetaminophen/ Hydrocodone Bitart ([place] (5/325)) 1 tab Q6H PRN PO .MOD PAIN 4- 6 Last administered on 09/29/18 08:30; Admin Dose 1 TAB; Start 09/28/18 at 02:30 Acetaminophen/ Hydrocodone Bitart ([place] (5/325)) 2 tab Q6H PRN PO .SEVERE PAIN 7-10 Last administered on 10/02/18 17:28; Admin Dose 2 TAB; Start 09/28/18 at 02:30 Heparin Sodium (Porcine) (Heparin (5000 Units/1ml)) 5,000 unit Q12 SC Last administered on 10/02/18at 20:55; Admin Dose 5,000 UNIT; Start 09/28/18 at 09:00 Albuterol/ Ipratropium (Duoneb) 3 ml Q2H RESP THERAPY PRN HHN SHORTNESS OF BREATH; Start 09/28/18 at 02:30 Atorvastatin Calcium (Lipitor) 10 mg QHS PO Last administered on 10/02/18at 20:51; Admin Dose 10 MG; Start 09/28/18 at 21:00 Fluoxetine HCl (Prozac) 20 mg DAILY PO Last administered on 10/03/18at 08:47; Admin Dose 20 MG; Start 09/28/18 at 09:00 Lisinopril (Zestril) 5 mg DAILY PO Last administered on 10/01/18 08:14; Admin Dose 5 MG; Start 09/28/18 at 09:00; Status Hold Metformin HCl (Glucophage) 1,000 mg WITH BREAKFAST DINNE PO Last administered on 10/02/18at 17:28; Admin Dose 1,000 MG; Start 09/28/18 at 08:00 Diagnostic Test (Pha) (Accu-Chek) 1 ea AC MEALS AND BEDTIME XX Last administered on 10/03/18at 07:00; Admin Dose 1 EA; Start 09/28/18 at 07:00 Diagnostic Test (Pha) (Accu-Chek) 1 ea 02 XX Last administered on 10/02/18at 02:43; Admin Dose 1 EA; Start 09/29/18 at 02:00 Insulin Aspart (Novolog Insulin Pen) NOVOLOG *MODERATE* ALGORITHM WITH MEALS BEDTIME SC Last administered on 10/03/18 08:51; Admin Dose 3 UNIT; Start 09/28/18 at 08:00 Pantoprazole (Protonix Tab) 40 mg DAILY@06 PO Last administered on 10/03/18at 05:49; Admin Dose 40 MG; Start 09/28/18 at 06:00 Miscellaneous Information 1 ea NOTE XX ; Start 09/28/18 at 03:00 Glucose (Glutose) 15 gm Q15M PRN PO DECREASED GLUCOSE; Start 09/28/18 at 03:00 Glucose (Glutose) 22.5 gm Q15M PRN PO DECREASED GLUCOSE; Start 09/28/18 at 03:00 Dextrose (D50w Syringe) 25 ml Q15M PRN IV DECREASED GLUCOSE; Start 09/28/18 at 03:00 Dextrose (D50w Syringe) 50 ml Q15M PRN IV DECREASED GLUCOSE; Start 09/28/18 at 03:00 Glucagon (Glucagen) 1 mg Q15M PRN IM DECREASED GLUCOSE; Start 09/28/18 at 03:00 Glucose (Glutose) 15 gm Q15M PRN BUCCAL DECREASED GLUCOSE; Start 09/28/18 at 03:00 Insulin Aspart (Novolog Insulin Pen) 13 unit WITH MEALS SC Last administered on 09/30/18 08:20; Admin Dose 13 UNIT; Start 09/28/18 at 12:00; Status Hold Ferrous Sulfate (Ferrous Sulfate (Ec)) 325 mg TID PO Last administered on 10/03/18 08:47; Admin Dose 325 MG; Start 09/29/18 at 21:00 Insulin Glargine (Lantus) 35 units DAILY@0800 SC Last administered on 10/03/18 08:50; Admin Dose 35 UNITS; Start 10/01/18 at 08:00 Morphine Sulfate (morphine) 2 mg Q4H PRN IV SEVERE PAIN LEVEL 7-10 Last administered on 10/03/18 01:43; Admin Dose 2 MG; Start 10/01/18 at 01:00 Ceftriaxone Sodium 50 ml @ 100 mls/hr Q24H IVPB Last administered on 10/02/18 14:26; Admin Dose 100 MLS/HR; Start 10/01/18 at 14:00 Cholecalciferol (Vitamin D) 2,000 unit DAILY PO Last administered on 10/03/18 08:47; Admin Dose 2,000 UNIT; Start 10/01/18 at 12:00 JANN SANDOVAL NP Oct 03, 2018 12:37
[2018-10-03] MEDS: CEFTRIAXONE 2 GM/50 ML (PMX) 50 ML IVPB SCH (14:07)
--- NOTE | 2018-10-03 14:38 | PN ---
Date/Time of Note Date/Time of Note DATE: 10/03/18 TIME: 14:36 Assessment/Plan VTE Prophylaxis Risk score (from Nsg)>0 risk: 1 SCD applied (from Nsg): Yes Pharmacological prophylaxis: heparin Lines/Catheters IV Catheter Type (from Nrsg): Peripheral IV Assessment/Plan Hospital Course SUBJECTIVE: Continues to complain of right lower extremity pain. OBJECTIVE: Physical Exam General: Obese, 53 year-old female lying in bed in no apparent distress. HEENT: Normocephalic, atraumatic. Eyes: Anicteric sclerae, conjunctivae clear. ENT: Nasal septum midline, oral mucosa moist. Neck supple, no JVD noticed. Respiratory: Bilaterally clear breath sounds. No use of accessory muscles of respiration. No adventitious breath sounds. Cardiovascular: S1, S2 heard. Regular rate and rhythm. Abdomen: Soft, nontender, and nondistended. Bowel sounds positive in all 4 quadrants. Genitourinary: Deferred. Extremities: No cyanosis, no clubbing. Right lower extremity edema with the right foot dressing. Neurologic: Cranial nerves II through XII grossly intact. The patient is awake, alert, and oriented. Skin: Normal skin turgor. No skin rashes. Labs & Vitals per chart ASSESSMENT & PLAN 53-year-old female with comorbidities including hypertension, diabetes mellitus, dyslipidemia, peripheral vascular disease, and severe right foot Charcot foot deformity with history of multiple foot surgeries and chronic open wound of the right foot who came to the ER complaining of right foot pain, swelling with the right foot x-ray showing findings consistent with infection with gas-forming organism, who was admitted to inpatient setting for further treatment and evaluation. 1. Chronic right foot wound with foot MRI showing new osteomyelitis in the mid cuneiform, the navicular, and in the lateral cuneiform. Continue antimicrobials as per ID. Being followed by podiatry. S/P bedside debridement on 09/28/2018. Plan for further debridement. 2. Suspect right foot abscess. On antimicrobials as per ID. Being followed by podiatry. 3. Diabetes mellitus. Hemoglobin A1c 9.3. Continue sliding scale insulin along with basal insulin. Continue metformin. 4. Hypertension. Continue antihypertensives. 5. Dyslipidemia. Continue statins. 6. Iron deficiency. Continue iron supplements. 7. Hyperkalemia. Etiology unclear. Hold EVANGELISTA inhibitors. Single dose of potassium exchange resin. 8. Fluids, electrolytes, and nutrition. Carbohydrate controlled diet. 9. DVT prophylaxis. Subcutaneous heparin. 10. Plan. Continue antimicrobials as per ID. Await further podiatry recommendations/intervention. The patient was seen in collaboration with Dr. Jacobs. Result Diagram: 10/03/18 0431 10/03/18 0431 Results 24hrs Laboratory Tests Test 10/02/18 17:27 10/02/18 20:54 10/03/18 04:31 10/03/18 08:28 Bedside Glucose 206 167 151 White Blood Count 6.4 Red Blood Count 3.22 L Hemoglobin 7.9 L Hematocrit 26.0 L Mean Corpuscular 80.7 L Volume Mean Corpuscular 24.5 L Hemoglobin Mean Corpuscular 30.4 L Hemoglobin Concent Red Cell 16.1 H Distribution Width Platelet Count 494 H Mean Platelet Volume 9.4 Immature 1.700 H Granulocytes % Neutrophils % 65.3 Lymphocytes % 23.3 Monocytes % 8.3 Eosinophils % 0.9 Basophils % 0.5 Nucleated Red Blood 0.0 Cells % Immature 0.110 H Granulocytes # Neutrophils # 4.2 Lymphocytes # 1.5 Monocytes # 0.5 Eosinophils # 0.1 Basophils # 0.0 Nucleated Red Blood 0.0 Cells # Sodium Level 141 Potassium Level 4.0 Chloride Level 110 Carbon Dioxide Level 25 Anion Gap 6 Blood Urea Nitrogen 4 L Creatinine 0.49 Est Glomerular > 60 Filtrat Rate mL/min Glucose Level 189 Calcium Level 7.1 L Phosphorus Level 3.7 Magnesium Level 1.6 L Test 10/03/18 12:23 Bedside Glucose 205 Exam/Review of Systems Exam Vitals Vital Signs Date Temp Pulse Resp B/P (MAP) Pulse Ox O2 O2 Flow FiO2 Time Delivery Rate 10/03/18 98.4 90 17 119/60 96 07:50 (79) 09/29/18 Room Air 14:19 Intake and Output 10/02/18 10/02/18 10/03/18 1515:00 23:00 07:00 IntakeIntake Total 1260 ml 1180 ml 900 ml BalanceBalance 1260 ml 1180 ml 900 ml Results Results 24hrs Laboratory Tests Test 10/02/18 17:27 10/02/18 20:54 10/03/18 04:31 10/03/18 08:28 Bedside Glucose 206 167 151 White Blood Count 6.4 Red Blood Count 3.22 L Hemoglobin 7.9 L Hematocrit 26.0 L Mean Corpuscular 80.7 L Volume Mean Corpuscular 24.5 L Hemoglobin Mean Corpuscular 30.4 L Hemoglobin Concent Red Cell 16.1 H Distribution Width Platelet Count 494 H Mean Platelet Volume 9.4 Immature 1.700 H Granulocytes % Neutrophils % 65.3 Lymphocytes % 23.3 Monocytes % 8.3 Eosinophils % 0.9 Basophils % 0.5 Nucleated Red Blood 0.0 Cells % Immature 0.110 H Granulocytes # Neutrophils # 4.2 Lymphocytes # 1.5 Monocytes # 0.5 Eosinophils # 0.1 Basophils # 0.0 Nucleated Red Blood 0.0 Cells # Sodium Level 141 Potassium Level 4.0 Chloride Level 110 Carbon Dioxide Level 25 Anion Gap 6 Blood Urea Nitrogen 4 L Creatinine 0.49 Est Glomerular > 60 Filtrat Rate mL/min Glucose Level 189 Calcium Level 7.1 L Phosphorus Level 3.7 Magnesium Level 1.6 L Test 10/03/18 12:23 Bedside Glucose 205 Medications Medication Current Medications Sodium Chloride 1,000 ml @ 100 mls/hr Q10H IV Last administered on 10/03/18at 09:30; Admin Dose 100 MLS/HR; Start 09/28/18 at 02:16 IV Flush (NS 3 ml) 3 ml PER PROTOCOL IV ; Start 09/28/18 at 02:30 Ondansetron HCl (Zofran Inj) 4 mg Q6H PRN IV NAUSEA/VOMITING Last administered on 09/30/18at 22:31; Admin Dose 4 MG; Start 09/28/18 at 02:30 Acetaminophen (Tylenol Tab) 650 mg Q6H PRN PO .PAIN 1-3 OR TEMP; Start 09/28/18 at 02:30 Acetaminophen/ Hydrocodone Bitart ([place] (5/325)) 1 tab Q6H PRN PO .MOD PAIN 4- 6 Last administered on 09/29/18at 08:30; Admin Dose 1 TAB; Start 09/28/18 at 02:30 Acetaminophen/ Hydrocodone Bitart ([place] (5/325)) 2 tab Q6H PRN PO .SEVERE PAIN 7-10 Last administered on 10/02/18at 17:28; Admin Dose 2 TAB; Start 09/28/18 at 02:30 Heparin Sodium (Porcine) (Heparin (5000 Units/1ml)) 5,000 unit Q12 SC Last administered on 10/02/18 20:55; Admin Dose 5,000 UNIT; Start 09/28/18 at 09:00 Albuterol/ Ipratropium (Duoneb) 3 ml Q2H RESP THERAPY PRN HHN SHORTNESS OF BREATH; Start 09/28/18 at 02:30 Atorvastatin Calcium (Lipitor) 10 mg QHS PO Last administered on 10/02/18 20:51; Admin Dose 10 MG; Start 09/28/18 at 21:00 Fluoxetine HCl (Prozac) 20 mg DAILY PO Last administered on 10/03/18 08:47; Admin Dose 20 MG; Start 09/28/18 at 09:00 Lisinopril (Zestril) 5 mg DAILY PO Last administered on 10/01/18 08:14; Admin Dose 5 MG; Start 09/28/18 at 09:00; Status Hold Metformin HCl (Glucophage) 1,000 mg WITH BREAKFAST DINNE PO Last administered on 10/02/18 17:28; Admin Dose 1,000 MG; Start 09/28/18 at 08:00 Diagnostic Test (Pha) (Accu-Chek) 1 ea AC MEALS AND BEDTIME XX Last administered on 10/03/18 07:00; Admin Dose 1 EA; Start 09/28/18 at 07:00 Diagnostic Test (Pha) (Accu-Chek) 1 ea 02 XX Last administered on 10/02/18 02:43; Admin Dose 1 EA; Start 09/29/18 at 02:00 Insulin Aspart (Novolog Insulin Pen) NOVOLOG *MODERATE* ALGORITHM WITH MEALS BEDTIME SC Last administered on 10/03/18 08:51; Admin Dose 3 UNIT; Start 09/28/18 at 08:00 Pantoprazole (Protonix Tab) 40 mg DAILY@06 PO Last administered on 10/03/18 05:49; Admin Dose 40 MG; Start 09/28/18 at 06:00 Miscellaneous Information 1 ea NOTE XX ; Start 09/28/18 at 03:00 Glucose (Glutose) 15 gm Q15M PRN PO DECREASED GLUCOSE; Start 09/28/18 at 03:00 Glucose (Glutose) 22.5 gm Q15M PRN PO DECREASED GLUCOSE; Start 09/28/18 at 03:00 Dextrose (D50w Syringe) 25 ml Q15M PRN IV DECREASED GLUCOSE; Start 09/28/18 at 03:00 Dextrose (D50w Syringe) 50 ml Q15M PRN IV DECREASED GLUCOSE; Start 09/28/18 at 03:00 Glucagon (Glucagen) 1 mg Q15M PRN IM DECREASED GLUCOSE; Start 09/28/18 at 03:00 Glucose (Glutose) 15 gm Q15M PRN BUCCAL DECREASED GLUCOSE; Start 09/28/18 at 03:00 Insulin Aspart (Novolog Insulin Pen) 13 unit WITH MEALS SC Last administered on 09/30/18 08:20; Admin Dose 13 UNIT; Start 09/28/18 at 12:00; Status Hold Ferrous Sulfate (Ferrous Sulfate (Ec)) 325 mg TID PO Last administered on 10/03/18 08:47; Admin Dose 325 MG; Start 09/29/18 at 21:00 Insulin Glargine (Lantus) 35 units DAILY@0800 SC Last administered on 10/03/18 08:50; Admin Dose 35 UNITS; Start 10/01/18 at 08:00 Morphine Sulfate (morphine) 2 mg Q4H PRN IV SEVERE PAIN LEVEL 7-10 Last administered on 10/03/18 01:43; Admin Dose 2 MG; Start 10/01/18 at 01:00 Ceftriaxone Sodium 50 ml @ 100 mls/hr Q24H IVPB Last administered on 10/03/18 14:07; Admin Dose 100 MLS/HR; Start 10/01/18 at 14:00 Cholecalciferol (Vitamin D) 2,000 unit DAILY PO Last administered on 10/03/18 08:47; Admin Dose 2,000 UNIT; Start 10/01/18 at 12:00 KRISTEL SALINAS NP Oct 03, 2018 14:38
[2018-10-03] MEDS ORDERED: MAGNESIUM SULFATE 2 GM/50 ML 50 ML IVPB ONE (16:00)
--- NOTE | 2018-10-03 17:59 | PREAC ---
Date/Time of Note Date/Time of Note DATE: 10/03/18 TIME: 17:58 Anesthesia Eval and Record Evaluation Time Pre-Procedure Interview DATE: 10/03/18 TIME: 17:58 Age 53 Sex female NPO: 8 hrs Preoperative diagnosis right ankle foot abcess Planned procedure I&D Past Medical History Past Medical History: Includes Cardio: Dyslipidemia Endo: Diabetes GI: Morbid obesity Heme: Anemia Psych: Depression, Anxiety Surgery & Anesthesia Issues No known issue Meds Anticoagulation: No Beta Lilian within 24 hr: No Reason Beta Lilian not given: Pt. not on B-Lilian Reported Medications Insulin Glargine,Hum.rec.anlog (Basaglar Kwikpen U-100) 100 Unit/1 Ml Insu ln.pen, 60 UNIT SC QHS, EA 10/09/17 Omeprazole* (Omeprazole*) 40 Mg Capsule.dr, 40 MG PO DAILY, #30 CAP 10/09/17 Fluoxetine Hcl* (Fluoxetine Hcl*) 20 Mg Capsule, 20 MG PO DAILY, CAP 05/24/17 Metformin Hcl* (Metformin Hcl*) 1,000 Mg Tablet, 1000 MG PO WITH BREAKFAST DINNE, #60 TAB 05/24/17 Atorvastatin Calcium (Atorvastatin Calcium) 10 Mg Tablet, 10 MG PO QHS, #30 TAB 05/24/17 Lisinopril* (Lisinopril*) 5 Mg Tablet, 5 MG PO DAILY, #30 TAB 05/24/17 Glipizide* (Glipizide*) 10 Mg Tablet, 10 MG PO AC BREAKFAST DINNER, TAB 05/24/17 Discontinued Scripts Hydrocodone Bit-Acetaminophen (Hydrocodone Bit-APAP) 5-325MG Tablet, 1 TAB PO Q6H PRN for MODERATE PAIN LEVEL 4-6 for 10 Days, #30 TAB Prov:TRICIA RIOS MD 02/19/18 Current Medications Sodium Chloride 1,000 ml @ 100 mls/hr Q10H IV Last administered on 10/03/18at 09:30; Admin Dose 100 MLS/HR; Start 09/28/18 at 02:16 IV Flush (NS 3 ml) 3 ml PER PROTOCOL IV ; Start 09/28/18 at 02:30 Ondansetron HCl (Zofran Inj) 4 mg Q6H PRN IV NAUSEA/VOMITING Last administered on 09/30/18at 22:31; Admin Dose 4 MG; Start 09/28/18 at 02:30 Acetaminophen (Tylenol Tab) 650 mg Q6H PRN PO .PAIN 1-3 OR TEMP; Start 09/28/18 at 02:30 Acetaminophen/ Hydrocodone Bitart ([place] (5/325)) 1 tab Q6H PRN PO .MOD PAIN 4- 6 Last administered on 09/29/18 08:30; Admin Dose 1 TAB; Start 09/28/18 at 02:30 Acetaminophen/ Hydrocodone Bitart ([place] (5/325)) 2 tab Q6H PRN PO .SEVERE PAIN 7-10 Last administered on 10/02/18 17:28; Admin Dose 2 TAB; Start 09/28/18 at 02:30 Heparin Sodium (Porcine) (Heparin (5000 Units/1ml)) 5,000 unit Q12 SC Last administered on 10/02/18 20:55; Admin Dose 5,000 UNIT; Start 09/28/18 at 09:00 Albuterol/ Ipratropium (Duoneb) 3 ml Q2H RESP THERAPY PRN HHN SHORTNESS OF ANITA ATH; Start 09/28/18 at 02:30 Atorvastatin Calcium (Lipitor) 10 mg QHS PO Last administered on 10/02/18 20:51; Admin Dose 10 MG; Start 09/28/18 at 21:00 Fluoxetine HCl (Prozac) 20 mg DAILY PO Last administered on 10/03/18 08:47; Admin Dose 20 MG; Start 09/28/18 at 09:00 Lisinopril (Zestril) 5 mg DAILY PO Last administered on 10/01/18 08:14; Admin Dose 5 MG; Start 09/28/18 at 09:00; Status Hold Metformin HCl (Glucophage) 1,000 mg WITH BREAKFAST DINNE PO Last administered on 10/02/18 17:28; Admin Dose 1,000 MG; Start 09/28/18 at 08:00 Diagnostic Test (Pha) (Accu-Chek) 1 ea AC MEALS AND BEDTIME XX Last administered on 10/03/18 17:36; Admin Dose 1 EA; Start 09/28/18 at 07:00 Diagnostic Test (Pha) (Accu-Chek) 1 ea 02 XX Last administered on 10/02/18 02:43; Admin Dose 1 EA; Start 09/29/18 at 02:00 Insulin Aspart (Novolog Insulin Pen) NOVOLOG *MODERATE* ALGORITHM WITH MEALS BEDTIME SC Last administered on 10/03/18at 08:51; Admin Dose 3 UNIT; Start 09/28/18 at 08:00 Pantoprazole (Protonix Tab) 40 mg DAILY@06 PO Last administered on 10/03/18at 05:49; Admin Dose 40 MG; Start 09/28/18 at 06:00 Miscellaneous Information 1 ea NOTE XX ; Start 09/28/18 at 03:00 Glucose (Glutose) 15 gm Q15M PRN PO DECREASED GLUCOSE; Start 09/28/18 at 03:00 Glucose (Glutose) 22.5 gm Q15M PRN PO DECREASED GLUCOSE; Start 09/28/18 at 03:00 Dextrose (D50w Syringe) 25 ml Q15M PRN IV DECREASED GLUCOSE; Start 09/28/18 at 03:00 Dextrose (D50w Syringe) 50 ml Q15M PRN IV DECREASED GLUCOSE; Start 09/28/18 at 03:00 Glucagon (Glucagen) 1 mg Q15M PRN IM DECREASED GLUCOSE; Start 09/28/18 at 03:00 Glucose (Glutose) 15 gm Q15M PRN BUCCAL DECREASED GLUCOSE; Start 09/28/18 at 03:00 Insulin Aspart (Novolog Insulin Pen) 13 unit WITH MEALS SC Last administered on 09/30/18at 08:20; Admin Dose 13 UNIT; Start 09/28/18 at 12:00; Status Hold Ferrous Sulfate (Ferrous Sulfate (Ec)) 325 mg TID PO Last administered on 10/03/18at 08:47; Admin Dose 325 MG; Start 09/29/18 at 21:00 Insulin Glargine (Lantus) 35 units DAILY@0800 SC Last administered on 10/03/18at 08:50; Admin Dose 35 UNITS; Start 10/01/18 at 08:00 Morphine Sulfate (morphine) 2 mg Q4H PRN IV SEVERE PAIN LEVEL 7-10 Last administered on 10/03/18at 01:43; Admin Dose 2 MG; Start 10/01/18 at 01:00 Ceftriaxone Sodium 50 ml @ 100 mls/hr Q24H IVPB Last administered on 10/03/18at 14:07; Admin Dose 100 MLS/HR; Start 10/01/18 at 14:00 Cholecalciferol (Vitamin D) 2,000 unit DAILY PO Last administered on 10/03/18at 08:47; Admin Dose 2,000 UNIT; Start 10/01/18 at 12:00 Magnesium Sulfate 50 ml @ 25 mls/hr ONCE ONCE IVPB Last administered on 9at 16:31; Admin Dose 25 MLS/HR; Start 10/03/18 at 16:00; Stop 10/03/18 at 17:59 Meds reviewed: Yes Allergies Coded Allergies: No Known Allergy (Unverified , 09/27/18) Allergies Reviewed: Yes Labs/Studies Labs Reviewed: Reviewed by anesthesiologist Result Diagram: 10/03/18 0431 10/03/18 0431 Laboratory Tests 10/03/18 04:31 test: Negative Pre-procedure Exam Last vitals Vital Signs Date Temp Pulse Resp B/P (MAP) Pulse Ox O2 O2 Flow FiO2 Time Delivery Rate 10/03/18 98.5 86 18 133/65 96 15:37 (87) 09/29/18 Room Air 14:19 Airway: Adequate mouth opening, Adequate thyromental dist Mallampati: Mallampati III Teeth: Normal Lung: Normal Heart: Normal ASA Physical Status ASA physical status: 4 Emergency: None Pre-operative Attestations Prior to commencing anesthesia and surgery, the patient was re-evaluated, there was verification of: *The patient's identity *The results of appropriate recent lab work and preoperative vital signs *The above evaluation not changing prior to induction *Anesthetic plan, risk benefits, alternative and complications discussed with patient/family; questions answered; patient/family understands, accepts and wishes to proceed. FRANCISCO SANCHEZ DO Oct 03, 2018 17:59
[2018-10-03] MEDS ORDERED: MEPERIDINE 25 MG INJ IV PRN (18:00)
[2018-10-03] MEDS ORDERED: EPHEDrine 25 MG/5 ML SYG IV PRN (18:00)
[2018-10-03] MEDS ORDERED: DIPHENHYDRAMINE 50 MG INJ IV PRN (18:00)
[2018-10-03] MEDS ORDERED: ONDANSETRON 4 MG INJ IV PRN (18:00)
[2018-10-03] MEDS ORDERED: HYDROmorphONE 1 MG/5 ML IV SYRINGE IV PRN ×2 (18:00)
[2018-10-03] MEDS ORDERED: ALBUMIN HUMAN 5% 250 ML IV PRN (18:00)
[2018-10-03] MEDS ORDERED: LIDOCAINE 2% (SDV) 5 ML INJ ONE (18:01)
[2018-10-03] MEDS ORDERED: ETOMIDATE 20 MG INJ ONE (18:01)
[2018-10-03] MEDS ORDERED: FENTAnyl 50 MCG/ML VIAL ONE ×2 (18:02→18:46)
[2018-10-03] MEDS ORDERED: MIDAZOLAM 1 MG/ML 2 ML INJ ONE (18:02)
[2018-10-03] MEDS ORDERED: ROPIVACAINE 0.5 % 30 ML VIAL ONE (18:02)
--- NOTE | 2018-10-03 18:36 | PN ---
Date/Time of Note Date/Time of Note DATE: 10/03/18 TIME: 18:36 Assessment/Plan Lines/Catheters IV Catheter Type (from [facility]): Peripheral IV Assessment/Plan Chief Complaint/Hosp Course Patient will be taken to the OR today for further incision and drainage of persistent abscess of her right ankle joint with possible hardware removal of the right foot. Exam/Review of Systems Vital Signs Vitals Vital Signs Date Temp Pulse Resp B/P (MAP) Pulse Ox O2 O2 Flow FiO2 Time Delivery Rate 10/03/18 98.5 86 18 133/65 96 15:37 (87) 09/29/18 Room Air 14:19 Intake and Output 10/02/18 10/02/18 10/03/18 1515:00 23:00 07:00 IntakeIntake Total 1260 ml 1180 ml 900 ml BalanceBalance 1260 ml 1180 ml 900 ml Results Result Diagram: 10/03/18 0431 10/03/18 0431 COLETTE MCQUEEN DPM Oct 03, 2018 18:36
--- NOTE | 2018-10-03 18:37 | HPN ---
Date/Time of Note Date/Time of Note DATE: 10/03/18 TIME: 18:37 Interval H&P Admission Note Pt. seen H&P reviewed: No system changes COLETTE MCQUEEN DPM Oct 03, 2018 18:37
[2018-10-03] MEDS ORDERED: ONDANSETRON 4 MG INJ ONE (18:55)
[2018-10-03] MEDS ORDERED: CEFAZOLIN 1 GM INJ ONE (18:55)
[2018-10-03] MEDS ORDERED: KETOROLAC 30 MG INJ ONE (19:01)
[2018-10-03] MEDS ORDERED: BACITRACIN 50000 UNITS INJ IRR ONE (19:06)
--- NOTE | 2018-10-03 19:38 | PAC ---
Date/Time of Note Date/Time of Note DATE: 10/03/18 TIME: 19:38 Post-Anesthesia Notes Post-Anesthesia Note Last documented vital signs Vital Signs Date Temp Pulse Resp B/P (MAP) Pulse Ox O2 O2 Flow FiO2 Time Delivery Rate 10/03/18 98 90 20 150/65 100 1938 09/29/18 Room Air 14:19 Activity: WNL Respiratory function: WNL Cardiovascular function: WNL Mental status: Baseline Pain reasonably controlled: Yes Hydration appropriate: Yes Nausea/Vomiting absent: Yes FRANCISCO SANCHEZ DO Oct 03, 2018 19:38
--- NOTE | 2018-10-03 19:41 | OPR ---
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 Patient was evaluated and was found to have continued drainage of pus from the right ankle despite bedside I&D requiring formal incision and drainage. Patient has failed the following treatments: Bedside incision and drainage. Patient seeks surgical management. Recommended procedure: Incision and drainage of the right ankle abscess with debridement and bone tissue culture with possible removal of hardware PRN. Risks and complications of this type of surgery was discussed with patient in great detail. Risks and complications discussed included, but are not limited to, postoperative infection, postoperative pain, hardware failure, malunion, nonunion, delayed union, failure of surgery to correct the problem, need for additional surgical procedures, deep venous thrombosis, limb loss and loss of life. Patient understands the discussion and agrees to the procedure. An informed consent was signed, obtained and placed in the chart. No guarantees or warrantees was given or implied as to the outcome of the procedure either in verbal or written form. Procedure Description The patient was seen in the preoperative unit. The proposed surgery was discussed with patient in great detail. Risks and complications of this type of surgery was discussed with patient in great detail. Opportunity was given to patient to ask questions and all questions were answered. The patient acknowledges understanding of the discussion. An informed consent was then obtained, signed and placed in the chart. Patient was taken to the operating room and was placed on the operating table in the supine position. All bony prominences were padded properly. A timeout was called by the circulating nurse. Everyone in the operating room was agreeable to the timeout. The patient was then placed under general anesthesia by the anesthesiologist. The right lower extremity was scrubbed,l prepped, and draped in the usual aseptic manner. Attention was directed to the right ankle. A 3 cm incision was made on the medial aspect of the right ankle using a #10 blade extending the previous incision that was made at bedside. Blunt instrument was used to enter the abscess cavity. There was some purulence that was noted along with some necrotic tissue. This area was extensively debrided using a sharp curette. 2 L of sterile normal saline with bacitracin was used for irrigation using pulse irrigation. The wound was then packed with iodoform packing. Next, a similar incision was made on the lateral ankle area of the right ankle and similar procedure was performed. A Jamshidi needle was inserted and a bone sample from the calcaneus was obtained. This was passed and will be sent to pathology for bone tissue culture. This wound was also packed with iodoform packing. Next, sterile dressing was applied. The patient tolerated procedure and anesthesia well. The patient was transferred to the recovery room with vital signs stable and vascular status intact to right lower extremity. The patient will be sent back to the floor after postoperative monitoring. Postoperative orders were written. Patient will be followed up in-house. COLETTE MCQUEEN DPM Oct 03, 2018 19:41
[2018-10-03] MEDS: ATORVASTATIN 10 MG TAB PO SCH (21:22)
[2018-10-04 01:31] VITALS: BP 136/68; PULSE 92; RESP 18
[2018-10-04] MEDS: ACCU-CHEK XX SCH ×5 (01:41→21:00)
[2018-10-04] MEDS: PANTOPRAZOLE (EC) 40 MG TAB PO SCH (05:55)
[2018-10-04 07:36] VITALS: BP 127/61; PULSE 87; RESP 18
[2018-10-04] MEDS: INSULIN ASPART [NOVOLOG] 3 ML PEN SC SCH ×4 (08:00→21:00)
[2018-10-04] MEDS: CHOLECALCIFEROL 2,000 UNIT CAP PO SCH (09:05)
[2018-10-04] MEDS: HYDROCODONE/APAP (5/325) TAB PO PRN ×2 (09:05→21:02)
[2018-10-04] MEDS: FLUOXETINE 20 MG CAP PO SCH (09:05)
[2018-10-04] MEDS: FERROUS SULFATE (EC) 325 MG TAB PO SCH ×3 (09:05→21:02)
[2018-10-04] MEDS: metFORMIN 500 MG TAB PO SCH ×2 (09:06→17:57)
[2018-10-04] MEDS: INSULIN GLARGINE [LANTus] (100 UNITS/ML) SYG SC SCH (09:08)
[2018-10-04] MEDS: HEPARIN 5,000 UNIT/1 ML VIAL SC SCH ×2 (09:09→21:01)
--- NOTE | 2018-10-04 11:08 | PN ---
Date/Time of Note Date/Time of Note DATE: 10/04/18 TIME: 11:02 Assessment/Plan VTE Prophylaxis Risk score (from Nsg)>0 risk: 2 SCD applied (from Nsg): Yes Pharmacological prophylaxis: heparin Lines/Catheters IV Catheter Type (from Nrsg): Peripheral IV Assessment/Plan Hospital Course SUBJECTIVE: Continues to complain of right lower extremity pain. OBJECTIVE: Physical Exam General: Obese, 53 year-old female lying in bed in no apparent distress. HEENT: Normocephalic, atraumatic. Eyes: Anicteric sclerae, conjunctivae clear. ENT: Nasal septum midline, oral mucosa moist. Neck supple, no JVD noticed. Respiratory: Bilaterally clear breath sounds. No use of accessory muscles of respiration. No adventitious breath sounds. Cardiovascular: S1, S2 heard. Regular rate and rhythm. Abdomen: Soft, nontender, and nondistended. Bowel sounds positive in all 4 quadrants. Genitourinary: Deferred. Extremities: No cyanosis, no clubbing. Right lower extremity edema with the right foot dressing. Neurologic: Cranial nerves II through XII grossly intact. The patient is awake, alert, and oriented. Skin: Normal skin turgor. No skin rashes. Labs & Vitals per chart ASSESSMENT & PLAN 53-year-old female with comorbidities including hypertension, diabetes mellitus, dyslipidemia, peripheral vascular disease, and severe right foot Charcot foot deformity with history of multiple foot surgeries and chronic open wound of the right foot who came to the ER complaining of right foot pain, swelling with the right foot x-ray showing findings consistent with infection with gas-forming organism, who was admitted to inpatient setting for further treatment and evaluation. 1. Chronic right foot wound with foot MRI showing new osteomyelitis in the mid cuneiform, the navicular, and in the lateral cuneiform. Continue antimicrobials as per ID. Being followed by podiatry. S/P bedside debridement on 09/28/2018. S/P bone culture of right foot on 10/03/2018. 2. Right ankle abscess. S/P incision and drainage of right ankle abscess with debridement on 10/03/2018. On antimicrobials as per ID. Being followed by podiatry. 3. Diabetes mellitus. Hemoglobin A1c 9.3. Continue sliding scale insulin along with basal insulin. Continue metformin. 4. Hypertension. Continue antihypertensives. 5. Dyslipidemia. Continue statins. 6. Iron deficiency. Continue iron supplements. 7. Hyperkalemia. Resolved. 8. Fluids, electrolytes, and nutrition. Carbohydrate controlled diet. 9. DVT prophylaxis. Subcutaneous heparin. 10. Plan. Continue antimicrobials as per ID. Await final cultures. PICC line placement because of poor IV access. The patient was seen in collaboration with Dr. Jacobs. Result Diagram: 10/04/18 0601 10/04/18 0601 Results 24hrs Laboratory Tests Test 10/03/18 12:23 10/03/18 17:23 10/03/18 21:24 10/04/18 06:01 Bedside Glucose 205 75 101 White Blood Count 6.7 Red Blood Count 3.29 L Hemoglobin 8.0 L Hematocrit 26.1 L Mean Corpuscular 79.3 L Volume Mean Corpuscular 24.3 L Hemoglobin Mean Corpuscular 30.7 L Hemoglobin Concent Red Cell 16.5 H Distribution Width Platelet Count 536 H Mean Platelet Volume 8.9 Immature 1.700 H Granulocytes % Neutrophils % 61.2 Lymphocytes % 26.5 Monocytes % 8.9 Eosinophils % 1.4 Basophils % 0.3 Nucleated Red Blood 0.0 Cells % Immature 0.110 H Granulocytes # Neutrophils # 4.1 Lymphocytes # 1.8 Monocytes # 0.6 Eosinophils # 0.1 Basophils # 0.0 Nucleated Red Blood 0.0 Cells # Sodium Level 146 H Potassium Level 3.7 Chloride Level 109 Carbon Dioxide Level 32 H Anion Gap 5 Blood Urea Nitrogen 3 L Creatinine 0.56 Est Glomerular > 60 Filtrat Rate mL/min Glucose Level 93 # Calcium Level 7.8 L Phosphorus Level 4.1 Magnesium Level 1.7 Test 10/04/18 08:52 Bedside Glucose 95 Exam/Review of Systems Exam Vitals Vital Signs Date Temp Pulse Resp B/P (MAP) Pulse Ox O2 O2 Flow FiO2 Time Delivery Rate 10/04/18 98.3 87 18 127/61 99 Room Air 07:36 (83) 10/03/18 2.0 19:35 Intake and Output 10/03/18 10/03/18 10/04/18 1515:00 23:00 07:00 IntakeIntake Total 1450 ml 3384 ml 1100 ml OutputOutput Total 10 ml BalanceBalance 1450 ml 3374 ml 1100 ml Results Results 24hrs Laboratory Tests Test 10/03/18 12:23 10/03/18 17:23 10/03/18 21:24 10/04/18 06:01 Bedside Glucose 205 75 101 White Blood Count 6.7 Red Blood Count 3.29 L Hemoglobin 8.0 L Hematocrit 26.1 L Mean Corpuscular 79.3 L Volume Mean Corpuscular 24.3 L Hemoglobin Mean Corpuscular 30.7 L Hemoglobin Concent Red Cell 16.5 H Distribution Width Platelet Count 536 H Mean Platelet Volume 8.9 Immature 1.700 H Granulocytes % Neutrophils % 61.2 Lymphocytes % 26.5 Monocytes % 8.9 Eosinophils % 1.4 Basophils % 0.3 Nucleated Red Blood 0.0 Cells % Immature 0.110 H Granulocytes # Neutrophils # 4.1 Lymphocytes # 1.8 Monocytes # 0.6 Eosinophils # 0.1 Basophils # 0.0 Nucleated Red Blood 0.0 Cells # Sodium Level 146 H Potassium Level 3.7 Chloride Level 109 Carbon Dioxide Level 32 H Anion Gap 5 Blood Urea Nitrogen 3 L Creatinine 0.56 Est Glomerular > 60 Filtrat Rate mL/min Glucose Level 93 # Calcium Level 7.8 L Phosphorus Level 4.1 Magnesium Level 1.7 Test 10/04/18 08:52 Bedside Glucose 95 Medications Medication Current Medications IV Flush (NS 3 ml) 3 ml PER PROTOCOL IV ; Start 09/28/18 at 02:30 Ondansetron HCl (Zofran Inj) 4 mg Q6H PRN IV NAUSEA/VOMITING Last administered on 09/30/18at 22:31; Admin Dose 4 MG; Start 09/28/18 at 02:30 Acetaminophen (Tylenol Tab) 650 mg Q6H PRN PO .PAIN 1-3 OR TEMP; Start 09/28/18 at 02:30 Acetaminophen/ Hydrocodone Bitart ([place] (5/325)) 1 tab Q6H PRN PO .MOD PAIN 4- 6 Last administered on 09/29/18at 08:30; Admin Dose 1 TAB; Start 09/28/18 at 02:30 Acetaminophen/ Hydrocodone Bitart ([place] (5/325)) 2 tab Q6H PRN PO .SEVERE PAIN 7-10 Last administered on 10/04/18at 09:05; Admin Dose 2 TAB; Start 09/28/18 at 02:30 Heparin Sodium (Porcine) (Heparin (5000 Units/1ml)) 5,000 unit Q12 SC Last administered on 10/04/18 09:09; Admin Dose 5,000 UNIT; Start 09/28/18 at 09:00 Albuterol/ Ipratropium (Duoneb) 3 ml Q2H RESP THERAPY PRN HHN SHORTNESS OF BREATH; Start 09/28/18 at 02:30 Atorvastatin Calcium (Lipitor) 10 mg QHS PO Last administered on 10/03/18 21:22; Admin Dose 10 MG; Start 09/28/18 at 21:00 Fluoxetine HCl (Prozac) 20 mg DAILY PO Last administered on 10/04/18 09:05; Admin Dose 20 MG; Start 09/28/18 at 09:00 Lisinopril (Zestril) 5 mg DAILY PO Last administered on 10/01/18 08:14; Admin Dose 5 MG; Start 09/28/18 at 09:00; Status Hold Metformin HCl (Glucophage) 1,000 mg WITH BREAKFAST DINNE PO Last administered on 10/04/18 09:06; Admin Dose 1,000 MG; Start 09/28/18 at 08:00 Diagnostic Test (Pha) (Accu-Chek) 1 ea AC MEALS AND BEDTIME XX Last administered on 10/04/18 07:00; Admin Dose 1 EA; Start 09/28/18 at 07:00 Diagnostic Test (Pha) (Accu-Chek) 1 ea 02 XX Last administered on 10/02/18at 02:43; Admin Dose 1 EA; Start 09/29/18 at 02:00 Insulin Aspart (Novolog Insulin Pen) NOVOLOG *MODERATE* ALGORITHM WITH MEALS BEDTIME SC Last administered on 10/03/18 08:51; Admin Dose 3 UNIT; Start 09/28/18 at 08:00 Pantoprazole (Protonix Tab) 40 mg DAILY@06 PO Last administered on 10/04/18at 05:55; Admin Dose 40 MG; Start 09/28/18 at 06:00 Miscellaneous Information 1 ea NOTE XX ; Start 09/28/18 at 03:00 Glucose (Glutose) 15 gm Q15M PRN PO DECREASED GLUCOSE; Start 09/28/18 at 03:00 Glucose (Glutose) 22.5 gm Q15M PRN PO DECREASED GLUCOSE; Start 09/28/18 at 03:00 Dextrose (D50w Syringe) 25 ml Q15M PRN IV DECREASED GLUCOSE; Start 09/28/18 at 03:00 Dextrose (D50w Syringe) 50 ml Q15M PRN IV DECREASED GLUCOSE; Start 09/28/18 at 03:00 Glucagon (Glucagen) 1 mg Q15M PRN IM DECREASED GLUCOSE; Start 09/28/18 at 03:00 Glucose (Glutose) 15 gm Q15M PRN BUCCAL DECREASED GLUCOSE; Start 09/28/18 at 03:00 Insulin Aspart (Novolog Insulin Pen) 13 unit WITH MEALS SC Last administered on 09/30/18 08:20; Admin Dose 13 UNIT; Start 09/28/18 at 12:00; Status Hold Ferrous Sulfate (Ferrous Sulfate (Ec)) 325 mg TID PO Last administered on 10/04/18 09:05; Admin Dose 325 MG; Start 09/29/18 at 21:00 Insulin Glargine (Lantus) 35 units DAILY@0800 SC Last administered on 10/04/18 09:08; Admin Dose 35 UNITS; Start 10/01/18 at 08:00 Morphine Sulfate (morphine) 2 mg Q4H PRN IV SEVERE PAIN LEVEL 7-10 Last admin istered on 10/03/18 01:43; Admin Dose 2 MG; Start 10/01/18 at 01:00 Ceftriaxone Sodium 50 ml @ 100 mls/hr Q24H IVPB Last administered on 10/03/18 14:07; Admin Dose 100 MLS/HR; Start 10/01/18 at 14:00 Cholecalciferol (Vitamin D) 2,000 unit DAILY PO Last administered on 10/04/18 09:05; Admin Dose 2,000 UNIT; Start 10/01/18 at 12:00 KRISTEL SALINAS NP Oct 04, 2018 11:08
[2018-10-04] MEDS ORDERED: LIDOCAINE 1% (MPF) 5 ML VIAL SC ONE (11:30)
[2018-10-04] MEDS: LISINOPRIL 5 MG TAB PO SCH (12:50)
[2018-10-04] MEDS ORDERED: MAGNESIUM SULFATE 2 GM/50 ML 50 ML IVPB ONE (13:00)
[2018-10-04 14:02] VITALS: BP 115/71; PULSE 99; RESP 18
--- NOTE | 2018-10-04 14:23 | CONS ---
Assessment/Plan Assessment/Plan Hospital Course (Demo Recall) Feels good, no fevers Microbiology: Right foot drainage culture grew oxacillin sensitive staph aureus MRI of the foot revealed osteomyelitis Antimicrobials: Rocephin Physical examination: Well-developed obese middle-aged woman who is alert in no distress. Head atraumatic normocephalic sclera nonicteric vehicle mucosa pink neck is supple chest rise symmetrical breath sounds clear heart: S1- S2. Abdomen soft bowel sounds present. Extremities with right lower extremity dressing clean dry and intact Assessment: 1. Right foot Charcot deformity/infectious myositis/Osteomyelitis 2. Right foot abscess status post I&D 1 3. Morbid obesity 4. Diabetes with peripheral neuropathy Plan: Stable, status post repeat I&D yesterday, will await for bone cultures, follow podiatry recommendations, recommend dc on IV Rocephin for 6 weeks Consultation Date/Type/Reason Admit Date/Time Sep 27, 2018 at 19:48 Initial Consult Date 09/27/18 Type of Consult id Date/Time of Note DATE: 10/04/18 TIME: 14:21 Exam/Review of Systems Exam Vitals Vital Signs Date Temp Pulse Resp B/P (MAP) Pulse Ox O2 O2 Flow FiO2 Time Delivery Rate 10/04/18 98.3 99 18 115/71 98 Room Air 14:02 (86) 10/03/18 2.0 19:35 Intake and Output 10/03/18 10/03/18 10/04/18 1515:00 23:00 07:00 IntakeIntake Total 1450 ml 3384 ml 1100 ml OutputOutput Total 10 ml BalanceBalance 1450 ml 3374 ml 1100 ml Results Result Diagram: 10/04/18 0601 10/04/18 0601 Results 24hrs Laboratory Tests Test 10/03/18 17:23 10/03/18 21:24 10/04/18 06:01 10/04/18 08:52 Bedside Glucose 75 101 95 White Blood Count 6.7 Red Blood Count 3.29 L Hemoglobin 8.0 L Hematocrit 26.1 L Mean Corpuscular 79.3 L Volume Mean Corpuscular 24.3 L Hemoglobin Mean Corpuscular 30.7 L Hemoglobin Concent Red Cell 16.5 H Distribution Width Platelet Count 536 H Mean Platelet Volume 8.9 Immature 1.700 H Granulocytes % Neutrophils % 61.2 Lymphocytes % 26.5 Monocytes % 8.9 Eosinophils % 1.4 Basophils % 0.3 Nucleated Red Blood 0.0 Cells % Immature 0.110 H Granulocytes # Neutrophils # 4.1 Lymphocytes # 1.8 Monocytes # 0.6 Eosinophils # 0.1 Basophils # 0.0 Nucleated Red Blood 0.0 Cells # Sodium Level 146 H Potassium Level 3.7 Chloride Level 109 Carbon Dioxide Level 32 H Anion Gap 5 Blood Urea Nitrogen 3 L Creatinine 0.56 Est Glomerular > 60 Filtrat Rate mL/min Glucose Level 93 # Calcium Level 7.8 L Phosphorus Level 4.1 Magnesium Level 1.7 Test 10/04/18 12:48 Bedside Glucose 136 Medications Medication Current Medications IV Flush (NS 3 ml) 3 ml PER PROTOCOL IV ; Start 09/28/18 at 02:30 Ondansetron HCl (Zofran Inj) 4 mg Q6H PRN IV NAUSEA/VOMITING Last administered on 09/30/18 22:31; Admin Dose 4 MG; Start 09/28/18 at 02:30 Acetaminophen (Tylenol Tab) 650 mg Q6H PRN PO .PAIN 1-3 OR TEMP; Start 09/28/18 at 02:30 Acetaminophen/ Hydrocodone Bitart ([place] (5/325)) 1 tab Q6H PRN PO .MOD PAIN 4- 6 Last administered on 09/29/18at 08:30; Admin Dose 1 TAB; Start 09/28/18 at 02:30 Acetaminophen/ Hydrocodone Bitart ([place] (5/325)) 2 tab Q6H PRN PO .SEVERE PAIN 7-10 Last administered on 10/04/18at 09:05; Admin Dose 2 TAB; Start 09/28/18 at 02:30 Heparin Sodium (Porcine) (Heparin (5000 Units/1ml)) 5,000 unit Q12 SC Last administered on 10/04/18 09:09; Admin Dose 5,000 UNIT; Start 09/28/18 at 09:00 Albuterol/ Ipratropium (Duoneb) 3 ml Q2H RESP THERAPY PRN HHN SHORTNESS OF BREATH; Start 09/28/18 at 02:30 Atorvastatin Calcium (Lipitor) 10 mg QHS PO Last administered on 10/03/18at 21:22; Admin Dose 10 MG; Start 09/28/18 at 21:00 Fluoxetine HCl (Prozac) 20 mg DAILY PO Last administered on 10/04/18 09:05; Admin Dose 20 MG; Start 09/28/18 at 09:00 Lisinopril (Zestril) 5 mg DAILY PO Last administered on 10/04/18at 12:50; Admin Dose 5 MG; Start 09/28/18 at 09:00 Metformin HCl (Glucophage) 1,000 mg WITH BREAKFAST DINNE PO Last administered on 10/04/18 09:06; Admin Dose 1,000 MG; Start 09/28/18 at 08:00 Diagnostic Test (Pha) (Accu-Chek) 1 ea AC MEALS AND BEDTIME XX Last administered on 10/04/18 07:00; Admin Dose 1 EA; Start 09/28/18 at 07:00 Diagnostic Test (Pha) (Accu-Chek) 1 ea 02 XX Last administered on 10/02/18at 02:43; Admin Dose 1 EA; Start 09/29/18 at 02:00 Insulin Aspart (Novolog Insulin Pen) NOVOLOG *MODERATE* ALGORITHM WITH MEALS BE DTIME SC Last administered on 10/03/18at 08:51; Admin Dose 3 UNIT; Start 09/28/18 at 08:00 Pantoprazole (Protonix Tab) 40 mg DAILY@06 PO Last administered on 10/04/18at 05:55; Admin Dose 40 MG; Start 09/28/18 at 06:00 Miscellaneous Information 1 ea NOTE XX ; Start 09/28/18 at 03:00 Glucose (Glutose) 15 gm Q15M PRN PO DECREASED GLUCOSE; Start 09/28/18 at 03:00 Glucose (Glutose) 22.5 gm Q15M PRN PO DECREASED GLUCOSE; Start 09/28/18 at 03:00 Dextrose (D50w Syringe) 25 ml Q15M PRN IV DECREASED GLUCOSE; Start 09/28/18 at 03:00 Dextrose (D50w Syringe) 50 ml Q15M PRN IV DECREASED GLUCOSE; Start 09/28/18 at 03:00 Glucagon (Glucagen) 1 mg Q15M PRN IM DECREASED GLUCOSE; Start 09/28/18 at 03:00 Glucose (Glutose) 15 gm Q15M PRN BUCCAL DECREASED GLUCOSE; Start 09/28/18 at 03:00 Insulin Aspart (Novolog Insulin Pen) 13 unit WITH MEALS SC Last administered on 09/30/18 08:20; Admin Dose 13 UNIT; Start 09/28/18 at 12:00; Status Hold Ferrous Sulfate (Ferrous Sulfate (Ec)) 325 mg TID PO Last administered on 10/04/18 12:50; Admin Dose 325 MG; Start 09/29/18 at 21:00 Insulin Glargine (Lantus) 35 units DAILY@0800 SC Last administered on 10/04/18 09:08; Admin Dose 35 UNITS; Start 10/01/18 at 08:00 Morphine Sulfate (morphine) 2 mg Q4H PRN IV SEVERE PAIN LEVEL 7-10 Last administered on 10/03/18 01:43; Admin Dose 2 MG; Start 10/01/18 at 01:00 Ceftriaxone Sodium 50 ml @ 100 mls/hr Q24H IVPB Last administered on 10/03/18 14:07; Admin Dose 100 MLS/HR; Start 10/01/18 at 14:00 Cholecalciferol (Vitamin D) 2,000 unit DAILY PO Last administered on 10/04/18 09:05; Admin Dose 2,000 UNIT; Start 10/01/18 at 12:00 Magnesium Sulfate 50 ml @ 25 mls/hr ONCE ONCE IVPB ; Start 10/04/18 at 13:00; Stop 10/04/18 at 14:59 JANN SANDOVAL NP Oct 04, 2018 14:23
[2018-10-04] MEDS: CEFTRIAXONE 2 GM/50 ML (PMX) 50 ML IVPB SCH (16:35)
[2018-10-04 19:53] VITALS: BP 129/63; PULSE 92; RESP 18
[2018-10-04] MEDS: ATORVASTATIN 10 MG TAB PO SCH (20:58)
[2018-10-05] MEDS: ACCU-CHEK XX SCH ×5 (02:00→20:48)
[2018-10-05 02:19] VITALS: BP 122/59; PULSE 91; RESP 18
[2018-10-05] MEDS: PANTOPRAZOLE (EC) 40 MG TAB PO SCH (05:29)
[2018-10-05] MEDS: HYDROCODONE/APAP (5/325) TAB PO PRN ×3 (07:48→23:44)
[2018-10-05 07:59] VITALS: BP 133/68; PULSE 96; RESP 18
[2018-10-05] MEDS: INSULIN ASPART [NOVOLOG] 3 ML PEN SC SCH ×4 (08:00→20:51)
[2018-10-05] MEDS: FLUOXETINE 20 MG CAP PO SCH (08:53)
[2018-10-05] MEDS: metFORMIN 500 MG TAB PO SCH ×2 (08:53→17:33)
[2018-10-05] MEDS: CHOLECALCIFEROL 2,000 UNIT CAP PO SCH (08:53)
[2018-10-05] MEDS: FERROUS SULFATE (EC) 325 MG TAB PO SCH ×3 (08:54→20:48)
[2018-10-05] MEDS: HEPARIN 5,000 UNIT/1 ML VIAL SC SCH ×2 (09:01→20:55)
[2018-10-05] MEDS: INSULIN GLARGINE [LANTus] (100 UNITS/ML) SYG SC SCH (09:03)
[2018-10-05] MEDS: CEFTRIAXONE 2 GM/50 ML (PMX) 50 ML IVPB SCH (12:02)
--- NOTE | 2018-10-05 13:30 | CONS ---
Assessment/Plan Assessment/Plan Hospital Course (Demo Recall) MNo events Microbiology: Right foot drainage culture grew oxacillin sensitive staph aureus MRI of the foot revealed osteomyelitis Antimicrobials: Rocephin Physical examination: Well-developed obese middle-aged woman who is alert in no distress. Head atraumatic normocephalic sclera nonicteric vehicle mucosa pink neck is supple chest rise symmetrical breath sounds clear heart: S1- S2. Abdomen soft bowel sounds present. Extremities with right lower extremity dressing clean dry and intact Assessment: 1. Right foot Charcot deformity/infectious myositis/Osteomyelitis 2. Right foot abscess status post I&D 1 3. Morbid obesity 4. Diabetes with peripheral neuropathy Plan: Stable, s/p PICC, continue abx, f/u bone cultures/ podiatry recommendations, recommend dc on IV Rocephin for 6 weeks Consultation Date/Type/Reason Admit Date/Time Sep 27, 2018 at 19:48 Initial Consult Date 09/27/18 Type of Consult id Date/Time of Note DATE: 10/05/18 TIME: 13:29 Exam/Review of Systems Exam Vitals Vital Signs Date Temp Pulse Resp B/P (MAP) Pulse Ox O2 O2 Flow FiO2 Time Delivery Rate 10/05/18 98.6 96 18 133/68 95 07:59 (89) 10/04/18 Room Air 14:02 10/03/18 2.0 19:35 Intake and Output 10/04/18 10/04/18 10/05/18 1515:00 23:00 07:00 IntakeIntake Total 500 ml 100 ml BalanceBalance 500 ml 100 ml Results Result Diagram: 10/05/18 0529 10/05/18 0529 Results 24hrs Laboratory Tests Test 10/04/18 17:51 10/04/18 20:41 10/05/18 02:47 10/05/18 05:29 Bedside Glucose 146 190 116 White Blood Count 7.8 Red Blood Count 3.15 L Hemoglobin 7.7 L Hematocrit 25.7 L Mean Corpuscular 81.6 L Volume Mean Corpuscular 24.4 L Hemoglobin Mean Corpuscular 30.0 L Hemoglobin Concent Red Cell 16.9 H Distribution Width Platelet Count 489 H Mean Platelet Volume 9.3 Immature 1.400 H Granulocytes % Neutrophils % 61.9 Lymphocytes % 24.1 Monocytes % 10.1 Eosinophils % 2.1 Basophils % 0.4 Nucleated Red Blood 0.0 Cells % Immature 0.110 H Granulocytes # Neutrophils # 4.8 Lymphocytes # 1.9 Monocytes # 0.8 Eosinophils # 0.2 Basophils # 0.0 Nucleated Red Blood 0.0 Cells # Sodium Level 142 Potassium Level 3.8 Chloride Level 106 Carbon Dioxide Level 31 Anion Gap 5 Blood Urea Nitrogen 9 Creatinine 0.59 Est Glomerular > 60 Filtrat Rate mL/min Glucose Level 113 Calcium Level 7.6 L Phosphorus Level 3.7 Magnesium Level 1.7 Test 10/05/18 08:08 10/05/18 12:00 Bedside Glucose 117 146 Medications Medication Current Medications IV Flush (NS 3 ml) 3 ml PER PROTOCOL IV ; Start 09/28/18 at 02:30 Ondansetron HCl (Zofran Inj) 4 mg Q6H PRN IV NAUSEA/VOMITING Last administered on 09/30/18 22:31; Admin Dose 4 MG; Start 09/28/18 at 02:30 Acetaminophen (Tylenol Tab) 650 mg Q6H PRN PO .PAIN 1-3 OR TEMP; Start 09/28/18 at 02:30 Acetaminophen/ Hydrocodone Bitart ([place] (5/325)) 1 tab Q6H PRN PO .MOD PAIN 4- 6 Last administered on 10/05/18at 07:48; Admin Dose 1 TAB; Start 09/28/18 at 02:30 Acetaminophen/ Hydrocodone Bitart ([place] (5/325)) 2 tab Q6H PRN PO .SEVERE PAIN 7-10 Last administered on 10/04/18at 21:02; Admin Dose 2 TAB; Start 09/28/18 at 02:30 Heparin Sodium (Porcine) (Heparin (5000 Units/1ml)) 5,000 unit Q12 SC Last administered on 10/05/18at 09:01; Admin Dose 5,000 UNIT; Start 09/28/18 at 09:00 Albuterol/ Ipratropium (Duoneb) 3 ml Q2H RESP THERAPY PRN HHN SHORTNESS OF BREATH; Start 09/28/18 at 02:30 Atorvastatin Calcium (Lipitor) 10 mg QHS PO Last administered on 10/04/18at 20:58; Admin Dose 10 MG; Start 09/28/18 at 21:00 Fluoxetine HCl (Prozac) 20 mg DAILY PO Last administered on 10/05/18 08:53; Admin Dose 20 MG; Start 09/28/18 at 09:00 Lisinopril (Zestril) 5 mg DAILY PO Last administered on 10/04/18 12:50; Admin Dose 5 MG; Start 09/28/18 at 09:00 Metformin HCl (Glucophage) 1,000 mg WITH BREAKFAST DINNE PO Last administered on 10/05/18 08:53; Admin Dose 1,000 MG; Start 09/28/18 at 08:00 Diagnostic Test (Pha) (Accu-Chek) 1 ea AC MEALS AND BEDTIME XX Last administered on 10/05/18 12:00; Admin Dose 1 EA; Start 09/28/18 at 07:00 Diagnostic Test (Pha) (Accu-Chek) 1 ea 02 XX Last administered on 10/02/18 02:43; Admin Dose 1 EA; Start 09/29/18 at 02:00 Insulin Aspart (Novolog Insulin Pen) NOVOLOG *MODERATE* ALGORITHM WITH MEALS BEDTIME SC Last administered on 10/04/18 21:00; Admin Dose 1 UNIT; Start 09/28/18 at 08:00 Pantoprazole (Protonix Tab) 40 mg DAILY@06 PO Last administered on 10/05/18 05:29; Admin Dose 40 MG; Start 09/28/18 at 06:00 Miscellaneous Information 1 ea NOTE XX ; Start 09/28/18 at 03:00 Glucose (Glutose) 15 gm Q15M PRN PO DECREASED GLUCOSE; Start 09/28/18 at 03:00 Glucose (Glutose) 22.5 gm Q15M PRN PO DECREASED GLUCOSE; Start 09/28/18 at 03:00 Dextrose (D50w Syringe) 25 ml Q15M PRN IV DECREASED GLUCOSE; Start 09/28/18 at 03:00 Dextrose (D50w Syringe) 50 ml Q15M PRN IV DECREASED GLUCOSE; Start 09/28/18 at 03:00 Glucagon (Glucagen) 1 mg Q15M PRN IM DECREASED GLUCOSE; Start 09/28/18 at 03:00 Glucose (Glutose) 15 gm Q15M PRN BUCCAL DECREASED GLUCOSE; Start 09/28/18 at 03:00 Insulin Aspart (Novolog Insulin Pen) 13 unit WITH MEALS SC Last administered on 6/24/19at 08:20; Admin Dose 13 UNIT; Start 09/28/18 at 12:00; Status Hold Ferrous Sulfate (Ferrous Sulfate (Ec)) 325 mg TID PO Last administered on 10/05/18 12:02; Admin Dose 325 MG; Start 09/29/18 at 21:00 Insulin Glargine (Lantus) 35 units DAILY@0800 SC Last administered on 10/05/18 09:03; Admin Dose 35 UNITS; Start 10/01/18 at 08:00 Morphine Sulfate (morphine) 2 mg Q4H PRN IV SEVERE PAIN LEVEL 7-10 Last administered on 10/03/18 01:43; Admin Dose 2 MG; Start 10/01/18 at 01:00 Ceftriaxone Sodium 50 ml @ 100 mls/hr Q24H IVPB Last administered on 10/05/18at 12:02; Admin Dose 100 MLS/HR; Start 10/01/18 at 14:00 Cholecalciferol (Vitamin D) 2,000 unit DAILY PO Last administered on 10/05/18 08:53; Admin Dose 2,000 UNIT; Start 10/01/18 at 12:00 IV Flush (NS 10 ml) 10 ml PRN PRN IV IV PROTOCOL; Start 10/04/18 at 17:00 JANN SANDOVAL NP Oct 05, 2018 13:30
--- NOTE | 2018-10-05 14:07 | PN ---
Date/Time of Note Date/Time of Note DATE: 10/05/18 TIME: 14:06 Assessment/Plan VTE Prophylaxis Risk score (from Nsg)>0 risk: 1 SCD applied (from Ns): No SCD contraindicated: other Pharmacological prophylaxis: heparin Lines/Catheters IV Catheter Type (from Nrsg): PICC Line Central line still needed: Yes Assessment/Plan Hospital Course SUBJECTIVE: Continues to complain of right lower extremity pain. OBJECTIVE: Physical Exam General: Obese, 53 year-old female lying in bed in no apparent distress. HEENT: Normocephalic, atraumatic. Eyes: Anicteric sclerae, conjunctivae clear. ENT: Nasal septum midline, oral mucosa moist. Neck supple, no JVD noticed. Respiratory: Bilaterally clear breath sounds. No use of accessory muscles of respiration. No adventitious breath sounds. Cardiovascular: S1, S2 heard. Regular rate and rhythm. Abdomen: Soft, nontender, and nondistended. Bowel sounds positive in all 4 quadrants. Genitourinary: Deferred. Extremities: No cyanosis, no clubbing. Right lower extremity edema with the right foot dressing. Neurologic: Cranial nerves II through XII grossly intact. The patient is awake, alert, and oriented. Skin: Normal skin turgor. No skin rashes. Labs & Vitals per chart ASSESSMENT & PLAN 53-year-old female with comorbidities including hypertension, diabetes mellitus, dyslipidemia, peripheral vascular disease, and severe right foot Charcot foot deformity with history of multiple foot surgeries and chronic open wound of the right foot who came to the ER complaining of right foot pain, swelling with the right foot x-ray showing findings consistent with infection with gas-forming organism, who was admitted to inpatient setting for further treatment and evaluation. 1. Chronic right foot wound with foot MRI showing new osteomyelitis in the mid cuneiform, the navicular, and in the lateral cuneiform. Continue antimicrobials as per ID. Being followed by podiatry. S/P bedside debridement on 09/28/2018. S/P bone culture of right foot on 10/03/2018. 2. Right ankle abscess. S/P incision and drainage of right ankle abscess with debridement on 10/03/2018. On antimicrobials as per ID. Being followed by podiatry. 3. Diabetes mellitus. Hemoglobin A1c 9.3. Continue sliding scale insulin along with basal insulin. Continue metformin. 4. Hypertension. Continue antihypertensives. 5. Dyslipidemia. Continue statins. 6. Iron deficiency. Continue iron supplements. 7. Hyperkalemia. Resolved. 8. Fluids, electrolytes, and nutrition. Carbohydrate controlled diet. 9. DVT prophylaxis. Subcutaneous heparin. 10. Plan. Continue antimicrobials as per ID. Await final cultures. Home health for home IV antibiotic therapy. The patient was seen in collaboration with Dr. Jacobs. Result Diagram: 10/05/1852810/05/18 05 Results 24hrs Laboratory Tests Test 10/04/18 17:51 10/04/18 20:41 10/05/18 02:47 10/05/18 05:29 Bedside Glucose 146 190 116 White Blood Count 7.8 Red Blood Count 3.15 L Hemoglobin 7.7 L Hematocrit 25.7 L Mean Corpuscular 81.6 L Volume Mean Corpuscular 24.4 L Hemoglobin Mean Corpuscular 30.0 L Hemoglobin Concent Red Cell 16.9 H Distribution Width Platelet Count 489 H Mean Platelet Volume 9.3 Immature 1.400 H Granulocytes % Neutrophils % 61.9 Lymphocytes % 24.1 Monocytes % 10.1 Eosinophils % 2.1 Basophils % 0.4 Nucleated Red Blood 0.0 Cells % Immature 0.110 H Granulocytes # Neutrophils # 4.8 Lymphocytes # 1.9 Monocytes # 0.8 Eosinophils # 0.2 Basophils # 0.0 Nucleated Red Blood 0.0 Cells # Sodium Level 142 Potassium Level 3.8 Chloride Level 106 Carbon Dioxide Level 31 Anion Gap 5 Blood Urea Nitrogen 9 Creatinine 0.59 Est Glomerular > 60 Filtrat Rate mL/min Glucose Level 113 Calcium Level 7.6 L Phosphorus Level 3.7 Magnesium Level 1.7 Test 10/05/18 08:08 10/05/18 12:00 Bedside Glucose 117 146 Exam/Review of Systems Exam Vitals Vital Signs Date Temp Pulse Resp B/P (MAP) Pulse Ox O2 O2 Flow FiO2 Time Delivery Rate 10/05/18 98.6 96 18 133/68 95 07:59 (89) 10/04/18 Room Air 14:02 10/03/18 2.0 19:35 Intake and Output 10/04/18 10/04/18 10/05/18 1515:00 23:00 07:00 IntakeIntake Total 500 ml 100 ml BalanceBalance 500 ml 100 ml Results Results 24hrs Laboratory Tests Test 10/04/18 17:51 10/04/18 20:41 10/05/18 02:47 10/05/18 05:29 Bedside Glucose 146 190 116 White Blood Count 7.8 Red Blood Count 3.15 L Hemoglobin 7.7 L Hematocrit 25.7 L Mean Corpuscular 81.6 L Volume Mean Corpuscular 24.4 L Hemoglobin Mean Corpuscular 30.0 L Hemoglobin Concent Red Cell 16.9 H Distribution Width Platelet Count 489 H Mean Platelet Volume 9.3 Immature 1.400 H Granulocytes % Neutrophils % 61.9 Lymphocytes % 24.1 Monocytes % 10.1 Eosinophils % 2.1 Basophils % 0.4 Nucleated Red Blood 0.0 Cells % Immature 0.110 H Granulocytes # Neutrophils # 4.8 Lymphocytes # 1.9 Monocytes # 0.8 Eosinophils # 0.2 Basophils # 0.0 Nucleated Red Blood 0.0 Cells # Sodium Level 142 Potassium Level 3.8 Chloride Level 106 Carbon Dioxide Level 31 Anion Gap 5 Blood Urea Nitrogen 9 Creatinine 0.59 Est Glomerular > 60 Filtrat Rate mL/min Glucose Level 113 Calcium Level 7.6 L Phosphorus Level 3.7 Magnesium Level 1.7 Test 10/05/18 08:08 10/05/18 12:00 Bedside Glucose 117 146 Medications Medication Current Medications IV Flush (NS 3 ml) 3 ml PER PROTOCOL IV ; Start 09/28/18 at 02:30 Ondansetron HCl (Zofran Inj) 4 mg Q6H PRN IV NAUSEA/VOMITING Last administered on 09/30/18at 22:31; Admin Dose 4 MG; Start 09/28/18 at 02:30 Acetaminophen (Tylenol Tab) 650 mg Q6H PRN PO .PAIN 1-3 OR TEMP; Start 09/28/18 at 02:30 Acetaminophen/ Hydrocodone Bitart ([place] (5/325)) 1 tab Q6H PRN PO .MOD PAIN 4- 6 Last administered on 10/05/18at 07:48; Admin Dose 1 TAB; Start 09/28/18 at 02:30 Acetaminophen/ Hydrocodone Bitart ([place] (5/325)) 2 tab Q6H PRN PO .SEVERE PAIN 7-10 Last administered on 10/04/18at 21:02; Admin Dose 2 TAB; Start 09/28/18 at 02:30 Heparin Sodium (Porcine) (Heparin (5000 Units/1ml)) 5,000 unit Q12 SC Last administered on 10/05/18 09:01; Admin Dose 5,000 UNIT; Start 09/28/18 at 09:00 Albuterol/ Ipratropium (Duoneb) 3 ml Q2H RESP THERAPY PRN HHN SHORTNESS OF BREATH; Start 09/28/18 at 02:30 Atorvastatin Calcium (Lipitor) 10 mg QHS PO Last administered on 10/04/18 20:58; Admin Dose 10 MG; Start 09/28/18 at 21:00 Fluoxetine HCl (Prozac) 20 mg DAILY PO Last administered on 10/05/18 08:53; Admin Dose 20 MG; Start 09/28/18 at 09:00 Lisinopril (Zestril) 5 mg DAILY PO Last administered on 10/04/18 12:50; Admin Dose 5 MG; Start 09/28/18 at 09:00 Metformin HCl (Glucophage) 1,000 mg WITH BREAKFAST DINNE PO Last administered on 10/05/18 08:53; Admin Dose 1,000 MG; Start 09/28/18 at 08:00 Diagnostic Test (Pha) (Accu-Chek) 1 ea AC MEALS AND BEDTIME XX Last administered on 10/05/18 12:00; Admin Dose 1 EA; Start 09/28/18 at 07:00 Diagnostic Test (Pha) (Accu-Chek) 1 ea 02 XX Last administered on 10/02/18 02:43; Admin Dose 1 EA; Start 09/29/18 at 02:00 Insulin Aspart (Novolog Insulin Pen) NOVOLOG *MODERATE* ALGORITHM WITH MEALS BEDTIME SC Last administered on 10/04/18 21:00; Admin Dose 1 UNIT; Start 09/28/18 at 08:00 Pantoprazole (Protonix Tab) 40 mg DAILY@06 PO Last administered on 10/05/18 05:29; Admin Dose 40 MG; Start 09/28/18 at 06:00 Miscellaneous Information 1 ea NOTE XX ; Start 09/28/18 at 03:00 Glucose (Glutose) 15 gm Q15M PRN PO DECREASED GLUCOSE; Start 09/28/18 at 03:00 Glucose (Glutose) 22.5 gm Q15M PRN PO DECREASED GLUCOSE; Start 09/28/18 at 03:00 Dextrose (D50w Syringe) 25 ml Q15M PRN IV DECREASED GLUCOSE; Start 09/28/18 at 03:00 Dextrose (D50w Syringe) 50 ml Q15M PRN IV DECREASED GLUCOSE; Start 09/28/18 at 03:00 Glucagon (Glucagen) 1 mg Q15M PRN IM DECREASED GLUCOSE; Start 09/28/18 at 03:00 Glucose (Glutose) 15 gm Q15M PRN BUCCAL DECREASED GLUCOSE; Start 09/28/18 at 03:00 Insulin Aspart (Novolog Insulin Pen) 13 unit WITH MEALS SC Last administered on 09/30/18 08:20; Admin Dose 13 UNIT; Start 09/28/18 at 12:00; Status Hold Ferrous Sulfate (Ferrous Sulfate (Ec)) 325 mg TID PO Last administered on 10/05/18 12:02; Admin Dose 325 MG; Start 09/29/18 at 21:00 Insulin Glargine (Lantus) 35 units DAILY@0800 SC Last administered on 10/05/18 09:03; Admin Dose 35 UNITS; Start 10/01/18 at 08:00 Morphine Sulfate (morphine) 2 mg Q4H PRN IV SEVERE PAIN LEVEL 7-10 Last administered on 10/03/18 01:43; Admin Dose 2 MG; Start 10/01/18 at 01:00 Ceftriaxone Sodium 50 ml @ 100 mls/hr Q24H IVPB Last administered on 10/05/18 12:02; Admin Dose 100 MLS/HR; Start 10/01/18 at 14:00 Cholecalciferol (Vitamin D) 2,000 unit DAILY PO Last administered on 10/05/18 08:53; Admin Dose 2,000 UNIT; Start 10/01/18 at 12:00 IV Flush (NS 10 ml) 10 ml PRN PRN IV IV PROTOCOL; Start 10/04/18 at 17:00 KRISTEL SALINAS NP Oct 05, 2018 14:07
[2018-10-05 14:53] VITALS: BP 140/67; PULSE 90; RESP 18
[2018-10-05 20:05] VITALS: BP 135/65; PULSE 92; RESP 18
[2018-10-05] MEDS: ATORVASTATIN 10 MG TAB PO SCH (20:47)
[2018-10-06] MEDS: ACCU-CHEK XX SCH ×5 (02:00→21:00)
[2018-10-06 02:22] VITALS: BP 129/62; PULSE 84; RESP 18
[2018-10-06] MEDS: PANTOPRAZOLE (EC) 40 MG TAB PO SCH (06:09)
[2018-10-06 07:50] VITALS: BP 131/68; PULSE 87; RESP 18
[2018-10-06] MEDS: INSULIN ASPART [NOVOLOG] 3 ML PEN SC SCH ×4 (07:58→21:00)
[2018-10-06] MEDS: FERROUS SULFATE (EC) 325 MG TAB PO SCH ×3 (07:59→22:00)
[2018-10-06] MEDS: metFORMIN 500 MG TAB PO SCH ×2 (07:59→17:25)
[2018-10-06] MEDS: FLUOXETINE 20 MG CAP PO SCH (07:59)
[2018-10-06] MEDS: HEPARIN 5,000 UNIT/1 ML VIAL SC SCH ×2 (08:01→22:05)
[2018-10-06] MEDS: INSULIN GLARGINE [LANTus] (100 UNITS/ML) SYG SC SCH (08:01)
[2018-10-06] MEDS: CHOLECALCIFEROL 2,000 UNIT CAP PO SCH (08:04)
[2018-10-06] MEDS: LISINOPRIL 5 MG TAB PO SCH (08:04)
--- NOTE | 2018-10-06 10:54 | PN ---
Date/Time of Note Date/Time of Note DATE: 10/06/18 TIME: 10:52 Assessment/Plan VTE Prophylaxis Risk score (from Nsg)>0 risk: 3 SCD applied (from Nsg): Yes Pharmacological prophylaxis: heparin Lines/Catheters IV Catheter Type (from Nrsg): PICC Line Central line still needed: Yes Assessment/Plan Hospital Course SUBJECTIVE: Continues to complain of right lower extremity pain. OBJECTIVE: Physical Exam General: Obese, 53 year-old female lying in bed in no apparent distress. HEENT: Normocephalic, atraumatic. Eyes: Anicteric sclerae, conjunctivae clear. ENT: Nasal septum midline, oral mucosa moist. Neck supple, no JVD noticed. Respiratory: Bilaterally clear breath sounds. No use of accessory muscles of respiration. No adventitious breath sounds. Cardiovascular: S1, S2 heard. Regular rate and rhythm. Abdomen: Soft, nontender, and nondistended. Bowel sounds positive in all 4 quadrants. Genitourinary: Deferred. Extremities: No cyanosis, no clubbing. Right lower extremity edema with the right foot dressing. Neurologic: Cranial nerves II through XII grossly intact. The patient is awake, alert, and oriented. Skin: Normal skin turgor. No skin rashes. Labs & Vitals per chart ASSESSMENT & PLAN 53-year-old female with comorbidities including hypertension, diabetes mellitus, dyslipidemia, peripheral vascular disease, and severe right foot Charcot foot deformity with history of multiple foot surgeries and chronic open wound of the right foot who came to the ER complaining of right foot pain, swelling with the right foot x-ray showing findings consistent with infection with gas-forming organism, who was admitted to inpatient setting for further treatment and evaluation. 1. Chronic right foot wound with foot MRI showing new osteomyelitis in the mid cuneiform, the navicular, and in the lateral cuneiform. Continue antimicrobials as per ID. Being followed by podiatry. S/P bedside debridement on 09/28/2018. S/P bone culture of right foot on 10/03/2018. 2. Right ankle abscess. S/P incision and drainage of right ankle abscess with debridement on 10/03/2018. On antimicrobials as per ID. Being followed by podiatry. 3. Diabetes mellitus. Hemoglobin A1c 9.3. Continue sliding scale insulin along with basal insulin. Continue metformin. 4. Hypertension. Continue antihypertensives. 5. Dyslipidemia. Continue statins. 6. Iron deficiency. Continue iron supplements. 7. Hyperkalemia. Resolved. 8. Fluids, electrolytes, and nutrition. Carbohydrate controlled diet. 9. DVT prophylaxis. Subcutaneous heparin. 10. Plan. Continue antimicrobials as per ID. Await final cultures. Home health for home IV antibiotic therapy arranged. Awaiting PT evaluation and home health orders to be put in by podiatry for dressing changes. The patient was seen in collaboration with Dr. Jacobs. Result Diagram: 10/06/1844810/06/18448 Results 24hrs Laboratory Tests Test 10/05/18 12:00 10/05/18 17:32 10/05/18 20:50 10/06/18 04:49 Bedside Glucose 146 135 156 White Blood Count 7.1 Red Blood Count 3.16 L Hemoglobin 7.8 L Hematocrit 25.9 L Mean Corpuscular 82.0 Volume Mean Corpuscular 24.7 L Hemoglobin Mean Corpuscular 30.1 L Hemoglobin Concent Red Cell 17.1 H Distribution Width Platelet Count 484 H Mean Platelet Volume 9.2 Immature 1.000 H Granulocytes % Neutrophils % 60.3 Lymphocytes % 27.5 Monocytes % 8.5 Eosinophils % 2.3 Basophils % 0.4 Nucleated Red Blood 0.0 Cells % Immature 0.070 H Granulocytes # Neutrophils # 4.3 Lymphocytes # 1.9 Monocytes # 0.6 Eosinophils # 0.2 Basophils # 0.0 Nucleated Red Blood 0.0 Cells # Sodium Level 143 Potassium Level 3.8 Chloride Level 105 Carbon Dioxide Level 31 Anion Gap 7 Blood Urea Nitrogen 8 Creatinine 0.59 Est Glomerular > 60 Filtrat Rate mL/min Glucose Level 75 Calcium Level 8.1 L Phosphorus Level 4.0 Magnesium Level 1.6 L Test 10/06/18 07:56 Bedside Glucose 82 Exam/Review of Systems Exam Vitals Vital Signs Date Temp Pulse Resp B/P (MAP) Pulse Ox O2 O2 Flow FiO2 Time Delivery Rate 10/06/18 98.3 87 18 131/68 96 07:50 (89) 10/05/18 Room Air 14:53 10/03/18 2.0 19:35 Intake and Output 10/05/18 10/05/18 10/06/18 1414:59 22:59 06:59 IntakeIntake Total 480 ml BalanceBalance 480 ml Results Results 24hrs Laboratory Tests Test 10/05/18 12:00 10/05/18 17:32 10/05/18 20:50 10/06/18 04:49 Bedside Glucose 146 135 156 White Blood Count 7.1 Red Blood Count 3.16 L Hemoglobin 7.8 L Hematocrit 25.9 L Mean Corpuscular 82.0 Volume Mean Corpuscular 24.7 L Hemoglobin Mean Corpuscular 30.1 L Hemoglobin Concent Red Cell 17.1 H Distribution Width Platelet Count 484 H Mean Platelet Volume 9.2 Immature 1.000 H Granulocytes % Neutrophils % 60.3 Lymphocytes % 27.5 Monocytes % 8.5 Eosinophils % 2.3 Basophils % 0.4 Nucleated Red Blood 0.0 Cells % Immature 0.070 H Granulocytes # Neutrophils # 4.3 Lymphocytes # 1.9 Monocytes # 0.6 Eosinophils # 0.2 Basophils # 0.0 Nucleated Red Blood 0.0 Cells # Sodium Level 143 Potassium Level 3.8 Chloride Level 105 Carbon Dioxide Level 31 Anion Gap 7 Blood Urea Nitrogen 8 Creatinine 0.59 Est Glomerular > 60 Filtrat Rate mL/min Glucose Level 75 Calcium Level 8.1 L Phosphorus Level 4.0 Magnesium Level 1.6 L Test 10/06/18 07:56 Bedside Glucose 82 Medications Medication Current Medications IV Flush (NS 3 ml) 3 ml PER PROTOCOL IV ; Start 09/28/18 at 02:30 Ondansetron HCl (Zofran Inj) 4 mg Q6H PRN IV NAUSEA/VOMITING Last administered on 09/30/18at 22:31; Admin Dose 4 MG; Start 09/28/18 at 02:30 Acetaminophen (Tylenol Tab) 650 mg Q6H PRN PO .PAIN 1-3 OR TEMP; Start 09/28/18 at 02:30 Acetaminophen/ Hydrocodone Bitart ([place] (5/325)) 1 tab Q6H PRN PO .MOD PAIN 4- 6 Last administered on 10/05/18at 15:51; Admin Dose 1 TAB; Start 09/28/18 at 02:30 Acetaminophen/ Hydrocodone Bitart ([place] (5/325)) 2 tab Q6H PRN PO .SEVERE PAIN 7-10 Last administered on 10/05/18at 23:44; Admin Dose 2 TAB; Start 09/28/18 at 02:30 Heparin Sodium (Porcine) (Heparin (5000 Units/1ml)) 5,000 unit Q12 SC Last administered on 10/06/18 08:01; Admin Dose 5,000 UNIT; Start 09/28/18 at 09:00 Albuterol/ Ipratropium (Duoneb) 3 ml Q2H RESP THERAPY PRN HHN SHORTNESS OF BREATH; Start 09/28/18 at 02:30 Atorvastatin Calcium (Lipitor) 10 mg QHS PO Last administered on 10/05/18 20:47; Admin Dose 10 MG; Start 09/28/18 at 21:00 Fluoxetine HCl (Prozac) 20 mg DAILY PO Last administered on 10/06/18 07:59; Admin Dose 20 MG; Start 09/28/18 at 09:00 Lisinopril (Zestril) 5 mg DAILY PO Last administered on 10/06/18 08:04; Admin Dose 5 MG; Start 09/28/18 at 09:00 Metformin HCl (Glucophage) 1,000 mg WITH BREAKFAST DINNE PO Last administered on 10/06/18 07:59; Admin Dose 1,000 MG; Start 09/28/18 at 08:00 Diagnostic Test (Pha) (Accu-Chek) 1 ea AC MEALS AND BEDTIME XX Last administered on 10/06/18 07:58; Admin Dose 1 EA; Start 09/28/18 at 07:00 Diagnostic Test (Pha) (Accu-Chek) 1 ea 02 XX Last administered on 10/02/18 02:43; Admin Dose 1 EA; Start 09/29/18 at 02:00 Insulin Aspart (Novolog Insulin Pen) NOVOLOG *MODERATE* ALGORITHM WITH MEALS BEDTIME SC Last administered on 10/04/18 21:00; Admin Dose 1 UNIT; Start 09/28/18 at 08:00 Pantoprazole (Protonix Tab) 40 mg DAILY@06 PO Last administered on 10/06/18 06:09; Admin Dose 40 MG; Start 09/28/18 at 06:00 Miscellaneous Information 1 ea NOTE XX ; Start 09/28/18 at 03:00 Glucose (Glutose) 15 gm Q15M PRN PO DECREASED GLUCOSE; Start 09/28/18 at 03:00 Glucose (Glutose) 22.5 gm Q15M PRN PO DECREASED GLUCOSE; Start 09/28/18 at 03:00 Dextrose (D50w Syringe) 25 ml Q15M PRN IV DECREASED GLUCOSE; Start 09/28/18 at 03:00 Dextrose (D50w Syringe) 50 ml Q15M PRN IV DECREASED GLUCOSE; Start 09/28/18 at 03:00 Glucagon (Glucagen) 1 mg Q15M PRN IM DECREASED GLUCOSE; Start 09/28/18 at 03:00 Glucose (Glutose) 15 gm Q15M PRN BUCCAL DECREASED GLUCOSE; Start 09/28/18 at 03:00 Insulin Aspart (Novolog Insulin Pen) 13 unit WITH MEALS SC Last administered on 09/30/18 08:20; Admin Dose 13 UNIT; Start 09/28/18 at 12:00; Status Hold Ferrous Sulfate (Ferrous Sulfate (Ec)) 325 mg TID PO Last administered on 10/06/18 07:59; Admin Dose 325 MG; Start 09/29/18 at 21:00 Insulin Glargine (Lantus) 35 units DAILY@0800 SC Last administered on 10/06/18 08:01; Admin Dose 35 UNITS; Start 10/01/18 at 08:00 Morphine Sulfate (morphine) 2 mg Q4H PRN IV SEVERE PAIN LEVEL 7-10 Last admini stered on 10/03/18 01:43; Admin Dose 2 MG; Start 10/01/18 at 01:00 Ceftriaxone Sodium 50 ml @ 100 mls/hr Q24H IVPB Last administered on 10/05/18 12:02; Admin Dose 100 MLS/HR; Start 10/01/18 at 14:00 Cholecalciferol (Vitamin D) 2,000 unit DAILY PO Last administered on 10/06/18 08:04; Admin Dose 2,000 UNIT; Start 10/01/18 at 12:00 IV Flush (NS 10 ml) 10 ml PRN PRN IV IV PROTOCOL; Start 10/04/18 at 17:00 KRISTEL SALINAS NP Oct 06, 2018 10:54
[2018-10-06] MEDS ORDERED: MAGNESIUM SULFATE 2 GM/50 ML 50 ML IVPB ONE (11:00)
--- NOTE | 2018-10-06 11:33 | CONS ---
Assessment/Plan Assessment/Plan Hospital Course (Demo Recall) All noted, no acute events Microbiology: Right foot drainage culture grew oxacillin sensitive staph aureus MRI of the foot revealed osteomyelitis Antimicrobials: Rocephin Physical examination: Well-developed obese middle-aged woman who is alert in no distress. Head atraumatic normocephalic sclera nonicteric vehicle mucosa pink neck is supple chest rise symmetrical breath sounds clear heart: S1- S2. Abdomen soft bowel sounds present. Extremities with right lower extremity dressing clean dry and intact Assessment: 1. Right foot Charcot deformity/infectious myositis/Osteomyelitis 2. Right foot abscess status post I&D 1 3. Morbid obesity 4. Diabetes with peripheral neuropathy Plan: Stable, continue abx for 6 weeks, f/u podiatry recommendations Consultation Date/Type/Reason Admit Date/Time Sep 27, 2018 at 19:48 Initial Consult Date 09/27/18 Type of Consult id Date/Time of Note DATE: 10/06/18 TIME: 11:32 Exam/Review of Systems Exam Vitals Vital Signs Date Temp Pulse Resp B/P (MAP) Pulse Ox O2 O2 Flow FiO2 Time Delivery Rate 10/06/18 98.3 87 18 131/68 96 07:50 (89) 10/05/18 Room Air 14:53 10/03/18 2.0 19:35 Intake and Output 10/05/18 10/05/18 10/06/18 1515:00 23:00 07:00 IntakeIntake Total 480 ml 300 ml BalanceBalance 480 ml 300 ml Results Result Diagram: 10/06/18 0449 10/06/18 0449 Results 24hrs Laboratory Tests Test 10/05/18 12:00 10/05/18 17:32 10/05/18 20:50 10/06/18 04:49 Bedside Glucose 146 135 156 White Blood Count 7.1 Red Blood Count 3.16 L Hemoglobin 7.8 L Hematocrit 25.9 L Mean Corpuscular 82.0 Volume Mean Corpuscular 24.7 L Hemoglobin Mean Corpuscular 30.1 L Hemoglobin Concent Red Cell 17.1 H Distribution Width Platelet Count 484 H Mean Platelet Volume 9.2 Immature 1.000 H Granulocytes % Neutrophils % 60.3 Lymphocytes % 27.5 Monocytes % 8.5 Eosinophils % 2.3 Basophils % 0.4 Nucleated Red Blood 0.0 Cells % Immature 0.070 H Granulocytes # Neutrophils # 4.3 Lymphocytes # 1.9 Monocytes # 0.6 Eosinophils # 0.2 Basophils # 0.0 Nucleated Red Blood 0.0 Cells # Sodium Level 143 Potassium Level 3.8 Chloride Level 105 Carbon Dioxide Level 31 Anion Gap 7 Blood Urea Nitrogen 8 Creatinine 0.59 Est Glomerular > 60 Filtrat Rate mL/min Glucose Level 75 Calcium Level 8.1 L Phosphorus Level 4.0 Magnesium Level 1.6 L Test 10/06/18 07:56 Bedside Glucose 82 Medications Medication Current Medications IV Flush (NS 3 ml) 3 ml PER PROTOCOL IV ; Start 09/28/18 at 02:30 Ondansetron HCl (Zofran Inj) 4 mg Q6H PRN IV NAUSEA/VOMITING Last administered on 09/30/18 22:31; Admin Dose 4 MG; Start 09/28/18 at 02:30 Acetaminophen (Tylenol Tab) 650 mg Q6H PRN PO .PAIN 1-3 OR TEMP; Start 09/28/18 at 02:30 Acetaminophen/ Hydrocodone Bitart ([place] (5/325)) 1 tab Q6H PRN PO .MOD PAIN 4- 6 Last administered on 10/05/18 15:51; Admin Dose 1 TAB; Start 09/28/18 at 02:30 Acetaminophen/ Hydrocodone Bitart ([place] (5/325)) 2 tab Q6H PRN PO .SEVERE PAIN 7-10 Last administered on 10/05/18 23:44; Admin Dose 2 TAB; Start 09/28/18 at 02:30 Heparin Sodium (Porcine) (Heparin (5000 Units/1ml)) 5,000 unit Q12 SC Last administered on 10/06/18 08:01; Admin Dose 5,000 UNIT; Start 09/28/18 at 09:00 Albuterol/ Ipratropium (Duoneb) 3 ml Q2H RESP THERAPY PRN HHN SHORTNESS OF BREATH; Start 09/28/18 at 02:30 Atorvastatin Calcium (Lipitor) 10 mg QHS PO Last administered on 10/05/18 20:47; Admin Dose 10 MG; Start 09/28/18 at 21:00 Fluoxetine HCl (Prozac) 20 mg DAILY PO Last administered on 10/06/18 07:59; Admin Dose 20 MG; Start 09/28/18 at 09:00 Lisinopril (Zestril) 5 mg DAILY PO Last administered on 10/06/18 08:04; Admin Dose 5 MG; Start 09/28/18 at 09:00 Metformin HCl (Glucophage) 1,000 mg WITH BREAKFAST DINNE PO Last administered on 10/06/18 07:59; Admin Dose 1,000 MG; Start 09/28/18 at 08:00 Diagnostic Test (Pha) (Accu-Chek) 1 ea AC MEALS AND BEDTIME XX Last administered on 10/06/18at 07:58; Admin Dose 1 EA; Start 09/28/18 at 07:00 Diagnostic Test (Pha) (Accu-Chek) 1 ea 02 XX Last administered on 10/02/18at 02:43; Admin Dose 1 EA; Start 09/29/18 at 02:00 Insulin Aspart (Novolog Insulin Pen) NOVOLOG *MODERATE* ALGORITHM WITH MEALS BEDTIME SC Last administered on 10/04/18at 21:00; Admin Dose 1 UNIT; Start 09/28/18 at 08:00 Pantoprazole (Protonix Tab) 40 mg DAILY@06 PO Last administered on 10/06/18at 06:09; Admin Dose 40 MG; Start 09/28/18 at 06:00 Miscellaneous Information 1 ea NOTE XX ; Start 09/28/18 at 03:00 Glucose (Glutose) 15 gm Q15M PRN PO DECREASED GLUCOSE; Start 09/28/18 at 03:00 Glucose (Glutose) 22.5 gm Q15M PRN PO DECREASED GLUCOSE; Start 09/28/18 at 03:00 Dextrose (D50w Syringe) 25 ml Q15M PRN IV DECREASED GLUCOSE; Start 09/28/18 at 03:00 Dextrose (D50w Syringe) 50 ml Q15M PRN IV DECREASED GLUCOSE; Start 09/28/18 at 03:00 Glucagon (Glucagen) 1 mg Q15M PRN IM DECREASED GLUCOSE; Start 09/28/18 at 03:00 Glucose (Glutose) 15 gm Q15M PRN BUCCAL DECREASED GLUCOSE; Start 09/28/18 at 03:00 Insulin Aspart (Novolog Insulin Pen) 13 unit WITH MEALS SC Last administered on 09/30/18 08:20; Admin Dose 13 UNIT; Start 09/28/18 at 12:00; Status Hold Ferrous Sulfate (Ferrous Sulfate (Ec)) 325 mg TID PO Last administered on 10/06/18 07:59; Admin Dose 325 MG; Start 09/29/18 at 21:00 Insulin Glargine (Lantus) 35 units DAILY@0800 SC Last administered on 10/06/18 08:01; Admin Dose 35 UNITS; Start 10/01/18 at 08:00 Morphine Sulfate (morphine) 2 mg Q4H PRN IV SEVERE PAIN LEVEL 7-10 Last administered on 10/03/18at 01:43; Admin Dose 2 MG; Start 10/01/18 at 01:00 Ceftriaxone Sodium 50 ml @ 100 mls/hr Q24H IVPB Last administered on 10/05/18 12:02; Admin Dose 100 MLS/HR; Start 10/01/18 at 14:00 Cholecalciferol (Vitamin D) 2,000 unit DAILY PO Last administered on 10/06/18 08:04; Admin Dose 2,000 UNIT; Start 10/01/18 at 12:00 IV Flush (NS 10 ml) 10 ml PRN PRN IV IV PROTOCOL; Start 10/04/18 at 17:00 Magnesium Sulfate 50 ml @ 25 mls/hr ONCE ONCE IVPB ; Start 10/06/18 at 11:00; Stop 10/06/18 at 12:59 JANN SANDOVAL NP Oct 06, 2018 11:33
[2018-10-06] MEDS: HYDROCODONE/APAP (5/325) TAB PO PRN ×2 (13:36→22:06)
[2018-10-06] MEDS: CEFTRIAXONE 2 GM/50 ML (PMX) 50 ML IVPB SCH (14:48)
[2018-10-06 14:49] VITALS: BP 134/60; PULSE 95; RESP 17
[2018-10-06] MEDS: morphine 2 MG INJ IV PRN (14:52)
[2018-10-06] MEDS ORDERED: BISACODYL (EC) 5 MG TAB PO PRN (15:30)
[2018-10-06 19:41] VITALS: BP 110/59; PULSE 96; RESP 18
[2018-10-06] MEDS: ATORVASTATIN 10 MG TAB PO SCH (22:00)
[2018-10-06] MEDS: POLYETHYLENE GLYCOL 17 GM PACKET PO SCH (22:00)
[2018-10-07] MEDS: ACCU-CHEK XX SCH ×5 (01:16→21:24)
[2018-10-07 01:23] VITALS: BP 126/59; PULSE 88; RESP 19
[2018-10-07] MEDS: PANTOPRAZOLE (EC) 40 MG TAB PO SCH (06:48)
[2018-10-07 07:39] VITALS: BP 131/59; PULSE 74; RESP 20
[2018-10-07] MEDS: INSULIN ASPART [NOVOLOG] 3 ML PEN SC SCH ×4 (08:00→21:00)
[2018-10-07] MEDS: FERROUS SULFATE (EC) 325 MG TAB PO SCH ×3 (08:46→21:20)
[2018-10-07] MEDS: FLUOXETINE 20 MG CAP PO SCH (08:46)
[2018-10-07] MEDS: CHOLECALCIFEROL 2,000 UNIT CAP PO SCH (08:46)
[2018-10-07] MEDS: POLYETHYLENE GLYCOL 17 GM PACKET PO SCH ×2 (08:46→21:20)
[2018-10-07] MEDS: LISINOPRIL 5 MG TAB PO SCH (08:47)
[2018-10-07] MEDS: INSULIN GLARGINE [LANTus] (100 UNITS/ML) SYG SC SCH (08:52)
[2018-10-07] MEDS: HEPARIN 5,000 UNIT/1 ML VIAL SC SCH ×2 (08:52→21:23)
[2018-10-07] MEDS: metFORMIN 500 MG TAB PO SCH ×2 (08:53→17:07)
--- NOTE | 2018-10-07 10:04 | PN ---
Date/Time of Note Date/Time of Note DATE: 10/07/18 TIME: 10:03 Assessment/Plan VTE Prophylaxis Risk score (from Nsg)>0 risk: 4 SCD applied (from Nsg): Yes Pharmacological prophylaxis: heparin Lines/Catheters IV Catheter Type (from Nrsg): PICC Line Central line still needed: Yes Assessment/Plan Hospital Course SUBJECTIVE: Continues to complain of right lower extremity pain. OBJECTIVE: Physical Exam General: Obese, 53 year-old female lying in bed in no apparent distress. HEENT: Normocephalic, atraumatic. Eyes: Anicteric sclerae, conjunctivae clear. ENT: Nasal septum midline, oral mucosa moist. Neck supple, no JVD noticed. Respiratory: Bilaterally clear breath sounds. No use of accessory muscles of respiration. No adventitious breath sounds. Cardiovascular: S1, S2 heard. Regular rate and rhythm. Abdomen: Soft, nontender, and nondistended. Bowel sounds positive in all 4 quadrants. Genitourinary: Deferred. Extremities: No cyanosis, no clubbing. Right lower extremity edema with the right foot dressing. Neurologic: Cranial nerves II through XII grossly intact. The patient is awake, alert, and oriented. Skin: Normal skin turgor. No skin rashes. Labs & Vitals per chart ASSESSMENT & PLAN 53-year-old female with comorbidities including hypertension, diabetes mellitus, dyslipidemia, peripheral vascular disease, and severe right foot Charcot foot deformity with history of multiple foot surgeries and chronic open wound of the right foot who came to the ER complaining of right foot pain, swelling with the right foot x-ray showing findings consistent with infection with gas-forming organism, who was admitted to inpatient setting for further treatment and evaluation. 1. Chronic right foot wound with foot MRI showing new osteomyelitis in the mid cuneiform, the navicular, and in the lateral cuneiform. Continue antimicrobials as per ID. Being followed by podiatry. S/P bedside debridement on 09/28/2018. S/P bone culture of right foot on 10/03/2018. 2. Right ankle abscess. S/P incision and drainage of right ankle abscess with debridement on 10/03/2018. On antimicrobials as per ID. Being followed by podiatry. 3. Diabetes mellitus. Hemoglobin A1c 9.3. Continue sliding scale insulin along with basal insulin. Continue metformin. 4. Hypertension. Continue antihypertensives. 5. Dyslipidemia. Continue statins. 6. Iron deficiency. Continue iron supplements. 7. Hyperkalemia. Resolved. 8. Fluids, electrolytes, and nutrition. Carbohydrate controlled diet. 9. DVT prophylaxis. Subcutaneous heparin. 10. Plan. Continue antimicrobials as per ID. Await final cultures. Home health for home IV antibiotic therapy arranged. Awaiting PT evaluation and home health orders to be put in by podiatry for dressing changes. The patient was seen in collaboration with Dr. Hernandes. Result Diagram: 10/06/189 10/06/189 Results 24hrs Laboratory Tests Test 10/06/18 12:45 10/06/18 17:27 10/06/18 22:03 10/07/18 08:55 Bedside Glucose 138 158 118 127 Exam/Review of Systems Exam Vitals Vital Signs Date Temp Pulse Resp B/P (MAP) Pulse Ox O2 O2 Flow FiO2 Time Delivery Rate 10/07/18 98.1 74 20 131/59 93 Room Air 07:39 (83) 10/03/18 2.0 19:35 Intake and Output 10/06/18 10/06/18 10/07/18 1515:00 23:00 07:00 IntakeIntake Total 1050 ml 570 ml BalanceBalance 1050 ml 570 ml Results Results 24hrs Laboratory Tests Test 10/06/18 12:45 10/06/18 17:27 10/06/18 22:03 10/07/18 08:55 Bedside Glucose 138 158 118 127 Medications Medication Current Medications IV Flush (NS 3 ml) 3 ml PER PROTOCOL IV ; Start 09/28/18 at 02:30 Ondansetron HCl (Zofran Inj) 4 mg Q6H PRN IV NAUSEA/VOMITING Last administered on 09/30/18at 22:31; Admin Dose 4 MG; Start 09/28/18 at 02:30 Acetaminophen (Tylenol Tab) 650 mg Q6H PRN PO .PAIN 1-3 OR TEMP; Start 09/28/18 at 02:30 Acetaminophen/ Hydrocodone Bitart ([place] (5/325)) 1 tab Q6H PRN PO .MOD PAIN 4- 6 Last administered on 10/06/18at 13:36; Admin Dose 1 TAB; Start 09/28/18 at 02:30 Acetaminophen/ Hydrocodone Bitart ([place] (5/325)) 2 tab Q6H PRN PO .SEVERE PAIN 7-10 Last administered on 10/06/18 22:06; Admin Dose 2 TAB; Start 09/28/18 at 02:30 Heparin Sodium (Porcine) (Heparin (5000 Units/1ml)) 5,000 unit Q12 SC Last administered on 10/07/18 08:52; Admin Dose 5,000 UNIT; Start 09/28/18 at 09:00 Albuterol/ Ipratropium (Duoneb) 3 ml Q2H RESP THERAPY PRN HHN SHORTNESS OF BREATH; Start 09/28/18 at 02:30 Atorvastatin Calcium (Lipitor) 10 mg QHS PO Last administered on 10/06/18 22:00; Admin Dose 10 MG; Start 09/28/18 at 21:00 Fluoxetine HCl (Prozac) 20 mg DAILY PO Last administered on 10/07/18 08:46; Admin Dose 20 MG; Start 09/28/18 at 09:00 Lisinopril (Zestril) 5 mg DAILY PO Last administered on 10/07/18 08:47; Admin Dose 5 MG; Start 09/28/18 at 09:00 Metformin HCl (Glucophage) 1,000 mg WITH BREAKFAST DINNE PO Last administered on 10/07/18 08:53; Admin Dose 1,000 MG; Start 09/28/18 at 08:00 Diagnostic Test (Pha) (Accu-Chek) 1 ea AC MEALS AND BEDTIME XX Last administered on 10/07/18 07:00; Admin Dose 1 EA; Start 09/28/18 at 07:00 Diagnostic Test (Pha) (Accu-Chek) 1 ea 02 XX Last administered on 10/02/18 02:43; Admin Dose 1 EA; Start 09/29/18 at 02:00 Insulin Aspart (Novolog Insulin Pen) NOVOLOG *MODERATE* ALGORITHM WITH MEALS BEDTIME SC Last administered on 10/06/18 17:29; Admin Dose 2 UNIT; Start 09/28/18 at 08:00 Pantoprazole (Protonix Tab) 40 mg DAILY@06 PO Last administered on 10/07/18 06:48; Admin Dose 40 MG; Start 09/28/18 at 06:00 Miscellaneous Information 1 ea NOTE XX ; Start 09/28/18 at 03:00 Glucose (Glutose) 15 gm Q15M PRN PO DECREASED GLUCOSE; Start 09/28/18 at 03:00 Glucose (Glutose) 22.5 gm Q15M PRN PO DECREASED GLUCOSE; Start 09/28/18 at 03: 00 Dextrose (D50w Syringe) 25 ml Q15M PRN IV DECREASED GLUCOSE; Start 09/28/18 at 03:00 Dextrose (D50w Syringe) 50 ml Q15M PRN IV DECREASED GLUCOSE; Start 09/28/18 at 03:00 Glucagon (Glucagen) 1 mg Q15M PRN IM DECREASED GLUCOSE; Start 09/28/18 at 03:00 Glucose (Glutose) 15 gm Q15M PRN BUCCAL DECREASED GLUCOSE; Start 09/28/18 at 03:00 Insulin Aspart (Novolog Insulin Pen) 13 unit WITH MEALS SC Last administered on 09/30/18 08:20; Admin Dose 13 UNIT; Start 09/28/18 at 12:00; Status Hold Ferrous Sulfate (Ferrous Sulfate (Ec)) 325 mg TID PO Last administered on 10/07/18 08:46; Admin Dose 325 MG; Start 09/29/18 at 21:00 Insulin Glargine (Lantus) 35 units DAILY@0800 SC Last administered on 10/07/18 08:52; Admin Dose 35 UNITS; Start 10/01/18 at 08:00 Morphine Sulfate (morphine) 2 mg Q4H PRN IV SEVERE PAIN LEVEL 7-10 Last administered on 10/06/18 14:52; Admin Dose 2 MG; Start 10/01/18 at 01:00 Ceftriaxone Sodium 50 ml @ 100 mls/hr Q24H IVPB Last administered on 10/06/18 14:48; Admin Dose 100 MLS/HR; Start 10/01/18 at 14:00 Cholecalciferol (Vitamin D) 2,000 unit DAILY PO Last administered on 10/07/18 08:46; Admin Dose 2,000 UNIT; Start 10/01/18 at 12:00 IV Flush (NS 10 ml) 10 ml PRN PRN IV IV PROTOCOL; Start 10/04/18 at 17:00 Polyethylene Glycol (Miralax) 17 gm BID PO Last administered on 10/07/18 08:46; Admin Dose 17 GM; Start 10/06/18 at 21:00 Bisacodyl (Dulcolax) 10 mg DAILY PRN PO CONSTIPATION; Start 10/06/18 at 15:30 KRISTEL SALINAS NP Oct 07, 2018 10:04
[2018-10-07] MEDS: HYDROCODONE/APAP (5/325) TAB PO PRN (11:45)
--- NOTE | 2018-10-07 14:20 | CONS ---
Assessment/Plan Assessment/Plan Hospital Course (Demo Recall) Alert, feels good, some pain R foot, no fevers Microbiology: Right foot drainage culture grew oxacillin sensitive staph aureus MRI of the foot revealed osteomyelitis Antimicrobials: Rocephin Physical examination: Well-developed obese middle-aged woman who is alert in no distress. Head atraumatic normocephalic sclera nonicteric vehicle mucosa pink neck is supple chest rise symmetrical breath sounds clear heart: S1- S2. Abdomen soft bowel sounds present. Extremities with right lower extremity dressing clean dry and intact Assessment: 1. Right foot Charcot deformity/infectious myositis/Osteomyelitis 2. Right foot abscess status post I&D 1 3. Morbid obesity 4. Diabetes with peripheral neuropathy Plan: Stable, pending dc on IV Rocephin for 6 weeks, f/u podiatry rec ommendations DW pt Consultation Date/Type/Reason Admit Date/Time Sep 27, 2018 at 19:48 Initial Consult Date 09/27/18 Type of Consult id Date/Time of Note DATE: 10/07/18 TIME: 14:19 Exam/Review of Systems Exam Vitals Vital Signs Date Temp Pulse Resp B/P (MAP) Pulse Ox O2 O2 Flow FiO2 Time Delivery Rate 10/07/18 98.1 74 20 131/59 93 Room Air 07:39 (83) 10/03/18 2.0 19:35 Intake and Output 10/06/18 10/06/18 10/07/18 1515:00 23:00 07:00 IntakeIntake Total 1050 ml 570 ml BalanceBalance 1050 ml 570 ml Results Result Diagram: 10/06/18 0449 10/06/18 0449 Results 24hrs Laboratory Tests Test 10/06/18 17:27 10/06/18 22:03 10/07/18 08:55 10/07/18 12:31 Bedside Glucose 158 118 127 220 Medications Medication Current Medications IV Flush (NS 3 ml) 3 ml PER PROTOCOL IV ; Start 09/28/18 at 02:30 Ondansetron HCl (Zofran Inj) 4 mg Q6H PRN IV NAUSEA/VOMITING Last administered on 09/30/18at 22:31; Admin Dose 4 MG; Start 09/28/18 at 02:30 Acetaminophen (Tylenol Tab) 650 mg Q6H PRN PO .PAIN 1-3 OR TEMP; Start 09/28/18 at 02:30 Acetaminophen/ Hydrocodone Bitart ([place] (5/325)) 1 tab Q6H PRN PO .MOD PAIN 4- 6 Last administered on 10/06/18 13:36; Admin Dose 1 TAB; Start 09/28/18 at 02:30 Acetaminophen/ Hydrocodone Bitart ([place] (5/325)) 2 tab Q6H PRN PO .SEVERE PAIN 7-10 Last administered on 10/07/18 11:45; Admin Dose 2 TAB; Start 09/28/18 at 02:30 Heparin Sodium (Porcine) (Heparin (5000 Units/1ml)) 5,000 unit Q12 SC Last administered on 10/07/18 08:52; Admin Dose 5,000 UNIT; Start 09/28/18 at 09:00 Albuterol/ Ipratropium (Duoneb) 3 ml Q2H RESP THERAPY PRN HHN SHORTNESS OF BREATH; Start 09/28/18 at 02:30 Atorvastatin Calcium (Lipitor) 10 mg QHS PO Last administered on 10/06/18 22:00; Admin Dose 10 MG; Start 09/28/18 at 21:00 Fluoxetine HCl (Prozac) 20 mg DAILY PO Last administered on 10/07/18 08:46; Admin Dose 20 MG; Start 09/28/18 at 09:00 Lisinopril (Zestril) 5 mg DAILY PO Last administered on 10/07/18 08:47; Admin Dose 5 MG; Start 09/28/18 at 09:00 Metformin HCl (Glucophage) 1,000 mg WITH BREAKFAST DINNE PO Last administered on 10/07/18 08:53; Admin Dose 1,000 MG; Start 09/28/18 at 08:00 Diagnostic Test (Pha) (Accu-Chek) 1 ea AC MEALS AND BEDTIME XX Last administered on 10/07/18 12:29; Admin Dose 1 EA; Start 09/28/18 at 07:00 Diagnostic Test (Pha) (Accu-Chek) 1 ea 02 XX Last administered on 10/02/18 02:43; Admin Dose 1 EA; Start 09/29/18 at 02:00 Insulin Aspart (Novolog Insulin Pen) NOVOLOG *MODERATE* ALGORITHM WITH MEALS BEDTIME SC Last administered on 10/07/18 12:34; Admin Dose 4 UNIT; Start 09/28/18 at 08:00 Pantoprazole (Protonix Tab) 40 mg DAILY@06 PO Last administered on 10/07/18 06:48; Admin Dose 40 MG; Start 09/28/18 at 06:00 Miscellaneous Information 1 ea NOTE XX ; Start 09/28/18 at 03:00 Glucose (Glutose) 15 gm Q15M PRN PO DECREASED GLUCOSE; Start 09/28/18 at 03:00 Glucose (Glutose) 22.5 gm Q15M PRN PO DECREASED GLUCOSE; Start 09/28/18 at 03:00 Dextrose (D50w Syringe) 25 ml Q15M PRN IV DECREASED GLUCOSE; Start 09/28/18 at 03:00 Dextrose (D50w Syringe) 50 ml Q15M PRN IV DECREASED GLUCOSE; Start 09/28/18 at 03:00 Glucagon (Glucagen) 1 mg Q15M PRN IM DECREASED GLUCOSE; Start 09/28/18 at 03:00 Glucose (Glutose) 15 gm Q15M PRN BUCCAL DECREASED GLUCOSE; Start 09/28/18 at 03:00 Insulin Aspart (Novolog Insulin Pen) 13 unit WITH MEALS SC Last administered on 09/30/18 08:20; Admin Dose 13 UNIT; Start 09/28/18 at 12:00; Status Hold Ferrous Sulfate (Ferrous Sulfate (Ec)) 325 mg TID PO Last administered on 10/07/18 12:29; Admin Dose 325 MG; Start 09/29/18 at 21:00 Insulin Glargine (Lantus) 35 units DAILY@0800 SC Last administered on 10/07/18 08:52; Admin Dose 35 UNITS; Start 10/01/18 at 08:00 Morphine Sulfate (morphine) 2 mg Q4H PRN IV SEVERE PAIN LEVEL 7-10 Last administered on 10/06/18 14:52; Admin Dose 2 MG; Start 10/01/18 at 01:00 Ceftriaxone Sodium 50 ml @ 100 mls/hr Q24H IVPB Last administered on 10/06/18 14:48; Admin Dose 100 MLS/HR; Start 10/01/18 at 14:00 Cholecalciferol (Vitamin D) 2,000 unit DAILY PO Last administered on 10/07/18 08:46; Admin Dose 2,000 UNIT; Start 10/01/18 at 12:00 IV Flush (NS 10 ml) 10 ml PRN PRN IV IV PROTOCOL; Start 10/04/18 at 17:00 Polyethylene Glycol (Miralax) 17 gm BID PO Last administered on 10/07/18at 08:46; Admin Dose 17 GM; Start 10/06/18 at 21:00 Bisacodyl (Dulcolax) 10 mg DAILY PRN PO CONSTIPATION; Start 10/06/18 at 15:30 JANN SANDOVAL NP Oct 07, 2018 14:20
[2018-10-07 14:35] VITALS: BP 127/73; PULSE 83; RESP 18
[2018-10-07] MEDS: CEFTRIAXONE 2 GM/50 ML (PMX) 50 ML IVPB SCH (14:36)
[2018-10-07] MEDS: ONDANSETRON 4 MG INJ IV PRN (15:14)
[2018-10-07 19:50] VITALS: BP 142/66; PULSE 89; RESP 18
[2018-10-07] MEDS: ATORVASTATIN 10 MG TAB PO SCH (21:20)
[2018-10-07] MEDS: morphine 2 MG INJ IV PRN (23:15)
[2018-10-08 01:40] VITALS: BP 115/63; PULSE 89; RESP 18
[2018-10-08] MEDS: ACCU-CHEK XX SCH ×5 (01:40→20:14)
[2018-10-08] MEDS: PANTOPRAZOLE (EC) 40 MG TAB PO SCH (06:17)
[2018-10-08 07:48] VITALS: BP 148/67; PULSE 85; RESP 18
[2018-10-08] MEDS: INSULIN ASPART [NOVOLOG] 3 ML PEN SC SCH ×4 (07:55→20:14)
[2018-10-08] MEDS: LISINOPRIL 5 MG TAB PO SCH (08:01)
[2018-10-08] MEDS: metFORMIN 500 MG TAB PO SCH ×2 (08:02→17:28)
[2018-10-08] MEDS: POLYETHYLENE GLYCOL 17 GM PACKET PO SCH ×2 (08:02→20:07)
[2018-10-08] MEDS: FERROUS SULFATE (EC) 325 MG TAB PO SCH ×3 (08:02→20:07)
[2018-10-08] MEDS: FLUOXETINE 20 MG CAP PO SCH (08:02)
[2018-10-08] MEDS: CHOLECALCIFEROL 2,000 UNIT CAP PO SCH (08:02)
[2018-10-08] MEDS: HEPARIN 5,000 UNIT/1 ML VIAL SC SCH ×2 (08:04→20:08)
[2018-10-08] MEDS: INSULIN GLARGINE [LANTus] (100 UNITS/ML) SYG SC SCH (08:04)
[2018-10-08] MEDS: HYDROCODONE/APAP (5/325) TAB PO PRN ×2 (10:38→20:07)
--- NOTE | 2018-10-08 11:07 | CONS ---
Assessment/Plan Assessment/Plan Hospital Course (Demo Recall) No events Microbiology: Right foot drainage culture grew oxacillin sensitive staph aureus MRI of the foot revealed osteomyelitis Antimicrobials: Rocephin Physical examination: Well-developed obese middle-aged woman who is alert in no distress. Head atraumatic normocephalic sclera nonicteric vehicle mucosa pink neck is supple chest rise symmetrical breath sounds clear heart: S1- S2. Abdomen soft bowel sounds present. Extremities with right lower extremity dressing clean dry and intact Assessment: 1. Right foot Charcot deformity/infectious myositis/Osteomyelitis 2. Right foot abscess status post I&D 1 3. Morbid obesity 4. Diabetes with peripheral neuropathy Plan: Stable, pending dc arrangements on IV Rocephin for 6 weeks, f/u podiatry recommendations DW pt Consultation Date/Type/Reason Admit Date/Time Sep 27, 2018 at 19:48 Initial Consult Date 09/27/18 Type of Consult id Date/Time of Note DATE: 10/08/18 TIME: 11:06 Exam/Review of Systems Exam Vitals Vital Signs Date Temp Pulse Resp B/P (MAP) Pulse Ox O2 O2 Flow FiO2 Time Delivery Rate 10/08/18 99.4 85 18 148/67 96 07:48 (94) 10/07/18 Room Air 14:35 Intake and Output 10/07/18 10/07/18 10/08/18 1515:00 23:00 07:00 IntakeIntake Total 720 ml 530 ml BalanceBalance 720 ml 530 ml Results Result Diagram: 10/06/18 0449 10/06/18 0449 Results 24hrs Laboratory Tests Test 10/07/18 12:31 10/07/18 17:07 10/07/18 21:19 10/08/18 07:54 Bedside Glucose 220 142 150 127 Medications Medication Current Medications IV Flush (NS 3 ml) 3 ml PER PROTOCOL IV ; Start 09/28/18 at 02:30 Ondansetron HCl (Zofran Inj) 4 mg Q6H PRN IV NAUSEA/VOMITING Last administered on 10/07/18at 15:14; Admin Dose 4 MG; Start 09/28/18 at 02:30 Acetaminophen (Tylenol Tab) 650 mg Q6H PRN PO .PAIN 1-3 OR TEMP; Start 09/28/18 at 02:30 Acetaminophen/ Hydrocodone Bitart ([place] (5/325)) 1 tab Q6H PRN PO .MOD PAIN 4- 6 Last administered on 10/08/18 10:38; Admin Dose 1 TAB; Start 09/28/18 at 02:30 Acetaminophen/ Hydrocodone Bitart ([place] (5/325)) 2 tab Q6H PRN PO .SEVERE PAIN 7-10 Last administered on 10/07/18 11:45; Admin Dose 2 TAB; Start 09/28/18 at 02:30 Heparin Sodium (Porcine) (Heparin (5000 Units/1ml)) 5,000 unit Q12 SC Last administered on 10/08/18 08:04; Admin Dose 5,000 UNIT; Start 09/28/18 at 09:00 Albuterol/ Ipratropium (Duoneb) 3 ml Q2H RESP THERAPY PRN HHN SHORTNESS OF BREATH; Start 09/28/18 at 02:30 Atorvastatin Calcium (Lipitor) 10 mg QHS PO Last administered on 10/07/18 21:20; Admin Dose 10 MG; Start 09/28/18 at 21:00 Fluoxetine HCl (Prozac) 20 mg DAILY PO Last administered on 10/08/18 08:02; Admin Dose 20 MG; Start 09/28/18 at 09:00 Lisinopril (Zestril) 5 mg DAILY PO Last administered on 10/08/18 08:01; Admin Dose 5 MG; Start 09/28/18 at 09:00 Metformin HCl (Glucophage) 1,000 mg WITH BREAKFAST DINNE PO Last administered on 10/08/18 08:02; Admin Dose 1,000 MG; Start 09/28/18 at 08:00 Diagnostic Test (Pha) (Accu-Chek) 1 ea AC MEALS AND BEDTIME XX Last administered on 10/07/18 21:24; Admin Dose 1 EA; Start 09/28/18 at 07:00 Diagnostic Test (Pha) (Accu-Chek) 1 ea 02 XX Last administered on 10/02/18 02:43; Admin Dose 1 EA; Start 09/29/18 at 02:00 Insulin Aspart (Novolog Insulin Pen) NOVOLOG *MODERATE* ALGORITHM WITH MEALS BEDTIME SC Last administered on 10/07/18 17:14; Admin Dose 2 UNIT; Start 09/28/18 at 08:00 Pantoprazole (Protonix Tab) 40 mg DAILY@06 PO Last administered on 10/08/18 06:17; Admin Dose 40 MG; Start 09/28/18 at 06:00 Miscellaneous Information 1 ea NOTE XX ; Start 09/28/18 at 03:00 Glucose (Glutose) 15 gm Q15M PRN PO DECREASED GLUCOSE; Start 09/28/18 at 03:00 Glucose (Glutose) 22.5 gm Q15M PRN PO DECREASED GLUCOSE; Start 09/28/18 at 03:00 Dextrose (D50w Syringe) 25 ml Q15M PRN IV DECREASED GLUCOSE; Start 09/28/18 at 03:00 Dextrose (D50w Syringe) 50 ml Q15M PRN IV DECREASED GLUCOSE; Start 09/28/18 at 03:00 Glucagon (Glucagen) 1 mg Q15M PRN IM DECREASED GLUCOSE; Start 09/28/18 at 03:00 Glucose (Glutose) 15 gm Q15M PRN BUCCAL DECREASED GLUCOSE; Start 09/28/18 at 03:00 Insulin Aspart (Novolog Insulin Pen) 13 unit WITH MEALS SC Last administered on 09/30/18 08:20; Admin Dose 13 UNIT; Start 09/28/18 at 12:00; Status Hold Ferrous Sulfate (Ferrous Sulfate (Ec)) 325 mg TID PO Last administered on 10/08/18 08:02; Admin Dose 325 MG; Start 09/29/18 at 21:00 Insulin Glargine (Lantus) 35 units DAILY@0800 SC Last administered on 10/08/18 08:04; Admin Dose 35 UNITS; Start 10/01/18 at 08:00 Morphine Sulfate (morphine) 2 mg Q4H PRN IV SEVERE PAIN LEVEL 7-10 Last administered on 10/07/18 23:15; Admin Dose 2 MG; Start 10/01/18 at 01:00 Ceftriaxone Sodium 50 ml @ 100 mls/hr Q24H IVPB Last administered on 10/07/18at 14:36; Admin Dose 100 MLS/HR; Start 10/01/18 at 14:00 Cholecalciferol (Vitamin D) 2,000 unit DAILY PO Last administered on 10/08/18 08:02; Admin Dose 2,000 UNIT; Start 10/01/18 at 12:00 IV Flush (NS 10 ml) 10 ml PRN PRN IV IV PROTOCOL; Start 10/04/18 at 17:00 Polyethylene Glycol (Miralax) 17 gm BID PO Last administered on 10/08/18at 08:02; Admin Dose 17 GM; Start 10/06/18 at 21:00 Bisacodyl (Dulcolax) 10 mg DAILY PRN PO CONSTIPATION; Start 10/06/18 at 15:30 JANN SANDOVAL NP Oct 08, 2018 11:07
--- NOTE | 2018-10-08 12:24 | PN ---
Date/Time of Note Date/Time of Note DATE: 10/08/18 TIME: 12:23 Assessment/Plan VTE Prophylaxis Risk score (from Nsg)>0 risk: 1 SCD applied (from Nsg): Yes Pharmacological prophylaxis: heparin Lines/Catheters IV Catheter Type (from Nrsg): PICC Line Central line still needed: Yes Assessment/Plan Hospital Course SUBJECTIVE: Continues to complain of right lower extremity pain. OBJECTIVE: Physical Exam General: Obese, 53 year-old female lying in bed in no apparent distress. HEENT: Normocephalic, atraumatic. Eyes: Anicteric sclerae, conjunctivae clear. ENT: Nasal septum midline, oral mucosa moist. Neck supple, no JVD noticed. Respiratory: Bilaterally clear breath sounds. No use of accessory muscles of respiration. No adventitious breath sounds. Cardiovascular: S1, S2 heard. Regular rate and rhythm. Abdomen: Soft, nontender, and nondistended. Bowel sounds positive in all 4 quadrants. Genitourinary: Deferred. Extremities: No cyanosis, no clubbing. Right lower extremity edema with the right foot dressing. Neurologic: Cranial nerves II through XII grossly intact. The patient is awake, alert, and oriented. Skin: Normal skin turgor. No skin rashes. Labs & Vitals per chart ASSESSMENT & PLAN 53-year-old female with comorbidities including hypertension, diabetes mellitus, dyslipidemia, peripheral vascular disease, and severe right foot Charcot foot deformity with history of multiple foot surgeries and chronic open wound of the right foot who came to the ER complaining of right foot pain, swelling with the right foot x-ray showing findings consistent with infection with gas-forming organism, who was admitted to inpatient setting for further treatment and evaluation. 1. Chronic right foot wound with foot MRI showing new osteomyelitis in the mid cuneiform, the navicular, and in the lateral cuneiform. Continue antimicrobials as per ID. Being followed by podiatry. S/P bedside debridement on 09/28/2018. S/P bone culture of right foot on 10/03/2018. 2. Right ankle abscess. S/P incision and drainage of right ankle abscess with debridement on 10/03/2018. On antimicrobials as per ID. Being followed by podiatry. 3. Diabetes mellitus. Hemoglobin A1c 9.3. Continue sliding scale insulin along with basal insulin. Continue metformin. 4. Hypertension. Continue antihypertensives. 5. Dyslipidemia. Continue statins. 6. Iron deficiency. Continue iron supplements. 7. Hyperkalemia. Resolved. 8. Fluids, electrolytes, and nutrition. Carbohydrate controlled diet. 9. DVT prophylaxis. Subcutaneous heparin. 10. Plan. Continue antimicrobials as per ID. Await final cultures. Home health for home IV antibiotic therapy arranged. Awaiting further arrangements made for HH including home PT evaluation and dressing changes. The patient was seen in collaboration with Dr. Hernandes. Result Diagram: 10/06/189 10/06/18448 Results 24hrs Laboratory Tests Test 10/07/18 12:31 10/07/18 17:07 10/07/18 21:19 10/08/18 07:54 Bedside Glucose 220 142 150 127 Exam/Review of Systems Exam Vitals Vital Signs Date Temp Pulse Resp B/P (MAP) Pulse Ox O2 O2 Flow FiO2 Time Delivery Rate 10/08/18 99.4 85 18 148/67 96 07:48 (94) 10/07/18 Room Air 14:35 Intake and Output 10/07/18 10/07/18 10/08/18 1515:00 23:00 07:00 IntakeIntake Total 720 ml 530 ml BalanceBalance 720 ml 530 ml Results Results 24hrs Laboratory Tests Test 10/07/18 12:31 10/07/18 17:07 10/07/18 21:19 10/08/18 07:54 Bedside Glucose 220 142 150 127 Medications Medication Current Medications IV Flush (NS 3 ml) 3 ml PER PROTOCOL IV ; Start 09/28/18 at 02:30 Ondansetron HCl (Zofran Inj) 4 mg Q6H PRN IV NAUSEA/VOMITING Last administered on 10/07/18at 15:14; Admin Dose 4 MG; Start 09/28/18 at 02:30 Acetaminophen (Tylenol Tab) 650 mg Q6H PRN PO .PAIN 1-3 OR TEMP; Start 09/28/18 at 02:30 Acetaminophen/ Hydrocodone Bitart ([place] (5/325)) 1 tab Q6H PRN PO .MOD PAIN 4- 6 Last administered on 10/08/18at 10:38; Admin Dose 1 TAB; Start 09/28/18 at 02:30 Acetaminophen/ Hydrocodone Bitart ([place] (5/325)) 2 tab Q6H PRN PO .SEVERE PAIN 7-10 Last administered on 10/07/18 11:45; Admin Dose 2 TAB; Start 09/28/18 at 02:30 Heparin Sodium (Porcine) (Heparin (5000 Units/1ml)) 5,000 unit Q12 SC Last administered on 10/08/18 08:04; Admin Dose 5,000 UNIT; Start 09/28/18 at 09:00 Albuterol/ Ipratropium (Duoneb) 3 ml Q2H RESP THERAPY PRN HHN SHORTNESS OF BREATH; Start 09/28/18 at 02:30 Atorvastatin Calcium (Lipitor) 10 mg QHS PO Last administered on 10/07/18 21:20; Admin Dose 10 MG; Start 09/28/18 at 21:00 Fluoxetine HCl (Prozac) 20 mg DAILY PO Last administered on 10/08/18 08:02; Admin Dose 20 MG; Start 09/28/18 at 09:00 Lisinopril (Zestril) 5 mg DAILY PO Last administered on 10/08/18 08:01; Admin Dose 5 MG; Start 09/28/18 at 09:00 Metformin HCl (Glucophage) 1,000 mg WITH BREAKFAST DINNE PO Last administered on 10/08/18 08:02; Admin Dose 1,000 MG; Start 09/28/18 at 08:00 Diagnostic Test (Pha) (Accu-Chek) 1 ea AC MEALS AND BEDTIME XX Last administered on 10/07/18 21:24; Admin Dose 1 EA; Start 09/28/18 at 07:00 Diagnostic Test (Pha) (Accu-Chek) 1 ea 02 XX Last administered on 10/02/18 02:43; Admin Dose 1 EA; Start 09/29/18 at 02:00 Insulin Aspart (Novolog Insulin Pen) NOVOLOG *MODERATE* ALGORITHM WITH MEALS BEDTIME SC Last administered on 10/07/18 17:14; Admin Dose 2 UNIT; Start 09/28/18 at 08:00 Pantoprazole (Protonix Tab) 40 mg DAILY@06 PO Last administered on 10/08/18 06:17; Admin Dose 40 MG; Start 09/28/18 at 06:00 Miscellaneous Information 1 ea NOTE XX ; Start 09/28/18 at 03:00 Glucose (Glutose) 15 gm Q15M PRN PO DECREASED GLUCOSE; Start 09/28/18 at 03:00 Glucose (Glutose) 22.5 gm Q15M PRN PO DECREASED GLUCOSE; Start 09/28/18 at 03:00 Dextrose (D50w Syringe) 25 ml Q15M PRN IV DECREASED GLUCOSE; Start 09/28/18 at 03:00 Dextrose (D50w Syringe) 50 ml Q15M PRN IV DECREASED GLUCOSE; Start 09/28/18 at 03:00 Glucagon (Glucagen) 1 mg Q15M PRN IM DECREASED GLUCOSE; Start 09/28/18 at 03:00 Glucose (Glutose) 15 gm Q15M PRN BUCCAL DECREASED GLUCOSE; Start 09/28/18 at 03:00 Insulin Aspart (Novolog Insulin Pen) 13 unit WITH MEALS SC Last administered on 09/30/18 08:20; Admin Dose 13 UNIT; Start 09/28/18 at 12:00; Status Hold Ferrous Sulfate (Ferrous Sulfate (Ec)) 325 mg TID PO Last administered on 10/08/18 08:02; Admin Dose 325 MG; Start 09/29/18 at 21:00 Insulin Glargine (Lantus) 35 units DAILY@0800 SC Last administered on 10/08/18 08:04; Admin Dose 35 UNITS; Start 10/01/18 at 08:00 Morphine Sulfate (morphine) 2 mg Q4H PRN IV SEVERE PAIN LEVEL 7-10 Last administered on 10/07/18at 23:15; Admin Dose 2 MG; Start 10/01/18 at 01:00 Ceftriaxone Sodium 50 ml @ 100 mls/hr Q24H IVPB Last administered on 10/07/18at 14:36; Admin Dose 100 MLS/HR; Start 10/01/18 at 14:00 Cholecalciferol (Vitamin D) 2,000 unit DAILY PO Last administered on 10/08/18 08:02; Admin Dose 2,000 UNIT; Start 10/01/18 at 12:00 IV Flush (NS 10 ml) 10 ml PRN PRN IV IV PROTOCOL; Start 10/04/18 at 17:00 Polyethylene Glycol (Miralax) 17 gm BID PO Last administered on 10/08/18 08:02; Admin Dose 17 GM; Start 10/06/18 at 21:00 Bisacodyl (Dulcolax) 10 mg DAILY PRN PO CONSTIPATION; Start 10/06/18 at 15:30 KRISTEL SALINAS NP Oct 08, 2018 12:24
[2018-10-08] MEDS: CEFTRIAXONE 2 GM/50 ML (PMX) 50 ML IVPB SCH ×2 (14:00→16:24)
[2018-10-08] MEDS: ONDANSETRON 4 MG INJ IV PRN (14:07)
[2018-10-08 14:11] VITALS: BP 153/75; PULSE 85; RESP 18
[2018-10-08 19:37] VITALS: BP 130/71; PULSE 92; RESP 18
[2018-10-08] MEDS: ATORVASTATIN 10 MG TAB PO SCH (20:07)
--- NOTE | 2018-10-08 23:50 | PN ---
Date/Time of Note Date/Time of Note DATE: 10/08/18 TIME: 23:50 Assessment/Plan Lines/Catheters IV Catheter Type (from Nrs): PICC Line Berry in Place (from Nrs): No Assessment/Plan Chief Complaint/Hosp Course Patient will be taken to the OR today for further incision and drainage of persistent abscess of her right ankle joint with possible hardware removal of th e right foot. Exam/Review of Systems Vital Signs Vitals Vital Signs Date Temp Pulse Resp B/P (MAP) Pulse Ox O2 O2 Flow FiO2 Time Delivery Rate 10/08/18 98.8 92 18 130/71 95 19:37 (90) 10/07/18 Room Air 14:35 Intake and Output 10/07/18 10/07/18 10/08/18 1515:00 23:00 07:00 IntakeIntake Total 720 ml 530 ml BalanceBalance 720 ml 530 ml Results Result Diagram: 10/06/18 0449 10/06/18 0449 COLETTE MCQUEEN DPM Oct 08, 2018 23:50
[2018-10-09 01:29] VITALS: BP 118/66; PULSE 85; RESP 18
[2018-10-09] MEDS: ACCU-CHEK XX SCH ×5 (02:00→21:00)
[2018-10-09] MEDS: HYDROCODONE/APAP (5/325) TAB PO PRN (04:40)
[2018-10-09] MEDS: PANTOPRAZOLE (EC) 40 MG TAB PO SCH (05:15)
[2018-10-09 07:53] VITALS: BP 120/60; PULSE 83; RESP 16
[2018-10-09] MEDS: INSULIN ASPART [NOVOLOG] 3 ML PEN SC SCH ×4 (08:00→21:41)
[2018-10-09] MEDS: FLUOXETINE 20 MG CAP PO SCH (08:07)
[2018-10-09] MEDS: POLYETHYLENE GLYCOL 17 GM PACKET PO SCH (08:07)
[2018-10-09] MEDS: CHOLECALCIFEROL 2,000 UNIT CAP PO SCH (08:07)
[2018-10-09] MEDS: FERROUS SULFATE (EC) 325 MG TAB PO SCH ×3 (08:07→21:36)
[2018-10-09] MEDS: LISINOPRIL 5 MG TAB PO SCH (08:08)
[2018-10-09] MEDS: metFORMIN 500 MG TAB PO SCH ×2 (08:08→17:32)
[2018-10-09] MEDS: HEPARIN 5,000 UNIT/1 ML VIAL SC SCH ×2 (08:19→21:40)
[2018-10-09] MEDS: INSULIN GLARGINE [LANTus] (100 UNITS/ML) SYG SC SCH (08:20)
[2018-10-09] MEDS: COLLAGENASE 5 GM (UD JAR) TOP SCH (08:21)
[2018-10-09] MEDS: DAKINS 0.0125%(1/40) 473 ML SOLUTION TP SCH (08:21)
--- NOTE | 2018-10-09 10:44 | CONS ---
Assessment/Plan Assessment/Plan Hospital Course (Demo Recall) No events, alert, feels good, afebrile Microbiology: Right foot drainage culture grew oxacillin sensitive staph aureus MRI of the foot revealed osteomyelitis Antimicrobials: Rocephin Physical examination: Well-developed obese middle-aged woman who is alert in no distress. Head atraumatic normocephalic sclera nonicteric vehicle mucosa pink neck is supple chest rise symmetrical breath sounds clear heart: S1- S2. Abdomen soft bowel sounds present. Extremities with right lower extremity dressing clean dry and intact Assessment: 1. Right foot Charcot deformity/infectious myositis/Osteomyelitis ?infected HW 2. Right foot abscess status post I&D 1 3. Morbid obesity 4. Diabetes with peripheral neuropathy Plan: Stable, podiatry rec-s noted, plan for repeat debridement w poss HW removal, dc arrangements on IV Rocephin for 6 weeks Consultation Date/Type/Reason Admit Date/Time Sep 27, 2018 at 19:48 Initial Consult Date 09/27/18 Type of Consult id Date/Time of Note DATE: 10/09/18 TIME: 10:42 Exam/Review of Systems Exam Vitals Vital Signs Date Temp Pulse Resp B/P (MAP) Pulse Ox O2 O2 Flow FiO2 Time Delivery Rate 10/09/18 98.6 83 16 120/60 96 Room Air 07:53 (80) Intake and Output 10/08/18 10/08/18 10/09/18 1515:00 23:00 07:00 IntakeIntake Total 300 ml 550 ml 360 ml BalanceBalance 300 ml 550 ml 360 ml Results Result Diagram: 10/09/18 0517 10/09/18 0517 Results 24hrs Laboratory Tests Test 10/08/18 12:26 10/08/18 17:25 10/08/18 20:11 10/09/18 04:40 Bedside Glucose 110 110 124 79 Test 10/09/18 05:17 10/09/18 08:06 White Blood Count 7.6 Red Blood Count 3.46 L Hemoglobin 8.6 L Hematocrit 27.9 L Mean Corpuscular Volume 80.6 L Mean Corpuscular 24.9 L Hemoglobin Mean Corpuscular 30.8 L Hemoglobin Concent Red Cell Distribution 17.7 H Width Platelet Count 446 H Mean Platelet Volume 9.4 Immature Granulocytes % 0.800 H Neutrophils % 56.3 Lymphocytes % 31.6 Monocytes % 9.6 Eosinophils % 1.2 Basophils % 0.5 Nucleated Red Blood 0.0 Cells % Immature Granulocytes # 0.060 H Neutrophils # 4.3 Lymphocytes # 2.4 Monocytes # 0.7 Eosinophils # 0.1 Basophils # 0.0 Nucleated Red Blood 0.0 Cells # Sodium Level 143 Potassium Level 3.7 Chloride Level 106 Carbon Dioxide Level 30 Anion Gap 7 Blood Urea Nitrogen 9 Creatinine 0.64 Est Glomerular Filtrat > 60 Rate mL/min Glucose Level 99 Calcium Level 8.1 L Phosphorus Level 4.3 Magnesium Level 1.5 L Bedside Glucose 95 Medications Medication Current Medications IV Flush (NS 3 ml) 3 ml PER PROTOCOL IV ; Start 09/28/18 at 02:30 Ondansetron HCl (Zofran Inj) 4 mg Q6H PRN IV NAUSEA/VOMITING Last administered on 10/08/18 14:07; Admin Dose 4 MG; Start 09/28/18 at 02:30 Acetaminophen (Tylenol Tab) 650 mg Q6H PRN PO .PAIN 1-3 OR TEMP; Start 09/28/18 at 02:30 Acetaminophen/ Hydrocodone Bitart ([place] (5/325)) 1 tab Q6H PRN PO .MOD PAIN 4- 6 Last administered on 10/09/18 04:40; Admin Dose 1 TAB; Start 09/28/18 at 02:30 Acetaminophen/ Hydrocodone Bitart ([place] (5/325)) 2 tab Q6H PRN PO .SEVERE PAIN 7-10 Last administered on 10/07/18 11:45; Admin Dose 2 TAB; Start 09/28/18 at 02:30 Heparin Sodium (Porcine) (Heparin (5000 Units/1ml)) 5,000 unit Q12 SC Last administered on 10/09/18 08:19; Admin Dose 5,000 UNIT; Start 09/28/18 at 09:00 Albuterol/ Ipratropium (Duoneb) 3 ml Q2H RESP THERAPY PRN HHN SHORTNESS OF BREATH; Start 09/28/18 at 02:30 Atorvastatin Calcium (Lipitor) 10 mg QHS PO Last administered on 10/08/18 20:07; Admin Dose 10 MG; Start 09/28/18 at 21:00 Fluoxetine HCl (Prozac) 20 mg DAILY PO Last administered on 10/09/18 08:07; Admin Dose 20 MG; Start 09/28/18 at 09:00 Lisinopril (Zestril) 5 mg DAILY PO Last administered on 10/09/18 08:08; Admin Dose 5 MG; Start 09/28/18 at 09:00 Metformin HCl (Glucophage) 1,000 mg WITH BREAKFAST DINNE PO Last administered on 10/09/18 08:08; Admin Dose 1,000 MG; Start 09/28/18 at 08:00 Diagnostic Test (Pha) (Accu-Chek) 1 ea AC MEALS AND BEDTIME XX Last administered on 10/09/18 07:00; Admin Dose 1 EA; Start 09/28/18 at 07:00 Diagnostic Test (Pha) (Accu-Chek) 1 ea 02 XX Last administered on 10/02/18at 02:43; Admin Dose 1 EA; Start 09/29/18 at 02:00 Insulin Aspart (Novolog Insulin Pen) NOVOLOG *MODERATE* ALGORITHM WITH MEALS BEDTIME SC Last administered on 10/07/18at 17:14; Admin Dose 2 UNIT; Start 09/28/18 at 08:00 Pantoprazole (Protonix Tab) 40 mg DAILY@06 PO Last administered on 10/09/18at 05:15; Admin Dose 40 MG; Start 09/28/18 at 06:00 Miscellaneous Information 1 ea NOTE XX ; Start 09/28/18 at 03:00 Glucose (Glutose) 15 gm Q15M PRN PO DECREASED GLUCOSE; Start 09/28/18 at 03:00 Glucose (Glutose) 22.5 gm Q15M PRN PO DECREASED GLUCOSE; Start 09/28/18 at 03:00 Dextrose (D50w Syringe) 25 ml Q15M PRN IV DECREASED GLUCOSE; Start 09/28/18 at 03:00 Dextrose (D50w Syringe) 50 ml Q15M PRN IV DECREASED GLUCOSE; Start 09/28/18 at 03:00 Glucagon (Glucagen) 1 mg Q15M PRN IM DECREASED GLUCOSE; Start 09/28/18 at 03:00 Glucose (Glutose) 15 gm Q15M PRN BUCCAL DECREASED GLUCOSE; Start 09/28/18 at 03:00 Insulin Aspart (Novolog Insulin Pen) 13 unit WITH MEALS SC Last administered o n 09/30/18at 08:20; Admin Dose 13 UNIT; Start 09/28/18 at 12:00; Status Hold Ferrous Sulfate (Ferrous Sulfate (Ec)) 325 mg TID PO Last administered on 10/09/18 08:07; Admin Dose 325 MG; Start 09/29/18 at 21:00 Insulin Glargine (Lantus) 35 units DAILY@0800 SC Last administered on 10/09/18 08:20; Admin Dose 35 UNITS; Start 10/01/18 at 08:00 Morphine Sulfate (morphine) 2 mg Q4H PRN IV SEVERE PAIN LEVEL 7-10 Last administered on 10/07/18 23:15; Admin Dose 2 MG; Start 10/01/18 at 01:00 Ceftriaxone Sodium 50 ml @ 100 mls/hr Q24H IVPB Last administered on 10/08/18 16:24; Admin Dose 100 MLS/HR; Start 10/01/18 at 14:00 Cholecalciferol (Vitamin D) 2,000 unit DAILY PO Last administered on 10/09/18 08:07; Admin Dose 2,000 UNIT; Start 10/01/18 at 12:00 IV Flush (NS 10 ml) 10 ml PRN PRN IV IV PROTOCOL; Start 10/04/18 at 17:00 Polyethylene Glycol (Miralax) 17 gm BID PO Last administered on 10/09/18 08:07; Admin Dose 17 GM; Start 10/06/18 at 21:00 Bisacodyl (Dulcolax) 10 mg DAILY PRN PO CONSTIPATION; Start 10/06/18 at 15:30 Sodium Hypochlorite (Dakins Diluted (1/40)) 1 applic DAILY TP ; Start 10/09/18 at 09:00 Collagenase (Santyl) 1 applic DAILY TOP ; Start 10/09/18 at 09:00 JANN SANDOVAL NP Oct 09, 2018 10:44
[2018-10-09 14:06] VITALS: BP 120/71; PULSE 85; RESP 16
[2018-10-09] MEDS: CEFTRIAXONE 2 GM/50 ML (PMX) 50 ML IVPB SCH (14:38)
[2018-10-09] MEDS ORDERED: MAGNESIUM SULFATE 2 GM/50 ML 50 ML IVPB ONE (15:00)
--- NOTE | 2018-10-09 19:14 | PN ---
Date/Time of Note Date/Time of Note DATE: 10/09/18 TIME: 19:12 Assessment/Plan VTE Prophylaxis Risk score (from Nsg)>0 risk: 3 SCD applied (from Nsg): Yes SCD contraindicated: low risk/ambulating Pharmacological prophylaxis: LMWH Lines/Catheters IV Catheter Type (from Nrsg): PICC Line Central line still needed: Yes Urinary Cath still in place: No Assessment/Plan Hospital Course Hospitalist coverage Assessment and plan 1. Right foot abscess status post I&D. Repeat I&D if indicated. Continue antibiotics/wound care. 2. Type 2 diabetes A1c 9.3 3. Metabolic syndrome continue aspirin 4. Hypertension 5. Anemia 6. Likely diabetic neuropathy 7. Likely diabetic retinopathy Subjective: No pain dyspnea fever. Limited ambulation. Wheelchair at bedside Objective: Vital signs stable Physical exam No pallor Regular Clear Benign No edema; lower foot dressed intact Result Diagram: 10/09/18 0517 10/09/18 0517 Results 24hrs Laboratory Tests Test 10/08/18 20:11 10/09/18 04:40 10/09/18 05:17 10/09/18 08:06 Bedside Glucose 124 79 95 White Blood Count 7.6 Red Blood Count 3.46 L Hemoglobin 8.6 L Hematocrit 27.9 L Mean Corpuscular Volume 80.6 L Mean Corpuscular 24.9 L Hemoglobin Mean Corpuscular 30.8 L Hemoglobin Concent Red Cell Distribution 17.7 H Width Platelet Count 446 H Mean Platelet Volume 9.4 Immature Granulocytes % 0.800 H Neutrophils % 56.3 Lymphocytes % 31.6 Monocytes % 9.6 Eosinophils % 1.2 Basophils % 0.5 Nucleated Red Blood 0.0 Cells % Immature Granulocytes # 0.060 H Neutrophils # 4.3 Lymphocytes # 2.4 Monocytes # 0.7 Eosinophils # 0.1 Basophils # 0.0 Nucleated Red Blood 0.0 Cells # Sodium Level 143 Potassium Level 3.7 Chloride Level 106 Carbon Dioxide Level 30 Anion Gap 7 Blood Urea Nitrogen 9 Creatinine 0.64 Est Glomerular Filtrat > 60 Rate mL/min Glucose Level 99 Calcium Level 8.1 L Phosphorus Level 4.3 Magnesium Level 1.5 L Test 10/09/18 13:14 10/09/18 17:31 Bedside Glucose 165 151 Exam/Review of Systems Exam Vitals Vital Signs Date Temp Pulse Resp B/P (MAP) Pulse Ox O2 O2 Flow FiO2 Time Delivery Rate 10/09/18 98.0 85 16 120/71 97 Room Air 14:06 (87) Intake and Output 10/08/18 10/08/18 10/09/18 1515:00 23:00 07:00 IntakeIntake Total 300 ml 550 ml 360 ml BalanceBalance 300 ml 550 ml 360 ml Results Results 24hrs Laboratory Tests Test 10/08/18 20:11 10/09/18 04:40 10/09/18 05:17 10/09/18 08:06 Bedside Glucose 124 79 95 White Blood Count 7.6 Red Blood Count 3.46 L Hemoglobin 8.6 L Hematocrit 27.9 L Mean Corpuscular Volume 80.6 L Mean Corpuscular 24.9 L Hemoglobin Mean Corpuscular 30.8 L Hemoglobin Concent Red Cell Distribution 17.7 H Width Platelet Count 446 H Mean Platelet Volume 9.4 Immature Granulocytes % 0.800 H Neutrophils % 56.3 Lymphocytes % 31.6 Monocytes % 9.6 Eosinophils % 1.2 Basophils % 0.5 Nucleated Red Blood 0.0 Cells % Immature Granulocytes # 0.060 H Neutrophils # 4.3 Lymphocytes # 2.4 Monocytes # 0.7 Eosinophils # 0.1 Basophils # 0.0 Nucleated Red Blood 0.0 Cells # Sodium Level 143 Potassium Level 3.7 Chloride Level 106 Carbon Dioxide Level 30 Anion Gap 7 Blood Urea Nitrogen 9 Creatinine 0.64 Est Glomerular Filtrat > 60 Rate mL/min Glucose Level 99 Calcium Level 8.1 L Phosphorus Level 4.3 Magnesium Level 1.5 L Test 10/09/18 13:14 10/09/18 17:31 Bedside Glucose 165 151 Medications Medication Current Medications IV Flush (NS 3 ml) 3 ml PER PROTOCOL IV ; Start 09/28/18 at 02:30 Ondansetron HCl (Zofran Inj) 4 mg Q6H PRN IV NAUSEA/VOMITING Last administered on 10/08/18at 14:07; Admin Dose 4 MG; Start 09/28/18 at 02:30 Acetaminophen (Tylenol Tab) 650 mg Q6H PRN PO .PAIN 1-3 OR TEMP; Start 09/28/18 at 02:30 Acetaminophen/ Hydrocodone Bitart ([place] (5/325)) 1 tab Q6H PRN PO .MOD PAIN 4- 6 Last administered on 10/09/18 04:40; Admin Dose 1 TAB; Start 09/28/18 at 02:30 Acetaminophen/ Hydrocodone Bitart ([place] (5/325)) 2 tab Q6H PRN PO .SEVERE PAIN 7-10 Last administered on 10/07/18 11:45; Admin Dose 2 TAB; Start 09/28/18 at 02:30 Heparin Sodium (Porcine) (Heparin (5000 Units/1ml)) 5,000 unit Q12 SC Last administered on 10/09/18 08:19; Admin Dose 5,000 UNIT; Start 09/28/18 at 09:00 Albuterol/ Ipratropium (Duoneb) 3 ml Q2H RESP THERAPY PRN HHN SHORTNESS OF BREATH; Start 09/28/18 at 02:30 Atorvastatin Calcium (Lipitor) 10 mg QHS PO Last administered on 10/08/18 20:07; Admin Dose 10 MG; Start 09/28/18 at 21:00 Fluoxetine HCl (Prozac) 20 mg DAILY PO Last administered on 10/09/18 08:07; Admin Dose 20 MG; Start 09/28/18 at 09:00 Lisinopril (Zestril) 5 mg DAILY PO Last administered on 10/09/18 08:08; Admin Dose 5 MG; Start 09/28/18 at 09:00 Metformin HCl (Glucophage) 1,000 mg WITH BREAKFAST DINNE PO Last administered on 10/09/18 17:32; Admin Dose 1,000 MG; Start 09/28/18 at 08:00 Diagnostic Test (Pha) (Accu-Chek) 1 ea AC MEALS AND BEDTIME XX Last administered on 10/09/18 17:30; Admin Dose 1 EA; Start 09/28/18 at 07:00 Diagnostic Test (Pha) (Accu-Chek) 1 ea 02 XX Last administered on 10/02/18 02:43; Admin Dose 1 EA; Start 09/29/18 at 02:00 Insulin Aspart (Novolog Insulin Pen) NOVOLOG *MODERATE* ALGORITHM WITH MEALS BEDTIME SC Last administered on 10/09/18 17:37; Admin Dose 2 UNIT; Start 09/28/18 at 08:00 Pantoprazole (Protonix Tab) 40 mg DAILY@06 PO Last administered on 7/3/19at 05:15; Admin Dose 40 MG; Start 09/28/18 at 06:00 Miscellaneous Information 1 ea NOTE XX ; Start 09/28/18 at 03:00 Glucose (Glutose) 15 gm Q15M PRN PO DECREASED GLUCOSE; Start 09/28/18 at 03:00 Glucose (Glutose) 22.5 gm Q15M PRN PO DECREASED GLUCOSE; Start 09/28/18 at 03:00 Dextrose (D50w Syringe) 25 ml Q15M PRN IV DECREASED GLUCOSE; Start 09/28/18 at 03:00 Dextrose (D50w Syringe) 50 ml Q15M PRN IV DECREASED GLUCOSE; Start 09/28/18 at 03:00 Glucagon (Glucagen) 1 mg Q15M PRN IM DECREASED GLUCOSE; Start 09/28/18 at 03:00 Glucose (Glutose) 15 gm Q15M PRN BUCCAL DECREASED GLUCOSE; Start 09/28/18 at 03:00 Insulin Aspart (Novolog Insulin Pen) 13 unit WITH MEALS SC Last administered on 09/30/18at 08:20; Admin Dose 13 UNIT; Start 09/28/18 at 12:00; Status Hold Ferrous Sulfate (Ferrous Sulfate (Ec)) 325 mg TID PO Last administered on 10/09/18 13:14; Admin Dose 325 MG; Start 09/29/18 at 21:00 Insulin Glargine (Lantus) 35 units DAILY@0800 SC Last administered on 10/09/18 08:20; Admin Dose 35 UNITS; Start 10/01/18 at 08:00 Morphine Sulfate (morphine) 2 mg Q4H PRN IV SEVERE PAIN LEVEL 7-10 Last administered on 10/07/18at 23:15; Admin Dose 2 MG; Start 10/01/18 at 01:00 Ceftriaxone Sodium 50 ml @ 100 mls/hr Q24H IVPB Last administered on 10/09/18at 14:38; Admin Dose 100 MLS/HR; Start 10/01/18 at 14:00 Cholecalciferol (Vitamin D) 2,000 unit DAILY PO Last administered on 10/09/18 08:07; Admin Dose 2,000 UNIT; Start 10/01/18 at 12:00 IV Flush (NS 10 ml) 10 ml PRN PRN IV IV PROTOCOL; Start 10/04/18 at 17:00 Polyethylene Glycol (Miralax) 17 gm BID PO Last administered on 10/09/18at 08:07; Admin Dose 17 GM; Start 10/06/18 at 21:00 Bisacodyl (Dulcolax) 10 mg DAILY PRN PO CONSTIPATION; Start 10/06/18 at 15:30 Sodium Hypochlorite (Dakins Diluted (40)) 1 applic DAILY TP ; Start 10/09/18 at 09:00 Collagenase (Santyl) 1 applic DAILY TOP ; Start 10/09/18 at 09:00 JONAH LI MD Oct 09, 2018 19:14
[2018-10-09 20:00] VITALS: BP 125/64; PULSE 98; RESP 17
[2018-10-09] MEDS: ATORVASTATIN 10 MG TAB PO SCH (21:36)
[2018-10-09] MEDS: morphine 2 MG INJ IV PRN (21:52)
[2018-10-10] MEDS: HYDROCODONE/APAP (5/325) TAB PO PRN ×3 (01:34→15:40)
[2018-10-10 02:00] VITALS: BP 111/64; PULSE 90; RESP 18
[2018-10-10] MEDS: ACCU-CHEK XX SCH ×3 (02:00→11:30)
[2018-10-10] MEDS ORDERED: INSULIN ASPART [NOVOLOG] 3 ML PEN SC ONE (02:30)
[2018-10-10] MEDS ORDERED: ACCU-CHEK XX ONE (04:30)
[2018-10-10] MEDS: INSULIN GLARGINE [LANTus] (100 UNITS/ML) SYG SC SCH (08:24)
[2018-10-10] MEDS: INSULIN ASPART [NOVOLOG] 3 ML PEN SC SCH ×2 (08:24→12:00)
[2018-10-10] MEDS: CHOLECALCIFEROL 2,000 UNIT CAP PO SCH (08:25)
[2018-10-10] MEDS: FERROUS SULFATE (EC) 325 MG TAB PO SCH ×2 (08:25→12:45)
[2018-10-10] MEDS: FLUOXETINE 20 MG CAP PO SCH (08:25)
[2018-10-10] MEDS: HEPARIN 5,000 UNIT/1 ML VIAL SC SCH (08:25)
[2018-10-10] MEDS: DAKINS 0.0125%(1/40) 473 ML SOLUTION TP SCH ×2 (08:26→09:00)
[2018-10-10] MEDS: COLLAGENASE 5 GM (UD JAR) TOP SCH ×2 (08:26→09:00)
[2018-10-10] MEDS: LISINOPRIL 5 MG TAB PO SCH (08:26)
[2018-10-10 08:31] VITALS: BP 121/60; PULSE 80; RESP 16
[2018-10-10] MEDS: metFORMIN 500 MG TAB PO SCH (08:39)
[2018-10-10] MEDS ORDERED: POLYETHYLENE GLYCOL 17 GM PACKET PO SCH (09:00)
--- NOTE | 2018-10-10 12:24 | PN ---
Date/Time of Note Date/Time of Note DATE: 10/10/18 TIME: 12:23 Assessment/Plan VTE Prophylaxis Risk score (from Nsg)>0 risk: 5 SCD applied (from Nsg): Yes SCD contraindicated: low risk/ambulating Pharmacological prophylaxis: LMWH Lines/Catheters IV Catheter Type (from Nrsg): PICC Line Central line still needed: Yes Urinary Cath still in place: No Assessment/Plan Hospital Course Hospitalist coverage Assessment and plan 1. Right foot abscess sp I&D. Repeat I&D if indicated. Continue antibiotics/wound care.. Home health arranged. 2. Type 2 diabetes A1c 9.3 3. Metabolic syndrome continue aspirin 4. Hypertension 5. Anemia 6. Likely diabetic neuropathy 7. Likely diabetic retinopathy Subjective: 10/09 no pain dyspnea fever. Limited ambulation. Wheelchair at bedside 10/10 mild pain some serosanguineous discharge. No fever. Objective: Vital signs stable PE No pallor Regular Clear Benign No edema; lower foot dressed intact Result Diagram: 10/09/1851610/09/18516 Results 24hrs Laboratory Tests Test 10/09/18 13:14 10/09/18 17:31 10/09/18 21:34 10/10/18 01:57 Bedside Glucose 165 151 383 H 312 H Test 10/10/18 04:36 10/10/18 08:19 Bedside Glucose 233 H 169 Exam/Review of Systems Exam Vitals Vital Signs Date Temp Pulse Resp B/P (MAP) Pulse Ox O2 O2 Flow FiO2 Time Delivery Rate 10/10/18 97.7 80 16 121/60 95 Room Air 08:31 (80) Intake and Output 10/09/18 10/09/18 10/10/18 1515:00 23:00 07:00 IntakeIntake Total 600 ml 803 ml BalanceBalance 600 ml 803 ml Results Results 24hrs Laboratory Tests Test 10/09/18 13:14 10/09/18 17:31 10/09/18 21:34 10/10/18 01:57 Bedside Glucose 165 151 383 H 312 H Test 10/10/18 04:36 10/10/18 08:19 Bedside Glucose 233 H 169 Medications Medication Current Medications IV Flush (NS 3 ml) 3 ml PER PROTOCOL IV ; Start 09/28/18 at 02:30 Ondansetron HCl (Zofran Inj) 4 mg Q6H PRN IV NAUSEA/VOMITING Last administered on 10/08/18 14:07; Admin Dose 4 MG; Start 09/28/18 at 02:30 Acetaminophen (Tylenol Tab) 650 mg Q6H PRN PO .PAIN 1-3 OR TEMP; Start 09/28/18 at 02:30 Acetaminophen/ Hydrocodone Bitart ([place] (5/325)) 1 tab Q6H PRN PO .MOD PAIN 4- 6 Last administered on 10/10/18 08:34; Admin Dose 1 TAB; Start 09/28/18 at 02:30 Acetaminophen/ Hydrocodone Bitart ([place] (5/325)) 2 tab Q6H PRN PO .SEVERE PAIN 7-10 Last administered on 10/10/18 01:34; Admin Dose 2 TAB; Start 09/28/18 at 02:30 Heparin Sodium (Porcine) (Heparin (5000 Units/1ml)) 5,000 unit Q12 SC Last administered on 10/10/18 08:25; Admin Dose 5,000 UNIT; Start 09/28/18 at 09:00 Albuterol/ Ipratropium (Duoneb) 3 ml Q2H RESP THERAPY PRN HHN SHORTNESS OF BREATH; Start 09/28/18 at 02:30 Atorvastatin Calcium (Lipitor) 10 mg QHS PO Last administered on 10/09/18 21:36; Admin Dose 10 MG; Start 09/28/18 at 21:00 Fluoxetine HCl (Prozac) 20 mg DAILY PO Last administered on 10/10/18 08:25; Admin Dose 20 MG; Start 09/28/18 at 09:00 Lisinopril (Zestril) 5 mg DAILY PO Last administered on 10/10/18 08:26; Admin Dose 5 MG; Start 09/28/18 at 09:00 Metformin HCl (Glucophage) 1,000 mg WITH BREAKFAST DINNE PO Last administered on 10/10/18 08:39; Admin Dose 1,000 MG; Start 09/28/18 at 08:00 Diagnostic Test (Pha) (Accu-Chek) 1 ea AC MEALS AND BEDTIME XX Last administered on 10/09/18 17:30; Admin Dose 1 EA; Start 09/28/18 at 07:00 Diagnostic Test (Pha) (Accu-Chek) 1 ea 02 XX Last administered on 10/02/18at 02:43; Admin Dose 1 EA; Start 09/29/18 at 02:00 Insulin Aspart (Novolog Insulin Pen) NOVOLOG *MODERATE* ALGORITHM WITH MEALS BEDTIME SC Last administered on 10/10/18 08:24; Admin Dose 2 UNIT; Start 09/28/18 at 08:00 Miscellaneous Information 1 ea NOTE XX ; Start 09/28/18 at 03:00 Glucose (Glutose) 15 gm Q15M PRN PO DECREASED GLUCOSE; Start 09/28/18 at 03:00 Glucose (Glutose) 22.5 gm Q15M PRN PO DECREASED GLUCOSE; Start 09/28/18 at 03:00 Dextrose (D50w Syringe) 25 ml Q15M PRN IV DECREASED GLUCOSE; Start 09/28/18 at 03:00 Dextrose (D50w Syringe) 50 ml Q15M PRN IV DECREASED GLUCOSE; Start 09/28/18 at 03:00 Glucagon (Glucagen) 1 mg Q15M PRN IM DECREASED GLUCOSE; Start 09/28/18 at 03:00 Glucose (Glutose) 15 gm Q15M PRN BUCCAL DECREASED GLUCOSE; Start 09/28/18 at 03:00 Insulin Aspart (Novolog Insulin Pen) 13 unit WITH MEALS SC Last administered on 09/30/18 08:20; Admin Dose 13 UNIT; Start 09/28/18 at 12:00; Status Hold Ferrous Sulfate (Ferrous Sulfate (Ec)) 325 mg TID PO Last administered on 10/10/18 08:25; Admin Dose 325 MG; Start 09/29/18 at 21:00 Insulin Glargine (Lantus) 35 units DAILY@0800 SC Last administered on 10/10/18 08:24; Admin Dose 35 UNITS; Start 10/01/18 at 08:00 Morphine Sulfate (morphine) 2 mg Q4H PRN IV SEVERE PAIN LEVEL 7-10 Last administered on 10/09/18 21:52; Admin Dose 2 MG; Start 10/01/18 at 01:00 Ceftriaxone Sodium 50 ml @ 100 mls/hr Q24H IVPB Last administered on 10/09/18 14:38; Admin Dose 100 MLS/HR; Start 10/01/18 at 14:00 Cholecalciferol (Vitamin D) 2,000 unit DAILY PO Last administered on 10/10/18at 08:25; Admin Dose 2,000 UNIT; Start 10/01/18 at 12:00 IV Flush (NS 10 ml) 10 ml PRN PRN IV IV PROTOCOL; Start 10/04/18 at 17:00 Bisacodyl (Dulcolax) 10 mg DAILY PRN PO CONSTIPATION; Start 10/06/18 at 15:30 Sodium Hypochlorite (Dakins Diluted (40)) 1 applic DAILY TP ; Start 10/09/18 at 09:00 Collagenase (Santyl) 1 applic DAILY TOP ; Start 10/09/18 at 09:00 Polyethylene Glycol (Miralax) 17 gm DAILY PO Last administered on 10/10/18at 08:26; Admin Dose 17 GM; Start 10/10/18 at 09:00 JONAH LI MD Oct 10, 2018 12:24
[2018-10-10] MEDS ORDERED: LACTOBACILLUS RHAMNOSUS CAP PO SCH (12:30)
[2018-10-10] MEDS: CEFTRIAXONE 2 GM/50 ML (PMX) 50 ML IVPB SCH (13:37)
--- NOTE | 2018-10-10 14:59 | PDOCDIS ---
Discharge Instructions CONDITION [id number] Patient Condition: [id number] Stable HOME CARE INSTRUCTIONS: [id number] Diet Instructions: [id number] Activity Restrictions: [id number] Slowly Increase Activity Rest between Activity FOLLOW UP/APPOINTMENTS Follow-up Plan attp Dr Abdirahman Vaughn 1wk Primary 1-2wks JONAH LI MD Oct 10, 2018 14:59
[2018-10-10 15:12] VITALS: BP 144/73; PULSE 79; RESP 19
[2018-10-10 15:14] VITALS: BP 118/70; PULSE 86; RESP 19
[2018-10-10] MEDS ORDERED: INSULIN ASPART [NOVOLOG] 3 ML PEN SC SCH (18:00)
== END 2018-10-10 16:45 | disposition home health service (06) | DRG 504 ==
LOC: E/R 19:04 → 2NE 19:48
PROVIDERS: ADMIT Internal Medicine; ATTEND Internal Medicine
PROC: 30233N1 Transfusion of Nonautologous Red Blood Cells into Peripheral Vein, Percutaneous Approach (ICD-10-PCS; 2018-09-27)
PROC: 0Y9K0ZZ Drainage of Right Ankle Region, Open Approach (ICD-10-PCS; principal; 2018-09-28)
PROC: 30233N1 Transfusion of Nonautologous Red Blood Cells into Peripheral Vein, Percutaneous Approach (ICD-10-PCS; 2018-09-28)
PROC: 0QBL0ZZ Excision of Right Tarsal, Open Approach (ICD-10-PCS; 2018-10-03)
PROC: 02HV33Z Insertion of Infusion Device into Superior Vena Cava, Percutaneous Approach (ICD-10-PCS; 2018-10-04)
DX: M65.071 Abscess of tendon sheath, right ankle and foot (principal); M86.671 Other chronic osteomyelitis, right ankle and foot; E11.621 Type 2 diabetes mellitus with foot ulcer; E11.610 Type 2 diabetes mellitus with diabetic neuropathic arthropathy; E11.42 Type 2 diabetes mellitus with diabetic polyneuropathy; E66.01 Morbid (severe) obesity due to excess calories; E11.69 Type 2 diabetes mellitus with other specified complication; E11.65 Type 2 diabetes mellitus with hyperglycemia; E87.5 Hyperkalemia; L97.519 Non-pressure chronic ulcer of other part of right foot with unspecified severity; B95.61 Methicillin susceptible Staphylococcus aureus infection as the cause of diseases classified elsewhere; I10 Essential (primary) hypertension; E78.5 Hyperlipidemia, unspecified; I73.9 Peripheral vascular disease, unspecified; F32.9 Major depressive disorder, single episode, unspecified; D50.9 Iron deficiency anemia, unspecified; Z68.39 Body mass index [BMI] 39.0-39.9, adult; Z79.4 Long term (current) use of insulin
CPT/HCPCS: 36430; 36569; 71045; 73630; 73718; 76937; 80048; 80053; 80061; 80202; 81001; 81003; 82270; 82306; 82652; 82947; 82962; 83036; 83540; 83605; 83735; 84100; 84132; 84484; 84703; 85025; 85610; 85651; 85730; 86140; 86850; 86900; 86901; 86920; 87070; 87075; 87081; 87086; 87102; 87116; 93005; 96374; 96375; 97110; 97116; 97162; 97530; 97542; A4310; J0690; J0696; J1170; J1644; J1815; J1885; J2250; J2270; J2405; J2543; J2795; J3010; J3370; J3475; J7030; J7040; J7050; P9016

== ENCOUNTER 2018-11-20 15:18 | Emergency (ER) | payer OTHER ==
[~2018-11-20] VITALS: Ht 160 cm; Wt 95.8 kg
[~2018-11-20 15:18] MED LIST changes: +ENAL10TA PO; +GLIM4TAB PO; -HYDR-3601 PO; +INSU100C SQ
[2018-11-20 15:23] VITALS: Ht 160 cm; Wt 95.8 kg
[2018-11-20] MEDS ORDERED: CEFEPIME 2GM/50 ML (PMX) 50 ML IVPB STA (15:43)
[2018-11-20] MEDS ORDERED: SODIUM CHLORIDE 0.9% 1L BAG IV* STA (15:43)
[2018-11-20] MEDS ORDERED: VANCOMYCIN 1 GM (PMX) 250 ML IVPB ONE (16:00)
--- NOTE | 2018-11-20 16:22 | ERD ---
ER Documentation Chief Complaint Chief Complaint referred by PMD for PICC line removal HPI 53-year-old female with a history of hypertension and diabetes recently treated for diabetic wound sent here by her primary care physician for PICC line removal. Patient states that she feels great and her symptoms have significantly improved. The wound has closed on her right foot. She denies any chest pain or shortness of breath. She occasionally has felt some pain at the PICC line site but currently denies any pain. No fevers or chills. ROS All systems reviewed and are negative except as per history of present illness. Medications Home Meds Reported Medications Insulin Lispro (Humalog) 100 Unit/1 Ml Cartridge, 10 UNIT SQ WITH MEALS, EA 11/20/18 Metformin Hcl* (Metformin Hcl*) 1,000 Mg Tablet, 1000 MG PO WITH BREAKFAST DINNE, #60 TAB 11/20/18 Glimepiride* (Glimepiride*) 4 Mg Tablet, 4 MG PO WITH BREAKFAST DINNE, TAB 11/20/18 Fluoxetine Hcl* (Fluoxetine Hcl*) 20 Mg Capsule, 20 MG PO DAILY, CAP 11/20/18 Omeprazole* (Omeprazole*) 40 Mg Capsule.dr, 40 MG PO DAILY, #30 CAP 11/20/18 Insulin Glargine,Hum.rec.anlog (Basaglar Kwikpen U-100) 100 Unit/1 Ml Insuln.pen, 60 UNIT SC QHS, EA 11/20/18 Atorvastatin Calcium (Atorvastatin Calcium) 10 Mg Tablet, 10 MG PO QHS, #30 TAB 11/20/18 Discontinued Reported Medications Insulin Glargine,Hum.rec.anlog (Basaglar Kwikpen U-100) 100 Unit/1 Ml Insuln.pen, 60 UNIT SC QHS, EA 10/09/17 Omeprazole* (Omeprazole*) 40 Mg Capsule.dr, 40 MG PO DAILY, #30 CAP 10/09/17 Fluoxetine Hcl* (Fluoxetine Hcl*) 20 Mg Capsule, 20 MG PO DAILY, CAP 05/24/17 Metformin Hcl* (Metformin Hcl*) 1,000 Mg Tablet, 1000 MG PO WITH BREAKFAST DINNE, #60 TAB 05/24/17 Atorvastatin Calcium (Atorvastatin Calcium) 10 Mg Tablet, 10 MG PO QHS, #30 TAB 05/24/17 Lisinopril* (Lisinopril*) 5 Mg Tablet, 5 MG PO DAILY, #30 TAB 05/24/17 Glipizide* (Glipizide*) 10 Mg Tablet, 10 MG PO AC BREAKFAST DINNER, TAB 05/24/17 Allergies Allergies: Coded Allergies: No Known Allergy (Unverified , 11/20/18) PMhx/Soc History of Surgery: Yes (July 05 Right Foot surgery. 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 Neck: Full range of motion. No meningismus. Resp: Clear to auscultation bilaterally Cardio: Tachycardic with regular rhythm, no murmurs. 2+ distal pulses in all 4 extremities Abd: Soft, non tender, non distended. Normal bowel sounds Skin: No petechiae or rashes Back: No midline or flank tenderness Ext: No cyanosis, or edema. Right upper extremity PICC line in place, no surrounding erythema. No tenderness to palpation of upper extremity. Right foot wound healing well Neur: Awake and alert Psych: Normal Mood and Affect Result Diagram: 11/20/18 1549 11/20/18 1549 Results 24 hrs Laboratory Tests Test 11/20/18 15:49 11/20/18 16:13 White Blood Count 11.0 10^3/ul Red Blood Count 3.57 10^6/ul Hemoglobin 9.3 g/dl Hematocrit 30.3 % Mean Corpuscular Volume 84.9 fl Mean Corpuscular Hemoglobin 26.1 pg Mean Corpuscular Hemoglobin Concent 30.7 g/dl Red Cell Distribution Width 17.4 % Platelet Count 384 10^3/UL Mean Platelet Volume 10.5 fl Immature Granulocytes % 0.400 % Neutrophils % 65.1 % Lymphocytes % 26.0 % Monocytes % 6.8 % Eosinophils % 1.4 % Basophils % 0.3 % Nucleated Red Blood Cells % 0.0 /100WBC Immature Granulocytes # 0.040 10^3/ul Neutrophils # 7.2 10^3/ul Lymphocytes # 2.9 10^3/ul Monocytes # 0.8 10^3/ul Eosinophils # 0.2 10^3/ul Basophils # 0.0 10^3/ul Nucleated Red Blood Cells # 0.0 10^3/ul Prothrombin Time 13.2 Sec Prothrombin Time Ratio 1.0 INR International Normalized Ratio 0.99 Activated Partial Thromboplast Time 35.6 Sec Sodium Level 137 mmol/L Potassium Level 4.9 mmol/L Chloride Level 101 mmol/L Carbon Dioxide Level 24 mmol/L Anion Gap 12 Blood Urea Nitrogen 12 mg/dl Creatinine 0.66 mg/dl Est Glomerular Filtrat Rate mL/min > 60 mL/min Glucose Level 351 mg/dl Calcium Level 9.5 mg/dl Total Bilirubin 0.4 mg/dl Direct Bilirubin 0.00 mg/dl Indirect Bilirubin 0.4 mg/dl Aspartate Amino Transf (AST/SGOT) 18 IU/L Alanine Aminotransferase (ALT/SGPT) 25 IU/L Alkaline Phosphatase 148 IU/L Troponin I < 0.012 ng/ml Total Protein 8.8 g/dl Albumin 4.0 g/dl Globulin 4.80 g/dl Albumin/Globulin Ratio 0.83 POC Venous Lactate 2.2 mmol/L Current Medications Medications Dose Sig/Rachel Start Time Status Last (Trade) Ordered Route PRN Stop Time Admin Dose Reason Admin Sodium 1,570 ml BOLUS OVER 2 11/20/18 DC 11/20/18 Chloride HOURS STAT 15:43 15:53 (NS) IV* 11/20/18 15:45 Cefepime HCl 50 ml @ ONCE STAT 11/20/18 DC 11/20/18 100 mls/hr IVPB 15:43 15:53 11/20/18 16:12 Vancomycin 250 ml @ ONCE ONCE 11/20/18 11/20/18 HCl 125 mls/hr IVPB 16:00 16:53 11/20/18 17:59 Procedures/MDM EMERGENT LABS AND DIAGNOSTIC STUDIES: Lab Results above were reviewed and interpreted by me. CBC: Mild chronic anemia. no evidence of infection CMP: Hyperglycemic. No evidence of clinically significant electrolyte abnormality, acidosis, renal failure, liver disease, or biliary obstruction Lactate slightly elevated, likely secondary to dehydration and tissue hypoperfusion. 12-lead EKG was interpreted by Sariah Rodriguez MD: Sinus tachycardia at 112 bpm Normal axis Normal intervals No acute ST or T wave changes suggestive of acute ischemia or STEMI. Radiology Results as interpreted by Radiology below were reviewed by Isak Rodriguez MD: Chest x-ray shows right lower lung infiltrate versus atelectasis Initial Nursing notes reviewed. Previous Medical Records requested via the Electronic Health Record. EMERGENCY DEPARTMENT COURSE / MEDICAL DECISION MAKING: Patient is presenting with sinus tachycardia requesting PICC line removal. She is completely asymptomatic and feeling well. Sepsis work-up was initiated but there is no clear source of infection. She was given broad-spectrum antibiotics given she is at high risk for PICC line infection and bacteremia. PICC line was removed and the tip was sent for culture. Blood cultures are pending at this time. I have a low suspicion for severe sepsis or septic shock. I have a low suspicion for PE. Patient is stable for discharge although she remains slightly tachycardic, which may be secondary to dehydration . Strict return precautions were discussed with her. She feels comfortable with discharge plan. she will be called back if her blood cultures come back abnormal. Patient's blood pressure was elevated (>120/80) but appears stable without evidence of hypertensive emergency or urgency. The patient was counseled about the risks of hypertension and urged to pursue outpatient monitoring and therapy within a week with their primary care physician. Departure Diagnosis: Primary Impression: PIC line (peripherally inserted central catheter) removal Additional Impression: Tachycardia Condition: MIKE Cole MD Nov 20, 2018 16:22
[2018-11-20 19:15] VITALS: BP 147/89; PULSE 107; RESP 20
== END 2018-11-20 19:15 | disposition home or self-care (01) ==
LOC: E/R 15:18
DX: R00.0 Tachycardia, unspecified (principal); I10 Essential (primary) hypertension; E11.9 Type 2 diabetes mellitus without complications; R06.02 Shortness of breath; Z79.4 Long term (current) use of insulin
CPT/HCPCS: 36415; 71045; 80053; 83605; 84484; 85025; 85610; 85730; 87040; 87070; 93005; 96374; 96375; J0692; J3370; J7030; Z7502

== ENCOUNTER 2018-11-27 17:15 | Inpatient (IN) | payer OTHER ==
[~2018-11-27] VITALS: Ht 157.5 cm; Wt 100.0 kg
[~2018-11-27 17:15] MED LIST changes: +CEFT1PIG2 IVPB; +CIPR500T4 PO; -GLIP10TA14 PO; +HYDR-3601 PO
[2018-11-27] MEDS ORDERED: LACTATED RINGER'S 1,000 ML IV STA (18:02)
[2018-11-27] MEDS ORDERED: KETOROLAC 15 MG INJ IV STA (18:02)
[2018-11-27] MEDS ORDERED: VANCOMYCIN 1 GM (PMX) 250 ML IVPB ONE (18:30)
[2018-11-27] MEDS ORDERED: VANCOMYCIN IV PER PHARMACY XX SCH (20:00)
[2018-11-27] MEDS ORDERED: ACETAMINOPHEN 325 MG TAB PO PRN (20:00)
[2018-11-27] MEDS ORDERED: NACL 0.9% 3 ML SYG IV SCH (20:00)
[2018-11-27] MEDS ORDERED: SOD CHLORIDE 0.9% 1,000 ML IV STA (20:23)
[2018-11-27] MEDS ORDERED: MEROPENEM 1 GM/50ML(PMX) 50 ML IVPB SCH (21:00)
[2018-11-27] MEDS ORDERED: INSULIN GLARGINE [LANtus] 3 ML PEN SC SCH (21:00)
[2018-11-27] MEDS: INSULIN ASPART [NOVOLOG] 3 ML PEN SC SCH (21:00)
[2018-11-27] MEDS ORDERED: VANCOMYCIN 750 MG (PMX) 250 ML IVPB ONE (21:00)
[2018-11-27] MEDS: morphine 2 MG INJ IV PRN (21:24)
[2018-11-27] MEDS: ONDANSETRON 4 MG INJ IV PRN (21:24)
[2018-11-27] MEDS: HEPARIN 5,000 UNIT/1 ML VIAL SC SCH (22:58)
[2018-11-27] MEDS: ATORVASTATIN 10 MG TAB PO SCH (22:58)
[2018-11-28] MEDS: PIPER-TAZO 3.375 GM IV (PMX) 100 ML IVPB SCH ×4 (00:10→18:52)
[2018-11-28] MEDS: ACCU-CHEK XX SCH (02:12)
[2018-11-28] MEDS: morphine 2 MG INJ IV PRN ×5 (02:15→23:51)
[2018-11-28 05:13] VITALS: Ht 157.5 cm; Wt 100.0 kg
[2018-11-28 05:18] VITALS: BP 128/66; PULSE 96; RESP 16
[2018-11-28] MEDS: PANTOPRAZOLE (EC) 40 MG TAB PO SCH (05:56)
[2018-11-28] MEDS: HEPARIN 5,000 UNIT/1 ML VIAL SC SCH ×2 (06:11→20:43)
[2018-11-28] MEDS ORDERED: DEXTROSE 50% 50 ML SYRINGE IV PRN ×2 (07:30)
[2018-11-28] MEDS ORDERED: GLUCOSE GEL 15 GRAM TUBE BUCCAL PRN (07:30)
[2018-11-28] MEDS ORDERED: GLUCAGON 1 MG INJ IM PRN (07:30)
[2018-11-28] MEDS ORDERED: GLUCOSE GEL 15 GRAM TUBE PO PRN ×2 (07:30)
[2018-11-28] MEDS: INSULIN ASPART [NOVOLOG] 3 ML PEN SC SCH ×7 (08:00→20:37)
[2018-11-28] MEDS ORDERED: PENDING SANTYL ORDER FOR WOUND CARE XX PRN (08:00)
[2018-11-28 08:17] VITALS: BP 115/77; PULSE 90; RESP 20
[2018-11-28] MEDS: FLUOXETINE 20 MG CAP PO SCH (08:17)
[2018-11-28] MEDS: LISINOPRIL 5 MG TAB PO SCH (08:18)
[2018-11-28] MEDS: VANCOMYCIN 1.25 GM/NS 250 ML 250 ML IVPB SCH ×2 (10:04→23:51)
[2018-11-28] MEDS ORDERED: COLLAGENASE 5 GM (UD JAR) TOP PRN (10:30)
[2018-11-28] MEDS ORDERED: SOD CHLORIDE 0.9% 250 ML IV* ONE (12:24)
[2018-11-28] MEDS: SOD CHLORIDE 0.9% 1,000 ML IV SCH ×2 (13:01→22:30)
[2018-11-28 15:06] VITALS: BP 114/69; PULSE 100; RESP 20
[2018-11-28 15:10] VITALS: BP 111/55; PULSE 96; RESP 18
[2018-11-28] MEDS: COLLAGENASE 5 GM (UD JAR) TOP SCH (15:28)
[2018-11-28 15:41] VITALS: BP 121/58; PULSE 91; RESP 18
[2018-11-28 20:35] VITALS: BP 129/65; PULSE 95; RESP 20
[2018-11-28] MEDS: ATORVASTATIN 10 MG TAB PO SCH (20:36)
[2018-11-28] MEDS: INSULIN GLARGINE [LANTus] (100 UNITS/ML) SYG SC SCH (22:07)
[2018-11-29] VITALS (16 sets, daily range): BP systolic 101–166; BP diastolic 57–83; PULSE 80–103; RESP 11–18
[2018-11-29] MEDS ORDERED: SOD CHLORIDE 0.9% 1,000 ML IV SCH
[2018-11-29] MEDS ORDERED: INSULIN ASPART [NOVOLOG] 3 ML PEN SC SCH ×2 (01:00→08:00)
[2018-11-29] MEDS: ACCU-CHEK XX SCH (02:00)
[2018-11-29] MEDS ORDERED: ACCU-CHEK XX SCH ×2 (02:00)
[2018-11-29] MEDS: PIPER-TAZO 3.375 GM IV (PMX) 100 ML IVPB SCH ×4 (02:03→18:00)
[2018-11-29] MEDS: PANTOPRAZOLE (EC) 40 MG TAB PO SCH (05:23)
[2018-11-29] MEDS: Insulin NOVOLOG SS MILD Algorithm (NPO/TPN/ENTERAL FEEDS) SC SCH ×4 (08:08→20:00)
[2018-11-29] MEDS: INSULIN ASPART [NOVOLOG] 3 ML PEN SC SCH ×6 (08:08→22:29)
[2018-11-29] MEDS: SOD CHLORIDE 0.9% 1,000 ML IV SCH ×3 (08:30→12:32)
[2018-11-29] MEDS: morphine 2 MG INJ IV PRN (08:34)
[2018-11-29] MEDS: FLUOXETINE 20 MG CAP PO SCH (08:34)
[2018-11-29] MEDS: LISINOPRIL 5 MG TAB PO SCH (08:35)
[2018-11-29] MEDS: COLLAGENASE 5 GM (UD JAR) TOP SCH (08:35)
[2018-11-29] MEDS: HEPARIN 5,000 UNIT/1 ML VIAL SC SCH (09:00)
[2018-11-29] MEDS: VANCOMYCIN 1.25 GM/NS 250 ML 250 ML IVPB SCH ×2 (12:17→22:24)
[2018-11-29] MEDS ORDERED: FLUCONAZOLE 200 MG TAB PO ONE (15:00)
[2018-11-29] MEDS: FLUCONAZOLE 200 MG (PMX) 100 ML IVPB ONE ×2 (16:39→18:28)
[2018-11-29] MEDS ORDERED: FENTAnyl 50 MCG/ML VIAL ONE (20:17)
[2018-11-29] MEDS ORDERED: MIDAZOLAM 1 MG/ML 2 ML INJ ONE (20:17)
[2018-11-29] MEDS ORDERED: LIDOCAINE 2% (SDV) 5 ML INJ ONE (20:49)
[2018-11-29] MEDS ORDERED: PROPOFOL 20 ML ONE (20:49)
[2018-11-29] MEDS ORDERED: CEFAZOLIN 1 GM INJ ONE (20:50)
[2018-11-29] MEDS ORDERED: ONDANSETRON 4 MG INJ ONE (20:51)
[2018-11-29] MEDS ORDERED: MEPERIDINE 25 MG INJ IV PRN (21:00)
[2018-11-29] MEDS ORDERED: DIPHENHYDRAMINE 50 MG INJ IV PRN (21:00)
[2018-11-29] MEDS ORDERED: ONDANSETRON 4 MG INJ IV PRN (21:00)
[2018-11-29] MEDS ORDERED: HYDROmorphONE 1 MG/5 ML IV SYRINGE IV PRN ×2 (21:00)
[2018-11-29] MEDS ORDERED: FENTAnyl 50 MCG/ML VIAL IV PRN (21:00)
[2018-11-29] MEDS ORDERED: POLYMYXIN/BACITRACIN 1L IRRIG ONE (21:18)
[2018-11-29] MEDS: HYDROCODONE/APAP (5/325) TAB PO PRN (22:24)
[2018-11-29] MEDS: ATORVASTATIN 10 MG TAB PO SCH (22:24)
[2018-11-29] MEDS: INSULIN GLARGINE [LANTus] (100 UNITS/ML) SYG SC SCH (22:28)
[2018-11-30] MEDS: morphine 2 MG INJ IV PRN ×4 (01:43→23:35)
[2018-11-30] MEDS: ACCUCHECK AT 2AM (Patients on SS coverage) XX SCH (02:01)
[2018-11-30 02:06] VITALS: BP 112/63; PULSE 92; RESP 18
[2018-11-30] MEDS: PIPER-TAZO 3.375 GM IV (PMX) 100 ML IVPB SCH ×3 (02:49→12:28)
[2018-11-30] MEDS: HYDROCODONE/APAP (5/325) TAB PO PRN (04:35)
[2018-11-30] MEDS: SOD CHLORIDE 0.9% 1,000 ML IV SCH ×3 (05:38→23:35)
[2018-11-30] MEDS: PANTOPRAZOLE (EC) 40 MG TAB PO SCH (05:38)
[2018-11-30] MEDS: INSULIN ASPART [NOVOLOG] 3 ML PEN SC SCH ×7 (07:30→20:34)
[2018-11-30 08:00] VITALS: BP 116/61; PULSE 82; RESP 17
[2018-11-30] MEDS: LISINOPRIL 5 MG TAB PO SCH (08:43)
[2018-11-30] MEDS: FLUOXETINE 20 MG CAP PO SCH (08:43)
[2018-11-30] MEDS: COLLAGENASE 5 GM (UD JAR) TOP SCH (08:58)
[2018-11-30] MEDS: VANCOMYCIN 1.25 GM/NS 250 ML 250 ML IVPB SCH (09:13)
[2018-11-30] MEDS: DOCUSATE SODIUM 100 MG CAP PO PRN (12:27)
[2018-11-30 14:00] VITALS: BP 115/66; PULSE 89; RESP 17
[2018-11-30] MEDS: SOD FERRIC GLUC COMPLX 125 MG in SOD CHLORIDE 0.9% 100 ML IVPB SCH (15:09)
[2018-11-30] MEDS: CIPROFLOXACIN 500 MG TAB PO SCH (17:27)
[2018-11-30] MEDS: CEFTRIAXONE 2 GM/50 ML (PMX) 50 ML IVPB SCH (17:27)
[2018-11-30 20:00] VITALS: BP 128/64; PULSE 93; RESP 17
[2018-11-30] MEDS: ATORVASTATIN 10 MG TAB PO SCH (20:33)
[2018-11-30] MEDS: INSULIN GLARGINE [LANTus] (100 UNITS/ML) SYG SC SCH (20:34)
[2018-12-01] MEDS: SOD CHLORIDE 0.9% 1,000 ML IV SCH ×2 (01:32→11:10)
[2018-12-01] MEDS: ACCUCHECK AT 2AM (Patients on SS coverage) XX SCH (01:53)
[2018-12-01 02:00] VITALS: BP 106/66; PULSE 68; RESP 17
[2018-12-01] MEDS: CIPROFLOXACIN 500 MG TAB PO SCH ×2 (05:50→17:09)
[2018-12-01] MEDS: PANTOPRAZOLE (EC) 40 MG TAB PO SCH (05:50)
[2018-12-01] MEDS: INSULIN ASPART [NOVOLOG] 3 ML PEN SC SCH ×6 (07:30→21:00)
[2018-12-01 08:09] VITALS: BP 119/63; PULSE 89; RESP 16
[2018-12-01] MEDS: BISACODYL (EC) 5 MG TAB PO PRN (08:39)
[2018-12-01] MEDS: FLUOXETINE 20 MG CAP PO SCH (08:39)
[2018-12-01] MEDS: DOCUSATE SODIUM 100 MG CAP PO PRN ×2 (08:39→23:02)
[2018-12-01] MEDS: LISINOPRIL 5 MG TAB PO SCH (08:39)
[2018-12-01] MEDS: morphine 2 MG INJ IV PRN ×2 (08:45→22:49)
[2018-12-01] MEDS: COLLAGENASE 5 GM (UD JAR) TOP SCH (11:08)
[2018-12-01] MEDS: SOD FERRIC GLUC COMPLX 125 MG in SOD CHLORIDE 0.9% 100 ML IVPB SCH (13:31)
[2018-12-01] MEDS: FLUCONAZOLE 100 MG TAB PO SCH (13:31)
[2018-12-01 14:45] VITALS: BP 112/56; PULSE 91; RESP 18
[2018-12-01] MEDS: CEFTRIAXONE 2 GM/50 ML (PMX) 50 ML IVPB SCH (16:50)
[2018-12-01 20:02] VITALS: BP 139/70; PULSE 92; RESP 18
[2018-12-01] MEDS: INSULIN GLARGINE [LANTus] (100 UNITS/ML) SYG SC SCH (21:17)
[2018-12-01] MEDS: ATORVASTATIN 10 MG TAB PO SCH (21:18)
[2018-12-02] MEDS: ACCUCHECK AT 2AM (Patients on SS coverage) XX SCH (02:00)
[2018-12-02 02:07] VITALS: BP 121/60; PULSE 95; RESP 18
[2018-12-02] MEDS: PANTOPRAZOLE (EC) 40 MG TAB PO SCH (06:08)
[2018-12-02] MEDS: CIPROFLOXACIN 500 MG TAB PO SCH ×2 (06:08→17:41)
[2018-12-02] MEDS: morphine 2 MG INJ IV PRN ×2 (06:08→15:37)
[2018-12-02] MEDS: INSULIN ASPART [NOVOLOG] 3 ML PEN SC SCH ×7 (07:30→21:48)
[2018-12-02] MEDS: FLUOXETINE 20 MG CAP PO SCH (08:34)
[2018-12-02] MEDS: LISINOPRIL 5 MG TAB PO SCH (08:34)
[2018-12-02] MEDS: FLUCONAZOLE 100 MG TAB PO SCH (08:34)
[2018-12-02] MEDS: ONDANSETRON 4 MG INJ IV PRN (08:35)
[2018-12-02] MEDS: BISACODYL (EC) 5 MG TAB PO PRN (08:38)
[2018-12-02] MEDS: DOCUSATE SODIUM 100 MG CAP PO PRN (08:39)
[2018-12-02] MEDS: COLLAGENASE 5 GM (UD JAR) TOP SCH (09:00)
[2018-12-02] MEDS: SOD FERRIC GLUC COMPLX 125 MG in SOD CHLORIDE 0.9% 100 ML IVPB SCH (13:27)
[2018-12-02 14:00] VITALS: BP 127/80; PULSE 88; RESP 18
[2018-12-02] MEDS: CEFTRIAXONE 2 GM/50 ML (PMX) 50 ML IVPB SCH (17:33)
[2018-12-02 20:00] VITALS: BP 135/69; PULSE 89; RESP 19
[2018-12-02] MEDS: ATORVASTATIN 10 MG TAB PO SCH (21:24)
[2018-12-02] MEDS: INSULIN GLARGINE [LANTus] (100 UNITS/ML) SYG SC SCH (21:44)
[2018-12-03] MEDS: morphine 2 MG INJ IV PRN ×3 (00:35→20:36)
[2018-12-03 02:00] VITALS: BP 115/58; PULSE 85; RESP 19
[2018-12-03] MEDS: ACCUCHECK AT 2AM (Patients on SS coverage) XX SCH (02:00)
[2018-12-03] MEDS: ACCU-CHEK XX SCH (02:00)
[2018-12-03] MEDS: CIPROFLOXACIN 500 MG TAB PO SCH ×2 (06:19→17:11)
[2018-12-03] MEDS: PANTOPRAZOLE (EC) 40 MG TAB PO SCH (06:19)
[2018-12-03] MEDS: INSULIN ASPART [NOVOLOG] 3 ML PEN SC SCH ×7 (07:59→20:47)
[2018-12-03 08:04] VITALS: BP 135/80; PULSE 86; RESP 18
[2018-12-03] MEDS: COLLAGENASE 5 GM (UD JAR) TOP SCH (09:00)
[2018-12-03] MEDS: FLUOXETINE 20 MG CAP PO SCH (09:26)
[2018-12-03] MEDS: LISINOPRIL 5 MG TAB PO SCH (09:26)
[2018-12-03] MEDS: FLUCONAZOLE 100 MG TAB PO SCH (09:26)
[2018-12-03 14:15] VITALS: BP 134/75; PULSE 80; RESP 16
[2018-12-03] MEDS: CEFTRIAXONE 2 GM/50 ML (PMX) 50 ML IVPB SCH (15:30)
[2018-12-03 20:00] VITALS: BP 114/72; PULSE 85; RESP 18
[2018-12-03] MEDS: ATORVASTATIN 10 MG TAB PO SCH (20:41)
[2018-12-03] MEDS: INSULIN GLARGINE [LANTus] (100 UNITS/ML) SYG SC SCH (20:45)
[2018-12-04 02:00] VITALS: BP 117/72; PULSE 91; RESP 17
[2018-12-04] MEDS: ACCUCHECK AT 2AM (Patients on SS coverage) XX SCH (02:00)
[2018-12-04] MEDS: ACCU-CHEK XX SCH (02:00)
[2018-12-04] MEDS: PANTOPRAZOLE (EC) 40 MG TAB PO SCH (06:00)
[2018-12-04] MEDS: CIPROFLOXACIN 500 MG TAB PO SCH ×2 (06:00→17:52)
[2018-12-04 07:49] VITALS: BP 111/56; PULSE 82; RESP 16
[2018-12-04] MEDS: INSULIN ASPART [NOVOLOG] 3 ML PEN SC SCH ×7 (08:20→21:09)
[2018-12-04] MEDS: morphine 2 MG INJ IV PRN ×3 (08:44→21:03)
[2018-12-04] MEDS: FLUOXETINE 20 MG CAP PO SCH (08:45)
[2018-12-04] MEDS: FLUCONAZOLE 100 MG TAB PO SCH (08:45)
[2018-12-04] MEDS: LISINOPRIL 5 MG TAB PO SCH (08:45)
[2018-12-04] MEDS: COLLAGENASE 5 GM (UD JAR) TOP SCH (09:00)
[2018-12-04 14:03] VITALS: BP 131/70; PULSE 90; RESP 16
[2018-12-04] MEDS ORDERED: DAKINS 0.0125%(1/40) 473 ML SOLUTION TP SCH (14:30)
[2018-12-04] MEDS: CEFTRIAXONE 2 GM/50 ML (PMX) 50 ML IVPB SCH (16:36)
[2018-12-04 20:46] VITALS: BP 105/66; PULSE 92; RESP 18
[2018-12-04] MEDS: ATORVASTATIN 10 MG TAB PO SCH (21:04)
[2018-12-04] MEDS: INSULIN GLARGINE [LANTus] (100 UNITS/ML) SYG SC SCH (21:08)
== END 2018-12-04 22:09 | disposition home health service (06) | DRG 872 ==
LOC: E/R 17:15 → PP2 19:11
PROVIDERS: ADMIT Family Medicine; ATTEND Internal Medicine
PROC: 30233N1 Transfusion of Nonautologous Red Blood Cells into Peripheral Vein, Percutaneous Approach (ICD-10-PCS; 2018-11-28)
PROC: 0Y9K0ZX Drainage of Right Ankle Region, Open Approach, Diagnostic (ICD-10-PCS; principal; 2018-11-29 18:30)
DX: A41.9 Sepsis, unspecified organism (principal); Z68.41 Body mass index [BMI] 40.0-44.9, adult; B37.41 Candidal cystitis and urethritis; M86.661 Other chronic osteomyelitis, right tibia and fibula; L03.115 Cellulitis of right lower limb; R65.20 Severe sepsis without septic shock; E11.621 Type 2 diabetes mellitus with foot ulcer; E11.40 Type 2 diabetes mellitus with diabetic neuropathy, unspecified; E88.81 Metabolic syndrome and other insulin resistance; E11.610 Type 2 diabetes mellitus with diabetic neuropathic arthropathy; E11.69 Type 2 diabetes mellitus with other specified complication; E11.319 Type 2 diabetes mellitus with unspecified diabetic retinopathy without macular edema; D47.3 Essential (hemorrhagic) thrombocythemia; E66.01 Morbid (severe) obesity due to excess calories; I10 Essential (primary) hypertension; E78.5 Hyperlipidemia, unspecified; I73.9 Peripheral vascular disease, unspecified; D63.8 Anemia in other chronic diseases classified elsewhere; F32.9 Major depressive disorder, single episode, unspecified; D50.9 Iron deficiency anemia, unspecified; Z79.4 Long term (current) use of insulin; E86.0 Dehydration; B95.61 Methicillin susceptible Staphylococcus aureus infection as the cause of diseases classified elsewhere
CPT/HCPCS: 36415; 36430; 36573; 71045; 73630; 73718; 73721; 80053; 80061; 80202; 81001; 82962; 83540; 83605; 83690; 84443; 84484; 84703; 85025; 85610; 85651; 85730; 86140; 86850; 86900; 86901; 86920; 87070; 87086; 88304; 93005; 96365; 96375; J0690; J0696; J1644; J1815; J1885; J2185; J2250; J2270; J2405; J2543; J2916; J3010; J3370; J7030; J7040; J7120; P9016